=== PATIENT | female | born 1935 | race Caucasian/White ===

== ENCOUNTER 2017-10-18 06:56 | Inpatient (IN) | payer OTHER ==
[2017-10-04 12:24] VITALS: BMI 22.0
--- NOTE | 2017-10-04 13:07 | PAT Medication Instructions ---
Service Date Oct 04, 2017. Current Home Medication List Acetaminophen Tab (Tylenol), 650 MG PO Q6 PRN for Pain or Fever Aspirin (Aspir-81), 81 MG PO QAM Atorvastatin (Lipitor), 40 MG PO HS Cholecalciferol (Vitamin D3), 1 TAB PO QAM Diclofenac Sodium (Topical) (Diclofenac Sodium), 1 APPLN EX QID Felodipine (Felodipine ER), 10 MG PO QAM Fish Oil ([place]-3), 1 CAP PO QAM Folic Acid (Folic Acid), 1 MG PO QAM Hydroxychloroquine Sulfate (Plaquenil), 200 MG PO QAM Metoprolol Tartrate (Lopressor) (Lopressor), 12.5 MG PO BID Nitroglycerin (Nitrostat), 0.4 MG UT PRN Oxycodone HCl (Oxycodone HCl), 1 TAB PO TID Oxycodone/Acetaminophen 5MG/325MG (Percocet 5MG/325MG), 1 TABLET PO Q4H PRN for Pain Pantoprazole (Protonix), 40 MG PO QAM Prednisone Tab (Prednisone), 10-30 MG PO QAM Promethazine HCl (Phenadoz), 1 SUPP RE DAILY PRN for Nausea or Vomiting Trazodone Hcl (Trazodone), 50 MG PO HS Triamcinolone Acet (Triamcinolone Acetonide), 1 APPLN TOP BID Medication Instructions For Your Scheduled Surgery - Continue as directed: Nitroglycerin (Nitrostat), 0.4 MG UT PRN - Hold the following medications 2 weeks prior to surgery: Fish Oil ([place]-3), 1 CAP PO QAM - Hold the following medications 24 hours prior to surgery: Triamcinolone Acet (Triamcinolone Acetonide), 1 APPLN TOP BID Diclofenac Sodium (Topical) (Diclofenac Sodium), 1 APPLN EX QID - Hold the following medications the morning of surgery: Folic Acid (Folic Acid), 1 MG PO QAM Cholecalciferol (Vitamin D3), 1 TAB PO QAM - Take the following medications the morning of surgery with a sip of water OTHERWISE NOTHING TO EAT OR DRINK AFTER MIDNIGHT: Pantoprazole (Protonix), 40 MG PO QAM Prednisone Tab (Prednisone), 10-30 MG PO QAM Acetaminophen Tab (Tylenol), 650 MG PO Q6 PRN for Pain or Fever (may take if needed up to 4 hours prior to surgery) Aspirin (Aspir-81), 81 MG PO QAM Promethazine HCl (Phenadoz), 1 SUPP RE DAILY PRN for Nausea or Vomiting Metoprolol Tartrate (Lopressor) (Lopressor), 12.5 MG PO BID Felodipine (Felodipine ER), 10 MG PO QAM Hydroxychloroquine Sulfate (Plaquenil), 200 MG PO QAM - Take the following medications as scheduled the night before surgery: Trazodone Hcl (Trazodone), 50 MG PO HS Acetaminophen Tab (Tylenol), 650 MG PO Q6 PRN for Pain or Fever Promethazine HCl (Phenadoz), 1 SUPP RE DAILY PRN for Nausea or Vomiting Metoprolol Tartrate (Lopressor) (Lopressor), 12.5 MG PO BID Atorvastatin (Lipitor), 40 MG PO HS If you have any questions please call us at [phone] or [phone] or [phone]
[2017-10-04 13:39] LABS: BASO % 0.4 %; BASO ABS # 0.03 K/uL (0-0.2); COMPLETE YES; EOS % 2.1 %; HEMATOCRIT 33.1 % (37-47); IG% 0.3 %; LYMPH % 19.9 %; LYMPH ABS # 1.35 K/uL (1.2-3.4); MEAN CELL VOLUME 90.4 fL (80-100); MEAN CORPUSCULAR HEMOGLOBIN 28.1 pg (25-34); MEAN CORPUSCULAR HGB CONC 31.1 g/dl (32-36); MEAN PLATELET VOLUME 10.4 fL (7.4-10.4); MONO % 6.2 %; NEUT % 71.1 %; PLATELET COUNT 238 K/uL (130-400); RED BLOOD COUNT 3.66 M/uL (4.2-5.4)
[2017-10-04 13:46] LABS: ESTIMATED AVERAGE GLUCOSE 123 mg/dl; HA1C FLAG Normal (Normal)
[2017-10-04 13:53] LABS: BUN/CREATININE RATIO 12.6 (10-20); CALCIUM 8.4 mg/dl (8.5-10.1); CREATININE 1.55 mg/dl (0.60-1.20); POTASSIUM 3.9 mmol/L (3.5-5.1)
[2017-10-04 13:59] LABS: INR 1.1 (0.9-1.1); PARTIAL THROMBOPLASTIN RATIO 1.2
[2017-10-04 14:08] LABS: URINE APPEARANCE CLEAR (CLEAR); URINE BILIRUBIN NEG (NEG); URINE COLOR YELLOW; URINE NITRITE NEG (NEG); URINE PH 8.5 (4.5-7.5); URINE SPECIFIC GRAVITY 1.009 (1.000-1.030); UROBILINOGEN NEG (NEG)
[2017-10-04 14:22] LABS: MANUAL MICROSCOPIC REQUIRED? NO; REVIEW REQ? NO
--- NOTE | 2017-10-15 17:03 | History and Physical ---
History & Physical Date Oct 15, 2017. Chief Complaint Right shoulder pain History of Present Illness The patient is a 82 year old female with complaints of right shoulder pain for several years. She has tried conservative therapies with no relief. She would like to proceed with Right reverse TSA. Past Medical/Surgical History Medical Problems: (1) Benign hypertension (2) Lupus vulgaris (3) Thyroidectomy Additional History Hepatic Disease: No Endocrine Disorder: No Kidney Disease: No Hypertension: Yes Heart Disease: Yes Bleeding Tendencies: No Infectious Diseases: No Allergies Coded Allergies: Prochlorperazine (Verified Allergy, Mild, flushed, 10/04/17) VIDA Inhibitors (Verified Adverse Reaction, Unknown, RAPID PULSE, BULGING EYES, 10/04/17) Home Medications Scheduled Aspirin (Aspir-81), 81 MG PO QAM Atorvastatin (Lipitor), 40 MG PO HS Cholecalciferol (Vitamin D3), 1 TAB PO QAM Diclofenac Sodium (Topical) (Diclofenac Sodium), 1 APPLN EX QID Felodipine (Felodipine ER), 10 MG PO QAM Fish Oil ([place]-3), 1 CAP PO QAM Folic Acid (Folic Acid), 1 MG PO QAM Hydroxychloroquine Sulfate (Plaquenil), 200 MG PO QAM Metoprolol Tartrate (Lopressor) (Lopressor), 12.5 MG PO BID Nitroglycerin (Nitrostat), 0.4 MG UT PRN Oxycodone HCl (Oxycodone HCl), 1 TAB PO TID Pantoprazole (Protonix), 40 MG PO QAM Prednisone Tab (Prednisone), 10-30 MG PO QAM Trazodone Hcl (Trazodone), 50 MG PO HS Triamcinolone Acet (Triamcinolone Acetonide), 1 APPLN TOP BID Scheduled PRN Acetaminophen Tab (Tylenol), 650 MG PO Q6 PRN for Pain or Fever Oxycodone/Acetaminophen 5MG/325MG (Percocet 5MG/325MG), 1 TABLET PO Q4H PRN for Pain Promethazine HCl (Phenadoz), 1 SUPP RE DAILY PRN for Nausea or Vomiting Physical Examination Skin: warm/dry, no rash Eyes: normal inspection, EOMI ENT: normal ENT inspection Head: normocephalic, atraumatic Neck: supple, no adenopathy Respiratory/Chest: lungs clear, normal breath sounds Cardiovascular: regular rate, rhythm, + systolic murmur Abdomen / GI: normal bowel sounds, non tender Extremities: normal inspection, + pertinent finding (Decrease stregnth and decreased ROM of right upper extremity. ) Neurologic/Psych: no motor/sensory deficits, alert, oriented x 3 Diagnosis Primary osteoarthritis of right shoulder Plan of Treatment Patient is scheduled for a right reverse TSA. She has failed conservative therapy and would like to proceed with scheduled surgery. Risks and benefits to surgery were discussed with the patient and the patient understands these risks. All questions were answered. They will go home with Home health.
[~2017-10-18] VITALS: Ht 154.9 cm; Wt 54.4 kg
[2017-10-18] VITALS (10 sets, daily range): BP systolic 152–203; BP diastolic 62–81; PULSE 55–63; TEMP 36.4–36.9; O2SAT 96–99; Ht 154.9 cm; Wt 54.4 kg
[~2017-10-18 06:56] MED LIST: ACET325T96 PO; ACETAMINOPHEN 500 MG TAB PO SCH; ASPI-232 PO; CEFAZOLIN 2000MG IV PUSH 10 ML IV SCH; CHOL500021 PO; CeleBREX 200 MG CAP PO SCH; DEXAMETHASONE 4 MG TAB PO SCH; DICL1GEL34 EX; FAMOTIDINE 20 MG TAB PO SCH; FLV1 PO; GABAPENTIN 300 MG CAP PO SCH; HYDR200T5 PO; LACTATED RINGER'S 1000ML IV SCH; LPT/40 PO; METO25TA56 PO; METOCLOPRAMIDE HCL 10 MG TAB PO SCH; NITR0.4S UT; OMEG10007 PO; OXYC-57 PO; PANT40TA PO; PHNS125 RE; PLN5 PO; PRED10TA PO; ROPIVACAINE 0.5% 5 MG/ML 30 ML VIAL ONE; ROPIVACAINE 5MG/ML 30 ML 150 MG, BUPIVACAINE 0.5% MPF INJ 30 ML, EpINEphrine HCL INJ 0.... INFIL SCH; RXC30 PO; SODIUM CHLORIDE 0.9% 1000ML 1,000 ML IV SCH; TRAZ50TA35 PO; TRMCR515 TOP
--- NOTE | 2017-10-18 07:47 | History & Physical Bridge Note ---
H&P Re-Evaluation Bridge Note: I have examined the patient, reviewed the History & Physical and in the interval since the performance of the History & Physical I have noted the following changes of clinical significance: No changes noted
[2017-10-18] MEDS ORDERED: CeleBREX 200 MG CAP ONE (07:56)
[2017-10-18] MEDS ORDERED: ACETAMINOPHEN 500 MG TAB PO ONE (07:56)
[2017-10-18] MEDS ORDERED: DEXAMETHASONE 4 MG TAB ONE (07:56)
[2017-10-18] MEDS ORDERED: FAMOTIDINE 20 MG TAB ONE (07:56)
[2017-10-18] MEDS ORDERED: CEFAZOLIN SOD 2000MG/10 ML IV PUSH IV ONE (07:57)
[2017-10-18] MEDS ORDERED: GABAPENTIN 300 MG CAP PO ONE (07:57)
[2017-10-18] MEDS ORDERED: METOCLOPRAMIDE HCL 10 MG TAB PO ONE (07:58)
[2017-10-18] MEDS ORDERED: BACITRACIN 50000 UNIT VIAL ONE (08:06)
[2017-10-18] MEDS ORDERED: THROMBIN FOR SOLN 20000 UNIT KIT ONE (08:06)
[2017-10-18] MEDS ORDERED: VANCOMYCIN HCL 1000MG/20ML VIAL ONE (08:06)
[2017-10-18] MEDS ORDERED: POVIDONE-IODINE OP SOLN 30 ML BTL ONE (08:06)
[2017-10-18] MEDS ORDERED: ONDANSETRON INJ 2 MG/ML 2 ML VIAL IV PRN ×2 (08:15→11:30)
[2017-10-18] MEDS ORDERED: ATROPINE SULFATE 0.1 MG/ML 5ML SYR IV PRN (08:15)
[2017-10-18] MEDS ORDERED: EpHEDrine SULFATE INJ 50 MG/ML AMP IV PRN (08:15)
[2017-10-18] MEDS ORDERED: FENTANYL CITRATE INJ 50 MCG/1 ML 2 ML VIAL IV PRN (08:15)
[2017-10-18] MEDS ORDERED: FENTANYL CITRATE INJ 50 MCG/1 ML 2 ML VIAL ONE ×2 (08:41→10:17)
[2017-10-18] MEDS ORDERED: HYDROmorphone INJ 2 MG/ML SYR/VIAL ONE (10:17)
[2017-10-18] MEDS ORDERED: ROCURONIUM BROMIDE 10 MG/ML 5 ML VIAL IV ONE (10:33)
[2017-10-18] MEDS ORDERED: ONDANSETRON INJ 2 MG/ML 2 ML VIAL ONE (10:33)
[2017-10-18] MEDS ORDERED: EpHEDrine SULFATE 50MG/5ML SYR ONE (10:33)
[2017-10-18] MEDS ORDERED: PROPOFOL IV EMULSION 10 MG/ML 20 ML VIAL IV ONE (10:33)
[2017-10-18] MEDS ORDERED: HYDROCORTISONE SOD SUCCINATE 100 MG/2 ML VIAL ONE (10:33)
[2017-10-18] MEDS ORDERED: NEOSTIGMINE METHYLSULFATE 5 MG/5 ML SYR ONE (10:33)
[2017-10-18] MEDS ORDERED: PHENYLEPHRINE HCL INJ 10 MG/ML VIAL ONE (10:33)
[2017-10-18] MEDS ORDERED: LIDOCAINE HCL 2% 2 ML VIAL (20MG/ML) ONE (10:33)
[2017-10-18] MEDS ORDERED: GLYCOPYRROLATE INJ 0.2 MG/ML VIAL ONE (10:33)
[2017-10-18] MEDS ORDERED: LARYING-O-JET KIT (LTA) ONE ×2 (10:58)
[2017-10-18] MEDS ORDERED: BISACODYL 10 MG SUPP PR PRN (11:30)
[2017-10-18] MEDS ORDERED: MAGNESIUM HYDROXIDE SUSP 30 ML UDC PO PRN (11:30)
[2017-10-18] MEDS ORDERED: NITROGLYCERIN 0.4 MG SL PER TAB CHARGE UT PRN (11:30)
[2017-10-18] MEDS ORDERED: ALUMINUM/MAGNESIUM SUSP 30 ML UDC PO PRN (11:30)
--- NOTE | 2017-10-18 11:50 | Anesthesiology Progress Note ---
Anesthesia Post Op Note Date & Time Oct 18, 2017 at 11:49 Vital Signs Pain Intensity: 0 Vital Signs Past 12 Hours Date Time Temp Pulse Resp B/P (MAP) Pulse Ox O2 Delivery O2 Flow Rate FiO2 10/18/17 11:35 64 15 165/74 100 Oxymask 10 10/18/17 11:25 36.0 70 16 150/109 96 Oxymask 10 10/18/17 07:37 36.9 55 16 154/62 98 Room Air Notes Mental Status: alert / awake / arousable, participated in evaluation Pt Amnestic to Procedure: Yes Nausea / Vomiting: adequately controlled Pain: adequately controlled Airway Patency, RR, SpO2: stable & adequate BP & HR: stable & adequate Hydration State: stable & adequate Anesthetic Complications: no major complications apparent
--- NOTE | 2017-10-18 12:20 | DIAGNOSTIC IMAGING REPORT ---
R SHOULDER MIN 2 VIEWS ROUTINE HISTORY: 82 years-old Female Post shoulder surgery right shoulder osteoarthritis COMPARISON: None available TECHNIQUE: 2 views of the right shoulder FINDINGS: Postoperative changes compatible with recent reverse right shoulder total joint arthroplasty. Skin joann are seen overlying the surgical site. The bones appear mildly demineralized. Alignment is satisfactory without periprosthetic fracture or retained foreign body. Expected deep tissue swelling and air noted about the right shoulder with surgical drain in place. IMPRESSION: Status post reverse right shoulder total joint arthroplasty without complication identified. The above report was generated using voice recognition software. It may contain grammatical, syntax or spelling errors. Electronically signed by: Иван Wagoner M.D. 10/18/2017 12:18 PM Dictated Date/Time: 10/18/2017 12:17 PM
[2017-10-18] MEDS: TRANEXAMIC ACID INJ 1,000 MG in SYRINGE 0 ML IV SCH ×2 (13:41→13:43)
[2017-10-18] MEDS: D5W AND 1/2NSS + 20MEQ KCL 1,000 ML IV SCH (14:35)
[2017-10-18] MEDS: ACETAMINOPHEN 500 MG TAB PO SCH ×2 (14:37→21:32)
--- NOTE | 2017-10-18 17:50 | Medical Consult ---
Consultation Date of Consultation: Oct 18, 2017. Attending Physician: Kamaljit Collier M.D. Reason for Consultation: Post Op Medical Management History of Present Illness 82 year old female who is s/p right TSA today by Dr. Collier. Patient has been having increasing shoulder pain for the past several years. She failed outpatient conservative measures and therefore presented for the planned procedure today. Post operatively the patient is doing well. She reports her pain is well controlled. She has mild residual numbness to the RUE. She denies chest pain and shortness of breath. No abdominal pain or nausea. She has some mild lightheadedness and dizziness. No syncopal event. She has not voided since surgery. Past Medical/Surgical History Medical Problems: (1) Aortic stenosis, mild Status: Chronic (2) Breast cancer Permanent Comment: Palpable left breast mass Status post biopsy 12/30/2014 revealing invasive carcinoma ER weakly positive CA negative HER-2/bridgette positive Status post lumpectomy and sentinel lymph node biopsy 01/12/2015 2 separate primary tumors Both lesions are [id number] estrogen receptor negative, progesterone receptor negative, HER-2/bridgette positive Patient declined radiation and chemotherapy Self detected recurrent left breast mass Status post excisional biopsy 10/20/2015 revealing invasive carcinoma estrogen receptor negative, progesterone receptor negative, HER-2/bridgette positive Status post completion of radiation therapy 02/01/2016 received 6240 cGy Status: Chronic (3) CAD (coronary artery disease) Permanent Comment: 10/2013 - NSTEMI, s/p ADRIENNE to LAD Status: Chronic (4) CKD (chronic kidney disease), stage III Status: Chronic (5) Depression Status: Chronic (6) HTN (hypertension) Status: Chronic (7) LBBB (left bundle branch block) Status: Chronic (8) Lupus (systemic lupus erythematosus) Status: Chronic Surgical Problems: (1) History of appendectomy Status: Chronic (2) History of cholecystectomy Status: Chronic (3) History of hysterectomy Status: Chronic (4) History of partial thyroidectomy Status: Chronic (5) S/P tonsillectomy and adenoidectomy Status: Chronic (6) Status post partial mastectomy of left breast Status: Chronic Family History non contributory due to patient's advanced age Social History Smoking Status: Former Smoker Alcohol Use: none Allergies Coded Allergies: Prochlorperazine (Verified Allergy, Mild, flushed, 10/18/17) VIDA Inhibitors (Verified Adverse Reaction, Unknown, RAPID PULSE, BULGING EYES, 10/18/17) Home Medications Protonix (Pantoprazole Sodium) 40 Mg Tab 40 Mg PO QAM Percocet 5MG/325MG (Oxycodone/Acetaminophen) Tab 1 Tablet PO Q4H PRN PAIN Trazodone (Trazodone HCl) 50 Mg Tab 50 Mg PO HS Triamcinolone Acetonide (Triamcinolone Acet) 45 Appln/15 Gm Cr 1 Appln TOP BID 30 Days Diclofenac Sodium (Diclofenac Sodium (Topical)) 1 % Gel 1 Appln EX QID Oxycodone HCl 30 Mg Tab 1 Tab PO TID Vitamin D3 (Cholecalciferol) 5,000 Unit Chw 1 Tab PO QAM [place]-3 (Fish Oil) 1 Ea Cap 1 Cap PO QAM Tylenol (Acetaminophen) 325 Mg Tab 650 Mg PO Q6 PRN Folic Acid 1 Mg Tab 1 Mg PO QAM Aspir-81 (Aspirin) 81 Mg Tab 81 Mg PO QAM Lopressor (Metoprolol Tartrate) 25 Mg Tab 12.5 Mg PO BID Nitrostat (Nitroglycerin) 0.4 Mg Sub 0.4 Mg UT PRN Lipitor (Atorvastatin) 40 Mg Tab 40 Mg PO HS Plaquenil (Hydroxychloroquine Sulfate) 200 Mg Tab 200 Mg PO QAM Prednisone 10 Mg Tab 10-30 Mg PO QAM TAKES DIRECTED FOR lUPUS Felodipine ER (Felodipine) 5 Mg Tabcr 10 Mg PO QAM Current Inpatient Medications Current Inpatient Medications Medications (Trade) Dose Ordered Sig/[place] Route Start Time Stop Time Status Last Admin Dose Admin Lactated Ringer's 1,000 ml @ 60 mls/hr [id number] IV 10/18/17 06:00 10/18/17 22:39 10/18/17 08:01 60 MLS/HR Cefazolin Sodium 10 ml @ 2.5 mls/min PREOP IV 10/18/17 06:00 10/18/17 18:00 10/18/17 09:13 2.5 MLS/MIN Acetaminophen (Tylenol Tab) 1,000 mg PREOP PO 10/18/17 06:00 10/18/17 18:00 Celecoxib (CeleBREX CAP) 200 mg PREOP PO 10/18/17 06:00 10/18/17 18:00 Dexamethasone (Decadron Tab) 8 mg PREOP PO 10/18/17 06:00 10/18/17 18:00 Famotidine (Pepcid Tab) 20 mg PREOP PO 10/18/17 06:00 10/18/17 18:00 Gabapentin (Neurontin Cap) 300 mg PREOP PO 10/18/17 06:00 10/18/17 18:00 Metoclopramide HCl (Reglan Tab) 10 mg PREOP PO 10/18/17 06:00 10/18/17 18:00 Sodium Chloride 1,000 ml @ 15 mls/hr Q24H IV 10/18/17 06:00 10/19/17 05:59 Aspirin (Ecotrin Tab) 81 mg QAM PO 10/19/17 09:00 11/18/17 08:59 Atorvastatin Calcium (Lipitor Tab) 40 mg HS PO 10/18/17 21:00 11/17/17 20:59 Felodipine (Plendil Tabcr) 10 mg QAM PO 10/19/17 09:00 11/18/17 08:59 Metoprolol Tartrate (Lopressor Tab) 12.5 mg BID PO 10/18/17 21:00 11/17/17 20:59 Nitroglycerin (Nitrostat Tab) 0.4 mg UD PRN UT 10/18/17 11:30 11/17/17 11:29 Pantoprazole Sodium (Protonix Tab) 40 mg QAM PO 10/19/17 09:00 11/18/17 08:59 Prednisone (PredniSONE TAB) 10 mg QAM PO 10/19/17 09:00 11/18/17 08:59 Trazodone HCl (Desyrel Tab) 50 mg HS PO 10/18/17 21:00 11/17/17 20:59 Morphine Sulfate (MoRPHine SULFATE INJ) 2 mg Q4HWA PRN IV 10/18/17 11:30 11/01/17 11:29 Oxycodone HCl (Roxicodone Immediate Rel Tab) @ Q4HWA PRN PO 10/18/17 11:30 11/01/17 11:29 Ondansetron HCl (Zofran Inj) 4 mg Q6H PRN IV 10/18/17 11:30 11/17/17 11:29 10/18/17 14:39 4 MG Al Hydroxide/Mg Hydroxide (Maalox Susp) 30 ml Q4H PRN PO 10/18/17 11:30 11/17/17 11:29 Potassium Chloride/Dextrose/ Sod Cl 1,000 ml @ 75 mls/hr [id number] IV 10/18/17 14:00 11/17/17 13:59 10/18/17 14:35 75 MLS/HR Acetaminophen (Tylenol Tab) 1,000 mg Q8 PO 10/18/17 14:30 11/17/17 14:29 10/18/17 14:37 1,000 MG Magnesium Hydroxide (Milk Of Magnesia Susp) 30 ml Q6H PRN PO 10/18/17 11:30 11/17/17 11:29 Bisacodyl (Dulcolax Supp) 10 mg DAILY PRN CA 10/18/17 11:30 11/17/17 11:29 Senna (Senokot Tab) 17.2 mg HS PO 10/18/17 21:00 11/17/17 20:59 Docusate Sodium (coLACE CAP) 100 mg BID PO 10/18/17 21:00 11/17/17 20:59 Multivitamins (Multivitamin Tab) 1 tab DAILY PO 10/19/17 09:00 11/18/17 08:59 Cefazolin Sodium 1000 mg/Syringe 5 ml @ 2.5 mls/min Q8H IV 10/18/17 17:00 10/19/17 01:01 Review of Systems ROS per HPI, all other systems reviewed and negative Physical Exam Date Time Temp Pulse Resp B/P (MAP) Pulse Ox O2 Delivery O2 Flow Rate FiO2 10/18/17 16:00 Room Air 10/18/17 15:25 36.4 59 16 163/78 (106) 99 Nasal Cannula 2.0 10/18/17 14:25 36.4 60 18 170/79 (109) 98 Nasal Cannula 2.0 10/18/17 13:25 36.4 62 17 175/70 (105) 98 Nasal Cannula 2.0 10/18/17 12:55 36.4 62 16 163/73 (103) 96 Nasal Cannula 2.0 10/18/17 12:25 36.4 63 16 152/65 (94) 97 Nasal Cannula 2.0 10/18/17 12:25 Nasal Cannula 2.0 10/18/17 12:25 97 Nasal Cannula 2.0 10/18/17 12:05 36.7 64 18 154/69 96 Nasal Cannula 2 10/18/17 11:55 63 19 154/74 98 Nasal Cannula 2 10/18/17 11:45 62 15 166/70 100 Oxymask 10 10/18/17 11:35 64 15 165/74 100 Oxymask 10 10/18/17 11:25 36.0 70 16 150/109 96 Oxymask 10 10/18/17 07:37 36.9 55 16 154/62 98 Room Air General Appearance: WD/WN, no apparent distress Head: normocephalic, atraumatic Eyes: normal inspection, EOMI, sclerae normal ENT: hearing grossly normal, + pertinent finding (mucous membranes moist) Neck: supple, no JVD, trachea midline Respiratory/Chest: lungs clear, normal breath sounds, no respiratory distress Cardiovascular: regular rate, rhythm, no edema, normal peripheral pulses, + systolic murmur Abdomen/GI: normal bowel sounds, non tender, soft, no organomegaly Extremities/Musculoskelatal: no calf tenderness, normal capillary refill, + pertinent finding (s/p right shoulder surgery; surgical dressing intact; drain in place draining bloody drainage; CSM checks intact to RUE) Neurologic/Psych: no motor/sensory deficits, alert, normal mood/affect, oriented x 3 Skin: normal color, warm/dry Assessment & Plan S/P RIGHT TSA - POD#0 - activity and wound care orders as per ortho - pain control with bowel regimen - PT/OT - monitor H/H for acute blood loss anemia and transfuse blood products PRN CAD - stable, no reports of chest pain - continue ASA, beta neli, and statin HTN - BPs borderline elevated, possible due to pain / stress from surgery - continue metoprolol and felodipine for now, make adjustments as needed SLE - continue Prednisone 10mg daily - Plaquenil on hold due to recent surgery CKD STAGE III - baseline creat runs in the mid 1's - follow renal functions - continue to monitor, avoid nephrotoxic agents when able DVT PROPHYLAXIS - SCDs per ortho Attending Addendum: The patient was seen and examined S/P Right TSA this AM Complains to have some pain in right shoulder Denies any other symptoms O/E Hemodynamically stable Chest-clear to auscultate bilaterally Heart-regular./ [facility] Abdomen-benign,no masses,bowel sound present Extremities-negative Labs and Imaging studies were reviewed Agree with the Assessment and plan. Dr Shanta Hernandez Thank you for this consultation. We will follow the patient with you during their hospital stay. You can reach a member of the [facility] Hospitalist Team 21/05 via pager @ .
[2017-10-18] MEDS: CEFAZOLIN IV 1,000 MG in SYRINGE 0 ML IV SCH (17:52)
--- NOTE | 2017-10-18 18:22 | [facility] Operative Report ---
Operative Report Operative Date Oct 18, 2017. Pre-Operative Diagnosis Primary Osteoarthrits of the Right Shoulder Post-Operative Diagnosis same as preop Procedure(s) Performed Right Reverse Total Shoulder Arthroplasty Surgeon Dr. Kamaljit Collier Parts Back Counter Man Surgeon(s) Noel Rubio PA-C Estimated Blood Loss 50mL Findings As above Specimens A. Right Humeral Head Drains one Hemovac Anesthesia Gen. and interscalene block Complication(s) None Disposition Recovery Room / PACU Indications 82-year-old female long-standing osseous arthritis the right shoulder. She's fill conservative measures. She is [id number] glenohumeral joint with osteophyte formation off of the posterior glenoid. Given her age and tissue quality I recommended a reverse total shoulder arthroplasty to ensure no difficulties with her rotator cuff. She wishes to proceed to surgery. Description of Procedure Risks, benefits and alternatives to surgery including, but not limited to, infection DVT, pain, stiffness, need for revision surgery, failure to relieve all symptoms, damage to blood vessels, damage to nerves, risk of anesthesia were discussed with the patient and they wished to proceed. The patient was identified. Laterality was confirmed and marked. The patient received a preoperative antibiotic as well as an interscalene block. They were transferred to the operating room and placed in the supine position and induced into general endotracheal anesthesia per the anesthesia staff. The patient was then safely transferred to a slight beachchair position. The patient was secured in the [employer] positioner. All pressure points were well padded. The shoulder was prepped and draped in the usual sterile manner with ChloraPrep. The arm was secured in the Spider mayes. I made a longitudinal incision just lateral to the coracoid, sharply incising through the skin and utilizing Bovie electrocautery to achieve hemostasis. I identified the cephalic vein and mobilized it laterally with the deltoid. I mobilize the pectoralis and mobilize this medially releasing a small portion of the upper border of the pec tendon to improve visualization. I then identified and mobilized the conjoined tendon. I identified the long head of the biceps tendon. I then released the subscapularis. I pinned into place my humeral head version cutting guide and made my humeral head resection. I then sequentially reamed and sequentially broached up to a size 11. I then placed the trial humeral stem into the shoulder. I placed retractors around the glenoid and then excised the residual biceps tendon stump and glenoid labrum. I elevated the soft tissues and the inferior aspect of the glenoid to improve exposure and released tissues circumferentially. I then positioned and drilled for the central post for the glenoid plate. The glenoid plate was bone grafted with bone taken from the humeral head. I impacted the definitive glenoid plate into position and then placed a total of 4 compression screws that were then locked into position with locking caps. I then placed the size 38 glenosphere onto the plate and secured it with a locking screw. I then removed the trial humeral stem and placed the definitive humeral stem. I trialed off of the definitive stem. There was good fit with a plus [0) humeral tray and a plus 0 humeral liner. The definitive components used were [employer] Equinox: Humeral press-fit stem: 11 Standard glenoid plate Glenosphere: 38 Humeral tray:+ 0 Humeral polyethylene liner: + 0 I thoroughly irrigated the wound. Deep tissues were anesthetized with an orthomix solution. I then locked my definitive humeral tray into position with a torque limiting screw. I then impacted the definitive humeral polyethylene liner into position. I then reduced the shoulder. There was good range of motion and good stability after the reduction. The wound was again thoroughly irrigated and a Betadine soak was performed. A deep drain was placed. The deltopectoral interval was closed with interrupted #1 Ethibond suture. The subcutaneous tissue was closed with interrupted 2-0 Vicryl suture. The skin was closed with joann. A sterile dressing was applied. A sling was placed. All needle and sponge counts were correct at the end of the procedure. The patient was transferred to the PACU in stable condition without apparent complication. The PA-C was necessary for assistance with procedure for assistance in positioning, prepping, draping, retraction and closure. I attest to the content of the Intraoperative Record and any orders documented therein. Any exceptions are noted below.
[2017-10-18] MEDS: OXYCODONE HCL IR 5 MG TAB (IMMEDIATE RELEASE) PO PRN ×2 (20:16→23:00)
[2017-10-18] MEDS: TRAZODONE HCL 50 MG TAB PO SCH (20:17)
[2017-10-18] MEDS: METOPROLOL TARTRATE 25 MG TAB PO SCH (20:17)
[2017-10-18] MEDS: SENNA 8.6 MG TAB PO SCH (20:18)
[2017-10-18] MEDS: DOCUSATE SODIUM 100 MG CAP PO SCH (20:18)
[2017-10-18] MEDS: ATORVASTATIN 40 MG TAB PO SCH (20:18)
[2017-10-19] VITALS (9 sets, daily range): BP systolic 173–214; BP diastolic 68–98; PULSE 56–70; TEMP 36.5–36.8; O2SAT 95–97
[2017-10-19] MEDS: CEFAZOLIN IV 1,000 MG in SYRINGE 0 ML IV SCH (00:37)
[2017-10-19] MEDS: MoRPHine SULFATE 2 MG/ML CARP IV PRN ×4 (00:43→13:40)
[2017-10-19] MEDS: OXYCODONE HCL IR 5 MG TAB (IMMEDIATE RELEASE) PO PRN ×5 (02:06→23:22)
[2017-10-19] MEDS: D5W AND 1/2NSS + 20MEQ KCL 1,000 ML IV SCH (03:09)
[2017-10-19] MEDS: ACETAMINOPHEN 500 MG TAB PO SCH ×3 (05:25→21:07)
[2017-10-19 05:42] LABS: MEAN CELL VOLUME 88.8 fL (80-100); MEAN CORPUSCULAR HEMOGLOBIN 28.3 pg (25-34); MEAN CORPUSCULAR HGB CONC 31.9 g/dl (32-36); MEAN PLATELET VOLUME 10.7 fL (7.4-10.4); PLATELET COUNT 180 K/uL (130-400); RED BLOOD COUNT 3.04 M/uL (4.2-5.4); WHITE BLOOD COUNT 8.85 K/uL (4.8-10.8)
[2017-10-19 06:11] LABS: BUN/CREATININE RATIO 16.4 (10-20); CALCIUM 7.9 mg/dl (8.5-10.1); CREATININE 1.32 mg/dl (0.60-1.20); POTASSIUM 4.2 mmol/L (3.5-5.1)
--- NOTE | 2017-10-19 06:45 | Orthopedic Progress Note ---
Orthopedic Progress Note Date of Service Oct 19, 2017. Subjective Post OP Day: 1 Reports: complaints (there is alot of pain in her shoulder), Denies: chest pain , SOB, nausea / vomiting, light headedness, calf pain Additional Notes: Patient states that she has a lot of pain in her shoulder this morning and throughout the night. She has been getting morphine but that does not seem to take the edge off. Objective calves soft nontender, N/V intact, capillary refill less than 2 sec., dressing C /D/I, A&O x3, toes mobile, hemovac drainage (25cc) Date Time Temp Pulse Resp B/P (MAP) Pulse Ox O2 Delivery O2 Flow Rate FiO2 10/19/17 03:13 36.5 56 16 176/77 (110) 97 Room Air 10/18/17 23:04 36.4 62 16 193/73 (113) 96 Room Air 10/18/17 21:30 179/73 (108) 10/18/17 20:10 194/71 (112) 10/18/17 20:07 36.5 62 18 203/81 (121) 97 Room Air 10/18/17 19:50 Room Air 10/18/17 16:00 Room Air 10/18/17 15:25 36.4 59 16 163/78 (106) 99 Nasal Cannula 2.0 10/18/17 14:25 36.4 60 18 170/79 (109) 98 Nasal Cannula 2.0 10/18/17 13:25 36.4 62 17 175/70 (105) 98 Nasal Cannula 2.0 10/18/17 12:55 36.4 62 16 163/73 (103) 96 Nasal Cannula 2.0 10/18/17 12:25 36.4 63 16 152/65 (94) 97 Nasal Cannula 2.0 10/18/17 12:25 Nasal Cannula 2.0 10/18/17 12:25 97 Nasal Cannula 2.0 10/18/17 12:05 36.7 64 18 154/69 96 Nasal Cannula 2 10/18/17 11:55 63 19 154/74 98 Nasal Cannula 2 10/18/17 11:45 62 15 166/70 100 Oxymask 10 10/18/17 11:35 64 15 165/74 100 Oxymask 10 10/18/17 11:25 36.0 70 16 150/109 96 Oxymask 10 10/18/17 07:37 36.9 55 16 154/62 98 Room Air Laboratory Results 24 Hours: Test 10/19/17 05:13 Hematocrit 27.0 % Hemoglobin 8.6 g/dL Assessment & Plan Assessment: POD#1 Right reverse TSA Plan: Medical Management PT/OT Discharge - assisted living Inhouse Planning Pain Management: Morphine, Oxy IR DVT Prophylaxis: ASA Discharge Planning Pain Management: Oxy IR Therapy: Physical Therapy
--- NOTE | 2017-10-19 08:04 | Anesthesiology Progress Note ---
Anesthesia Post Op Note Date & Time Oct 19, 2017 at 08:03 Vital Signs Pain Intensity: 10.0 Vital Signs Past 12 Hours Date Time Temp Pulse Resp B/P (MAP) Pulse Ox O2 Delivery O2 Flow Rate FiO2 10/19/17 03:13 36.5 56 16 176/77 (110) 97 Room Air 10/18/17 23:04 36.4 62 16 193/73 (113) 96 Room Air 10/18/17 21:30 179/73 (108) 10/18/17 20:10 194/71 (112) 10/18/17 20:07 36.5 62 18 203/81 (121) 97 Room Air Notes Mental Status: alert / awake / arousable, participated in evaluation Pt Amnestic to Procedure: Yes Nausea / Vomiting: adequately controlled Pain: adequately controlled Airway Patency, RR, SpO2: stable & adequate BP & HR: stable & adequate Hydration State: stable & adequate Anesthetic Complications: no major complications apparent
[2017-10-19] MEDS: MULTIVITAMIN TAB PO SCH (08:50)
[2017-10-19] MEDS: DOCUSATE SODIUM 100 MG CAP PO SCH ×3 (08:51→21:05)
[2017-10-19] MEDS: ASPIRIN 81 MG ECTAB PO SCH (08:51)
[2017-10-19] MEDS: PANTOprazole SOD 40 MG TAB PO SCH (08:52)
[2017-10-19] MEDS: FELODIPINE 5 MG TABCR PO SCH (08:52)
[2017-10-19] MEDS: METOPROLOL TARTRATE 25 MG TAB PO SCH ×2 (08:54→21:04)
[2017-10-19] MEDS ORDERED: NURSING VERBAL MED ORDER ONE ×2 (09:30→15:30)
[2017-10-19] MEDS ORDERED: OXYCODONE HCL 10 MG TABCR (OXYCONTIN) PO SCH (09:30)
[2017-10-19] MEDS ORDERED: OXYC-292 PO (13:12)
[2017-10-19] MEDS: OXYCODONE HCL 10 MG TABCR (OXYCONTIN) PO SCH ×2 (13:40→21:05)
--- NOTE | 2017-10-19 13:57 | Hospitalist Progress Note ---
Hospitalist Progress Note Date of Service Oct 19, 2017. (Mable Morales CRNP) Subjective Patient seen and examined. Reports uncontrolled right shoulder pain. Denies chest pain and shortness of breath. No headache or blurred vision. Had mild nausea but denies vomiting and abdominal pain. (Mable Morales CRNP) Objective Vital Signs Date Time Temp Pulse Resp B/P (MAP) Pulse Ox O2 Delivery O2 Flow Rate FiO2 10/19/17 12:10 36.8 70 16 198/68 (111) 97 Room Air 10/19/17 08:57 56 175/77 (109) 10/19/17 07:50 36.7 57 16 190/75 (113) 97 Room Air 10/19/17 07:15 Room Air 10/19/17 03:13 36.5 56 16 176/77 (110) 97 Room Air 10/18/17 23:04 36.4 62 16 193/73 (113) 96 Room Air 10/18/17 21:30 179/73 (108) 10/18/17 20:10 194/71 (112) 10/18/17 20:07 36.5 62 18 203/81 (121) 97 Room Air 10/18/17 19:50 Room Air 10/18/17 16:00 Room Air 10/18/17 15:25 36.4 59 16 163/78 (106) 99 Nasal Cannula 2.0 10/18/17 14:25 36.4 60 18 170/79 (109) 98 Nasal Cannula 2.0 10/18/17 13:25 36.4 62 17 175/70 (105) 98 Nasal Cannula 2.0 (Mable Morales CRNP) Physical Exam General Appearance: WD/WN, no apparent distress Respiratory/Chest: lungs clear, normal breath sounds, no respiratory distress Cardiovascular: regular rate, rhythm, no edema Abdomen: normal bowel sounds, non tender, soft Extremities: + pertinent finding (right shoulder dressing intact, drain in place draining bloody drainage, CSM checks intac to RUE) Neurologic/Psychiatric: no motor/sensory deficits, alert, normal mood/affect, oriented x 3 (Mable Morales CRNP) Laboratory Results Item Value Date Time White Blood Count 8.85 K/uL 10/19/17 0513 Hemoglobin 8.6 g/dL L 10/19/17 0513 Hematocrit 27.0 % L 10/19/17 05 Platelet Count 180 K/uL 10/19/17 05 Sodium Level 137 mmol/L 10/19/17 05 Potassium Level 4.2 mmol/L 10/19/17 0513 Blood Urea Nitrogen 22 mg/dl H 10/19/17 0513 Creatinine 1.32 mg/dl H 10/19/17 05 (Mable Morales CRNP) Assessment and Plan S/P RIGHT TSA - POD#1 - activity and wound care orders as per ortho - patient reporting increased pain today; typically takes oxy ER 30mg TID at home - will resume and d/c current pain meds ordered by ortho; keep IV morphine for breakthrough pain, discussed with Sander Segal PA-C - PT/OT ACUTE BLOOD LOSS ANEMIA - hgb 8.6 - no role for transfusion at this time - continue to monitor H/H CAD - stable, no reports of chest pain - continue ASA, beta neli, and statin HTN - BPs elevated - likely due to pain; also likely unable to obtain accurate BP readings (unable to use LUE due to hx mastectomy, RUE with recent surgery) - continue metoprolol and felodipine - re-evaluate once pain is controlled SLE - continue Prednisone 10mg daily - Plaquenil on hold due to recent surgery CKD STAGE III - baseline creat runs in the mid 1's - creat 1.3 today - continue to monitor, avoid nephrotoxic agents when able DVT PROPHYLAXIS - SCDs per ortho (Mable Morales CRNP) Attending Addendum Pt was seen and examined. Agreed with Mable CRUZ's assessment and plan. MD Candy (Lars Gupta M.D.)
[2017-10-19] MEDS ORDERED: OXYCODONE HCL IR 30 MG TAB (IMMEDIATE RELEASE) PO SCH (14:00)
[2017-10-19] MEDS ORDERED: MoRPHine SULFATE 2 MG/ML CARP IV PRN (14:30)
[2017-10-19] MEDS: SENNA 8.6 MG TAB PO SCH (21:00)
[2017-10-19] MEDS: ATORVASTATIN 40 MG TAB PO SCH (21:05)
[2017-10-19] MEDS: TRAZODONE HCL 50 MG TAB PO SCH (21:05)
[2017-10-20] VITALS (8 sets, daily range): BP systolic 137–214; BP diastolic 71–127; PULSE 56–60; TEMP 36.4; O2SAT 99
[2017-10-20] MEDS: MoRPHine SULFATE 2 MG/ML CARP IV PRN ×2 (00:47→03:46)
[2017-10-20] MEDS: CLONIDINE HCL 0.1 MG TAB PO PRN ×2 (01:26→08:12)
[2017-10-20] MEDS: ACETAMINOPHEN 500 MG TAB PO SCH (05:59)
[2017-10-20 06:04] LABS: HEMATOCRIT 29.8 % (37-47); MEAN CORPUSCULAR HEMOGLOBIN 28.7 pg (25-34); MEAN CORPUSCULAR HGB CONC 31.9 g/dl (32-36); MEAN PLATELET VOLUME 10.5 fL (7.4-10.4); PLATELET COUNT 189 K/uL (130-400); RED BLOOD COUNT 3.31 M/uL (4.2-5.4); WHITE BLOOD COUNT 6.54 K/uL (4.8-10.8)
[2017-10-20 06:24] LABS: CALCIUM 8.3 mg/dl (8.5-10.1); CREATININE 1.27 mg/dl (0.60-1.20); POTASSIUM 4.2 mmol/L (3.5-5.1)
[2017-10-20] MEDS: METOPROLOL TARTRATE 25 MG TAB PO SCH (08:13)
--- NOTE | 2017-10-20 08:16 | Orthopedic Progress Note ---
Orthopedic Progress Note Date of Service Oct 20, 2017. Subjective Post OP Day: 2 Reports: feeling well, Denies: complaints Objective calves soft nontender, dressing C/D/I, A&O x3, CMS intact Date Time Temp Pulse Resp B/P (MAP) Pulse Ox O2 Delivery O2 Flow Rate FiO2 10/20/17 08:11 60 10/20/17 08:09 36.4 56 16 211/115 (147) 99 Room Air 177/127 (144) 10/20/17 04:55 165/71 (102) 10/20/17 02:29 193/80 (117) 10/20/17 01:25 214/89 (130) 10/20/17 00:15 190/77 (114) 10/19/17 23:37 36.6 59 14 214/90 (131) 95 Room Air 10/19/17 23:26 Room Air 10/19/17 18:59 65 173/83 (113) 10/19/17 17:00 96 Room Air 10/19/17 15:08 36.5 62 18 183/98 (126) 96 Room Air 10/19/17 13:19 180/79 (112) 10/19/17 12:10 36.8 70 16 198/68 (111) 97 Room Air 10/19/17 08:57 56 175/77 (109) Laboratory Results 24 Hours: Test 10/20/17 05:19 Hematocrit 29.8 % Hemoglobin 9.5 g/dL Assessment & Plan Assessment: POD#2 Right reverse TSA Plan: Medical Management PT/OT Discharge - plan for dc today Inhouse Planning Pain Management: Oxycontin, Morphine, Oxy IR DVT Prophylaxis: TEDs, SCDs, ASA Discharge Planning Discharge Planning: home with oppt Pain Management: Oxy IR Therapy: Physical Therapy
[2017-10-20] MEDS ORDERED: RXC5 PO (08:19)
[2017-10-20] MEDS ORDERED: ACET-24 PO (08:19)
--- NOTE | 2017-10-20 08:25 | Discharge Instructions ---
Discharge Instructions Date of Service Oct 20, 2017. Admission Reason for Admission: Right Shoulder Osteoarthritis Discharge Discharge Diagnosis / Problem: Right Shoulder Djd Discharge Goals Goal(s): Decrease discomfort, Improve function, Increase independence Activity Recommendations Activity Limitations: per Instructions/Follow-up section . Instructions / Follow-Up Instructions / Follow-Up ACTIVITY RECOMMENDATIONS: SELF CARE INSTRUCTIONS AFTER TOTAL SHOULDER ARTHROPLASTY REVERSE A. You may do daily exercises as taught in physical therapy while in hospital. No lifting with the operative arm. B. You are to wear your sling/immobilizer at all times EXCEPT when performing your daily exercises and for hygiene purposes. C. You may perform dry, daily dressing changes. Please keep your incision covered. You may shower 48 hours after surgery. Do not apply soap or any ointment/ lotions directly over incision. Do not soak incision in bath tub/swimming pool. D. You may use ice as needed to operative shoulder. SPECIAL CARE INSTRUCTIONS: VERY IMPORTANT TO READ AND REVIEW A. There are a few signs you need to watch for after you are home. Call [facility] at [phone] if you experience any of the followin. Increased severe shoulder pain. Some pain is expected especially when you exercise. 2. Increased swelling in you shoulder or arm; pain or swelling in either upper extremity. 3. Any fluid drainage from the incision. 4. Shortness of breath or chest pain. B. Please call [facility] at [phone] if you have any questions or concerns about your operation or recovery. C. Call your physician if: 1. Temperature is greater than 101 degrees (F). 2. Pain is not relieved by prescribed pain medications. 3. Increase drainage or redness from incision. 4. Unanswered questions or concerns. FOLLOW UP VISIT: Please call [facility] at [phone] to schedule a follow up appointment with Dr. Collier or his PA in 12-14 days from your surgery date. Current Hospital Diet Patient's current hospital diet: Regular Diet Discharge Diet Recommended Diet: Regular Diet Procedures Procedures Performed: Right Reverse Total Shoulder Arthroplasty Pending Studies Studies pending at discharge: no Laboratory Results Hemoglobin A1c Test 10/04/17 13:09 Range/Units Estimated Average Glucose 123 mg/dl Hemoglobin A1c 5.9 H 4.5-5.6 % Medical Emergencies . Who to Call and When: Medical Emergencies: If at any time you feel your situation is an emergency, please call 911 immediately. . Non-Emergent Contact Non-Emergency issues call your: Surgeon Call Non-Emergent contact if: temperature is above 101.5, your pain is not controlled, your pain is worsening, wound has increased drainage . "Provider Documentation" section prepared by Noel Rubio. . VTE Core Measure Inpt VTE Proph given/why not?: Other Anticoagulation PA Drug Monitoring Program Search Results: patient reviewed within database, see additional documentation Drug Monitoring Findings: Pt receiving Oxycontin and Percocet regularly through Dr Stout/Jorge's office. Will need to return to them for her Oxycontin.
[2017-10-20] MEDS ORDERED: HydrALAZINE HCL 20 MG/ML VIAL IV. PRN (08:30)
[2017-10-20] MEDS: DOCUSATE SODIUM 100 MG CAP PO SCH (09:00)
[2017-10-20] MEDS: PANTOprazole SOD 40 MG TAB PO SCH (09:13)
[2017-10-20] MEDS: FELODIPINE 5 MG TABCR PO SCH (09:13)
[2017-10-20] MEDS: MULTIVITAMIN TAB PO SCH (09:13)
[2017-10-20] MEDS: ASPIRIN 81 MG ECTAB PO SCH (09:13)
[2017-10-20] MEDS: OXYCODONE HCL 10 MG TABCR (OXYCONTIN) PO SCH (09:27)
[2017-10-20] MEDS: OXYCODONE HCL IR 5 MG TAB (IMMEDIATE RELEASE) PO PRN ×2 (09:28→13:50)
--- NOTE | 2017-10-21 10:51 | DISCHARGE SUMMARY ---
DISCHARGE DIAGNOSIS: Degenerative joint disease, right shoulder. SECONDARY DIAGNOSES: Hypertension, lupus vulgaris, thyroidectomy, history of heart disease, GERD, hypercholesterolemia. CONSULTS: NANCY Burdick/Gauri Hernandez MD COMPLICATIONS: None. PROCEDURES: Right reverse total shoulder arthroplasty by Dr. Collier on 10/18/2017. BRIEF HISTORY: As dictated in the history and physical. HOSPITAL SUMMARY: The patient was admitted on the above-noted date and had the above-noted surgery performed, which she tolerated well. On the first postoperative day, the patient was having a lot of pain in the shoulder. She had no other complaints. She had been getting morphine, but did not seem to take the edge off. Calves were soft and nontender. Neurovascularly was intact. Cap refill is less than 2 seconds. Dressings clean, dry and intact and vital signs were stable and she was afebrile. Hemoglobin was 8.6. She was continued on her protocol and pain medications were adjusted and by her second postoperative day, she was feeling well and had no complaints. Calves were soft and nontender, neurovascularly intact. Dressings clean, dry and intact and CMS was intact. She was alert and oriented x3. Vital signs were stable. Her blood pressure was fluctuating, which was being managed by medicine service. By that morning, BP was 137/72, pulse 59, respirations 16, pulse ox was 99 on room air. She was otherwise remaining stable and it was felt that she could be discharged to home. For further review, please see chart. LABORATORY AND X-RAY DATA: As per chart. DISCHARGE INSTRUCTIONS: The patient was discharged to home in satisfactory condition on 10/20/2017. DIET: Regular. ACTIVITY: Follow reverse total shoulder arthroplasty instructions and special care instructions as noted and follow up with Dr. Collier in 2 weeks. The patient to call for appointment if one has not been made for you. DISCHARGE MEDICATIONS: Acetaminophen 1000 mg p.o. q. 8 hours for 21 days, oxycodone 5-10 mg p.o. q. 4 hours p.r.n. pain. Resume home meds as listed in the discharge instructions section. Stop taking original home doses of Tylenol and stop taking Percocet.
== END 2017-10-20 13:48 | disposition home or self-care (01) | DRG 483 ==
LOC: C.ACU 06:56 → C.3E 07:50 → ENRESERV 11:56
PROVIDERS: ADMIT Orthopaedic Surgery; ATTEND Orthopaedic Surgery
PROC: 0RRJ00Z Replacement of Right Shoulder Joint with Reverse Ball and Socket Synthetic Substitute, Open Approach (ICD-10-PCS; principal; 2017-10-18 08:30)
DX: M19.011 Primary osteoarthritis, right shoulder (principal); D62 Acute posthemorrhagic anemia; A18.4 Tuberculosis of skin and subcutaneous tissue; G89.18 Other acute postprocedural pain; R11.0 Nausea; I25.10 Atherosclerotic heart disease of native coronary artery without angina pectoris; I12.9 Hypertensive chronic kidney disease with stage 1 through stage 4 chronic kidney disease, or unspecified chronic kidney disease; Z79.899 Other long term (current) drug therapy; N18.3 Chronic kidney disease, stage 3 (moderate); M32.9 Systemic lupus erythematosus, unspecified; K21.9 Gastro-esophageal reflux disease without esophagitis; E78.00 Pure hypercholesterolemia, unspecified; E78.5 Hyperlipidemia, unspecified; I73.00 Raynaud's syndrome without gangrene; F40.240 Claustrophobia; I25.2 Old myocardial infarction; Z90.12 Acquired absence of left breast and nipple; Z95.5 Presence of coronary angioplasty implant and graft; Z87.891 Personal history of nicotine dependence; Z79.891 Long term (current) use of opiate analgesic; Z79.82 Long term (current) use of aspirin; Z79.52 Long term (current) use of systemic steroids

== ENCOUNTER 2017-12-27 20:30 | Observation (INO) | payer OTHER ==
[~2017-12-27] VITALS: Ht 154.9 cm; Wt 49.9 kg
[~2017-12-27 20:30] MED LIST changes: +ACET-24 PO; -ACET325T96 PO; -ACETAMINOPHEN 500 MG TAB PO SCH; -CEFAZOLIN 2000MG IV PUSH 10 ML IV SCH; -CeleBREX 200 MG CAP PO SCH; -DEXAMETHASONE 4 MG TAB PO SCH; -FAMOTIDINE 20 MG TAB PO SCH; -GABAPENTIN 300 MG CAP PO SCH; -LACTATED RINGER'S 1000ML IV SCH; -METOCLOPRAMIDE HCL 10 MG TAB PO SCH; +OXYC-292 PO; -OXYC-57 PO; -ROPIVACAINE 0.5% 5 MG/ML 30 ML VIAL ONE; -ROPIVACAINE 5MG/ML 30 ML 150 MG, BUPIVACAINE 0.5% MPF INJ 30 ML, EpINEphrine HCL INJ 0.... INFIL SCH; -RXC30 PO; +RXC5 PO; -SODIUM CHLORIDE 0.9% 1000ML 1,000 ML IV SCH
[2017-12-27] MEDS ORDERED: FENTANYL CITRATE INJ 50 MCG/1 ML 2 ML VIAL IV STA (20:53)
[2017-12-27 21:34] LABS: BASO % 0.2 %; BASO ABS # 0.01 K/uL (0-0.2); EOS % 0.2 %; EOS ABS # 0.01 K/uL (0-0.5); HEMATOCRIT 31.1 % (37-47); IG# 0.01 K/uL (0.00-0.02); LYMPH % 8.4 %; LYMPH ABS # 0.45 K/uL (1.2-3.4); MEAN CELL VOLUME 87.6 fL (80-100); MEAN CORPUSCULAR HEMOGLOBIN 28.2 pg (25-34); MEAN CORPUSCULAR HGB CONC 32.2 g/dl (32-36); MEAN PLATELET VOLUME 9.9 fL (7.4-10.4); MONO % 0.6 %; MONO ABS # 0.03 K/uL (0.11-0.59); NEUT % 90.4 %; NEUT ABS # 4.86 K/uL (1.4-6.5); PLATELET COUNT 255 K/uL (130-400); RED CELL DISTRIBUTION WIDTH CV 15.1 % (11.5-14.5); RED CELL DISTRIBUTION WIDTH SD 48.9 fL (36.4-46.3); WHITE BLOOD COUNT 5.37 K/uL (4.8-10.8)
[2017-12-27] MEDS ORDERED: OXYC-57 PO (21:54)
[2017-12-27] MEDS ORDERED: ACET-1311 PO (21:54)
[2017-12-27] MEDS ORDERED: PLN/10 PO (21:54)
[2017-12-27] MEDS ORDERED: OXYC-787 PO (21:54)
[2017-12-27] MEDS ORDERED: ASPI81TA28 PO (21:54)
[2017-12-27] MEDS ORDERED: PHNS25 PR (21:54)
[2017-12-27 21:59] LABS: PTT PATIENT 29.5 SECONDS (21.0-31.0)
[2017-12-27] MEDS ORDERED: LORAZEPAM 2 MG/ML 1 ML VIAL IV STA (22:02)
[2017-12-27 22:03] LABS: CALCIUM 8.6 mg/dl (8.5-10.1); CREATININE 1.76 mg/dl (0.60-1.20)
--- NOTE | 2017-12-27 22:04 | DIAGNOSTIC IMAGING REPORT ---
CHEST ONE VIEW PORTABLE CLINICAL HISTORY: 82 years-old Female presenting with cp eval for ptx. TECHNIQUE: Portable upright AP view of the chest was obtained. COMPARISON: 11/17/2013. FINDINGS: Atherosclerosis of aortic arch. Cardiac silhouette enlarged. Lungs are hyperinflated. Heterogeneity of lung parenchyma with relative radiolucency of the upper lobes. No large pleural effusion or pneumothorax. Surgical clips noted adjacent to the left lateral aspect of the trachea. Right reverse shoulder arthroplasty. Degenerative changes of the spine. Osteopenia suspected. Cholecystectomy clips noted. IMPRESSION: 1. Emphysema. No superimposed infiltrate to suggest pneumonia. 2. No pneumothorax. 3. Cardiomegaly. Electronically signed by: Kamaljit Welch M.D. 12/27/2017 10:02 PM Dictated Date/Time: 12/27/2017 10:01 PM
[2017-12-27] MEDS ORDERED: SODIUM CHLORIDE 0.9% 250ML 250 ML IV STA (22:05)
[2017-12-27] MEDS ORDERED: OPTIRAY 320 IV PRN (22:15)
[2017-12-27 22:38] LABS: POTASSIUM 4.1 mmol/L (3.5-5.1)
--- NOTE | 2017-12-27 22:46 | DIAGNOSTIC IMAGING REPORT ---
(CHEST FOR PE) ANGIO WITH CLINICAL HISTORY: 82 years-old Female presenting with ^eval for PE/breast mass ^left sided CP. TECHNIQUE: Multidetector CT angiography of the chest was performed after administration of intravenous contrast. 3-D volumetric and/or maximum intensity projection (MIP) images were subsequently reconstructed for review. IV contrast: 91 mL of Optiray 320. A dose lowering technique was used consistent with the principles of ALARA (as low as reasonably achievable). COMPARISON: 01/15/2008. CT DOSE (mGy.cm): The estimated cumulative dose is 239.66 mGy.cm. FINDINGS: Ad Clerk topogram: Reversal right shoulder arthroplasty. Cholecystectomy clips. Pulmonary vasculature: The study is suboptimal for the assessment of the pulmonary vascular tree secondary to respiratory motion artifact. Allowing for limited image quality, no central filling defect to suggest pulmonary embolus. Main pulmonary artery enlarged measuring 3.3 cm in transverse dimension. No flattening of the interventricular septum. No intracardiac filling defect. No reflux of contrast into the hepatic veins. Remaining chest: On soft tissue windows, enlarged right lobe of the thyroid, which is multinodular. Skin thickening in the left breast could suggest prior radiation. No axillary, supraclavicular, or internal mammary lymphadenopathy. Mildly prominent prevascular lymph nodes in the mediastinum measure up to 8 mm in the short axis. View small hilar lymph nodes also evident. Atherosclerosis of the aorta. Tortuosity of the cervical vessels could suggest chronic hypertension. Normal heart size. Coronary artery calcification. No pericardial or pleural effusion. Significant biliary ductal dilatation, increased from prior exam. On lung windows, minimal dependent changes likely atelectasis. No other focal nodule or infiltrate. Airways patent. On bone windows, exaggerated thoracic kyphosis and degenerative change of the spine. Osteopenia. Reverse right total shoulder arthroplasty. IMPRESSION: 1. Allowing for suboptimal image quality, no evidence of pulmonary embolus. No acute intrathoracic pathology. 2. Possibly reactive subcentimeter mediastinal and hilar lymph nodes. 3. Significant biliary ductal dilatation, increased from prior exam in 2007. This may be due to an exuberant reservoir effect in the post cholecystectomy state. 4. Osteopenia. Electronically signed by: Kamaljit Welch M.D. 12/27/2017 10:45 PM Dictated Date/Time: 12/27/2017 10:38 PM
[2017-12-27] MEDS ORDERED: METOPROLOL TARTRATE 50 MG TAB PO ONE (23:17)
[2017-12-27 23:58] LABS: ALBUMIN 3.4 gm/dl (3.4-5.0); ALKALINE PHOSPHATASE 259 U/L (45-117); AST/SGOT 92 U/L (15-37); LIPASE 43 U/L (73-393); TOTAL PROTEIN 7.5 gm/dl (6.4-8.2)
[2017-12-28] VITALS (10 sets, daily range): BP systolic 159–176; BP diastolic 64–77; PULSE 51–68; TEMP 36.4–37.1; O2SAT 95–97; Ht 154.9 cm; Wt 49.9 kg
[2017-12-28 00:08] LABS: ALT/SGPT 108 U/L (12-78)
--- NOTE | 2017-12-28 00:36 | EMERGENCY ROOM VISIT NOTE ---
History Report prepared by Anthony: Yusuf Beatty Under the Supervision of: Dr. Kahlil Toribio M.D. First contact with patient: 20:45 Chief Complaint: CHEST PAIN Stated Complaint: CHEST PAIN Nursing Triage Summary: couple days ago she woke and took a deep breath and it hurt and pain has been irritating History of Present Illness The patient is an 82 year old female who presents to the Emergency Room with complaints of worsening left sided chest pain for the past 3 days. She states that the pain started as a dull ache and has gotten worse. The patient notes that the pain is worse with deep inspiration and sitting up. Leaning forward helps with the pain. She additionally notes that she is short of breath which is also worsened with sitting up and relieved with leaning forwards. She denies any fever, cough, abdominal pain, fever, leg swelling, and history of blood clots. The patient states that she has a history of a stent placed 3 years ago, and she states that the pain is different than it was that time. She additionally notes that she has a history of breast cancer, and she had a lumpectomy 2-3 years ago, and then a double lumpectomy 2 years ago, and radiation in 2016. She denies any redness of the breast or any nipple discharge. She also notes that she had a recent shoulder replacement. Source of History: patient Onset: 3 days ago Position: chest (left) Quality: ache, dull Timing: worsening Modifying Factors (Worsening): other (deep inspiration and sitting up) Modifying Factors (Relieving): other (leaning forward) Associated Symptoms: + SOB, No fevers, No cough, No abdominal pain Review of Systems See HPI for pertinent positives & negatives. A total of 10 systems reviewed and were otherwise negative. Past Medical & Surgical Medical Problems: (1) Aortic stenosis, mild (2) Breast cancer (3) CAD (coronary artery disease) (4) CKD (chronic kidney disease), stage III (5) Depression (6) HTN (hypertension) (7) LBBB (left bundle branch block) (8) Lupus (systemic lupus erythematosus) Surgical Problems: (1) History of appendectomy (2) History of cholecystectomy (3) History of hysterectomy (4) History of partial thyroidectomy (5) S/P tonsillectomy and adenoidectomy (6) Status post partial mastectomy of left breast Family History Cancer Social History Smoking Status: Never Smoker Marital Status: Occupation Status: retired Current/Historical Medications Scheduled Aspirin (Aspirin Ec), 81 MG PO QAM Atorvastatin (Lipitor), 40 MG PO HS Cholecalciferol (Vitamin D3), 5,000 INTER.UNIT PO QAM Felodipine (Felodipine ER), 10 MG PO QAM Folic Acid (Folic Acid), 1 MG PO QAM Hydroxychloroquine Sulfate (Plaquenil), 200 MG PO QAM Metoprolol Tartrate (Lopressor) (Lopressor), 12.5 MG PO BID Oxycodone HCl (Oxycodone HCl ER), 30 MG PO TID Pantoprazole (Protonix), 40 MG PO QAM Prednisone Tab (Prednisone), 10 MG PO QAM Trazodone Hcl (Trazodone), 50 MG PO HS Scheduled PRN Acetaminophen (Tylenol), 650 MG PO Q4H PRN for Pain Nitroglycerin (Nitrostat), 0.4 MG UT UD PRN for Chest Pain Oxycodone/Acetaminophen 5MG/325MG (Percocet 5MG/325MG), 1 TABLET PO Q4-6HRS PRN for Pain Promethazine HCl (Promethazine HCl), 1 SUPP WV Q6H PRN for Nausea Allergies Coded Allergies: Prochlorperazine (Verified Allergy, Mild, flushed, 10/18/17) VIDA Inhibitors (Verified Adverse Reaction, Unknown, RAPID PULSE, BULGING EYES, 10/18/17) Physical Exam Vital Signs Date Time Temp Pulse Resp B/P (MAP) Pulse Ox O2 Delivery O2 Flow Rate FiO2 12/28/17 00:19 64 20 167/69 94 Room Air 12/27/17 22:59 77 20 171/77 93 Room Air 12/27/17 21:36 73 20 196/98 12/27/17 21:04 74 12/27/17 20:33 36.8 93 20 199/89 98 Room Air Physical Exam Constitutional: Vital signs reviewed. Eyes: Pupils are equal round reactive to light. Conjunctiva are noninjected. ENT: Pharynx is clear without erythema or exudate. Mucous membranes are moist. Neck supple without meningeal signs. Respiratory: Clear to auscultation bilaterally. Breath sounds are equal bilaterally. Cardiovascular: Regular rate and rhythm. No rubs or gallops. GI: Soft, nondistended and nontender. Bowel sounds are present. Musculoskeletal: Tenderness along the left chest wall with some firmness to the left breast laterally without palpable masses. There is telangiectasia along the lateral aspect of the breast as well. No peripheral edema. No lower extremity tenderness. Integumentary: No cyanosis. Neurological: The patient is awake and alert. No focal deficits. Psychiatric: Normal affect. Medical Decision & Procedures ER Provider Diagnostic Interpretation: Radiology results as stated below per my review and the radiologist's interpretation: CHEST ONE VIEW PORTABLE CLINICAL HISTORY: 82 years-old Female presenting with cp eval for ptx. TECHNIQUE: Portable upright AP view of the chest was obtained. COMPARISON: 11/17/2013. FINDINGS: Atherosclerosis of aortic arch. Cardiac silhouette enlarged. Lungs are hyperinflated. Heterogeneity of lung parenchyma with relative radiolucency of the upper lobes. No large pleural effusion or pneumothorax. Surgical clips noted adjacent to the left lateral aspect of the trachea. Right reverse shoulder arthroplasty. Degenerative changes of the spine. Osteopenia suspected. Cholecystectomy clips noted. IMPRESSION: 1. Emphysema. No superimposed infiltrate to suggest pneumonia. 2. No pneumothorax. 3. Cardiomegaly. Electronically signed by: Kamaljit Welch M.D. 12/27/2017 10:02 PM Dictated Date/Time: 12/27/2017 10:01 PM (CHEST FOR PE) ANGIO WITH CLINICAL HISTORY: 82 years-old Female presenting with ^eval for PE/breast mass ^left sided CP. TECHNIQUE: Multidetector CT angiography of the chest was performed after administration of intravenous contrast. 3-D volumetric and/or maximum intensity projection (MIP) images were subsequently reconstructed for review. IV contrast: 91 mL of Optiray 320. A dose lowering technique was used consistent with the principles of ALARA (as low as reasonably achievable). COMPARISON: 01/15/2008. CT DOSE (mGy.cm): The estimated cumulative dose is 239.66 mGy.cm. FINDINGS: Title Manager topogram: Reversal right shoulder arthroplasty. Cholecystectomy clips. Pulmonary vasculature: The study is suboptimal for the assessment of the pulmonary vascular tree secondary to respiratory motion artifact. Allowing for limited image quality, no central filling defect to suggest pulmonary embolus. Main pulmonary artery enlarged measuring 3.3 cm in transverse dimension. No flattening of the interventricular septum. No intracardiac filling defect. No reflux of contrast into the hepatic veins. Remaining chest: On soft tissue windows, enlarged right lobe of the thyroid, which is multinodular. Skin thickening in the left breast could suggest prior radiation. No axillary, supraclavicular, or internal mammary lymphadenopathy. Mildly prominent prevascular lymph nodes in the mediastinum measure up to 8 mm in the short axis. View small hilar lymph nodes also evident. Atherosclerosis of the aorta. Tortuosity of the cervical vessels could suggest chronic hypertension. Normal heart size. Coronary artery calcification. No pericardial or pleural effusion. Significant biliary ductal dilatation, increased from prior exam. On lung windows, minimal dependent changes likely atelectasis. No other focal nodule or infiltrate. Airways patent. On bone windows, exaggerated thoracic kyphosis and degenerative change of the spine. Osteopenia. Reverse right total shoulder arthroplasty. IMPRESSION: 1. Allowing for suboptimal image quality, no evidence of pulmonary embolus. No acute intrathoracic pathology. 2. Possibly reactive subcentimeter mediastinal and hilar lymph nodes. 3. Significant biliary ductal dilatation, increased from prior exam in 2007. This may be due to an exuberant reservoir effect in the post cholecystectomy state. 4. Osteopenia. Electronically signed by: Kamaljit Welch M.D. 12/27/2017 10:45 PM Dictated Date/Time: 12/27/2017 10:38 PM Laboratory Results 12/27/17 21:20 Red Blood Count 3.55, Mean Corpuscular Volume 87.6, Mean Corpuscular Hemoglobin 28.2, Mean Corpuscular Hemoglobin Concent 32.2, Mean Platelet Volume 9.9, Neutrophils (%) (Auto) 90.4, Lymphocytes (%) (Auto) 8.4, Monocytes (%) (Auto) 0.6, Eosinophils (%) (Auto) 0.2, Basophils (%) (Auto) 0.2, Neutrophils # (Auto) 4.86, Lymphocytes # (Auto) 0.45, Monocytes # (Auto) 0.03, Eosinophils # (Auto) 0.01, Basophils # (Auto) 0.01 12/27/17 21:20 12/27/17 22:16 Test 12/27/17 21:20 12/27/17 21:25 12/27/17 22:16 White Blood Count 5.37 K/uL (4.8-10.8) Red Blood Count 3.55 M/uL (4.2-5.4) Hemoglobin 10.0 g/dL (12.0-16.0) Hematocrit 31.1 % (37-47) Mean Corpuscular Volume 87.6 fL (80-100) Mean Corpuscular Hemoglobin 28.2 pg (25-34) Mean Corpuscular Hemoglobin Concent 32.2 g/dl (32-36) Platelet Count 255 K/uL (130-400) Mean Platelet Volume 9.9 fL (7.4-10.4) Neutrophils (%) (Auto) 90.4 % Lymphocytes (%) (Auto) 8.4 % Monocytes (%) (Auto) 0.6 % Eosinophils (%) (Auto) 0.2 % Basophils (%) (Auto) 0.2 % Neutrophils # (Auto) 4.86 K/uL (1.4-6.5) Lymphocytes # (Auto) 0.45 K/uL (1.2-3.4) Monocytes # (Auto) 0.03 K/uL (0.11-0.59) Eosinophils # (Auto) 0.01 K/uL (0-0.5) Basophils # (Auto) 0.01 K/uL (0-0.2) RDW Standard Deviation 48.9 fL (36.4-46.3) RDW Coefficient of Variation 15.1 % (11.5-14.5) Immature Granulocyte % (Auto) 0.2 % Immature Granulocyte # (Auto) 0.01 K/uL (0.00-0.02) Prothrombin Time 10.8 SECONDS (9.0-12.0) Prothromb Time International Ratio 1.0 (0.9-1.1) Activated Partial Thromboplast Time 29.5 SECONDS (21.0-31.0) Partial Thromboplastin Ratio 1.1 Anion Gap 7.0 mmol/L (3-11) Est Creatinine Clear Calc Drug Dose 17.9 ml/min Estimated GFR () 30.2 Estimated GFR (Non- 26.1 BUN/Creatinine Ratio 17.1 (10-20) Calcium Level 8.6 mg/dl (8.5-10.1) Bedside D-Dimer > 450 ng/mlFEU (0-450) Bedside Troponin I < 0.030 ng/ml (0-0.045) Magnesium Level 2.4 mg/dl (1.8-2.4) Total Bilirubin 0.2 mg/dl (0.2-1) Direct Bilirubin < 0.1 mg/dl (0-0.2) Aspartate Amino Transf (AST/SGOT) 92 U/L (15-37) Alanine Aminotransferase (ALT/SGPT) 108 U/L (12-78) Alkaline Phosphatase 259 U/L (45-117) Total Protein 7.5 gm/dl (6.4-8.2) Albumin 3.4 gm/dl (3.4-5.0) Lipase 43 U/L (73-393) Thyroid Stimulating Hormone (TSH) 0.906 uIu/ml (0.300-4.500) Laboratory results as reviewed by me. Medications Administered Medications (Trade) Dose Ordered Sig/[place]hel Route Start Time Stop Time Status Last Admin Dose Admin Fentanyl Citrate (Fentanyl Inj) 25 mcg NOW STAT IV 12/27/17 20:53 12/27/17 20:55 DC 12/27/17 21:34 25 MCG Lorazepam (Ativan Inj) 0.5 mg NOW STAT IV 12/27/17 22:02 12/27/17 22:03 DC 12/27/17 22:02 0.5 MG Sodium Chloride 250 ml @ 999 mls/hr Q16M STAT IV 12/27/17 22:05 12/27/17 22:20 DC 12/27/17 22:05 999 MLS/HR Metoprolol Tartrate (Lopressor Tab) 12.5 mg 2317 ONCE PO 12/27/17 23:17 12/27/17 23:45 DC 12/27/17 23:17 12.5 MG ECG Per My Interpretation Indication: chest pain Rate (beats per minute): 96 Rhythm: normal sinus Findings: LBBB, no ectopy, other (No concordant ST elevation. ) Comparison ECG Date: 01/10/2015 Change: no significant change ED Course 2044: The patient was evaluated in room B3. A complete history and physical exam was performed. 2052: Fentanyl 25mcg IV 2120: I reevaluated the patient, and I talked about her test results. I recommended getting a CT for a PE given her history of cancer. She notes that she is severely claustrophobic. 2200: I reevaluated the patient, and she understands that her creatinine is elevated, and she knows the risks of IV dye with her kidneys. She will continue to get a CT scan to rule out PE. 2201: Ativan 0.5mg IV 2204: Sodium Chloride 250 ml @ 999 mls/hr IV 2302: I discussed the patient's case with Dr. Belgica Mix. He is going to evaluate the patient for further treatment Medical Decision This is an 82-year-old female presents with chest pain. Differential diagnosis includes muscular skeletal pain, pleurisy, breast mass, pulmonary embolism, unstable angina, LA. I did perform a limited focused review of portions of the patient's old chart on the electronic medical record. The patient has had no recent pertinent visits to this hospital. I did evaluate the patient as noted above. IV access was established. The patient was placed on a continuous business services specialist sales. I did order and personally review the patient's 12-lead EKG and chest x-ray as described above. I did order and review the patient's blood work as noted in the electronic medical record. D-dimer is elevated. Troponin is negative. Creatinine is elevated 1.7. I did discuss the test results with the patient. I did discuss risks and benefits of CT scanning with IV dye. She did agree to the CAT scan. She was given normal saline IV. She was also given fentanyl IV for her pain. She is also very claustrophobic and was given Ativan 0.5 mg IV prior to the CT scan. I did order a CT of the chest. I did review the images myself as well as the radiology report as described above. No PE was noted. She did have some lymphadenopathy. I did discuss the test results with the patient and her daughter. I did recommend hospitalization for further evaluation of her symptoms. She is currently feeling better and has no chest pain. Medication Reconcilliation Current Medication List: was personally reviewed by me Blood Pressure Screening Patient's blood pressure: Elevated blood pressure Monitored by the hospitalist Consults Time Called: [phone] Consulting Physician: Dr. Belgica Mix Returned Call: [phone] I discussed the patient's case with Dr. Belgica Mix. He is going to evaluate the patient for further treatment Impression Primary Impression: Left sided chest pain Additional Impression: Elevated serum creatinine Scribe Attestation The scribe's documentation has been prepared under my direct and personally reviewed by me in its entirety. I confirm that the note above accurately reflects all work, treatment, procedures, and medical decision making performed by me. Departure Information Dispostion Being Evaluated By Hospitalist Referrals Susanne Patel M.D. (MEDICAL) (PCP) Patient Instructions My [facility] Problem Qualifiers
[2017-12-28] MEDS ORDERED: SODIUM CHLORIDE 0.9% 1000ML 1,000 ML IV SCH (01:03)
[2017-12-28] MEDS ORDERED: ONDANSETRON INJ 2 MG/ML 2 ML VIAL IV PRN (01:15)
[2017-12-28] MEDS ORDERED: LORAZEPAM 2 MG/ML 1 ML VIAL IV ONE (01:15)
[2017-12-28] MEDS ORDERED: ACETAMINOPHEN 325 MG TAB PO PRN (01:15)
[2017-12-28] MEDS ORDERED: LORAZEPAM 2 MG/ML 1 ML VIAL ONE (01:18)
[2017-12-28] MEDS ORDERED: IV FLUIDS COMPLETED PRN (01:45)
[2017-12-28] MEDS ORDERED: DOCUSATE SODIUM/SENNA 50/8.6MG TAB PO ONE (02:36)
[2017-12-28] MEDS ORDERED: POLYETHYLENE (MIRALAX) 17 GM PACK PO PRN (02:45)
[2017-12-28] MEDS ORDERED: HYDROmorphone INJ 0.5 MG/0.5 ML SYR IV PRN (05:00)
[2017-12-28] MEDS ORDERED: FELODIPINE 5 MG TABCR PO ONE (05:37)
--- NOTE | 2017-12-28 05:59 | HISTORY & PHYSICAL EXAMINATION ---
DATE OF ADMISSION: 12/28/2017 PRIMARY CARE DOCTOR: Dr. Patel. CHIEF COMPLAINT: Chest pain. HISTORY OF PRESENT ILLNESS: History obtained from patient and records. Medical history significant for SLE on steroid therapy, hypertension, CAD status post stent placement, aortic valve stenosis as per records, chronic left bundle branch block, chronic pain on narcotics, mood disorder, past tobacco abuse, recurrent breast cancer, left status post surgery and radiation, chronic anemia (baseline hemoglobin 10). chronic renal insufficiency (baseline creatinine of 1.4-1.9) Recent confinement September 2017 under Orthopedic service for right shoulder surgery. Three days history of left-sided chest pain, achy, worse on deep inspiration and sitting up, some shortness of breath, no unusual cough symptoms. No relief with nitroglycerin. Denies unusual exertion. Some some relief on bending over. MEDICAL HISTORY: As above. Normal dobutamine stress, echo EF of 55-59% last August 2017. Patient underwent breast cancer surgery on the left in December 2014, refused radiation. Subsequent recurrence noted last September 2015. Subsequent surgery and radiation for recurrence. Patient complaining of soreness on the left chest on last follow up with [facility] [place] last February 2017. Soreness attributed to possible radiation as per notes. Patient is scheduled for an office followup after a bilateral mammogram in February 2018. SURGERIES: She has had a thyroidectomy, tonsillectomy, cholecystectomy, appendectomy, mastectomy HOME MEDICATIONS: Include Tylenol, aspirin, atorvastatin, folic acid, metoprolol, Nitrostat, Protonix, felodipine, oxycodone, OxyContin, Percocet, prednisone, trazodone, and triamcinolone. ALLERGIES: VIDA INHIBITORS, AMLODIPINE, BENAZEPRIL, CALCIUM CHANNEL BELA, COMPAZINE, BENZO ALCOHOL. FAMILY HISTORY: Diabetes, stroke, heart disease, lung cancer. PERSONAL AND SOCIAL HISTORY: Past tobacco abuse. No chronic intake of alcoholic beverages. 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 REVIEW OF SYSTEMS: As per HPI. All 10 systems reviewed, all other ROS negative. PHYSICAL EXAMINATION: VITAL SIGNS: Blood pressure noted to be 199/89 later 160/80 pulse 64, RR 20 T 37 sats 97% on room air. GENERAL: Noted to be slightly uncomfortable, in respiratory distress. SKIN: Pallor, warm. HEENT: Pale palpebral conjunctivae. No ptosis. Dry mucosa. NECK: Supple, nontender. CHEST: Decreased breath sounds. No tenderness. HEART: RRR. Systolic murmur. ABDOMEN: Some distention. Some fullness. EXTREMITIES: No edema. No gross deformity except for some limitation of right shoulder motion. NEUROLOGIC: Coherent, no gross focality. LABS: Hemoglobin was noted to be 10, WBC 7 platelets 255. Sodium 136, white cell 4.5, chloride 104, CO2 23, BUN 30, creatinine 1.76. AST 92, ALT 108, alkaline phosphatase 259. Trop 0 IMAGING DATA: CTA showed no PE, significant biliary ductal dilatation, reactive subcentimeter mediastinal hilar nodes, post-cholecystectomy. CT abdomen and pelvis showed moderate intrahepatic and extrahepatic dilatation of unknown etiology. Consider MRCP. No bowel wall thickening, bowel obstruction. EKG as per my interpretation, normal sinus rhythm, chronic left bundle branch block. ASSESSMENT AND PLAN: 1. Atypical chest pain ? pericarditis ? biliary pathology (abnormal LFTs, abnormal CT abdomen and pelvis) 2. Hypertension, slightly elevated. 3. Systemic lupus erythematosus. Stable on steroid regimen. 4. Chronic anemia, hemoglobin baseline. 5. Coronary artery disease status post post-stenting. 6. Chronic left bundle branch block 7. History of aortic stenosis. 8. Prediabetes per records. 9. Chronic renal insufficiency, creatinine at baseline. 10. Past tobacco abuse. 11. Recurrent breast cancer, left, status post surgery and radiation. Famil concerned about chronic postop L chest soreness 12. Chronic pain, on narcotics. Observation PCU 2D echo. MRCP. Further management/subspecialty consultation pending above workup results. Outpatient followup with the patient's breast surgeon to address chronic postop soreness concerns. DVT prophylaxis, Heparin subQ. Full code. MTDD
[2017-12-28] MEDS ORDERED: ENOXAPARIN 30 MG/0.3 ML SYR SC SCH (06:00)
[2017-12-28] MEDS: METOPROLOL TARTRATE 25 MG TAB PO SCH ×2 (06:08→20:41)
[2017-12-28] MEDS: HEPARIN SOD 5000 UNIT/0.5 ML CARP SQ SCH ×3 (06:11→21:30)
--- NOTE | 2017-12-28 07:05 | DIAGNOSTIC IMAGING REPORT ---
ABD/PELVIS NO IV OR ORAL CONT CT DOSE: 386.38 mGy.cm HISTORY: Pain abd pain TECHNIQUE: Multiaxial CT images of the abdomen and pelvis were performed without contrast. A dose lowering technique was utilized adhering to the principles of ALARA. COMPARISON STUDY: 02/06/2013 FINDINGS: Lung bases are clear. Moderate prominence of the biliary ductal system potentially on a postcholecystectomy basis. Multiple right renal cyst. The kidneys moderately atrophic. No evidence renal hydronephrosis. Pancreatic atrophy. Nonobstructive bowel pattern. Bladder is midline. No free fluid within the pelvic cul-de-sac. Degenerative change of the osseous structures throughout. Post radiation changes to the left breast. IMPRESSION: 1. Biliary ductal prominence possibly post cholecystectomy in origin. 2. Multiple renal cysts with moderate atrophy left kidney. 3. Nonobstructive bowel pattern. 4. Pancreatic atrophy. 5. Post therapy/radiation treatments findings of the left breast. The above report was generated using voice recognition software. It may contain grammatical, syntax or spelling errors. Electronically signed by: Sae Morales M.D. 12/28/2017 7:03 AM Dictated Date/Time: 12/28/2017 6:59 AM
[2017-12-28 07:07] LABS: HEMOGLOBIN A1C 5.7 % (4.5-5.6)
[2017-12-28 08:00] LABS: EOS % 0.4 %; EOS ABS # 0.03 K/uL (0-0.5); HEMATOCRIT 32.3 % (37-47); HEMOGLOBIN 10.2 g/dL (12.0-16.0); IG# 0.01 K/uL (0.00-0.02); LYMPH % 15.1 %; LYMPH ABS # 1.03 K/uL (1.2-3.4); MEAN CELL VOLUME 88.3 fL (80-100); MEAN CORPUSCULAR HEMOGLOBIN 27.9 pg (25-34); MEAN CORPUSCULAR HGB CONC 31.6 g/dl (32-36); MEAN PLATELET VOLUME 10.3 fL (7.4-10.4); MONO % 8.2 %; MONO ABS # 0.56 K/uL (0.11-0.59); NEUT % 76.2 %; NEUT ABS # 5.17 K/uL (1.4-6.5); PLATELET COUNT 247 K/uL (130-400); RED CELL DISTRIBUTION WIDTH CV 15.2 % (11.5-14.5); RED CELL DISTRIBUTION WIDTH SD 49.2 fL (36.4-46.3)
[2017-12-28] MEDS: OXYCODONE HCL 10 MG TABCR (OXYCONTIN) PO SCH ×3 (08:22→20:34)
[2017-12-28] MEDS: HYDROXYCHLOROQUINE SULFATE 200 MG TAB PO SCH (08:23)
[2017-12-28] MEDS: PANTOprazole SOD 40 MG TAB PO SCH (08:23)
[2017-12-28] MEDS: ASPIRIN 81 MG ECTAB PO SCH (08:23)
[2017-12-28 08:28] LABS: ALBUMIN 3.3 gm/dl (3.4-5.0); ALT/SGPT 88 U/L (12-78); BLOOD UREA NITROGEN 23 mg/dl (7-18); CALCIUM 9.1 mg/dl (8.5-10.1); CARBON DIOXIDE 25 mmol/L (21-32); CREATININE 1.34 mg/dl (0.60-1.20); GLUCOSE 87 mg/dl (70-99); SODIUM 138 mmol/L (136-145)
[2017-12-28 08:33] LABS: ALKALINE PHOSPHATASE 244 U/L (45-117); AST/SGOT 73 U/L (15-37); TOTAL PROTEIN 7.1 gm/dl (6.4-8.2)
[2017-12-28] MEDS ORDERED: FELODIPINE 5 MG TABCR PO SCH (09:00)
[2017-12-28] MEDS ORDERED: PERFLUTREN LIPID MICROSPHERE (DEFINITY) IV ONE (12:51)
[2017-12-28] MEDS ORDERED: HydrALAZINE HCL 20 MG/ML VIAL IV. PRN (13:45)
[2017-12-28] MEDS ORDERED: CEPHALEXIN MONOHYDRATE 250 MG CAP PO ONE (14:00)
[2017-12-28] MEDS ORDERED: SODIUM CHLORIDE 0.9% 1000ML 250 ML IV ONE (14:00)
--- NOTE | 2017-12-28 14:15 | Progress Note ---
Internal Med Progress Note Date of Service: Dec 28, 2017. Provider Documentation: SUBJECTIVE: Seen and examined at bedside States having left sided pleuritic chest pain which increases with deep breathing Denies SOB, dizziness, nausea, abd pain Prefers not to get MRCP and states having chronic elevation of LFTs No other complaints Family at bedside OBJECTIVE: Vital Signs-as noted below Physical Exam: General Appearance:Thin, no apparent distress Head: normocephalic, Atraumatic Eyes: normal inspection, EOMI, PERRL Neck: supple, Trachea midline Respiratory/Chest: Normal breath sounds, CTA Chest: Left sided tenderness to palpate Cardiovascular: S1, S2, + murmur Abdomen/GI:Soft, Non tender, Bowel sounds present Extremities/Musculoskelatal:normal inspection, no edema, Left shoulder post surgical scar noted Neurologic/Psych:AAOX3, grossly no focal neurological deficits Skin: normal color, warm Lab data as noted below. ASSESSMENT & PLAN: Atypical chest pain Likely pleuritic in origin DD:costochondritis,Pericarditis CTA: No PE, No acute intrathoracic pathology Already on chronic prednisone chronically for SLE Troponin X 2: negative EKG: NSR, LBBB (chronic) ECHO pending Will give an extra dose of prednisone and start on Keflex empirically ECHO:pending will get Left breast USD to r/o infection H/O breast Cancer S/P surgery and radiation Chronic Transaminases CT abd: Biliary ductal prominence possibly post cholecystectomy in origin Patient denies chest pain and is aware of chronic LFTs elevation Refuses MRCP as claustrophobic Monitor LFTs Hypertension: Elevated likely secondary to pain continue Metoprolol Monitor Hydralazine PRN Systemic lupus erythematosus: on steroid regimen Follows with as outpatient Chronic anemia: No bleeding issues monitor Hb CAD S/P stent Chronic LBBB H/O continue , statin, BB Chronic Pain: On chronic narcotics Prediabetes: A1C:5.7 Chronic renal Insufficiency: cr at baseline. Monitor renal function DVT px: Heparin subQ. Code Status: Full code PROCEDURES: CTA: 1. Allowing for suboptimal image quality, no evidence of pulmonary embolus. No acute intrathoracic pathology. 2. Possibly reactive subcentimeter mediastinal and hilar lymph nodes. 3. Significant biliary ductal dilatation, increased from prior exam in 2007. This may be due to an exuberant reservoir effect in the post cholecystectomy state. 4. Osteopenia. Vital Signs: Date Time Temp Pulse Resp B/P (MAP) Pulse Ox O2 Delivery O2 Flow Rate FiO2 12/28/17 11:41 37.1 65 18 173/71 (105) 95 12/28/17 09:31 60 159/76 (103) 12/28/17 08:00 Room Air 12/28/17 07:23 36.7 58 16 176/70 (105) 96 Room Air 12/28/17 04:51 36.4 57 16 171/72 (105) 95 Room Air 12/28/17 03:19 36.6 61 18 160/77 97 Room Air 12/28/17 03:19 Room Air 12/28/17 01:00 61 20 167/69 98 Room Air 12/28/17 00:19 64 20 167/69 94 Room Air 12/27/17 22:59 77 20 171/77 93 Room Air 12/27/17 21:36 73 20 196/98 12/27/17 21:04 74 12/27/17 20:33 36.8 93 20 199/89 98 Room Air Lab Results: Results Past 24 Hours Test 12/27/17 21:20 12/27/17 21:25 12/27/17 22:16 12/28/17 00:00 Range/Units White Blood Count 5.37 4.8-10.8 K/uL Red Blood Count 3.55 4.2-5.4 M/uL Hemoglobin 10.0 12.0-16.0 g/dL Hematocrit 31.1 37-47 % Mean Corpuscular Volume 87.6 80-100 fL Mean Corpuscular Hemoglobin 28.2 25-34 pg Mean Corpuscular Hemoglobin Concent 32.2 32-36 g/dl Platelet Count 255 130-400 K/uL Mean Platelet Volume 9.9 7.4-10.4 fL Neutrophils (%) (Auto) 90.4 % Lymphocytes (%) (Auto) 8.4 % Monocytes (%) (Auto) 0.6 % Eosinophils (%) (Auto) 0.2 % Basophils (%) (Auto) 0.2 % Neutrophils # (Auto) 4.86 1.4-6.5 K/uL Lymphocytes # (Auto) 0.45 1.2-3.4 K/uL Monocytes # (Auto) 0.03 0.11-0.59 K/uL Eosinophils # (Auto) 0.01 0-0.5 K/uL Basophils # (Auto) 0.01 0-0.2 K/uL RDW Standard Deviation 48.9 36.4-46.3 fL RDW Coefficient of Variation 15.1 11.5-14.5 % Immature Granulocyte % (Auto) 0.2 % Immature Granulocyte # (Auto) 0.01 0.00-0.02 K/uL Prothrombin Time 10.8 9.0-12.0 SECONDS Prothromb Time International Ratio 1.0 0.9-1.1 Activated Partial Thromboplast Time 29.5 21.0-31.0 SECONDS Partial Thromboplastin Ratio 1.1 Sodium Level 134 136-145 mmol/L Potassium Level 4.1 3.5-5.1 mmol/L Chloride Level 104 98-107 mmol/L Carbon Dioxide Level 23 21-32 mmol/L Anion Gap 7.0 3-11 mmol/L Blood Urea Nitrogen 30 7-18 mg/dl Creatinine 1.76 0.60-1.20 mg/dl Est Creatinine Clear Calc Drug Dose 17.9 ml/min Estimated GFR () 30.2 Estimated GFR (Non- 26.1 BUN/Creatinine Ratio 17.1 10-20 Random Glucose 206 70-99 mg/dl Estimated Average Glucose 117 mg/dl Hemoglobin A1c 5.7 4.5-5.6 % Calcium Level 8.6 8.5-10.1 mg/dl Bedside D-Dimer > 450 0-450 ng/mlFEU Bedside Troponin I < 0.030 0-0.045 ng/ml Magnesium Level 2.4 1.8-2.4 mg/dl Total Bilirubin 0.2 0.2-1 mg/dl Direct Bilirubin < 0.1 0-0.2 mg/dl Aspartate Amino Transf (AST/SGOT) 92 15-37 U/L Alanine Aminotransferase (ALT/SGPT) 108 12-78 U/L Alkaline Phosphatase 259 45-117 U/L Total Protein 7.5 6.4-8.2 gm/dl Albumin 3.4 3.4-5.0 gm/dl Lipase 43 73-393 U/L Thyroid Stimulating Hormone (TSH) 0.906 0.300-4.500 uIu/ml Urine Color YELLOW Urine Appearance CLEAR CLEAR Urine pH 7.5 4.5-7.5 Urine Specific [place] 1.013 1.000-1.030 Urine Protein NEG NEG Urine Glucose (UA) NEG NEG Urine Ketones NEG NEG Urine Occult Blood NEG NEG Urine Nitrite NEG NEG Urine Bilirubin NEG NEG Urine Urobilinogen NEG NEG Urine Leukocyte Esterase NEG NEG Test 12/28/17 07:33 Range/Units White Blood Count 6.80 4.8-10.8 K/uL Red Blood Count 3.66 4.2-5.4 M/uL Hemoglobin 10.2 12.0-16.0 g/dL Hematocrit 32.3 37-47 % Mean Corpuscular Volume 88.3 80-100 fL Mean Corpuscular Hemoglobin 27.9 25-34 pg Mean Corpuscular Hemoglobin Concent 31.6 32-36 g/dl Platelet Count 247 130-400 K/uL Mean Platelet Volume 10.3 7.4-10.4 fL Neutrophils (%) (Auto) 76.2 % Lymphocytes (%) (Auto) 15.1 % Monocytes (%) (Auto) 8.2 % Eosinophils (%) (Auto) 0.4 % Basophils (%) (Auto) 0.0 % Neutrophils # (Auto) 5.17 1.4-6.5 K/uL Lymphocytes # (Auto) 1.03 1.2-3.4 K/uL Monocytes # (Auto) 0.56 0.11-0.59 K/uL Eosinophils # (Auto) 0.03 0-0.5 K/uL Basophils # (Auto) 0.00 0-0.2 K/uL RDW Standard Deviation 49.2 36.4-46.3 fL RDW Coefficient of Variation 15.2 11.5-14.5 % Immature Granulocyte % (Auto) 0.1 % Immature Granulocyte # (Auto) 0.01 0.00-0.02 K/uL Erythrocyte Sedimentation Rate 55 0-21 mm/hr Sodium Level 138 136-145 mmol/L Potassium Level 4.0 3.5-5.1 mmol/L Chloride Level 106 98-107 mmol/L Carbon Dioxide Level 25 21-32 mmol/L Anion Gap 7.0 3-11 mmol/L Blood Urea Nitrogen 23 7-18 mg/dl Creatinine 1.34 0.60-1.20 mg/dl Est Creatinine Clear Calc Drug Dose 23.6 ml/min Estimated GFR () 42.1 Estimated GFR (Non- 36.3 BUN/Creatinine Ratio 17.4 10-20 Random Glucose 87 70-99 mg/dl Calcium Level 9.1 8.5-10.1 mg/dl Total Bilirubin 0.3 0.2-1 mg/dl Aspartate Amino Transf (AST/SGOT) 73 15-37 U/L Alanine Aminotransferase (ALT/SGPT) 88 12-78 U/L Alkaline Phosphatase 244 45-117 U/L Troponin I < 0.015 0-0.045 ng/ml Total Protein 7.1 6.4-8.2 gm/dl Albumin 3.3 3.4-5.0 gm/dl Globulin 3.8 2.5-4.0 gm/dl Albumin/Globulin Ratio 0.9 0.9-2
--- NOTE | 2017-12-28 15:38 | DIAGNOSTIC IMAGING REPORT ---
Study: Breast ultrasound HISTORY: Breast pain. Findings: Normal survey ultrasound of the left breast. Specific attention is paid to the area of greatest discomfort which appears unremarkable. No evidence for abscess or collection. IMPRESSION: Normal survey ultrasound left breast. No evidence for abscess or collection. If symptomatology persists, diagnostic mammography is indicated. Electronically signed by: Sae Morales M.D. 12/28/2017 3:37 PM Dictated Date/Time: 12/28/2017 3:35 PM
--- NOTE | 2017-12-28 16:01 | ECHOCARDIOGRAM REPORT ---
*NOTICE TO RECEIVING [employer]Y This information is strictly Confidential and protected under [place] law. [place] law prohibits you from making any further disclosure of this information unless further disclosure is expressly permitted by the written consent of the person to whom it pertains or is authorized by law. A general authorization for the release of medical or other information is not sufficient for this purpose. Hospital accepts no responsibility if the information is made available to any other person, INCLUDING THE PATIENT. Interpretation Summary * Name: IVETTE FERNANDO Study Date: 12/28/2017 12:22 PM BP: 173/71 mmHg * Patient Location: [facility]\S\N285\S\1 HR: 65 * : 1935 (M/d/yyy) Gender: Female Height: 60 in * Age: 82 yrs Ethnicity: [place] Weight: 112 lb * Ordering Physician: Adama Lindo * Referring Physician: Self, Referred * Performed By: Adama Clark RDCS * * Reason For Study: Chest Pain * BSA: 1.5 m2 * -- Conclusions -- * Normal LV chamber size with mild concentric LVH. * Normal LV systolic function, EF 55-60%. * No segmental left ventricular wall motion abnormalities are noted. * Grade I diastolic dysfunction. * Aortic valve sclerosis mild, without significant aortic valvular stenosis. Procedure Details * A complete two-dimensional transthoracic echocardiogram was performed (2D, M-mode, Doppler and color flow Doppler). * A contrast injection of Definity was performed to improve assessment of LV function. * Contrast was injected into an intravenous site in the right arm. * One vial of Definity ultrasound contrast was diluted in normal saline to a total volume of 10 ml. A total of '1' ml of solution was administered during imaging. * Lot # [id number] of Definity utilized for procedure. * Expiration date . * The attending nurse who injected the contrast agent was Chantel Dewey RN. Left Ventricle * The left ventricle is normal in size. * There is mild concentric left ventricular hypertrophy. * Ejection Fraction = 55-60%. * Left ventricular systolic function is normal. * No segmental left ventricular wall motion abnormalities are noted. * The left ventricular wall motion is normal. Right Ventricle * The right ventricular cavity size is normal (basal dimension <4.2 cm in right ventricular apical 4-chamber view). * The right ventricular systolic function is normal as assessed by tricuspid annular plane systolic excursion (TAPSE) (normal >1.5 cm). Atria * The left atrial size is normal. * Right atrial size is normal. * No ASD detected; PFO is not assessed. Mitral Valve * There is mild mitral annular calcification. * The mitral valve leaflets appear thickened, but open well. * There is no mitral regurgitation noted. Tricuspid Valve * The tricuspid valve is normal in structure and function. Aortic Valve * The aortic valve is trileaflet. * Aortic valve sclerosis mild, without significant aortic valvular stenosis. * There is no significant aortic regurgitation. Pulmonic Valve * The pulmonary valve is not well seen, but the Doppler examination is normal without significant regurgitation or stenosis. Great Vessels * The aortic root is normal size. Pericardium/Pleural * There is no pericardial effusion. Left Ventricular Diastolic Function * Grade I diastolic dysfunction, (abnormal relaxation pattern). MMode 2D Measurements and Calculations IVSd 1.2 cm IVSs 1.2 cm LVIDd 3.1 cm LVIDs 1.9 cm LVPWd 1.0 cm LVPWs 1.7 cm IVS/LVPW 1.2 FS 38.5 % EDV(Teich) 37.9 ml ESV(Teich) 11.2 ml EF(Teich) 70.3 % EDV(cubed) 29.8 ml ESV(cubed) 6.9 ml EF(cubed) 76.8 % % IVS thick 2.4 % % LVPW thick 69.2 % LV mass(C)d 101.0 grams LV mass(C)dI 69.2 grams/m\S\2 LV mass(C)s 90.5 grams LV mass(C)sI 62.0 grams/m\S\2 SV(Teich) 26.6 ml SI(Teich) 18.3 ml/m\S\2 SV(cubed) 22.8 ml SI(cubed) 15.7 ml/m\S\2 Ao root diam 2.5 cm Ao root area 4.9 cm\S\2 ACS 1.6 cm LA dimension 3.3 cm LA/Ao 1.3 LVAd ap4 24.9 cm\S\2 LVLd ap4 8.3 cm EDV(MOD-sp4) 65.5 ml EDV(sp4-el) 63.8 ml LVAs ap4 12.4 cm\S\2 LVLs ap4 5.9 cm ESV(MOD-sp4) 26.4 ml ESV(sp4-el) 22.1 ml EF(MOD-sp4) 59.6 % EF(sp4-el) 65.4 % LVAd ap2 24.3 cm\S\2 LVLd ap2 7.4 cm EDV(MOD-sp2) 65.4 ml EDV(sp2-el) 68.0 ml LVAs ap2 11.9 cm\S\2 LVLs ap2 6.0 cm ESV(MOD-sp2) 20.1 ml ESV(sp2-el) 20.2 ml EF(MOD-sp2) 69.2 % EF(sp2-el) 70.3 % LVLd %diff -12.13 % EDV(MOD-bp) 68.6 ml LVLs %diff 0.32 % ESV(MOD-bp) 21.6 ml EF(MOD-bp) 68.5 % SV(MOD-sp4) 39.0 ml SI(MOD-sp4) 26.8 ml/m\S\2 SV(MOD-sp2) 45.3 ml SI(MOD-sp2) 31.0 ml/m\S\2 SV(MOD-bp) 47.0 ml SI(MOD-bp) 32.2 ml/m\S\2 SV(sp4-el) 41.7 ml SI(sp4-el) 28.6 ml/m\S\2 SV(sp2-el) 47.8 ml SI(sp2-el) 32.8 ml/m\S\2 Doppler Measurements and Calculations MV E max che 62.2 cm/sec MV A max che 112.1 cm/sec MV E/A 0.56 MV dec time 0.24 sec Ao V2 max 199.3 cm/sec Ao max PG 15.9 mmHg Ao max PG (full) 7.4 mmHg LV V1 max PG 8.5 mmHg LV V1 max 145.8 cm/sec PA V2 max 102.7 cm/sec PA max PG 4.2 mmHg TR max che 266.3 cm/sec
[2017-12-28] MEDS: OXYCODONE/ACETAMINOPHEN 5-325 TAB PO PRN (17:57)
[2017-12-28] MEDS: TRAZODONE HCL 50 MG TAB PO SCH (20:34)
[2017-12-28] MEDS: ATORVASTATIN 40 MG TAB PO SCH (20:34)
[2017-12-28] MEDS: CEPHALEXIN MONOHYDRATE 250 MG CAP PO SCH (20:35)
[2017-12-29] VITALS (13 sets, daily range): BP systolic 143–194; BP diastolic 60–88; PULSE 49–75; TEMP 36.3–37; O2SAT 92–99
[2017-12-29] MEDS: HEPARIN SOD 5000 UNIT/0.5 ML CARP SQ SCH ×3 (05:45→21:49)
[2017-12-29] MEDS: OXYCODONE/ACETAMINOPHEN 5-325 TAB PO PRN ×3 (05:49→20:24)
[2017-12-29 06:14] LABS: HEMATOCRIT 32.8 % (37-47); HEMOGLOBIN 10.2 g/dL (12.0-16.0)
[2017-12-29 06:31] LABS: ALBUMIN 3.3 gm/dl (3.4-5.0); CALCIUM 8.7 mg/dl (8.5-10.1); CREATININE 1.47 mg/dl (0.60-1.20); POTASSIUM 4.5 mmol/L (3.5-5.1)
[2017-12-29 06:34] LABS: TOTAL PROTEIN 7.2 gm/dl (6.4-8.2)
[2017-12-29] MEDS: HYDROXYCHLOROQUINE SULFATE 200 MG TAB PO SCH (07:38)
[2017-12-29] MEDS: OXYCODONE HCL 10 MG TABCR (OXYCONTIN) PO SCH ×2 (07:38→13:55)
[2017-12-29] MEDS: ASPIRIN 81 MG ECTAB PO SCH (07:39)
[2017-12-29] MEDS: CEPHALEXIN MONOHYDRATE 250 MG CAP PO SCH ×2 (07:39→20:24)
[2017-12-29] MEDS: FELODIPINE 5 MG TABCR PO SCH (07:39)
[2017-12-29] MEDS: METOPROLOL TARTRATE 25 MG TAB PO SCH ×2 (07:40→20:50)
[2017-12-29] MEDS: PANTOprazole SOD 40 MG TAB PO SCH (07:40)
[2017-12-29] MEDS: DOCUSATE SODIUM/SENNA 50/8.6MG TAB PO SCH (07:40)
--- NOTE | 2017-12-29 09:05 | Medical Consult ---
Consultation Date of Consultation: Dec 29, 2017. Attending Physician: Willie Cardona MD Reason for Consultation: Left breast pain, s/p left breast lumpectomy, radiation 2+ years ago. History of Present Illness Very pleasant 82-year-old female with 4 day history of chest pain/left breast pain. General Surgery consulted for left breast pain. She is 2+years s/p Left breast lumpectomy with Dr. García, s/p left breast radiation. She states that 4 days ago she developed pain in her chest on the left side. She states that it will hurt with inspiration. States that she took nitroglycerin,but did not help with the pain. Left breast ultrasound was completed- no evidence of abscess or collection. WBC within normal limits. Patient denies chills or fevers. Past Medical/Surgical History Medical Problems: (1) Elevated serum creatinine Status: Acute (2) Left sided chest pain Status: Acute Family History Cancer Social History Smoking Status: Unknown if Ever Smoked Marital Status: Occupation Status: retired Allergies Coded Allergies: Prochlorperazine (Verified Allergy, Mild, flushed, 10/18/17) VIDA Inhibitors (Verified Adverse Reaction, Unknown, RAPID PULSE, BULGING EYES, 10/18/17) Current Inpatient Medications Current Inpatient Medications Medications (Trade) Dose Ordered Sig/[place] Route Start Time Stop Time Status Last Admin Dose Admin Ioversol (Optiray 320) 111 ml UD PRN IV 12/27/17 22:15 12/31/17 22:14 Metoprolol Tartrate (Lopressor Tab) 12.5 mg BID PO 12/28/17 09:00 01/27/18 08:59 12/29/17 07:40 12.5 MG Acetaminophen (Tylenol Tab) 325 mg Q6H PRN PO 12/28/17 01:15 01/27/18 01:14 12/28/17 16:49 325 MG Aspirin (Ecotrin Tab) 81 mg QAM PO 12/28/17 09:00 01/27/18 08:59 12/29/17 07:39 81 MG Atorvastatin Calcium (Lipitor Tab) 40 mg HS PO 12/28/17 21:00 01/27/18 20:59 12/28/17 20:34 40 MG Folic Acid (Folvite Tab) 1 mg QAM PO 12/28/17 09:00 4/1/18 08:59 12/29/17 07:38 1 MG Hydroxychloroquine Sulfate (Plaquenil Tab) 200 mg QAM PO 12/28/17 09:00 01/27/18 08:59 12/29/17 07:38 200 MG Oxycodone/ Acetaminophen (Percocet 5-325mg Tab) 1 tab Q4H PRN PO 12/28/17 01:15 01/11/18 01:14 12/29/17 05:49 1 TAB Pantoprazole Sodium (Protonix Tab) 40 mg QAM PO 12/28/17 09:00 01/27/18 08:59 12/29/17 07:40 40 MG Trazodone HCl (Desyrel Tab) 50 mg HS PO 12/28/17 21:00 01/27/18 20:59 12/28/17 20:34 50 MG Oxycodone HCl (Oxycontin Tab) 30 mg TID PO 12/28/17 09:00 01/11/18 08:59 12/29/17 07:38 30 MG Ondansetron HCl (Zofran Inj) 4 mg Q6H PRN IV 12/28/17 01:15 01/27/18 01:14 Miscellaneous (Iv Fluids Completed) 1 ea PRN PRN N/A 12/28/17 01:45 12/28/18 01:44 Senna/Docusate Sodium (Senokot S Tab) 1 tab DAILY PO 12/29/17 09:00 01/28/18 08:59 12/29/17 07:40 1 TAB Polyethylene (Miralax Powder Packet) 17 gm DAILY PRN PO 12/28/17 02:45 01/27/18 02:44 Hydromorphone HCl (Dilaudid Inj) 0.5 mg Q3H PRN IV 12/28/17 05:00 01/11/18 04:59 Heparin Sodium (Porcine) (Heparin Sq 5000 Unit/0.5ml) 5,000 unit Q8H SQ 12/28/17 06:00 01/27/18 05:59 12/29/17 05:45 5,000 UNIT Felodipine (Plendil Tabcr) 10 mg QAM PO 12/29/17 09:00 01/27/18 08:59 12/29/17 07:39 10 MG Cephalexin Monohydrate (Keflex Cap) 250 mg BID PO 12/28/17 21:00 01/07/18 20:59 12/29/17 07:39 250 MG Hydralazine HCl (HydrALAZINE INJ) 10 mg Q6H PRN IV. 12/28/17 13:45 01/27/18 13:44 Prednisone (PredniSONE TAB) 40 mg QAM PO 12/29/17 09:00 01/27/18 08:59 12/29/17 07:40 40 MG Review of Systems Constitutional: No fever, No chills, No fatigue Cardiovascular: + chest pain (left axillary area. ) Physical Exam Date Time Temp Pulse Resp B/P (MAP) Pulse Ox O2 Delivery O2 Flow Rate FiO2 12/29/17 07:41 62 12/29/17 07:35 36.5 52 16 190/71 (110) 99 Room Air 12/29/17 04:00 Room Air 12/29/17 03:15 36.3 51 20 168/67 (100) 97 Room Air 12/29/17 00:00 Room Air 12/28/17 23:58 36.4 51 20 159/70 (99) 97 Room Air 12/28/17 20:41 68 12/28/17 20:00 Room Air 12/28/17 19:50 36.9 55 17 170/64 (99) 96 Room Air 12/28/17 16:00 96 Room Air 12/28/17 15:23 36.8 59 16 165/76 (105) 96 Room Air 12/28/17 12:00 Room Air 12/28/17 11:41 37.1 65 18 173/71 (105) 95 12/28/17 09:31 60 159/76 (103) General Appearance: WD/WN, no apparent distress Respiratory/Chest: no respiratory distress, no accessory muscle use, + pertinent finding (normal breast examination- no evidence of infection. ) Skin: normal color, warm/dry, no rash Laboratory Results Last 24 Hours Test 12/29/17 05:35 Hemoglobin 10.2 g/dL Hematocrit 32.8 % Sodium Level 137 mmol/L Potassium Level 4.5 mmol/L Chloride Level 107 mmol/L Carbon Dioxide Level 22 mmol/L Anion Gap 8.0 mmol/L Blood Urea Nitrogen 24 mg/dl Creatinine 1.47 mg/dl Est Creatinine Clear Calc Drug Dose 21.5 ml/min Estimated GFR () 37.6 Estimated GFR (Non- 32.4 BUN/Creatinine Ratio 16.1 Random Glucose 125 mg/dl Calcium Level 8.7 mg/dl Total Bilirubin 0.4 mg/dl Aspartate Amino Transf (AST/SGOT) 65 U/L Alanine Aminotransferase (ALT/SGPT) 87 U/L Alkaline Phosphatase 305 U/L Total Protein 7.2 gm/dl Albumin 3.3 gm/dl Globulin 3.9 gm/dl Albumin/Globulin Ratio 0.8 Study: Breast ultrasound HISTORY: Breast pain. Findings: Normal survey ultrasound of the left breast. Specific attention is paid to the area of greatest discomfort which appears unremarkable. No evidence for abscess or collection. IMPRESSION: Normal survey ultrasound left breast. No evidence for abscess or collection. If symptomatology persists, diagnostic mammography is indicated. Electronically signed by: Sae Morales M.D. 12/28/2017 3:37 PM Assessment & Plan 82-year-old female with left-sided chest pain. 2+ years s/p left breast lumpectomy with Dr. García, s/p radiation. Recent imaging and labwork reviewed. Patient is resting comfortably in bed. I am able to reproduce the pain in her left chest on physical examination, most likely costochondritis, pericarditis Left breast examination normal - no signs of infection. No indication for surgical intervention. Recommend outpatient follow-up with Dr. García to address post-op breast pain. General Surgery will sign off at this time.
--- NOTE | 2017-12-29 15:17 | Progress Note ---
Internal Med Progress Note Date of Service: Dec 29, 2017. Provider Documentation: SUBJECTIVE: Seen and examined at bedside Still has pleuritic pain especially with movement and deep breathing BP elevated today, denies headache, vision change No other complaints OBJECTIVE: Vital Signs-as noted below Physical Exam: General Appearance:Thin, no apparent distress Head: normocephalic, Atraumatic Eyes: normal inspection, EOMI, PERRL Neck: supple, Trachea midline Respiratory/Chest: Normal breath sounds, CTA Chest: Left sided tenderness to palpate Cardiovascular: S1, S2, + murmur Abdomen/GI:Soft, Non tender, Bowel sounds present Extremities/Musculoskelatal:normal inspection, no edema, Left shoulder post surgical scar noted Neurologic/Psych:AAOX3, grossly no focal neurological deficits Skin: normal color, warm Lab data as noted below. ASSESSMENT & PLAN: Atypical chest pain Likely pleuritic in origin DD:costochondritis,Pericarditis Unrelieved with NTG CTA: No PE, No acute intrathoracic pathology Already on chronic prednisone chronically for SLE Troponin X 2: negative EKG: NSR, LBBB (chronic) ECHO:No segmental left ventricular wall motion abnormalities are noted Continue increased dose of prednisone 40mg daily Continue Keflex empirically Left breast USD:No evidence for abscess or collection May need Mammogram done as outpatient Appreciate Surgery Input, Need follow up with surgery as outpatient H/O breast Cancer S/P surgery and radiation Chronic Transaminases CT abd: Biliary ductal prominence possibly post cholecystectomy in origin Patient denies abdominal pain and is aware of chronic LFTs elevation Refuses MRCP as claustrophobic Monitor LFTs Hypertension: Elevated likely secondary to pain continue Metoprolol, Felodipine Will and Hydralazine 10mg TID Monitor Systemic lupus erythematosus: on steroid regimen Follows with as outpatient Chronic anemia: No bleeding issues monitor Hb CAD S/P stent Chronic LBBB H/O continue , statin, BB Chronic Pain: On chronic narcotics Prediabetes: A1C:5.7 Chronic renal Insufficiency: cr at baseline. Monitor renal function DVT px: Heparin subQ. Code Status: Full code PROCEDURES: CTA: 1. Allowing for suboptimal image quality, no evidence of pulmonary embolus. No acute intrathoracic pathology. 2. Possibly reactive subcentimeter mediastinal and hilar lymph nodes. 3. Significant biliary ductal dilatation, increased from prior exam in 2007. This may be due to an exuberant reservoir effect in the post cholecystectomy state. 4. Osteopenia. Vital Signs: Date Time Temp Pulse Resp B/P (MAP) Pulse Ox O2 Delivery O2 Flow Rate FiO2 12/29/17 16:29 65 158/76 (103) 12/29/17 16:13 75 16 194/73 (113) 92 Room Air 12/29/17 16:00 97 Room Air 12/29/17 15:40 55 192/88 (122) 12/29/17 15:17 36.9 58 18 171/68 (102) 97 Room Air 12/29/17 12:00 Room Air 12/29/17 11:34 37.0 58 16 143/81 (101) 99 Room Air 12/29/17 08:00 Room Air 12/29/17 07:41 62 12/29/17 07:35 36.5 52 16 190/71 (110) 99 Room Air 12/29/17 04:00 Room Air 12/29/17 03:15 36.3 51 20 168/67 (100) 97 Room Air 12/29/17 00:00 Room Air 12/28/17 23:58 36.4 51 20 159/70 (99) 97 Room Air 12/28/17 20:41 68 12/28/17 20:00 Room Air 12/28/17 19:50 36.9 55 17 170/64 (99) 96 Room Air Lab Results: Results Past 24 Hours Test 12/29/17 05:35 Range/Units Hemoglobin 10.2 12.0-16.0 g/dL Hematocrit 32.8 37-47 % Sodium Level 137 136-145 mmol/L Potassium Level 4.5 3.5-5.1 mmol/L Chloride Level 107 98-107 mmol/L Carbon Dioxide Level 22 21-32 mmol/L Anion Gap 8.0 3-11 mmol/L Blood Urea Nitrogen 24 7-18 mg/dl Creatinine 1.47 0.60-1.20 mg/dl Est Creatinine Clear Calc Drug Dose 21.5 ml/min Estimated GFR () 37.6 Estimated GFR (Non- 32.4 BUN/Creatinine Ratio 16.1 10-20 Random Glucose 125 70-99 mg/dl Calcium Level 8.7 8.5-10.1 mg/dl Total Bilirubin 0.4 0.2-1 mg/dl Aspartate Amino Transf (AST/SGOT) 65 15-37 U/L Alanine Aminotransferase (ALT/SGPT) 87 12-78 U/L Alkaline Phosphatase 305 45-117 U/L Total Protein 7.2 6.4-8.2 gm/dl Albumin 3.3 3.4-5.0 gm/dl Globulin 3.9 2.5-4.0 gm/dl Albumin/Globulin Ratio 0.8 0.9-2
[2017-12-29] MEDS ORDERED: AMLODIPINE BESYLATE 5 MG TAB PO ONE (16:30)
[2017-12-29] MEDS ORDERED: LORAZEPAM 0.5 MG TAB PO ONE (16:30)
[2017-12-29] MEDS ORDERED: NURSING VERBAL MED ORDER ONE (19:15)
[2017-12-29] MEDS ORDERED: MAGNESIUM SULFATE 1GM / D5W 1 GM in PREMIXED IN D5W 100 ML IV ONE (20:00)
[2017-12-29] MEDS: TRAZODONE HCL 50 MG TAB PO SCH (20:24)
[2017-12-29] MEDS: ATORVASTATIN 40 MG TAB PO SCH (20:25)
[2017-12-29 20:29] LABS: CALCIUM 8.9 mg/dl (8.5-10.1); CREATININE 1.66 mg/dl (0.60-1.20)
[2017-12-29] MEDS ORDERED: OXYCODONE HCL 20 MG TABCR (OXYCONTIN) PO SCH (21:00)
[2017-12-29] MEDS ORDERED: HydrALAZINE 10 MG TAB PO SCH (21:00)
[2017-12-29] MEDS ORDERED: OXYCODONE HCL 10 MG TABCR (OXYCONTIN) PO SCH (21:00)
[2017-12-30 03:01] VITALS: BP 158/66; PULSE 51; TEMP 36.4; O2SAT 97
[2017-12-30] MEDS: OXYCODONE/ACETAMINOPHEN 5-325 TAB PO PRN (05:19)
[2017-12-30] MEDS: HEPARIN SOD 5000 UNIT/0.5 ML CARP SQ SCH (05:22)
[2017-12-30] MEDS: OXYCODONE HCL 10 MG TABCR (OXYCONTIN) PO SCH (07:18)
[2017-12-30] MEDS: FELODIPINE 5 MG TABCR PO SCH (07:19)
[2017-12-30] MEDS: METOPROLOL TARTRATE 25 MG TAB PO SCH (07:19)
[2017-12-30] MEDS: DOCUSATE SODIUM/SENNA 50/8.6MG TAB PO SCH (07:19)
[2017-12-30] MEDS: PANTOprazole SOD 40 MG TAB PO SCH (07:19)
[2017-12-30] MEDS: HYDROXYCHLOROQUINE SULFATE 200 MG TAB PO SCH (07:20)
[2017-12-30] MEDS: CEPHALEXIN MONOHYDRATE 250 MG CAP PO SCH (07:20)
[2017-12-30] MEDS: ASPIRIN 81 MG ECTAB PO SCH (07:20)
[2017-12-30 07:25] VITALS: PULSE 60
[2017-12-30 07:54] LABS: HEMATOCRIT 31.5 % (37-47); HEMOGLOBIN 10.1 g/dL (12.0-16.0); MEAN CELL VOLUME 87.5 fL (80-100); MEAN CORPUSCULAR HEMOGLOBIN 28.1 pg (25-34); MEAN CORPUSCULAR HGB CONC 32.1 g/dl (32-36); PLATELET COUNT 223 K/uL (130-400); WHITE BLOOD COUNT 6.59 K/uL (4.8-10.8)
[2017-12-30 08:12] LABS: ALBUMIN 3.1 gm/dl (3.4-5.0); CALCIUM 8.6 mg/dl (8.5-10.1); CREATININE 1.58 mg/dl (0.60-1.20); POTASSIUM 3.8 mmol/L (3.5-5.1)
[2017-12-30 08:14] LABS: TOTAL PROTEIN 6.8 gm/dl (6.4-8.2)
[2017-12-30] MEDS ORDERED: AMLODIPINE BESYLATE 5 MG TAB PO SCH (09:00)
[2017-12-30 11:30] VITALS: BP 134/73; PULSE 56; TEMP 36.8; O2SAT 98
--- NOTE | 2017-12-30 12:48 | Progress Note ---
Internal Med Progress Note Date of Service: Dec 30, 2017. Provider Documentation: SUBJECTIVE: Seen and examined at bedside States pleuritic pain is improving BP is better today Eager to get discharged No other complaints OBJECTIVE: Vital Signs-as noted below Physical Exam: General Appearance:Thin, no apparent distress Head: normocephalic, Atraumatic Eyes: normal inspection, EOMI, PERRL Neck: supple, Trachea midline Respiratory/Chest: Normal breath sounds, CTA Chest: Left sided tenderness to palpate Cardiovascular: S1, S2, + murmur Abdomen/GI:Soft, Non tender, Bowel sounds present Extremities/Musculoskelatal:normal inspection, no edema, Left shoulder post surgical scar noted Neurologic/Psych:AAOX3, grossly no focal neurological deficits Skin: normal color, warm Lab data as noted below. ASSESSMENT & PLAN: Atypical chest pain Likely pleuritic in origin DD:costochondritis Unrelieved with NTG CTA: No PE, No acute intrathoracic pathology Already on chronic prednisone chronically for SLE Troponin X 2: negative EKG: NSR, LBBB (chronic) ECHO:No segmental left ventricular wall motion abnormalities are noted Continue increased dose of prednisone 40mg daily Continue Keflex empirically Left breast USD:No evidence for abscess or collection May need Mammogram done as outpatient Appreciate Surgery Input, Need follow up with surgery as outpatient H/O breast Cancer S/P surgery and radiation Chronic Transaminases CT abd: Biliary ductal prominence possibly post cholecystectomy in origin Patient denies abdominal pain and is aware of chronic LFTs elevation Refuses MRCP as claustrophobic Monitor LFTs Hypertension: Elevated likely secondary to pain continue Metoprolol, Felodipine Did not tolerate Hydralazine Monitor Systemic lupus erythematosus: on steroid regimen Follows with as outpatient Chronic anemia: No bleeding issues monitor Hb CAD S/P stent Chronic LBBB H/O continue , statin, BB Chronic Pain: On chronic narcotics Prediabetes: A1C:5.7 Chronic renal Insufficiency: cr at baseline. Monitor renal function DVT px: Heparin subQ. Code Status: Full code Disposition: Plan to discharge home today. Denies any needs Follow up with your PCP on 01/02/18 at 1:45pm Follow up with your surgeon in 2 weeks as advised Take Prednisone tapering course 40mg daily for 5 days then 30mg 5 days, then 20mg for 5 days, then continue your regular prednisone dose Complete the antibiotic course as prescribed. Seek immediate medical attention if your symptoms reoccur or worsen PROCEDURES: CTA: 1. Allowing for suboptimal image quality, no evidence of pulmonary embolus. No acute intrathoracic pathology. 2. Possibly reactive subcentimeter mediastinal and hilar lymph nodes. 3. Significant biliary ductal dilatation, increased from prior exam in 2007. This may be due to an exuberant reservoir effect in the post cholecystectomy state. 4. Osteopenia. Vital Signs: Date Time Temp Pulse Resp B/P (MAP) Pulse Ox O2 Delivery O2 Flow Rate FiO2 12/30/17 11:30 36.8 56 16 134/73 (93) 98 Room Air 12/30/17 08:00 Room Air 12/30/17 07:25 60 12/30/17 04:00 Room Air 12/30/17 03:01 36.4 51 18 158/66 (96) 97 12/30/17 00:00 Room Air 12/29/17 23:23 36.6 49 20 144/68 (93) 97 Room Air 12/29/17 20:49 62 12/29/17 20:42 162/60 (94) 12/29/17 20:00 Room Air 12/29/17 19:17 36.7 62 18 173/72 (105) 97 Room Air 12/29/17 16:29 65 158/76 (103) 12/29/17 16:13 75 16 194/73 (113) 92 Room Air 12/29/17 16:00 97 Room Air 12/29/17 15:40 55 192/88 (122) 12/29/17 15:17 36.9 58 18 171/68 (102) 97 Room Air Lab Results: Results Past 24 Hours Test 12/29/17 19:35 12/29/17 20:56 12/30/17 06:57 Range/Units Sodium Level 136 139 136-145 mmol/L Potassium Level 4.0 3.8 3.5-5.1 mmol/L Chloride Level 103 107 98-107 mmol/L Carbon Dioxide Level 25 24 21-32 mmol/L Anion Gap 8.0 8.0 3-11 mmol/L Blood Urea Nitrogen 26 28 7-18 mg/dl Creatinine 1.66 1.58 0.60-1.20 mg/dl Est Creatinine Clear Calc Drug Dose 19.0 20.0 ml/min Estimated GFR () 32.5 34.5 Estimated GFR (Non- 28.0 29.7 BUN/Creatinine Ratio 15.5 18.0 10-20 Random Glucose 109 84 70-99 mg/dl Calcium Level 8.9 8.6 8.5-10.1 mg/dl Magnesium Level 2.3 1.8-2.4 mg/dl White Blood Count 6.59 4.8-10.8 K/uL Red Blood Count 3.60 4.2-5.4 M/uL Hemoglobin 10.1 12.0-16.0 g/dL Hematocrit 31.5 37-47 % Mean Corpuscular Volume 87.5 80-100 fL Mean Corpuscular Hemoglobin 28.1 25-34 pg Mean Corpuscular Hemoglobin Concent 32.1 32-36 g/dl Platelet Count 223 130-400 K/uL Total Bilirubin 0.3 0.2-1 mg/dl Aspartate Amino Transf (AST/SGOT) 31 15-37 U/L Alanine Aminotransferase (ALT/SGPT) 60 12-78 U/L Alkaline Phosphatase 250 45-117 U/L Total Protein 6.8 6.4-8.2 gm/dl Albumin 3.1 3.4-5.0 gm/dl Globulin 3.7 2.5-4.0 gm/dl Albumin/Globulin Ratio 0.8 0.9-2
[2017-12-30] MEDS ORDERED: OXYC-57 PO (12:53)
[2017-12-30] MEDS ORDERED: MRLP17X PO (12:53)
[2017-12-30] MEDS ORDERED: SENN8.6T7 PO (12:53)
[2017-12-30] MEDS ORDERED: KFL250 PO (12:53)
--- NOTE | 2017-12-30 12:57 | Discharge Summary ---
Discharge Summary Date of Service Dec 30, 2017. Discharge Summary Admission Date: Dec 28, 2017 at 00:39 Discharge Date: Dec 30, 2017 Discharge Disposition: Home Principal Diagnosis: Costochondritis Procedures: CTA: 1. Allowing for suboptimal image quality, no evidence of pulmonary embolus. No acute intrathoracic pathology. 2. Possibly reactive subcentimeter mediastinal and hilar lymph nodes. 3. Significant biliary ductal dilatation, increased from prior exam in 2007. This may be due to an exuberant reservoir effect in the post cholecystectomy state. 4. Osteopenia. Breast USD: Normal survey ultrasound left breast. No evidence for abscess or collection. If symptomatology persists, diagnostic mammography is indicated. CT ABD: 1. Biliary ductal prominence possibly post cholecystectomy in origin. 2. Multiple renal cysts with moderate atrophy left kidney. 3. Nonobstructive bowel pattern. 4. Pancreatic atrophy. 5. Post therapy/radiation treatments findings of the left breast. ECHO: Normal LV chamber size with mild concentric LVH. * Normal LV systolic function, EF 55-60%. * No segmental left ventricular wall motion abnormalities are noted. * Grade I diastolic dysfunction. * Aortic valve sclerosis mild, without significant aortic valvular stenosis. Consultations: None Pending Studies/Follow-Up: Follow up with your PCP on 01/02/18 at 1:45pm Follow up with your surgeon in 2 weeks as advised Get Mammogram as scheduled Discuss with your PCP regarding blood pressure if it continues to be elevated Take Prednisone tapering course 40mg daily for 5 days then 30mg 5 days, then 20mg for 5 days, then continue your regular prednisone dose as per your Platen Builder Up Complete the antibiotic course as prescribed. Seek immediate medical attention if your symptoms reoccur or worsen Medication Reconciliation New Medications: Cephalexin Monohydrate (Cephalexin) 250 Mg Cap 250 MG PO BID for 4 Days, #8 CAP Polyethylene (Miralax) 17 Gm Pow 17 GM PO DAILY PRN for Constipation for 7 Days, #7 EA Sennosides-Docusate Sodium (Senokot S) 1 Tab Tab 1 TAB PO DAILY for 7 Days, #7 TAB Changed Medications: Oxycodone/Acetaminophen 5MG/325MG (Percocet 5MG/325MG) Tab 1 TABLET PO Q8H PRN for Pain for 3 Days, #9 TAB (Changed from: Q4-6HRS) Continued Medications: Acetaminophen (Tylenol) 325 Mg Tab 650 MG PO Q4H PRN for Pain, TAB Aspirin (Aspirin Ec) 81 Mg Tab 81 MG PO QAM Atorvastatin (Lipitor) 40 Mg Tab 40 MG PO HS, TAB Cholecalciferol (Vitamin D3) 5,000 Unit Chw 5000 INTER.UNIT PO QAM Felodipine (Felodipine ER) 10 Mg Tabcr 10 MG PO QAM Folic Acid (Folic Acid) 1 Mg Tab 1 MG PO QAM Hydroxychloroquine Sulfate (Plaquenil) 200 Mg Tab 200 MG PO QAM, TAB Metoprolol Tartrate (Lopressor) (Lopressor) 25 Mg Tab 12.5 MG PO BID, TAB Nitroglycerin (Nitrostat) 0.4 Mg Sub 0.4 MG UT UD PRN for Chest Pain, BTL PLACE ONE TABLET UNDER THE TONGUE EVERY 5 MINUTES FOR UP TO 3 DOSES IF NEEDED FOR CHEST PAIN Oxycodone HCl (Oxycodone HCl ER) 30 Mg Tab 30 MG PO TID Pantoprazole (Protonix) 40 Mg Tab 40 MG PO QAM, TAB Prednisone Tab (Prednisone) 10 Mg Tab 10 MG PO QAM, TAB Promethazine HCl (Promethazine HCl) 25 Mg Supp 1 SUPP MN Q6H PRN for Nausea Trazodone Hcl (Trazodone) 50 Mg Tab 50 MG PO HS, TAB TAKE THIS MEDICATION 1 TO 3 HOURS BEFORE BEDTIME Admission Information HPI (per Admitting provider): CHIEF COMPLAINT: Chest pain. HISTORY OF PRESENT ILLNESS: History obtained from patient and records. Medical history significant for SLE on steroid therapy, hypertension, CAD status post stent placement, aortic valve stenosis as per records, chronic left bundle branch block, chronic pain on narcotics, mood disorder, past tobacco abuse, recurrent breast cancer, left status post surgery and radiation, chronic anemia (baseline hemoglobin 10). chronic renal insufficiency (baseline creatinine of 1.4-1.9) Recent confinement September 2017 under Orthopedic service for right shoulder surgery. Three days history of left-sided chest pain, achy, worse on deep inspiration and sitting up, some shortness of breath, no unusual cough symptoms. No relief with nitroglycerin. Denies unusual exertion. Some some relief on bending over. MEDICAL HISTORY: As above. Normal dobutamine stress, echo EF of 55-59% last August 2017. Patient underwent breast cancer surgery on the left in December 2014, refused radiation. Subsequent recurrence noted last September 2015. Subsequent surgery and radiation for recurrence. Patient complaining of soreness on the left chest on last follow up with [facility] breast surgeon last February 2017. Soreness attributed to possible radiation as per notes. Patient is scheduled for an office followup after a bilateral mammogram in February 2018. Physical Exam (per Admitting): PHYSICAL EXAMINATION: VITAL SIGNS: Blood pressure noted to be 199/89 later 160/80 pulse 64, RR 20 T 37 sats 97% on room air. GENERAL: Noted to be slightly uncomfortable, in respiratory distress. SKIN: Pallor, warm. HEENT: Pale palpebral conjunctivae. No ptosis. Dry mucosa. NECK: Supple, nontender. CHEST: Decreased breath sounds. No tenderness. HEART: RRR. Systolic murmur. ABDOMEN: Some distention. Some fullness. EXTREMITIES: No edema. No gross deformity except for some limitation of right shoulder motion. NEUROLOGIC: Coherent, no gross focality. Hospital Course Atypical chest pain Likely pleuritic in origin DD:costochondritis Unrelieved with NTG CTA: No PE, No acute intrathoracic pathology Already on chronic prednisone chronically for SLE Troponin X 2: negative EKG: NSR, LBBB (chronic) ECHO:No segmental left ventricular wall motion abnormalities are noted Continue increased dose of prednisone 40mg daily Continue Keflex empirically Left breast USD:No evidence for abscess or collection May need Mammogram done as outpatient Appreciate Surgery Input, Need follow up with surgery as outpatient H/O breast Cancer S/P surgery and radiation Chronic Transaminases CT abd: Biliary ductal prominence possibly post cholecystectomy in origin Patient denies abdominal pain and is aware of chronic LFTs elevation Refuses MRCP as claustrophobic Monitor LFTs Hypertension: Elevated likely secondary to pain continue Metoprolol, Felodipine Did not tolerate Hydralazine Monitor Systemic lupus erythematosus: on steroid regimen Follows with as outpatient Chronic anemia: No bleeding issues monitor Hb CAD S/P stent Chronic LBBB H/O continue , statin, BB Chronic Pain: On chronic narcotics Prediabetes: A1C:5.7 Chronic renal Insufficiency: cr at baseline. Monitor renal function DVT px: Heparin subQ. Code Status: Full code Disposition: Plan to discharge home today. Denies any needs Follow up with your PCP on 01/02/18 at 1:45pm Follow up with your surgeon in 2 weeks as advised Take Prednisone tapering course 40mg daily for 5 days then 30mg 5 days, then 20mg for 5 days, then continue your regular prednisone dose Complete the antibiotic course as prescribed. Seek immediate medical attention if your symptoms reoccur or worsen PROCEDURES: CTA: 1. Allowing for suboptimal image quality, no evidence of pulmonary embolus. No acute intrathoracic pathology. 2. Possibly reactive subcentimeter mediastinal and hilar lymph nodes. 3. Significant biliary ductal dilatation, increased from prior exam in 2007. This may be due to an exuberant reservoir effect in the post cholecystectomy state. 4. Osteopenia. Total time spent on discharge = This includes examination of the patient, discharge planning, medication reconciliation, and communication with other providers. Discharge Instructions Discharge Instructions Date of Service Dec 30, 2017. Admission Reason for Admission: Chest Pain Discharge Discharge Diagnosis / Problem: Costochondritis Discharge Goals Goal(s): Decrease discomfort, Improve function Activity Recommendations Activity Limitations: resume your previous activity Exercise/Sports Limitations: as tolerated . Instructions / Follow-Up Instructions / Follow-Up Follow up with your PCP on 01/02/18 at 1:45pm Follow up with your surgeon in 2 weeks as advised Get Mammogram as scheduled Discuss with your PCP regarding blood pressure if it continues to be elevated Take Prednisone tapering course 40mg daily for 5 days then 30mg 5 days, then 20mg for 5 days, then continue your regular prednisone dose as per your Platen Builder Up Complete the antibiotic course as prescribed. Seek immediate medical attention if your symptoms reoccur or worsen Current Hospital Diet Patient's current hospital diet: AHA Diet (Heart Healthy) Discharge Diet Recommended Diet: AHA Diet (Heart Healthy) Pending Studies Studies pending at discharge: no Laboratory Results Hemoglobin A1c Test 12/27/17 21:20 Range/Units Estimated Average Glucose 117 mg/dl Hemoglobin A1c 5.7 H 4.5-5.6 % Medical Emergencies . Who to Call and When: Medical Emergencies: If at any time you feel your situation is an emergency, please call 911 immediately. . Non-Emergent Contact Non-Emergency issues call your: Primary Care Provider, Surgeon Call Non-Emergent contact if: you have a fever, your pain is not controlled, your pain is worsening, your pain is unusual for you, your pain is concerning you, you have any medication questions Seek immediate medical attention if your symptoms reoccur or worsen . . "Provider Documentation" section prepared by Willie Cardona. . <Electronically signed by Willie Cardona MD> Signed: 12/30/17 1257 Signed: The status of this report is Signed * If report status is Draft, the document has not been finalized by the responsible provider.
[2017-12-30 13:08] VITALS: BP 134/73; PULSE 56; TEMP 36.8; O2SAT 98
== END 2017-12-30 13:48 | disposition home or self-care (01) ==
LOC: C.EDB 20:32 → C.MED 12-28 00:39 → ENRESERV 12-28 00:53
PROVIDERS: ADMIT Internal Medicine; ATTEND Internal Medicine
DX: M94.0 Chondrocostal junction syndrome [Tietze] (principal); I10 Essential (primary) hypertension; D64.9 Anemia, unspecified; I25.10 Atherosclerotic heart disease of native coronary artery without angina pectoris; I35.0 Nonrheumatic aortic (valve) stenosis; G89.29 Other chronic pain; R73.03 Prediabetes; I44.7 Left bundle-branch block, unspecified; M32.9 Systemic lupus erythematosus, unspecified; N18.3 Chronic kidney disease, stage 3 (moderate); Z90.12 Acquired absence of left breast and nipple; Z88.5 Allergy status to narcotic agent; Z79.52 Long term (current) use of systemic steroids; Z79.82 Long term (current) use of aspirin; Z85.3 Personal history of malignant neoplasm of breast; Z90.49 Acquired absence of other specified parts of digestive tract; Z83.3 Family history of diabetes mellitus; Z82.49 Family history of ischemic heart disease and other diseases of the circulatory system; Z80.2 Family history of malignant neoplasm of other respiratory and intrathoracic organs; Z82.3 Family history of stroke

== ENCOUNTER 2019-02-06 16:05 | Inpatient (IN) ==
[2019-02-06 18:08] LABS: Basophils # (auto) 0.01 K/uL (0-0.2); Basophils % (auto) 0.2 %; Eosinophils # (auto) 0.26 K/uL (0-0.5); Eosinophils % (auto) 4.4 %; Hematocrit (blood only) 28.1 % (37-47); Hemoglobin 8.7 g/dL (12.0-16.0); Immature Granulocytes # (auto) 0.01 K/uL (0.00-0.02); Immature Granulocytes % (auto) 0.2 %; Lymphocytes # (auto) 0.99 K/uL (1.2-3.4); Lymphocytes % (auto) 16.7 %; Mean Corpuscular Volume 85.2 fL (80-100); Mean Platelet Volume 9.4 fL (7.4-10.4); Monocytes # (auto) 0.83 K/uL (0.11-0.59); Neutrophils # (auto) 3.84 K/uL (1.4-6.5); Neutrophils % (auto) 64.5 %; Platelet Count 326 K/uL (130-400); RDW Coefficient of Variation 15.6 % (11.5-14.5); RDW Standard Deviation 48.6 fL (36.4-46.3); White Blood Count 5.94 K/uL (4.8-10.8)
--- NOTE | 2019-02-06 18:15 | History & Physical Report ---
Date of Service February 06, 2019 Assessment & Plan (1) Pleural effusion: Large Left Pleural Effusion: Likely malignant; DD: Parapneumonic, Lymphatic/Rheumatological origin CT chest reviewed H/O Breast Cancer, SLE H/O recent Pneumonia diagnosed 2 weeks ago Failed outpatient Abx therapy Obtain blood cultures Empirically start on Zosyn CT surgery consulted for Thorocentesis Hold Aspirin for now Start on lasix 40mg BID Duonebs, Oxygen support PRN CAD s/p stent H/O LBBB H/O EKG: showed NSR, ST-T wave changes Trend Troponin Check ECHO H/O SLE Continue Prednisone, Plaquenil Moderate aortic stenosis Grade I diastolic heart failure Update ECHO Billiary ductual dilatation Incidental finding on CT Check Gall bladder USD, LFTs Chronic pain syndrome Continue home pain meds CKD IV Baseline Cr: 1.5 Monitor renal function while on diuretics Anxiety, Depression Continue home meds H/O Breast Cancer s/p lumpectomy and radiation Chronic anemia Baseline Hb around 9.0 Monitor CBC Hypothyroidism H/O left thyroidectomy Enlarged right thyroid gland on CT Check TSH, Free T4 Currently not on meds Dyslipidemia Continue statin Former Smoker As per records DVT Px: SCDs for now Code Status Full, No mechanical ventilation as per patient Disposition: Admit in Tele History of Present Illness Chief Complaint: Shortness of breath Primary Care Provider: Jayden Solis MD Patient is an 83 yr female with PMH of CAD s/p stent x1, LBBB, SLE on chronic prednisone and immunosuppression, Moderate aortic stenosis, chronic pain syndrome, CKD IV, Anxiety, Depression, Breast Cancer s/p lumpectomy and radiation, chronic anemia, Hypertensive Kidney disease, Sclerodactyly, Vitamin D deficiency, Hypothyroidism, Dyslipidemia, Lymphedema, Former Smoker and other problems presents with history of pleuritic chest pain and worsening shortness of breath. Patient states that she was diagnosed with pneumonia 2 weeks ago and was placed on 2 different antibiotics (Augmentin and other antibiotic which she is unaware of ) for which she completed the course without resolution of symptoms. Patient states having fever, left-sided chest pain which increases with breathing which is sharp, 5/10, intermittently radiates to back. Shortness of breath has been progressively worsening since last 2 weeks. She reports being very tired, and has night sweats. She has been using her albuterol inhaler since 1week and has also used a prednisone taper course with resolution of symptoms. Outpatient CT chest showed large left pleural effusion, compressive atelectasis of the left lower lobe and mild left upper lobe atelectasis. Denies any history of chest pain at rest, dizziness, pedal edema, cough, headache, change in vision, nausea, vomiting, abdominal pain, diarrhea, dysuria, recent change in medications. Allergies Allergy/AdvReac Type Severity Reaction Status Date / Time prochlorperazine Allergy Mild flushed Verified 02/06/19 17:15 VIDA Inhibitors AdvReac Intermediate RAPID Verified 02/06/19 17:15 PULSE, BULGING EYES Home Medications Home Medications Medication Instructions Recorded Confirmed Type albuterol sulfate [Ventolin HFA] 2 puff INHALATION Q6H PRN 02/06/19 02/06/19 History aspirin 81 mg PO DAILY 02/06/19 02/06/19 History atorvastatin 40 mg PO DAILY 02/06/19 02/06/19 History cholecalciferol (vitamin D3) 5,000 unit PO DAILY 02/06/19 02/06/19 History [Vitamin D3] felodipine 10 mg PO HS 02/06/19 02/06/19 History folic acid 1 mg PO DAILY 02/06/19 02/06/19 History hydroxychloroquine 200 mg PO DAILY 02/06/19 02/06/19 History losartan 50 mg PO DAILY 02/06/19 02/06/19 History metoprolol succinate 12.5 mg PO BID 02/06/19 02/06/19 History mirtazapine 7.5 mg PO HS 02/06/19 02/06/19 History nitroglycerin 0.4 mg SUBLINGUAL USEASDIRECTD PRN 02/06/19 02/06/19 History oxycodone [OxyContin] 30 mg PO TID 02/06/19 02/06/19 History oxycodone-acetaminophen 1 tab PO Q4H PRN 02/06/19 02/06/19 History pantoprazole [Protonix] 40 mg PO DAILY 02/06/19 02/06/19 History prednisone 10 mg PO DAILY 02/06/19 02/06/19 History Past Med/Surg History Medical History Breast cancer CAD (coronary artery disease) CKD (chronic kidney disease) Surgical History H/O lumpectomy H/O shoulder surgery Family History Unknown Cancer Social History Preferred Language: Korean Communication Ability: Effective Braille Proofreader Required: No Beliefs That Will Affect Care: Islam Other Information That Helps Us Care for You: No Feels Safe at Home: Yes Safety Concerns: Feels Safe At This Time Smoking Status: Former smoker Hx Alcohol Use: No Hx Substance Use: No Review of Systems All systems reviewed & are unremarkable except as noted in HPI & below Physical Exam Vital Signs (Past 24 Hours): Last Vital Signs Temp 37.3 C 02/06/19 16:32 Pulse 71 02/06/19 17:33 Resp 23 02/06/19 17:33 BP 165/93 H 02/06/19 17:33 Pulse Ox 95 02/06/19 17:35 Physical Exam: Physical Exam: Vitals signs as noted above General Appearance:Thin, Frail, no apparent distress Head: normocephalic, Atraumatic Eyes: normal inspection, EOMI Neck: supple, Trachea midline Respiratory/Chest: Decreased breath sounds, CTA Cardiovascular: S1, S2, + murmur Abdomen/GI:Soft, Non tender, Bowel sounds present Extremities/Musculoskelatal:normal inspection, no edema Neurologic/Psych:AAOX3, grossly no focal neurological deficits Skin: normal color, warm Results & Data Laboratory Results Outpatient labs on 02/06/19 : WBC 6.46, hemoglobin 8.8, MCV 85.5, RDW 15.4, platelets 420, BUN 16, creatinine 1.5, sodium 138, potassium 4.5, chloride 102, CO2 24, anion gap 12, glucose 105, calcium 8.[address] Chest: Large left pleural effusion, increased since chest x-ray 01/20/2019. Compressive atelectasis of the left lower lobe. Mild left upper lobe atelectasis. Posttreatment changes involving the left breast and subjacent anterior lateral left lung. Indeterminate age intrahepatic and extrahepatic biliary ductal dilatation, partly visualized. Cholecystectomy. As clinically warranted this could be assessed further with ultrasound initially unless this is an known chronic finding based on outside imaging. Left thyroidectomy. Enlarged right thyroid gland containing coarse calcifications with chronic leftward deviation of the trachea, most likely goiter.
[2019-02-06] MEDS ORDERED: ALBUT/IPRATROP 3MG/0.5MG NEB 3 ML VIAL NEB PRN (20:15)
[2019-02-06] MEDS ORDERED: NITROGLYCERIN SL 0.4 MG/TAB TAB SL PRN (20:15)
[2019-02-06] MEDS ORDERED: ONDANSETRON INJ 2 MG/ML 2 ML VIAL IV PRN (20:15)
[2019-02-06] MEDS ORDERED: ACETAMINOPHEN 325 MG TAB PO PRN (20:15)
[2019-02-06] MEDS ORDERED: PIPERACILL/TAZOBAC CONSULT ACTIVE PRN (20:26)
[2019-02-06] MEDS ORDERED: PIPERACILLIN/TAZOBACTAM 3.375 GM in DEXTROSE 5% 100 ML IV ONE (21:00)
[2019-02-06] MEDS: FUROSEMIDE 40 MG in SYRINGE 0 ML IV SCH (21:16)
[2019-02-06] MEDS: MIRTAZAPINE TAB 15 MG TAB PO SCH (21:16)
[2019-02-06] MEDS: METOPROLOL SUCC 25MG EXT REL TAB PO SCH (21:16)
[2019-02-06] MEDS: FELODIPINE 5 MG TABCR PO SCH (21:17)
[2019-02-06] MEDS: OXYCODONE HCL 15 MG TABCR (OXYCONTIN) PO SCH (21:20)
[2019-02-06] MEDS: OXYCODONE/ACETAMINOPHEN 5mg/325mg TAB PO PRN (21:20)
[2019-02-07 04:21] LABS: Basophils # (auto) 0.02 K/uL (0-0.2); Basophils % (auto) 0.3 %; Eosinophils # (auto) 0.31 K/uL (0-0.5); Eosinophils % (auto) 5.1 %; Hematocrit (blood only) 29.8 % (37-47); Hemoglobin 9.3 g/dL (12.0-16.0); Immature Granulocytes # (auto) 0.03 K/uL (0.00-0.02); Immature Granulocytes % (auto) 0.5 %; Lymphocytes # (auto) 0.93 K/uL (1.2-3.4); Lymphocytes % (auto) 15.3 %; Mean Corpuscular Hgb Conc 31.2 g/dL (32-36); Mean Corpuscular Volume 85.1 fL (80-100); Mean Platelet Volume 9.3 fL (7.4-10.4); Monocytes # (auto) 0.98 K/uL (0.11-0.59); Monocytes % (auto) 16.2 %; Neutrophils # (auto) 3.79 K/uL (1.4-6.5); Neutrophils % (auto) 62.6 %; Platelet Count 345 K/uL (130-400); RDW Coefficient of Variation 15.8 % (11.5-14.5); RDW Standard Deviation 48.9 fL (36.4-46.3); White Blood Count 6.06 K/uL (4.8-10.8)
[2019-02-07 04:39] LABS: Alanine Aminotransferase 17 U/L (12-78); Albumin Level 2.4 gm/dl (3.4-5.0); Aspartate Aminotransferase 30 U/L (15-37); BUN Creatinine Ratio 10.4 (10-20); Blood Urea Nitrogen 15 mg/dl (7-18); Calcium 8.3 mg/dl (8.5-10.1); Carbon Dioxide 27 mmol/L (21-32); Chloride 108 mmol/L (98-107); Creatinine Clr Calc Pharmacy 22.1 ml/min; Est GFR (African American) 37.3; Est GFR (Non-African American) 32.2; Glucose 99 mg/dl (70-99); Magnesium 2.3 mg/dl (1.8-2.4); Potassium 3.9 mmol/L (3.5-5.1); Sodium 138 mmol/L (136-145)
[2019-02-07 04:50] LABS: Albumin Globulin Ratio 0.6 (0.9-2); Alkaline Phosphatase 227 U/L (45-117); Bilirubin,Total 0.4 mg/dl (0.2-1); Globulin 4.3 gm/dl (2.5-4.0); T4 Free Thyroxine 1.13 ng/dl (0.8-1.6); Total Protein 6.7 gm/dl (6.4-8.2); Troponin I < 0.015 ng/ml (0-0.045)
[2019-02-07] MEDS: PIPERACILLIN/TAZOBACTAM 3.375 GM in DEXTROSE 5% 100 ML IV SCH ×3 (05:02→21:02)
--- NOTE | 2019-02-07 06:54 | Ultrasound Report ---
US gallbladder CLINICAL HISTORY: billary ductal dilatation COMPARISON STUDY: November 18, 2013, CT scan performed December 2017 FINDINGS: The pancreas was nonvisualized due to overlying bowel gas shadowing. The gallbladder is hever gically absent. There is intra and extrahepatic biliary ductal dilatation. The common hepatic duct me asures 14 mm. The mid and distal common bile duct more difficult to visualize. There is no right-side d hydronephrosis. Multiple right renal cysts are visualized. IMPRESSION: 1. Intra and extrahepatic biliary ductal dilatation. This is slightly progressive when compared the p rior October 2013 study 2. Surgically absent gallbladder 3. Nondiagnostic evaluation of the pancreas Electronically signed by: Justino Helms M.D. 02/07/2019 6:53 AM
--- NOTE | 2019-02-07 06:55 | XRay Report ---
XR chest 1V portable CLINICAL HISTORY: pleural effusion COMPARISON STUDY: 04/06/2018 FINDINGS: The heart is enlarged. There is been interval development of a small left pleural effusion with associated left lower lobe atelectasis/consolidation. The right lung appears clear. There is no overt failure. The patient appears hyperinflated. There are postsurgical changes of a right shoulder arthroplasty. IMPRESSION: Interval development of a left pleural effusion with associated left lower lobe atelectas is/consolidation. Electronically signed by: Justino Helms M.D. 02/07/2019 6:54 AM
[2019-02-07] MEDS: METOPROLOL SUCC 25MG EXT REL TAB PO SCH ×2 (08:18→21:04)
[2019-02-07] MEDS: HYDROXYCHLOROQUINE SULFATE 200 MG TAB PO SCH (08:18)
[2019-02-07] MEDS: LOSARTAN POTASSIUM 50 MG TAB PO SCH (08:19)
[2019-02-07] MEDS: FUROSEMIDE 40 MG in SYRINGE 0 ML IV SCH ×2 (08:19→16:32)
[2019-02-07] MEDS: ATORVASTATIN 40 MG TAB PO SCH (08:19)
[2019-02-07] MEDS: PANTOprazole 40 MG TAB PO SCH (08:19)
[2019-02-07] MEDS: FOLIC ACID 1 MG TAB PO SCH (08:19)
[2019-02-07] MEDS: predniSONE 10 MG TABLET PO SCH (08:19)
[2019-02-07] MEDS: OXYCODONE HCL 15 MG TABCR (OXYCONTIN) PO SCH ×3 (08:21→21:02)
--- NOTE | 2019-02-07 11:52 | Emergency Department Note ---
Entered by Vineet Wood acting as a scribe for Kahlil Toribio MD History of Present Illness General Chief complaint: Shortness of Breath/Dyspnea Stated complaint: FLUID IN CHEST, HX PNEUMPONIA- REFERRED Source: patient Mode of arrival: ambulatory History of Present Illness Provider complaint: SOB Onset (ago): week(s) 2 Location: chest Pain Consistency: + constant Maximum Pain Intensity: 5 Current Pain Intensity: 5 Associated symptoms: no cough Patient is an 83 year old female who presents to the emergency department with shortness of breath beginning two weeks ago. Patient has been referred to the ER due to left pleural effusion shown in a CT scan done earlier today. She has taken levaquin and augmentin for left sided pneumonia recently but her shortness of breath has not improved. Patient also reports having fever and that she is anemic. She does not know the origin of her anemia but states that she has had transfusion in the past. she rates her symptoms as a 5 out of 10 in severity. Patient denies cough, black stool and rectal bleeding. Home Medications Home Medications Medication Instructions Recorded Confirmed Type albuterol sulfate [Ventolin HFA] 2 puff INHALATION Q6H PRN 02/06/19 02/06/19 History aspirin 81 mg PO DAILY 02/06/19 02/06/19 History atorvastatin 40 mg PO DAILY 02/06/19 02/06/19 History cholecalciferol (vitamin D3) 5,000 unit PO DAILY 02/06/19 02/06/19 History [Vitamin D3] felodipine 10 mg PO HS 02/06/19 02/06/19 History folic acid 1 mg PO DAILY 02/06/19 02/06/19 History hydroxychloroquine 200 mg PO DAILY 02/06/19 02/06/19 History losartan 50 mg PO DAILY 02/06/19 02/06/19 History metoprolol succinate 12.5 mg PO BID 02/06/19 02/06/19 History mirtazapine 7.5 mg PO HS 02/06/19 02/06/19 History nitroglycerin 0.4 mg SUBLINGUAL USEASDIRECTD PRN 02/06/19 02/06/19 History oxycodone [OxyContin] 30 mg PO TID 02/06/19 02/06/19 History oxycodone-acetaminophen 1 tab PO Q4H PRN 02/06/19 02/06/19 History pantoprazole [Protonix] 40 mg PO DAILY 02/06/19 02/06/19 History prednisone 10 mg PO DAILY 02/06/19 02/06/19 History Allergies Allergy/AdvReac Type Severity Reaction Status Date / Time prochlorperazine Allergy Mild flushed Verified 02/06/19 17:15 VIDA Inhibitors AdvReac Intermediate RAPID Verified 02/06/19 17:15 PULSE, BULGING EYES Past Med/Surg History Medical History Breast cancer CAD (coronary artery disease) CKD (chronic kidney disease) Surgical History H/O lumpectomy H/O shoulder surgery Family History Unknown Cancer Social History Preferred Language: [place] Communication Ability: Effective Gal[place] Hand Required: No Beliefs That Will Affect Care: Anabaptism Other Information That Helps Us Care for You: No Feels Safe at Home: Yes Safety Concerns: Feels Safe At This Time Smoking Status: Former smoker Hx Alcohol Use: No Hx Substance Use: No Review of Systems See HPI for pertinent positives & negatives. and A total of 10 systems reviewed and were otherwise negative Physical Exam Vital Signs Vital Signs - 24 hr 02/06/19 16:32 02/06/19 17:33 02/06/19 17:35 Temperature 37.3 C Temperature Source Oral Sepsis Recent Fever Within 48 Hours No Sepsis New/Unexplained Change in Mental Status No Sepsis Action Taken by Nursing No Action Required Pulse Rate 70 Pulse Rate [Apical] 71 Pulse Rate from SpO2 Sensor Respiratory Rate 20 23 Respiratory Effort / Characteristics Respiratory Depth Respiratory Pattern Blood Pressure 148/78 H Blood Pressure [Right Arm] 165/93 H Blood Pressure Mean 101 Blood Pressure Mean [Right Arm] 117 Blood Pressure Position [Right Arm] Pulse Oximetry 98 95 95 Oxygen Delivery Method Room Air Room Air Room Air 02/06/19 18:09 02/06/19 19:16 02/06/19 19:49 Temperature Temperature Source Sepsis Recent Fever Within 48 Hours Sepsis New/Unexplained Change in Mental Status Sepsis Action Taken by Nursing Pulse Rate 75 Pulse Rate [Apical] 71 Pulse Rate from SpO2 Sensor 76 Respiratory Rate 24 18 Respiratory Effort / Characteristics Non-Labored Spontaneous Respiratory Depth Normal Respiratory Pattern Regular Blood Pressure 163/75 H Blood Pressure [Right Arm] 157/70 H Blood Pressure Mean 104 Blood Pressure Mean [Right Arm] 99 Blood Pressure Position [Right Arm] Pulse Oximetry 98 95 Oxygen Delivery Method Room Air Room Air Room Air 02/06/19 20:04 02/06/19 20:19 02/06/19 20:25 Temperature 37.1 C Temperature Source Oral Sepsis Recent Fever Within 48 Hours Sepsis New/Unexplained Change in Mental Status Sepsis Action Taken by Nursing Pulse Rate 68 79 Pulse Rate [Apical] 75 Pulse Rate from SpO2 Sensor Respiratory Rate 18 22 Respiratory Effort / Characteristics Spontaneous Labored SOB on Exertion Respiratory Depth Respiratory Pattern Blood Pressure 158/71 H Blood Pressure [Right Arm] 162/69 H Blood Pressure Mean Blood Pressure Mean [Right Arm] 100 Blood Pressure Position [Right Arm] Lying Pulse Oximetry 94 95 Oxygen Delivery Method Room Air Room Air 02/06/19 20:45 02/06/19 23:36 02/07/19 00:00 Temperature 36.5 C Temperature Source Oral Sepsis Recent Fever Within 48 Hours Sepsis New/Unexplained Change in Mental Status Sepsis Action Taken by Nursing Pulse Rate 60 Pulse Rate [Apical] 54 L Pulse Rate from SpO2 Sensor Respiratory Rate 19 Respiratory Effort / Characteristics Spontaneous Labored SOB on Exertion Respiratory Depth Normal Normal Respiratory Pattern Tachypnea Blood Pressure Blood Pressure [Right Arm] 117/58 L Blood Pressure Mean Blood Pressure Mean [Right Arm] 77 Blood Pressure Position [Right Arm] Lying Pulse Oximetry 94 Oxygen Delivery Method Room Air Room Air 02/07/19 03:18 02/07/19 07:48 02/07/19 08:00 Temperature 36.5 C 37 C Temperature Source Oral Oral Sepsis Recent Fever Within 48 Hours Sepsis New/Unexplained Change in Mental Status Sepsis Action Taken by Nursing Pulse Rate 66 Pulse Rate [Apical] 63 73 Pulse Rate from SpO2 Sensor Respiratory Rate 20 20 Respiratory Effort / Characteristics Short of Breath Respiratory Depth Normal Normal Respiratory Pattern Regular Blood Pressure Blood Pressure [Right Arm] 108/65 136/63 Blood Pressure Mean Blood Pressure Mean [Right Arm] 79 87 Blood Pressure Position [Right Arm] Lying Lying Pulse Oximetry 95 98 Oxygen Delivery Method Room Air Room Air Room Air 02/07/19 11:18 Temperature 37.1 C Temperature Source Oral Sepsis Recent Fever Within 48 Hours Sepsis New/Unexplained Change in Mental Status Sepsis Action Taken by Nursing Pulse Rate Pulse Rate [Apical] 70 Pulse Rate from SpO2 Sensor Respiratory Rate 20 Respiratory Effort / Characteristics Respiratory Depth Respiratory Pattern Blood Pressure Blood Pressure [Right Arm] 121/65 Blood Pressure Mean Blood Pressure Mean [Right Arm] 83 Blood Pressure Position [Right Arm] Sitting Pulse Oximetry 98 Oxygen Delivery Method Room Air Constitutional: Vital signs reviewed. Eyes: Pupils are equal round reactive to light. Conjunctiva are noninjected. ENT: Pharynx is clear without erythema or exudate. Mucous membranes are moist. Neck supple without meningeal signs. Respiratory: Breath sounds diminished left base up to mid lung field. Breath sounds are otherwise clear. Cardiovascular: Regular rate and rhythm. No rubs or gallops. GI: Soft, nondistended and nontender. Bowel sounds are present. Musculoskeletal: No peripheral edema. No lower extremity tenderness. Integumentary: No cyanosis. Neurological: The patient is awake and alert. No focal deficits. Psychiatric: Normal affect. Course 1734: Past medical records reviewed. The patient was evaluated in room A2, and a complete history and physical examination were performed. 1748: I spoke with , Cardiothoracic Surgery. He will evaluate the patient. 1757: I spoke with Magalis Watson PA-C for admission to Dr. Cristina. The patient has verbalized agreement to the treatment plan. Consultations Consultation #1: Magalis Watson PA-C Time: 17:57 Administered Medications Atorvastatin Calcium (Lipitor) 40 mg PO DAILY SHAHLA Stop: 03/09/19 08:59 Last Admin: 02/07/19 08:19 Dose: 40 mg Documented by: [id number] Felodipine (Plendil) 10 mg PO HS SHAHLA Stop: 03/08/19 20:59 Last Admin: 02/06/19 21:17 Dose: 10 mg Documented by: [id number] Folic Acid (Folvite) 1 mg PO DAILY SHAHLA Stop: 03/09/19 08:59 Last Admin: 02/07/19 08:19 Dose: 1 mg Documented by: [id number] Hydroxychloroquine Sulfate (Plaquenil) 200 mg PO DAILY SHAHLA Stop: 03/09/19 08:59 Last Admin: 02/07/19 08:18 Dose: 200 mg Documented by: [id number] Furosemide 40 mg/ Syringe 4 mls @ 4 mls/min IV [id number] SHAHLA Stop: 03/08/19 20:59 Last Admin: 02/07/19 08:19 Dose: 4 mls/min Documented by: [id number] Admin: 02/06/19 21:16 Dose: 4 mls/min Documented by: [id number] Piperacillin Sod/Tazobactam (Sod 3.375 gm/ Dextrose) 115 mls @ 28.75 mls/hr IV Q8H [facility]; Protocol Stop: 02/14/19 03:59 Last Admin: 02/07/19 11:38 Dose: 28.8 mls/hr Documented by: [id number] Infusion: 02/07/19 09:23 Dose: 0 mls/hr Documented by: [id number] Admin: 02/07/19 05:02 Dose: 28.8 mls/hr Documented by: [id number] Losartan Potassium (Cozaar) 50 mg PO DAILY [facility] Stop: 03/09/19 08:59 Last Admin: 02/07/19 08:19 Dose: 50 mg Documented by: [id number] Metoprolol Succinate (Toprol Xl) 12.5 mg PO BID [facility] Stop: 03/08/19 20:59 Last Admin: 02/07/19 08:18 Dose: 12.5 mg Documented by: [id number] Admin: 02/06/19 21:16 Dose: 12.5 mg Documented by: [id number] Mirtazapine (Remeron) 7.5 mg PO HS [facility] Stop: 03/08/19 20:59 Last Admin: 02/06/19 21:16 Dose: 7.5 mg Documented by: [id number] Oxycodone HCl (Oxycontin) 30 mg PO TID [facility] Stop: 02/20/19 20:59 Last Admin: 02/07/19 08:21 Dose: 30 mg Documented by: [id number] Admin: 02/06/19 21:20 Dose: 30 mg Documented by: [id number] Oxycodone/Acetaminophen (Percocet 5mg/325mg) 1 tab PO Q4H PRN PRN Reason: Pain Stop: 02/20/19 20:14 Last Admin: 02/06/19 21:20 Dose: 1 tab Documented by: [id number] Pantoprazole Sodium (Protonix) 40 mg PO DAILY [facility] Stop: 03/09/19 08:59 Last Admin: 02/07/19 08:19 Dose: 40 mg Documented by: [id number] Prednisone (Prednisone) 10 mg PO DAILY [facility] Stop: 03/09/19 08:59 Last Admin: 02/07/19 08:19 Dose: 10 mg Documented by: [id number] Discontinued Medications Piperacillin Sod/Tazobactam (Sod 3.375 gm/ Dextrose) 115 mls @ 230 mls/hr IV NOW ONE; Protocol Stop: 02/06/19 21:29 Last Infusion: 02/06/19 21:47 Dose: 0 mls/hr Documented by: [id number] Admin: 02/06/19 21:16 Dose: 230 mls/hr Documented by: [id number] Medical Decision Making Differential Diagnosis pleural effusion, transudate, exudate, empyema, pneumonia. Medical Records Attestation: I reviewed the patient's medical records. She had a CT scan of chest today. Large left pleural effusion shown. Blood work showed creatinine of 1.5 and hemoglobin 8.8 today. Prior hemoglobin was 10.3 in October. Home Medications Current Medication List: was personally reviewed by me Laboratory Data Attestation: I reviewed the patient's lab results. Result diagrams: 02/07/19 04:05 02/07/19 04:05 Lab Results 02/06/19 02/06/19 02/06/19 Range/Units 17:58 17:58 20:44 WBC 5.94 (4.8-10.8) K/uL RBC 3.30 L (4.2-5.4) M/uL Hgb 8.7 L (12.0-16.0) g/dL Hct 28.1 L (37-47) % MCV 85.2 (80-100) fL MCH 26.4 (25-34) pg MCHC 31.0 L (32-36) g/dL RDW Std Deviation 48.6 H (36.4-46.3) fL RDW Coeff of Sharona 15.6 H (11.5-14.5) % Plt Count 326 (130-400) K/uL MPV 9.4 (7.4-10.4) fL Immature Gran % (Auto) 0.2 % Neut % (Auto) 64.5 % Lymph % (Auto) 16.7 % [place] % (Auto) 14.0 % Eos % (Auto) 4.4 % Baso % (Auto) 0.2 % Immature Gran # (Auto) 0.01 (0.00-0.02) K/uL Neut # (Auto) 3.84 (1.4-6.5) K/uL Lymph # (Auto) 0.99 L (1.2-3.4) K/uL [place] # (Auto) 0.83 H (0.11-0.59) K/uL Eos # (Auto) 0.26 (0-0.5) K/uL Baso # (Auto) 0.01 (0-0.2) K/uL Sodium (136-145) mmol/L Potassium (3.5-5.1) mmol/L Chloride (98-107) mmol/L Carbon Dioxide (21-32) mmol/L Anion Gap (3-11) BUN (7-18) mg/dl Creatinine (0.6-1.2) mg/dl Est Cr Clr Drug Dosing ml/min Est GFR ( Amer) Est GFR (Non-Af Amer) BUN/Creatinine Ratio (10-20) Glucose (70-99) mg/dl Calcium (8.5-10.1) mg/dl Magnesium (1.8-2.4) mg/dl Total Bilirubin (0.2-1) mg/dl AST (15-37) U/L ALT (12-78) U/L Alkaline Phosphatase (45-117) U/L Troponin I < 0.015 (0-0.045) ng/ml Total Protein (6.4-8.2) gm/dl Albumin (3.4-5.0) gm/dl Globulin (2.5-4.0) gm/dl Albumin/Globulin Ratio (0.9-2) TSH (0.300-4.500) uIu/ml Free T4 (0.8-1.6) ng/dl Blood Type A Positive Antibody Screen NEGATIVE 02/07/19 02/07/19 Range/Units 04:05 04:05 WBC 6.06 (4.8-10.8) K/uL RBC 3.50 L (4.2-5.4) M/uL Hgb 9.3 L (12.0-16.0) g/dL Hct 29.8 L (37-47) % MCV 85.1 (80-100) fL MCH 26.6 (25-34) pg MCHC 31.2 L (32-36) g/dL RDW Std Deviation 48.9 H (36.4-46.3) fL RDW Coeff of Sharona 15.8 H (11.5-14.5) % Plt Count 345 (130-400) K/uL MPV 9.3 (7.4-10.4) fL Immature Gran % (Auto) 0.5 % Neut % (Auto) 62.6 % Lymph % (Auto) 15.3 % [place] % (Auto) 16.2 % Eos % (Auto) 5.1 % Baso % (Auto) 0.3 % Immature Gran # (Auto) 0.03 H (0.00-0.02) K/uL Neut # (Auto) 3.79 (1.4-6.5) K/uL Lymph # (Auto) 0.93 L (1.2-3.4) K/uL [place] # (Auto) 0.98 H (0.11-0.59) K/uL Eos # (Auto) 0.31 (0-0.5) K/uL Baso # (Auto) 0.02 (0-0.2) K/uL Sodium 138 (136-145) mmol/L Potassium 3.9 (3.5-5.1) mmol/L Chloride 108 H (98-107) mmol/L Carbon Dioxide 27 (21-32) mmol/L Anion Gap 3.0 (3-11) BUN 15 (7-18) mg/dl Creatinine 1.47 H (0.6-1.2) mg/dl Est Cr Clr Drug Dosing 22.1 ml/min Est GFR ( Amer) 37.3 Est GFR (Non-Af Amer) 32.2 BUN/Creatinine Ratio 10.4 (10-20) Glucose 99 (70-99) mg/dl Calcium 8.3 L (8.5-10.1) mg/dl Magnesium 2.3 (1.8-2.4) mg/dl Total Bilirubin 0.4 (0.2-1) mg/dl AST 30 (15-37) U/L ALT 17 (12-78) U/L Alkaline Phosphatase 227 H (45-117) U/L Troponin I < 0.015 (0-0.045) ng/ml Total Protein 6.7 (6.4-8.2) gm/dl Albumin 2.4 L (3.4-5.0) gm/dl Globulin 4.3 H (2.5-4.0) gm/dl Albumin/Globulin Ratio 0.6 L (0.9-2) TSH 0.458 (0.300-4.500) uIu/ml Free T4 1.13 (0.8-1.6) ng/dl Blood Type Antibody Screen Imaging Data Attestation: I personally reviewed and interpreted this imaging study as follows: ECG Data Attestation: I personally reviewed and interpreted this ECG as follows: Indication: SOB/dyspnea Rate (beats per minute): 70 Rhythm: normal sinus Findings: + LBBB; no other (No PVC) Comparison ECG Date: from (April 06, 2018) Change: no significant change Blood Pressure Blood Pressure Findings: Elevated blood pressure Blood Pressure Disposition: further management by hospitalist SERAFIN Narrative - I did evaluate the patient as noted above. IV access was established. The patient was placed on a continuous cardiac cath lab radiology technologist. I did order and personally review the patient's 12-lead EKG as described above. She has an old left bundle branch block without acute ischemia. I did order a type and screen for potential transfusion. I did order and review the patient's blood work as noted in the electronic medical record. She is anemic. I did discuss the case with Dr. Villa of cardiothoracic surgery. He will evaluate the patient. I did discuss the case with the hospitalist and case finisher. Impression & Plan Pleural effusion, left, Anemia, Dyspnea Discharge Plan Visit Data *Final* Discharge Date/Time: 02/06/19 20:04 Chief Complaint: Shortness of Breath/Dyspnea Stated Complaint: FLUID IN CHEST, HX PNEUMPONIA- REFERRED ED Provider: Kahlil Toribio Discharge Problem: Pleural effusion, left, Anemia, Dyspnea Patient Disposition: Admitted As Inpatient Discharge Instructions Interventions: ED Discharge Assessment Last Done: 02/06/19 20:04 The scribe's documentation has been prepared under my direction and personally reviewed by me in its entirety. I confirm that the note above accurately reflects all work, treatment, procedures, and medical decision making performed by me.
--- NOTE | 2019-02-07 12:20 | Consultation Report ---
DATE OF CONSULTATION: 02/07/2019 REASON FOR CONSULTATION: Left pleural effusion. HISTORY OF PRESENT ILLNESS: This is an 83-year-old female who says that she was diagnosed with pneumonia about 2 weeks ago. She says that she was treated by her outpatient physicians, but over the past several days, she reports worsening fatigue, some dyspnea on exertion along with night sweats. She denies any fevers or rigors. The patient did have an outpatient chest CT that reportedly showed a large left pleural effusion with compressive atelectasis. The patient was ultimately referred for admission by her outpatient physicians and we were asked to see due to her pleural effusion. I visited with the patient at the bedside. She was feeling somewhat fatigued, but overall okay. She denies any recent falls, head injuries, visual changes, tinnitus, sore throat, or neck pain. She does not report any substernal chest pain, but does note some tightness on the left side with breathing. She has dyspnea on exertion and fatigue. She has night sweats, but no fevers or rigors. She denies abdominal pain, nausea, vomiting or diarrhea. No dysuria is noted. She does not report any history of DVT or PE. She denies anxiety or depression. The patient says that she does have a history of breast cancer that was treated in the past with lumpectomy and radiation. She says to the best of her knowledge, she has never had a thoracentesis or any pleural drainage procedures. At the time of my exam, she was resting comfortably. PAST MEDICAL HISTORY: Includes the followin. Coronary artery disease. 2. Left bundle-branch block. 3. Lupus. 4. Moderate aortic stenosis. 5. Chronic pain syndrome. 6. Chronic kidney disease. 9. Anxiety. 10. Depression. 11. History of breast cancer. 12. Chronic anemia. 13. Hypertension. 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 15. Vitamin D deficiency. 16. Hypothyroidism. 17. Dyslipidemia. 18. Lymphedema. PAST SURGICAL HISTORY: Includes: 1. Shoulder surgery. 2. Left breast lumpectomy. FAMILY HISTORY: She did not report a family history of premature coronary artery disease. SOCIAL HISTORY: She is a former smoker. ALLERGIES: SHE HAS LISTED ALLERGIES TO: 1. PROCHLORPERAZINE. 2. VIDA INHIBITORS. OUTPATIENT MEDICATIONS: Include: 1. Albuterol inhaler. 2. Aspirin 81 mg daily. 3. Lipitor 40 mg daily. 4. Vitamin D3 5000 units daily. 5. Felodipine 10 mg at bedtime. 6. Folic acid 1 mg daily. 7. Hydroxychloroquine 200 mg daily. 8. Losartan 50 mg daily. 9. Metoprolol 12.5 mg twice daily. 10. Remeron 7.5 mg at bedtime. 11. Sublingual nitroglycerin as needed. 12. OxyContin 30 mg 3 times daily. 13. Percocet as needed for pain. 14. Protonix 40 mg daily. 15. Prednisone 10 mg daily. REVIEW OF SYSTEMS: As noted above. PHYSICAL EXAMINATION: VITAL SIGNS: Blood pressure is 136/63, pulse 66 and regular, respirations are 20 and unlabored, pulse ox 98% on room air. She is afebrile with temperature 37.0. GENERAL: She is alert. She is oriented x3. She is in no distress. HEENT: Head is atraumatic, normocephalic. Eyes: Pupils equal, round, react to light and accommodation. Extraocular motions are intact. Ears: Auditory acuity is grossly intact. Nose: Nasal patency was intact. Sinuses are nontender. Mouth is moist without exudates. NECK: Supple. There is no JVD or tracheal shift. CARDIOVASCULAR: Revealed regular rate and rhythm. LUNGS: Revealed breath sounds were markedly decreased at the left base. She was not using accessory muscles to aid in respiration. ABDOMEN: Soft, nontender. EXTREMITIES: Revealed no cyanosis, clubbing or edema. NEUROLOGIC: Revealed the patient was ambulatory, able to move all 4 extremities and follow simple commands without noted focal deficits. DIAGNOSTIC DATA: The patient had a chest x-ray today that did show a left pleural effusion. Labs were obtained today. A CBC revealed hemoglobin and hematocrit of 9.3 and 29.8. Her platelet count and white blood cell count were within normal range. She did not have any coagulation studies. Chemistry profile showed sodium, potassium and BUN were normal. Her creatinine is slightly elevated at 1.4. IMPRESSION: An 83-year-old female with left pleural effusion. PLAN: We will likely offer this patient a left thoracentesis. I discussed the risks of the procedure which include but are not limited to bleeding, infection and pneumothorax. I discussed the benefits which would enable us to send the fluid for analysis to provide a cause of the fluid as well as provide symptomatic relief. The risks of not performing the procedure include worsening respiratory status and she understands this and wishes to proceed. Later today, we will come back to her room and perform an ultrasound-guided thoracentesis and send fluid for appropriate analysis.
--- NOTE | 2019-02-07 14:08 | XRay Report ---
XR chest 1V portable CLINICAL HISTORY: effusion COMPARISON STUDY: February 07, 2019 FINDINGS: There is mild elevation of the left hemidiaphragm. There is marked interval decrease in the size of left pleural effusion. No pneumothorax is visualized. There is no acute parenchymal consolid ation. There are minor left basilar atelectatic changes.[ IMPRESSION: 1. Marked interval decrease in size left pleural effusion 2. Minor left basilar atelectatic changes 3. No pneumothorax identified Electronically signed by: Justino Helms M.D. 02/07/2019 2:07 PM
[2019-02-07 14:47] LABS: Appearance Pleural Fluid HAZY; Color Pleural Fluid STRAW; RBC Pleural Fluid (A) 5000 /uL; Source Pleural Fluid LEFT LUNG; WBC Pleural Fluid (A) 6771 /uL
[2019-02-07 15:15] LABS: Total Protein Pleural Fluid 4.5 g/dl
[2019-02-07 15:45] LABS: Mononuclear WBC Pleural 30.1 %; Polynuclear WBC Pleural 69.9 %
--- NOTE | 2019-02-07 15:53 | Operative Report ---
DATE OF OPERATION: 02/07/2019 PREOPERATIVE DIAGNOSIS: Subacute left pleural effusion. POSTOPERATIVE DIAGNOSIS: Subacute left pleural effusion. PROCEDURE PERFORMED: Ultrasound-guided thoracentesis at bedside. SURGEON: Adama Villa MD CO-SURGEON: SIVA Cabrera ANESTHESIA: Local. DESCRIPTION OF PROCEDURE: After a long discussion with the patient and after getting appropriate consent, a timeout was called. The patient's left chest was then prepped and draped after an ultrasound had been used to find a good window just lateral to the posterior clavicular line. A 25-gauge needle with 1% Xylocaine was used to raise a skin wheal. A large bore needle was used to anesthetize the deeper tissues and we got free flowing fluid. A guidewire was inserted through the needle and the needle removed. Introducer sheath slid over the guidewire and then the introducer sheath was removed and then a triple-lumen catheter was slid into 17 cm. 700 mL of a rust-colored fluid was drained. She had some reexpansion coughing. We then stopped and removed the catheter. A single suture was used to prevent bleeding from this puncture site. Antimicrobial dressing was placed. Chest x-ray is pending at this time. The pH was 7.40 of the fluid and it did not appear to be infected. I attest to the content of the Intraoperative Record and any orders documented therein. Any exception s are noted below.
--- NOTE | 2019-02-07 17:36 | Hospitalist Progress Note ---
Date of Service February 07, 2019 Assessment & Plan (1) Pleural effusion: Large Left Pleural Effusion: Likely malignant; DD: Parapneumonic, Lymphatic/Rheumatological origin Questionable Subacute Pneumonia CT chest done as outpatient reviewed H/O Breast Cancer, SLE H/O recent Pneumonia diagnosed 2 weeks ago Failed outpatient Abx therapy S/P LEFT Thoracentesis blood/Pleural cultures: Continue Continue Zosyn Day # [address] surgery help Continue lasix PO Duonebs, Oxygen support PRN CAD s/p stent H/O LBBB Troponin: Negative ECHO: EF: 60-65%, Septal motion consistent with conduction abnormality, Otherwise normal wall motion H/O SLE Continue Prednisone, Plaquenil Moderate aortic stenosis Grade I diastolic heart failure ECHO as above Biliary duct dilatation Incidental finding on CT Gall bladder USD: Intra and extrahepatic biliary ductal dilatation. This is slightly progressive when compared the prior October 2013 study. Surgically absent gallbladder. Nondiagnostic evaluation of the pancreas Denies abd pain Follow up as outpatient Chronic pain syndrome Continue home pain meds CKD IV Baseline Cr: 1.5 Monitor renal function while on diuretics Anxiety, Depression Continue home meds H/O Breast Cancer s/p lumpectomy and radiation Chronic anemia Baseline Hb around 9.0 Monitor CBC Hypothyroidism H/O left thyroidectomy Enlarged right thyroid gland on CT TSH, Free T4: Normal Currently not on meds Follow up as outpatient Dyslipidemia Continue statin Former Smoker As per records DVT Px: SCDs for now Code Status Full, No mechanical ventilation Disposition: Admit in Tele Subjective Patient is seen and examined [facility] States SOB, chest pain is better No new complaints Has left Thoracentesis today Denies cough Physical Exam Vital Signs (Past 24 Hours): Last Vital Signs Temp 37.0 C 02/07/19 15:25 Pulse 62 02/07/19 15:25 Resp 18 02/07/19 15:25 BP 133/60 02/07/19 15:25 Pulse Ox 97 02/07/19 15:25 Physical Exam: Physical Exam: Vitals signs as noted above General Appearance:Thin, Frail, no apparent distress Head: normocephalic, Atraumatic Eyes: normal inspection, EOMI Neck: supple, Trachea midline Respiratory/Chest: Decreased breath sounds on Left predominantly, CTA Cardiovascular: S1, S2, + murmur Abdomen/GI:Soft, Non tender, Bowel sounds present Extremities/Musculoskelatal:normal inspection, no edema Neurologic/Psych:AAOX3, grossly no focal neurological deficits Skin: normal color, warm Results & Data Laboratory Results Short CBC 02/06/19 02/07/19 Range/Units 17:58 04:05 WBC 5.94 6.06 (4.8-10.8) K/uL Hgb 8.7 L 9.3 L (12.0-16.0) g/dL Hct 28.1 L 29.8 L (37-47) % Plt Count 326 345 (130-400) K/uL BMP 02/07/19 04:05 Sodium 138 Potassium 3.9 Chloride 108 H Carbon Dioxide 27 BUN 15 Creatinine 1.47 H Glucose 99 Calcium 8.3 L Cardiac Enzymes 02/06/19 02/07/19 Range/Units 20:44 04:05 Troponin I < 0.015 < 0.015 (0-0.045) ng/ml Liver Function 02/07/19 Range/Units 04:05 Total Bilirubin 0.4 (0.2-1) mg/dl AST 30 (15-37) U/L ALT 17 (12-78) U/L Alkaline Phosphatase 227 H (45-117) U/L Albumin 2.4 L (3.4-5.0) gm/dl Diagnostic Findings CXR: 1. Marked interval decrease in size left pleural effusion 2. Minor left basilar atelectatic changes 3. No pneumothorax identified
--- NOTE | 2019-02-07 17:57 | Consultation Report ---
DATE OF CONSULTATION: 02/07/2019 REASON FOR CONSULTATION: Left pleural effusion. 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 She has had worsening fatigue and has had some night sweats and has shortness of breath at rest, actually. She also had marked dyspnea on exertion. I was asked to evaluate her with a chest x-ray and then a CT scan showed a new left pleural effusion that had not been present earlier. After evaluating her I feel she is a candidate for a bedside thoracentesis both for therapy and for diagnosis. We will offer that to her later this afternoon. For specifics of this consultation, please see Mr. Jerald Villalobos's full consultation note.
[2019-02-07] MEDS: OXYCODONE/ACETAMINOPHEN 5mg/325mg TAB PO PRN (21:02)
[2019-02-07] MEDS: FELODIPINE 5 MG TABCR PO SCH (21:04)
[2019-02-07] MEDS: MIRTAZAPINE TAB 15 MG TAB PO SCH (21:05)
[2019-02-08] MEDS: PIPERACILLIN/TAZOBACTAM 3.375 GM in DEXTROSE 5% 100 ML IV SCH ×2 (04:39→12:02)
[2019-02-08] MEDS: OXYCODONE/ACETAMINOPHEN 5mg/325mg TAB PO PRN (06:23)
[2019-02-08 07:36] LABS: Hematocrit (blood only) 29.1 % (37-47); Hemoglobin 9.1 g/dL (12.0-16.0); Mean Corpuscular Hgb Conc 31.3 g/dL (32-36); Mean Corpuscular Volume 84.8 fL (80-100); Mean Platelet Volume 9.7 fL (7.4-10.4); Platelet Count 389 K/uL (130-400); RDW Coefficient of Variation 15.6 % (11.5-14.5); RDW Standard Deviation 48.4 fL (36.4-46.3); Red Blood Count 3.43 M/uL (4.2-5.4); White Blood Count 7.26 K/uL (4.8-10.8)
[2019-02-08] MEDS: predniSONE 10 MG TABLET PO SCH (07:45)
[2019-02-08] MEDS: PANTOprazole 40 MG TAB PO SCH (07:45)
--- NOTE | 2019-02-08 07:45 | XRay Report ---
SINGLE VIEW CHEST CLINICAL HISTORY: Pleural effusion. FINDINGS: An AP, portable, upright chest radiograph is compared to study dated 02/07/2019 and correlat ed with chest CT dated 12/27/2017. The examination is degraded by portable technique and patient rotati on. The heart is top normal in size and there is atherosclerotic calcification of the thoracic aorta . The pulmonary vasculature is noncongested emphysema and chronic interstitial thickening are similar to previous. There is chronic elevation of left hemidiaphragm with left basilar opacities and a smal l left pleural effusion. No pneumothorax is seen. The skeletal structures are osteopenic. The bony th orax is grossly intact. A right shoulder arthroplasty is in place. IMPRESSION: 1. No significant change from yesterday. 2. There is chronic elevation of the left hemidiaphragm with left basilar opacities and small left pl eural effusion. 3. Emphysema. Electronically signed by: Cody Chavis M.D. 02/08/2019 7:44 AM
[2019-02-08] MEDS: HYDROXYCHLOROQUINE SULFATE 200 MG TAB PO SCH (07:46)
[2019-02-08] MEDS: LOSARTAN POTASSIUM 50 MG TAB PO SCH (07:46)
[2019-02-08] MEDS: ATORVASTATIN 40 MG TAB PO SCH (07:46)
[2019-02-08] MEDS: METOPROLOL SUCC 25MG EXT REL TAB PO SCH (07:46)
[2019-02-08] MEDS: FOLIC ACID 1 MG TAB PO SCH (07:46)
[2019-02-08] MEDS: OXYCODONE HCL 15 MG TABCR (OXYCONTIN) PO SCH (07:48)
[2019-02-08 07:52] LABS: BUN Creatinine Ratio 12.1 (10-20); Calcium 8.2 mg/dl (8.5-10.1); Creatinine Clr Calc Pharmacy 15.3 ml/min; Est GFR (African American) 23.8; Est GFR (Non-African American) 20.6; Potassium 3.5 mmol/L (3.5-5.1)
[2019-02-08] MEDS ORDERED: FUROSEMIDE 20 MG TAB PO SCH (09:00)
[2019-02-08] MEDS ORDERED: ASPIRIN 81 MG ECTAB PO SCH (09:00)
--- NOTE | 2019-02-08 10:55 | Surgery Progress Note ---
Date of Service February 08, 2019 Assessment & Plan (1) Pleural effusion, left: -let thoracentesis performed on 02/07/19 -cultures are (-) to date with no organisms noted on gram stain -cytology is pending -pt. ok for d/c from surgery standpoint -we will call her for a 1-2 week f/u appt. with repeat CXR following d/c Subjective Pt. denies fevers, shakes, chills. She notes a significant improvement in her breathing since thoracentesis yesterday Physical Exam Vital Signs (Past 24 Hours): Last Vital Signs Temp 36.7 C 02/08/19 07:06 Pulse 70 02/08/19 08:00 Resp 16 02/08/19 07:06 BP 104/62 02/08/19 07:45 Pulse Ox 98 02/08/19 07:06 Constitutional: well developed and well nourished; no acute distress Respiratory: BS with only slight decrease at left base; air movement is significatnly improved from yesterday's exam
--- NOTE | 2019-02-08 12:49 | Hospitalist Progress Note ---
Date of Service February 08, 2019 Assessment & Plan (1) Pleural effusion: Large Left Pleural Effusion: Likely malignant; DD: Parapneumonic, Lymphatic/Rheumatological origin Questionable Subacute Pneumonia CT chest done as outpatient reviewed H/O Breast Cancer, SLE H/O recent Pneumonia diagnosed 2 weeks ago Failed outpatient Abx therapy S/P LEFT Thoracentesis blood cultures:No growth to date Pleural fluid culture: No organisms or growth to date Pathology: pending Continue Zosyn Day # 3>>> Switch to PO meds Appreciate CT surgery help Discontinue lasix Duonebs, Oxygen support PRN CAD s/p stent H/O LBBB Troponin: Negative ECHO: EF: 60-65%, Septal motion consistent with conduction abnormality, Otherwise normal wall motion H/O SLE Continue Prednisone, Plaquenil Moderate aortic stenosis Grade I diastolic heart failure ECHO as above Biliary duct dilatation Incidental finding on CT Gall bladder USD: Intra and extrahepatic biliary ductal dilatation. This is slightly progressive when compared the prior October 2013 study. Surgically absent gallbladder. Nondiagnostic evaluation of the pancreas Denies abd pain Follow up as outpatient Chronic pain syndrome Continue home pain meds AMRIK on CKD IV Baseline Cr: 1.5 AMRIK due to diuretics Diuretics discontinued Monitor renal function Will repeat PRP upon discharge Anxiety, Depression Continue home meds H/O Breast Cancer s/p lumpectomy and radiation Chronic anemia Baseline Hb around 9.0 Monitor CBC Hypothyroidism H/O left thyroidectomy Enlarged right thyroid gland on CT TSH, Free T4: Normal Currently not on meds Follow up as outpatient Dyslipidemia Continue statin Former Smoker As per records DVT Px: SCDs for now Code Status Full, No mechanical ventilation Disposition: Discharge home today Subjective Patient is seen and examined at beside Doing well today Denies chest pain, SOB, dizziness Offers no complaints Requests to be discharged home Physical Exam Vital Signs (Past 24 Hours): Last Vital Signs Temp 36.8 C 02/08/19 11:44 Pulse 72 02/08/19 11:44 Resp 17 02/08/19 11:44 BP 99/67 L 02/08/19 11:44 Pulse Ox 99 02/08/19 11:44 Physical Exam: Physical Exam: Vitals signs as noted above General Appearance:Thin, Frail, no apparent distress Head: normocephalic, Atraumatic Eyes: normal inspection, EOMI Neck: supple, Trachea midline Respiratory/Chest: Normal breath sounds, CTA Cardiovascular: S1, S2, + murmur Abdomen/GI:Soft, Non tender, Bowel sounds present Extremities/Musculoskelatal:normal inspection, no edema Neurologic/Psych:AAOX3, grossly no focal neurological deficits Skin: normal color, warm Results & Data Laboratory Results Short CBC 02/08/19 Range/Units 07:16 WBC 7.26 (4.8-10.8) K/uL Hgb 9.1 L (12.0-16.0) g/dL Hct 29.1 L (37-47) % Plt Count 389 (130-400) K/uL BMP 02/08/19 07:16 Sodium 138 Potassium 3.5 Chloride 103 Carbon Dioxide 28 BUN 26 H D Creatinine 2.13 H D Glucose 103 H Calcium 8.2 L
--- NOTE | 2019-02-08 13:04 | Discharge Summary ---
Date of Service February 08, 2019 Admission HPI Per Admitting Provider Patient is an 83 yr female with PMH of CAD s/p stent x1, LBBB, SLE on chronic prednisone and immunosuppression, Moderate aortic stenosis, chronic pain syndrome, CKD IV, Anxiety, Depression, Breast Cancer s/p lumpectomy and radiation, chronic anemia, Hypertensive Kidney disease, Sclerodactyly, Vitamin D deficiency, Hypothyroidism, Dyslipidemia, Lymphedema, Former Smoker and other problems presents with history of pleuritic chest pain and worsening shortness of breath. Patient states that she was diagnosed with pneumonia 2 weeks ago and was placed on 2 different antibiotics (Augmentin and other antibiotic which she is unaware of ) for which she completed the course without resolution of symptoms. Patient states having fever, left-sided chest pain which increases with breathing which is sharp, 5/10, intermittently radiates to back. Shortness of breath has been progressively worsening since last 2 weeks. She reports being very tired, and has night sweats. She has been using her albuterol inhaler since 1week and has also used a prednisone taper course with resolution of symptoms. Outpatient CT chest showed large left pleural effusion, compressive atelectasis of the left lower lobe and mild left upper lobe atelectasis. Denies any history of chest pain at rest, dizziness, pedal edema, cough, headache, change in vision, nausea, vomiting, abdominal pain, diarrhea, dysuria, recent change in medications. Admission Exam Per Admitting Provider Physical Exam: Vitals signs as noted above General Appearance:Thin, Frail, no apparent distress Head: normocephalic, Atraumatic Eyes: normal inspection, EOMI Neck: supple, Trachea midline Respiratory/Chest: Decreased breath sounds, CTA Cardiovascular: S1, S2, + murmur Abdomen/GI:Soft, Non tender, Bowel sounds present Extremities/Musculoskelatal:normal inspection, no edema Neurologic/Psych:AAOX3, grossly no focal neurological deficits Skin: normal color, warm Principal Diagnosis Discharge Information Discharge Diagnosis Left Pleural Effusion Acute Kidney Injury Discharge Goals Decrease discomfort,Improve function,Increase independence Discharge Activity Limitations Resume your previous activity Discharge Data Allergies Allergy/AdvReac Type Severity Reaction Status Date / Time prochlorperazine Allergy Mild flushed Verified 02/06/19 17:15 VIDA Inhibitors AdvReac Intermediate RAPID Verified 02/06/19 17:15 PULSE, BULGING EYES Consultations 02/06/19 17:52 ED Decision to Admit Stat 02/06/19 20:15 Consult Case Management - Discharge Planning Routine 02/07/19 08:00 Consult Thoracic Surgery Routine Procedures Performed Gall Bladder USD: 1. Intra and extrahepatic biliary ductal dilatation. This is slightly progressive when compared the prior October 2013 study 2. Surgically absent gallbladder 3. Nondiagnostic evaluation of the pancreas CXR: 1. Marked interval decrease in size left pleural effusion 2. Minor left basilar atelectatic changes 3. No pneumothorax identified Ordered Studies 02/07/19 gallbladder Routine Hospital Course (1) Pleural effusion: Large Left Pleural Effusion: Likely malignant; DD: Parapneumonic, Lymphatic/Rheumatological origin Questionable Subacute Pneumonia CT chest done as outpatient reviewed H/O Breast Cancer, SLE H/O recent Pneumonia diagnosed 2 weeks ago Failed outpatient Abx therapy S/P LEFT Thoracentesis blood cultures:No growth to date Pleural fluid culture: No organisms or growth to date Pathology: pending Continue Zosyn Day # 3>>> Switch to PO meds Appreciate CT surgery help Discontinue lasix Duonebs, Oxygen support PRN CAD s/p stent H/O LBBB Troponin: Negative ECHO: EF: 60-65%, Septal motion consistent with conduction abnormality, Otherwise normal wall motion H/O SLE Continue Prednisone, Plaquenil Moderate aortic stenosis Grade I diastolic heart failure ECHO as above Biliary duct dilatation Incidental finding on CT Gall bladder USD: Intra and extrahepatic biliary ductal dilatation. This is slightly progressive when compared the prior October 2013 study. Surgically absent gallbladder. Nondiagnostic evaluation of the pancreas Denies abd pain Follow up as outpatient Chronic pain syndrome Continue home pain meds AMRIK on CKD IV Baseline Cr: 1.5 AMRIK due to diuretics Diuretics discontinued Monitor renal function Will repeat PRP upon discharge Anxiety, Depression Continue home meds H/O Breast Cancer s/p lumpectomy and radiation Chronic anemia Baseline Hb around 9.0 Monitor CBC Hypothyroidism H/O left thyroidectomy Enlarged right thyroid gland on CT TSH, Free T4: Normal Currently not on meds Follow up as outpatient Dyslipidemia Continue statin Former Smoker As per records DVT Px: SCDs for now Code Status Full, No mechanical ventilation Disposition: Discharge home today Total Time Total Time Spent Total Time Spent (In Minutes): 35 minutes Total Time Includes: Examination of the Patient, Discharge Planning, Medication Reconciliation, Communication With Other Providers and Other Discharge Plan Discharge Items Patient Disposition: Home - Self-Care Reason For Visit: LEFT PLEURAL EFFUSION Discharge Diagnosis: Left Pleural Effusion Acute Kidney Injury Discharge Goals: Decrease discomfort, Improve function and Increase independence Activity: Resume your previous activity Exercise/Sports: Gradually increase as tolerated Non-emergency contact: Primary Care Provider and Surgeon Call non-emergency contact if: you have any medication questions, your symptoms worsen, your pain is not controlled, your pain is worsening, your pain is unusual for you, your pain is concerning for you, you have a fever, your wound has increased redness, your wound has increased drainage and your wound pain has increased Follow-up/Referrals: Jayden Solis MD [Primary Care Provider] - Diet: Heart Healthy Other Ambulatory Orders: Basic Metabolic Panel (Routine) Timeframe: 1 Week Location: Determined by Patient Ordered By: Willie Cardona XR chest 2V (Routine) Timeframe: 1 Week Location: Determined by Patient Ordered By: Willie Cardona Addtl Provider Instructions: Follow up with your PCP on February 12, 2019 at 1:00pm Follow up with your CT Surgeon in 1 week Follow up with your Physician regarding final cultures which are currently pending Get Blood Test (Basic Metabolic Panel) and Chest X ray in 1 week and follow up with your Physician Seek immediate medical attention if your symptoms reoccur or worsen Do not take Losartan for 3 days and discuss with your physician before you resume the medication Prescriptions: Continued losartan 50 mg tablet 50 mg PO DAILY RF: 0 aspirin 81 mg Tablet,Delayed Release (Dr/Ec) 81 mg PO DAILY RF: 0 oxycodone-acetaminophen 5-325 mg tablet 1 tab PO Q4H PRN (Reason: Pain) RF: 0 felodipine 10 mg tablet extended release 24 hr 10 mg PO HS RF: 0 metoprolol succinate 25 mg tablet extended release 24 hr 12.5 mg PO BID RF: 0 hydroxychloroquine 200 mg tablet 200 mg PO DAILY RF: 0 mirtazapine 7.5 mg tablet 7.5 mg PO HS RF: 0 oxycodone [OxyContin] 30 mg tablet,oral only,ext.rel.12 hr 30 mg PO TID RF: 0 atorvastatin 40 mg Tablet 40 mg PO DAILY RF: 0 prednisone 10 mg Tablet 10 mg PO DAILY RF: 0 pantoprazole [Protonix] 40 mg Tablet,Delayed Release (Dr/Ec) 40 mg PO DAILY RF: 0 nitroglycerin 0.4 mg Tablet, Sublingual 0.4 mg sublingual USEASDIRECTD PRN (Reason: Chest Pain) RF: 0 folic acid 1 mg Tablet 1 mg PO DAILY RF: 0 albuterol sulfate [Ventolin HFA] 90 mcg/actuation Hfa Aerosol Inhaler 2 puff INHALATION Q6H PRN (Reason: Shortness Of Breath Or Wheezing) RF: 0 cholecalciferol (vitamin D3) [Vitamin D3] 5,000 unit Tablet 5,000 unit PO DAILY RF: 0 Stand-Alone Forms: [facility]/Other Patient Handouts: Effusion Pleural, Thoracentesis Dc Discharge Orders: Discharge Order (Routine); Ordered 02/08/19 Ordered By: Willie Cardona Admission Data Admit Date/Time: 02/06/19 19:09 Attending Provider: Willie Cardona Admit Provider: Willie Cardona Primary Care Provider: Jayden Solis Other Providers: Reji Cristina Joseph D. Service: Telemetry Other Interventions: Discharge Summary Assessment (RN) Last Done: 02/08/19 13:07 Pending Studies at Discharge: Yes Studies:: Pleural fluid culture DC Date/Time DO NOT enter until pt leaves facility: 02/08/19 14:08
--- NOTE | 2019-02-14 08:01 | Coding Query ---
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 Please assist us with the question(s) below: Coding Question(s): Pleural Effusion, Likely Malignant is documented within the record, according to coding guidelines a neoplasm must be coded first, There is no documenation of a current neoplasm in the record however there is a history of breast CA Can you please clarify the diagnosis below. Physician's Response(s): ( ) Malignant Pleural Effusion POA Specify current Neoplasm: (X ) Malignant Pleural Effusion- Ruled out---Based on Pathology report ( ) Other (please Specify) Thank you Rosangela Duckworth Principal Diagnosis: "that condition established after study, to be chiefly responsible for occasioning the admission of the patient to the hospital for care." Co-Existing Principal Diagnosis: "when two or more diagnoses equally meet the criteria for principal diagnosis as determined by the circumstances of admission, diagnostic work up, and/or therapy provided, and the Alphabetic Index, Tabular List, or another coding guideline does not provide sequencing direction, any one of the diagnoses may be sequenced first." "When the physician has documented what appears to be a current diagnosis in the body of the record, but has not included the diagnosis in the final diagnostic statement, the physician should be asked whether the diagnosis should be added." (Source Coding [facility] 2 QTR90. p3-4) [email or web address]
== END 2019-02-08 14:08 | disposition home or self-care (01) | DRG 186 ==
LOC: ED 16:05 → 2E 19:09

== ENCOUNTER 2020-05-14 05:49 | Observation (INO) ==
[2020-05-14] MEDS ORDERED: ACETAMINOPHEN 1,000 MG/100 ML VIAL IV STA (05:55)
[2020-05-14] MEDS ORDERED: MoRPHine SULFATE 4 MG/ML 1 ML CARP\\VIAL IV STA (05:55)
[2020-05-14] MEDS ORDERED: ONDANSETRON INJ 2 MG/ML 2 ML VIAL IV STA (05:55)
[2020-05-14] MEDS ORDERED: SODIUM CHLORIDE 0.9% 1000ML 500 ML IV ONE (05:55)
--- NOTE | 2020-05-14 06:09 | Emergency Department Note ---
History of Present Illness General Chief complaint: Nausea Stated complaint: NAUSEA/VOMITING/ABDOMINAL PAIN Time Seen by Provider: 05/14/20 07:14 Source: patient, EMS, RN notes reviewed and old records reviewed Mode of arrival: EMS Limitations: no limitations History of Present Illness Provider complaint: Nausea Onset (ago): hour(s) 2 Location: abdomen Radiation: non-radiation Severity: moderate Pain Consistency: + constant Current Pain Intensity: 4 Quality: + constant Relieved By: + immobilization Exacerbated By: + movement Associated symptoms: + fever/chills; no chest pain and no shortness of breath Treatments prior to arrival: none This is an 85-year-old female who presents emergency department complaining of nausea. The patient went to her primary care physician's office yesterday due to fever as well as vomiting. There she had a de la torre virus test. The patient woke up this morning and began complaining of abdominal pain as well as nausea. She reports the pain is constant. There is no radiation of the pain. She reports movement makes the pain worse however immobilization makes the pain better. Patient has a history of lupus and is on prednisone. She was running a temperature at home of 100 degrees Home Medications Home Medications Medication Instructions Recorded Confirmed Type albuterol sulfate [Ventolin HFA] 2 puff INHALATION Q6H PRN 02/06/19 05/14/20 History aspirin 81 mg PO DAILY 02/06/19 05/14/20 History atorvastatin 40 mg PO HS 02/06/19 05/14/20 History cholecalciferol (vitamin D3) 5,000 unit PO DAILY 02/06/19 05/14/20 History [Vitamin D3] felodipine 10 mg PO HS 02/06/19 05/14/20 History hydroxychloroquine 200 mg PO DAILY 02/06/19 05/14/20 History losartan 50 mg PO DAILY 02/06/19 05/14/20 History metoprolol succinate 12.5 mg PO BID 02/06/19 05/14/20 History mirtazapine 7.5 mg PO HS 02/06/19 05/14/20 History nitroglycerin 0.4 mg SUBLINGUAL USEASDIRECTD PRN 02/06/19 05/14/20 History oxycodone [OxyContin] 30 mg PO TID 02/06/19 05/14/20 History oxycodone-acetaminophen 1 tab PO Q4H PRN 02/06/19 05/14/20 History pantoprazole [Protonix] 40 mg PO DAILY 02/06/19 05/14/20 History prednisone 10 mg PO DAILY 02/06/19 05/14/20 History Vitron-C 1 tab PO DAILY 05/14/20 05/14/20 History acetaminophen 1,000 mg PO Q6H PRN 05/14/20 05/14/20 History triamcinolone acetonide 1 applic TOPICAL BID 05/14/20 05/14/20 History ciprofloxacin HCl 500 mg PO DAILY #4 tab 05/16/20 Rx metronidazole 500 mg PO TID 4 Days #12 tab 05/16/20 Rx polyethylene glycol 3350 [Miralax] 17 g PO DAILY PRN #30 ea 05/16/20 Rx Allergies Allergy/AdvReac Type Severity Reaction Status Date / Time prochlorperazine Allergy Mild flushed Verified 05/14/20 07:05 VIDA Inhibitors AdvReac Intermediate RAPID Verified 05/14/20 07:05 PULSE, BULGING EYES Past Med/Surg History Medical History (Updated 05/17/20 @ 10:31 by Kali Quinn MD) Breast cancer CAD (coronary artery disease) (Chronic) "10/2013 - NSTEMI, s/p ADRIENNE to LAD" CAD (coronary artery disease) Chronic pain syndrome CKD (chronic kidney disease) CKD (chronic kidney disease), stage III Lupus (systemic lupus erythematosus) Surgical History (Updated 05/14/20 @ 10:12 by Magalis Watson PA-C) H/O lumpectomy H/O shoulder surgery History of appendectomy (Inactive) History of cholecystectomy (Inactive) History of coronary angioplasty hx of ADRIENNE in 2013 History of hysterectomy (Inactive) History of partial mastectomy of left breast History of partial thyroidectomy (Inactive) S/P tonsillectomy and adenoidectomy (Inactive) Family History (Updated 05/14/20 @ 10:14 by Magalis Watson PA-C) Father Lung cancer Sister Diabetes Social History (Updated 05/14/20 @ 10:16 by Magalis Watson PA-C) Preferred Language: Hungarian Communication Ability: Effective Air Boatswain Required: No Beliefs That Will Affect Care: Taoist Taoist Beliefs: Yazidism marital status: / Current Living Situation: Other Current Living Situation Comment: Patient lives w/ daughter. 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 GENERAL - 85-year-old female appearing stated age who is in moderate distress. Communicates well with provider and answers questions appropriately. SKIN - Without rashes. HEAD - NC/AT. EYES - PERRL with EOMI bilaterally. Sclera anicteric. Palpebral conjunctiva pink and moist with no injection noted. EARS - No deformities of external structures noted on gross examination bilaterally. No pain elicited with palpation of the tragus bilaterally. External auditory canals without discharge or otorrhea. Tympanic membranes pearly hutton without retraction or bulging. No fluid or purulent material visualized behind the TM. Handle of malleus, umbo, cone of light, pars tensa/flaccid all easily visualized. NOSE - Midline and without cyanosis. No epistaxis or purulent drainage noted. Septum midline without deviation or septal hematoma noted. MOUTH/OROPHARYNX - Without perioral cyanosis. Buccal mucosa pink and moist and without leukoplakia. Tongue midline with equal elevation of palate bilaterally. No tonsillar hypertrophy, erythema, or exudates noted. dentition noted. NECK - Neck with FROM. Supple to palpation. lymphadenopathy noted. No nuchal rigidity. LUNGS - Chest wall symmetric without accessory muscle use, intercostals retractions, or central cyanosis. Normal vesicular breath sounds CTA B/L. No wheezes, rales, or rhonchi appreciated. CARDIAC - RRR with S1/S2. No murmur, rubs, or gallops appreciated. ABDOMEN - Abdominal contour without pulsations or visible masses. BS normoactive all four quadrants. diffusely tender, palpable masses, hepatosplenomegaly, or ascites noted. EXTREMITIES - No clubbing or peripheral cyanosis. No pretibial edema present. +3/5 radial, posterior tibial, and dorsalis pedis pulses palpated throughout. +5/5 strength noted in UE/LE bilaterally. NEUROLOGIC - Cranial nerves II through XII grossly intact. Sensory intact to light touch throughout. Patellar reflexes +2/4. PSYCH - A&Ox3 and cooperates fully with examiner. Pt is very pleasant and interacts well with examiner. Course Administered Medications Discontinued Medications Aspirin (Ecotrin Ectab) 81 mg PO DAILY SHAHLA Stop: 06/14/20 08:59 Last Admin: 05/16/20 08:31 Dose: 81 mg Documented by: [id number] Admin: 05/15/20 08:11 Dose: 81 mg Documented by: [id number] Ciprofloxacin (Cipro) 500 mg PO DAILY SHAHLA Stop: 05/26/20 13:14 Last Admin: 05/16/20 14:08 Dose: 500 mg Documented by: [id number] Al Hydrox/Mg Hydrox/Simethicone 1 ml/Diphenhydramine HCl 2.5 mg/Lidocaine HCl 1 ml/ Sucralfate 200 mg/ BARCODE IDENTIFIER 1 ea 0 ml PO ONE ONE Stop: 05/14/20 10:46 Last Admin: 05/14/20 11:44 Dose: 5 ml Documented by: [id number] Felodipine (Plendil) 10 mg PO HS SHAHLA Stop: 06/13/20 20:59 Last Admin: 05/15/20 20:47 Dose: 10 mg Documented by: [id number] Admin: 05/14/20 19:59 Dose: 10 mg Documented by: [id number] Heparin Sodium (Porcine) (Heparin Sodium (Porcine)) 5,000 units SQ Q12 SHAHLA Stop: 06/13/20 10:59 Last Admin: 05/16/20 08:32 Dose: 5,000 units Documented by: [id number] Cosigned by: [id number] Admin: 05/15/20 20:49 Dose: 5,000 units Documented by: [id number] Cosigned by: [id number] Admin: 05/15/20 08:11 Dose: 5,000 units Documented by: [id number] Cosigned by: [id number] Admin: 05/14/20 20:01 Dose: 5,000 units Documented by: [id number] Cosigned by: [id number] Admin: 05/14/20 12:07 Dose: 5,000 units Documented by: [id number] Cosigned by: [id number] Hydroxychloroquine Sulfate (Plaquenil) 200 mg PO DAILY SHAHLA Stop: 06/13/20 10:59 Last Admin: 05/15/20 10:12 Dose: 200 mg Documented by: [id number] Admin: 05/14/20 15:05 Dose: 200 mg Documented by: [id number] Hydroxychloroquine Sulfate (Plaquenil) 200 mg PO DAILY SHAHLA Stop: 06/15/20 08:59 Last Admin: 05/16/20 10:09 Dose: 200 mg Documented by: [id number] Sodium Chloride (Nss 1000ml) 500 mls @ 999 mls/hr IV .Q31M ONE Stop: 05/14/20 06:25 Last Infusion: 05/14/20 07:10 Dose: 0 mls/hr Documented by: [id number] Admin: 05/14/20 06:21 Dose: 999 mls/hr Documented by: [id number] Acetaminophen (Ofirmev) 1,000 mg in 100 mls @ 400 mls/hr IV NOW STA Stop: 05/14/20 06:09 Last Infusion: 05/14/20 07:10 Dose: 0 mls/hr Documented by: [id number] Admin: 05/14/20 06:21 Dose: 400 mls/hr Documented by: [id number] Piperacillin Sod/Tazobactam Sod (Zosyn) 4.5 gm in 120 mls @ 240 mls/hr IV NOW ONE Stop: 05/14/20 07:09 Last Infusion: 05/14/20 08:20 Dose: 0 mls/hr Documented by: [id number] Admin: 05/14/20 07:40 Dose: 240 mls/hr Documented by: [id number] Levofloxacin/Dextrose (Levaquin/D5w) 750 mg in 150 mls @ 100 mls/hr IV Q24H SHAHLA Stop: 05/21/20 06:44 Last Infusion: 05/14/20 09:18 Dose: 0 mls/hr Documented by: [id number] Admin: 05/14/20 07:43 Dose: 100 mls/hr Documented by: [id number] Daptomycin 300 mg/ Syringe 6 mls @ 3 mls/min IV NOW ONE; Protocol Stop: 05/14/20 06:41 Last Admin: 05/14/20 07:38 Dose: 3 mls/min Documented by: [id number] Sodium Chloride (Nss) 500 mls @ 999 mls/hr IV .Q31M ONE Stop: 05/14/20 09:03 Last Infusion: 05/14/20 09:19 Dose: 0 mls/hr Documented by: [id number] Admin: 05/14/20 08:48 Dose: 999 mls/hr Documented by: [id number] Potassium Chloride/Sodium Chloride (Normal Saline W/20 Meq Kcl) 20 meq in 1,000 mls @ 60 mls/hr IV .[id number] SHAHLA Stop: 05/15/20 03:39 Last Infusion: 05/15/20 04:48 Dose: 0 mls/hr Documented by: [id number] Admin: 05/14/20 11:42 Dose: 60 mls/hr Documented by: [id number] Piperacillin Sod/Tazobactam (Sod 3.375 gm/ Dextrose) 115 mls @ 28.75 mls/hr IV Q8H SHAHLA; Protocol Stop: 05/24/20 11:59 Last Admin: 05/16/20 12:13 Dose: 28.8 mls/hr Documented by: [id number] Infusion: 05/16/20 08:32 Dose: 0 mls/hr Documented by: [id number] Admin: 05/16/20 02:55 Dose: 28.8 mls/hr Documented by: [id number] Infusion: 05/16/20 00:50 Dose: 0 mls/hr Documented by: [id number] Admin: 05/15/20 20:46 Dose: 28.8 mls/hr Documented by: [id number] Infusion: 05/15/20 16:20 Dose: 0 mls/hr Documented by: [id number] Admin: 05/15/20 12:20 Dose: 28.8 mls/hr Documented by: [id number] Infusion: 05/15/20 08:48 Dose: 0 mls/hr Documented by: [id number] Admin: 05/15/20 04:48 Dose: 28.8 mls/hr Documented by: [id number] Infusion: 05/15/20 00:29 Dose: 0 mls/hr Documented by: [id number] Admin: 05/14/20 19:59 Dose: 28.8 mls/hr Documented by: [id number] Infusion: 05/14/20 16:07 Dose: 0 mls/hr Documented by: [id number] Admin: 05/14/20 12:07 Dose: 28.8 mls/hr Documented by: [id number] Ioversol (Optiray 320 100ml) 100 ml IV ONCE PRN PRN Reason: Interaction Checking Stop: 05/18/20 06:45 Last Admin: 05/14/20 06:46 Dose: 93 ml Documented by: [id number] Losartan Potassium (Cozaar) 50 mg PO DAILY SHAHLA Stop: 06/13/20 10:59 Last Admin: 05/16/20 08:31 Dose: 50 mg Documented by: [id number] Admin: 05/15/20 08:12 Dose: 50 mg Documented by: [id number] Admin: 05/14/20 12:06 Dose: 50 mg Documented by: [id number] Metoprolol Succinate (Toprol Xl) 12.5 mg PO BID SHAHLA Stop: 06/13/20 10:59 Last Admin: 05/16/20 08:31 Dose: 12.5 mg Documented by: [id number] Admin: 05/15/20 20:48 Dose: 12.5 mg Documented by: [id number] Admin: 05/15/20 15:05 Dose: 12.5 mg Documented by: [id number] Admin: 05/14/20 20:00 Dose: 12.5 mg Documented by: [id number] Admin: 05/14/20 12:13 Dose: Not Given Documented by: [id number] Metronidazole (Flagyl) 500 mg PO TID [facility] Stop: 05/26/20 13:09 Last Admin: 05/16/20 14:08 Dose: 500 mg Documented by: [id number] Mirtazapine (Remeron) 7.5 mg PO HS [facility] Stop: 06/13/20 20:59 Last Admin: 05/15/20 20:47 Dose: 7.5 mg Documented by: [id number] Admin: 05/14/20 19:59 Dose: 7.5 mg Documented by: [id number] Morphine Sulfate (Morphine Sulfate) 4 mg IV NOW STA Stop: 05/14/20 05:56 Last Admin: 05/14/20 06:21 Dose: 4 mg Documented by: [id number] Ondansetron HCl (Zofran) 4 mg IV NOW STA Stop: 05/14/20 05:56 Last Admin: 05/14/20 06:21 Dose: 4 mg Documented by: [id number] Ondansetron HCl (Zofran) 4 mg IV Q6H PRN PRN Reason: Nausea Stop: 06/13/20 10:28 Last Admin: 05/14/20 16:01 Dose: 4 mg Documented by: [id number] Oxycodone HCl (Oxycontin) 30 mg PO TID [facility] Stop: 05/28/20 13:59 Last Admin: 05/16/20 14:08 Dose: 30 mg Documented by: [id number] Admin: 05/16/20 08:45 Dose: 30 mg Documented by: [id number] Admin: 05/15/20 20:47 Dose: 30 mg Documented by: [id number] Admin: 05/15/20 13:57 Dose: 30 mg Documented by: [id number] Admin: 05/15/20 08:17 Dose: 30 mg Documented by: [id number] Admin: 05/14/20 20:36 Dose: 30 mg Documented by: [id number] Admin: 05/14/20 13:29 Dose: 30 mg Documented by: [id number] Pantoprazole Sodium (Protonix) 40 mg PO DAILY SHAHLA Stop: 06/14/20 08:59 Last Admin: 05/16/20 08:31 Dose: 40 mg Documented by: [id number] Admin: 05/15/20 08:11 Dose: 40 mg Documented by: [id number] Prednisone (Prednisone) 10 mg PO DAILY SHAHLA Stop: 06/14/20 08:59 Last Admin: 05/16/20 08:31 Dose: 10 mg Documented by: [id number] Admin: 05/15/20 08:11 Dose: 10 mg Documented by: [id number] Zolpidem Tartrate (Ambien) 5 mg PO HS PRN PRN Reason: Sleep Stop: 06/13/20 20:02 Last Admin: 05/15/20 20:49 Dose: 5 mg Documented by: [id number] Admin: 05/14/20 20:36 Dose: 5 mg Documented by: [id number] Medical Decision Making Differential Diagnosis Appendicitis, ovarian cyst, ovarian torsion, ectopic , TOA, PID, infections, diverticulitis, UTI, obstruction, mesenteric ischemia, aortic pathology, inflammatory bowel disease, renal colic, PUD, pancreatitis, biliary pathology, hernia, volvulus, constipation, as well as other pathologies. Medical Records Attestation: I reviewed the patient's medical records. Home Medications Current Medication List: was personally reviewed by me Laboratory Data Attestation: I reviewed the patient's lab results. Result diagrams: 05/16/20 07:50 05/16/20 07:50 Lab Results 05/14/20 05/14/20 05/14/20 Range/Units 06:22 06:22 06:22 WBC 13.19 H (4.8-10.8) K/uL RBC 3.96 L (4.2-5.4) M/uL Hgb 11.4 L (12.0-16.0) g/dL POC Hgb (12.0-16.0) g/dl Hct 35.2 L (37-47) % POC Hct (37-47) % MCV 88.9 (80-100) fL MCH 28.8 (25-34) pg MCHC 32.4 (32-36) g/dL RDW Std Deviation 49.1 H (36.4-46.3) fL RDW Coeff of Sharona 15.3 H (11.5-14.5) % Plt Count 206 (130-400) K/uL MPV 10.8 H (7.4-10.4) fL Immature Gran % (Auto) 0.3 % Neut % (Auto) 84.5 % Lymph % (Auto) 3.0 % Bulloch % (Auto) 11.9 % Eos % (Auto) 0.2 % Baso % (Auto) 0.1 % Neut # (Auto) 11.16 H (1.4-6.5) K/uL Lymph # (Auto) 0.39 L (1.2-3.4) K/uL Bulloch # (Auto) 1.57 H (0.11-0.59) K/uL Eos # (Auto) 0.02 (0-0.5) K/uL Baso # (Auto) 0.01 (0-0.2) K/uL Immature Gran # (Auto) 0.04 H (0.00-0.02) K/uL ESR 63 H (0-21) mm/hr PT (9.0-12.0) Seconds INR (0.9-1.1) APTT (21.0-31.0) Seconds PTT Ratio POC Sodium (135-144) mmol/L Sodium 139 (136-145) mmol/L POC Potassium (3.3-5.0) mmol/L Potassium 3.7 (3.5-5.1) mmol/L POC Chloride (101-112) mmol/L Chloride 105 (98-107) mmol/L Carbon Dioxide 26 (21-32) mmol/L POC Total CO2 (24-31) mmol/L Anion Gap 8.0 (3-11) POC Anion Gap (16-25) mmol/L POC BUN (7-18) mg/dl BUN 18 (7-18) mg/dl Creatinine 1.37 H (0.6-1.2) mg/dl POC Creatinine (0.6-1.3) mg/dl Est Cr Clr Drug Dosing 21.9 ml/min Est GFR ( Amer) 40.1 Est GFR (Non-Af Amer) 34.6 BUN/Creatinine Ratio 13.5 (10-20) Glucose 124 H (70-99) mg/dl POC Glucose (other) (70-99) mg/dl Lactate (0.4-2.0) mmol/L Calcium 8.4 L (8.5-10.1) mg/dl POC Ioniz Calcium Trina (1.12-1.32) mmol/l Magnesium 2.1 (1.8-2.4) mg/dl Ferritin 62.5 (8-388) ng/ml Total Bilirubin 0.8 (0.2-1) mg/dl AST 252 H (15-37) U/L ALT 206 H (12-78) U/L Alkaline Phosphatase 446 H (45-117) U/L Lactate Dehydrogenase (84-246) U/L Troponin I < 0.015 (0-0.045) ng/ml C-Reactive Protein 4.58 H (0-0.29) mg/dl Total Protein 8.0 (6.4-8.2) gm/dl Albumin 3.5 (3.4-5.0) gm/dl Globulin 4.5 H (2.5-4.0) gm/dl Albumin/Globulin Ratio 0.8 L (0.9-2) Procalcitonin (0-0.5) ng/ml Urine Color Urine Appearance (Clear) Urine pH (4.5-7.5) Ur Specific Moriah (1.000-1.030) Urine Protein (Negative) Urine Glucose (UA) (Negative) Urine Ketones (Negative) Urine Blood (Negative) Urine Nitrite (Negative) Urine Bilirubin (Negative) Urine Urobilinogen (Negative) Ur Leukocyte Esterase (Negative) Urine WBC (Auto) (0-5) /hpf Urine RBC (Auto) (0-4) /hpf U Hyaline Cast (Auto) (0-5) /lpf U Epithel Cells (Auto) (0-5) /lpf Urine Bacteria (Auto) (Negative) 05/14/20 05/14/20 05/14/20 Range/Units 06:22 06:29 06:52 WBC (4.8-10.8) K/uL RBC (4.2-5.4) M/uL Hgb (12.0-16.0) g/dL POC Hgb 12.9 (12.0-16.0) g/dl Hct (37-47) % POC Hct 38 (37-47) % MCV (80-100) fL MCH (25-34) pg MCHC (32-36) g/dL RDW Std Deviation (36.4-46.3) fL RDW Coeff of Sharona (11.5-14.5) % Plt Count (130-400) K/uL MPV (7.4-10.4) fL Immature Gran % (Auto) % Neut % (Auto) % Lymph % (Auto) % Bulloch % (Auto) % Eos % (Auto) % Baso % (Auto) % Neut # (Auto) (1.4-6.5) K/uL Lymph # (Auto) (1.2-3.4) K/uL Bulloch # (Auto) (0.11-0.59) K/uL Eos # (Auto) (0-0.5) K/uL Baso # (Auto) (0-0.2) K/uL Immature Gran # (Auto) (0.00-0.02) K/uL ESR (0-21) mm/hr PT 13.7 H (9.0-12.0) Seconds INR 1.3 H (0.9-1.1) APTT 32.3 H (21.0-31.0) Seconds PTT Ratio 1.2 POC Sodium 137 (135-144) mmol/L Sodium (136-145) mmol/L POC Potassium 3.7 (3.3-5.0) mmol/L Potassium (3.5-5.1) mmol/L POC Chloride 101 (101-112) mmol/L Chloride (98-107) mmol/L Carbon Dioxide (21-32) mmol/L POC Total CO2 25 (24-31) mmol/L Anion Gap (3-11) POC Anion Gap 16.0 (16-25) mmol/L POC BUN 20 H (7-18) mg/dl BUN (7-18) mg/dl Creatinine (0.6-1.2) mg/dl POC Creatinine 1.3 (0.6-1.3) mg/dl Est Cr Clr Drug Dosing ml/min Est GFR ( Amer) Est GFR (Non-Af Amer) BUN/Creatinine Ratio (10-20) Glucose (70-99) mg/dl POC Glucose (other) 127 H (70-99) mg/dl Lactate (0.4-2.0) mmol/L Calcium (8.5-10.1) mg/dl POC Ioniz Calcium Trina 1.04 L (1.12-1.32) mmol/l Magnesium (1.8-2.4) mg/dl Ferritin (8-388) ng/ml Total Bilirubin (0.2-1) mg/dl AST (15-37) U/L ALT (12-78) U/L Alkaline Phosphatase (45-117) U/L Lactate Dehydrogenase 391 H (84-246) U/L Troponin I (0-0.045) ng/ml C-Reactive Protein (0-0.29) mg/dl Total Protein (6.4-8.2) gm/dl Albumin (3.4-5.0) gm/dl Globulin (2.5-4.0) gm/dl Albumin/Globulin Ratio (0.9-2) Procalcitonin (0-0.5) ng/ml Urine Color Urine Appearance (Clear) Urine pH (4.5-7.5) Ur Specific Moriah (1.000-1.030) Urine Protein (Negative) Urine Glucose (UA) (Negative) Urine Ketones (Negative) Urine Blood (Negative) Urine Nitrite (Negative) Urine Bilirubin (Negative) Urine Urobilinogen (Negative) Ur Leukocyte Esterase (Negative) Urine WBC (Auto) (0-5) /hpf Urine RBC (Auto) (0-4) /hpf U Hyaline Cast (Auto) (0-5) /lpf U Epithel Cells (Auto) (0-5) /lpf Urine Bacteria (Auto) (Negative) 05/14/20 05/14/20 05/14/20 Range/Units 06:52 06:52 08:15 WBC (4.8-10.8) K/uL RBC (4.2-5.4) M/uL Hgb (12.0-16.0) g/dL POC Hgb (12.0-16.0) g/dl Hct (37-47) % POC Hct (37-47) % MCV (80-100) fL MCH (25-34) pg MCHC (32-36) g/dL RDW Std Deviation (36.4-46.3) fL RDW Coeff of Sharona (11.5-14.5) % Plt Count (130-400) K/uL MPV (7.4-10.4) fL Immature Gran % (Auto) % Neut % (Auto) % Lymph % (Auto) % Bulloch % (Auto) % Eos % (Auto) % Baso % (Auto) % Neut # (Auto) (1.4-6.5) K/uL Lymph # (Auto) (1.2-3.4) K/uL Bulloch # (Auto) (0.11-0.59) K/uL Eos # (Auto) (0-0.5) K/uL Baso # (Auto) (0-0.2) K/uL Immature Gran # (Auto) (0.00-0.02) K/uL ESR (0-21) mm/hr PT (9.0-12.0) Seconds INR (0.9-1.1) APTT (21.0-31.0) Seconds PTT Ratio POC Sodium (135-144) mmol/L Sodium (136-145) mmol/L POC Potassium (3.3-5.0) mmol/L Potassium (3.5-5.1) mmol/L POC Chloride (101-112) mmol/L Chloride (98-107) mmol/L Carbon Dioxide (21-32) mmol/L POC Total CO2 (24-31) mmol/L Anion Gap (3-11) POC Anion Gap (16-25) mmol/L POC BUN (7-18) mg/dl BUN (7-18) mg/dl Creatinine (0.6-1.2) mg/dl POC Creatinine (0.6-1.3) mg/dl Est Cr Clr Drug Dosing ml/min Est GFR ( Amer) Est GFR (Non-Af Amer) BUN/Creatinine Ratio (10-20) Glucose (70-99) mg/dl POC Glucose (other) (70-99) mg/dl Lactate 0.9 (0.4-2.0) mmol/L Calcium (8.5-10.1) mg/dl POC Ioniz Calcium Trina (1.12-1.32) mmol/l Magnesium (1.8-2.4) mg/dl Ferritin (8-388) ng/ml Total Bilirubin (0.2-1) mg/dl AST (15-37) U/L ALT (12-78) U/L Alkaline Phosphatase (45-117) U/L Lactate Dehydrogenase (84-246) U/L Troponin I (0-0.045) ng/ml C-Reactive Protein (0-0.29) mg/dl Total Protein (6.4-8.2) gm/dl Albumin (3.4-5.0) gm/dl Globulin (2.5-4.0) gm/dl Albumin/Globulin Ratio (0.9-2) Procalcitonin 3.54 H (0-0.5) ng/ml Urine Color Yellow Urine Appearance Clear (Clear) Urine pH 8.5 H (4.5-7.5) Ur Specific Moriah 1.029 (1.000-1.030) Urine Protein Negative (Negative) Urine Glucose (UA) Negative (Negative) Urine Ketones Trace H (Negative) Urine Blood Negative (Negative) Urine Nitrite Negative (Negative) Urine Bilirubin Negative (Negative) Urine Urobilinogen Negative (Negative) Ur Leukocyte Esterase Negative (Negative) Urine WBC (Auto) 0 (0-5) /hpf Urine RBC (Auto) 0-4 (0-4) /hpf U Hyaline Cast (Auto) 0 (0-5) /lpf U Epithel Cells (Auto) 0-5 (0-5) /lpf Urine Bacteria (Auto) Negative (Negative) Imaging Data Radiologist's Impression: [facility], [place] [phone] CT Scan Report Patient: IVETTE FERNANDO EAdmit Date: 05/14/20 MR#: [id number]: [id number] NADINEIT Acct ID:[id number]: Date: 1935[facility] Zip: [place] [address] Age: 85Location: ED Sex: F Room/Bed: Att Phy:Diagnosis: NAUSEA/VOMITING/ABDOMINAL PAIN Emma Phy: Oesterling, Jayden MDService Date: 05/14/20 [facility] Phy:Interpreting Phy: Sae Morales MD Admit Phy: Ordering Phy: Kali Quinn MD cc: ~ CT abd pelvis IV con only CT DOSE: 433.02 mGycm HISTORY: Pain Pt c/o abd pain TECHNIQUE: Multiaxial CT images of the abdomen and pelvis were performed following the use of intravenous contrast. A dose lowering technique was utilized adhering to the principles of ALARA. COMPARISON STUDY: 12/28/2017 FINDINGS: Lung bases are clear. Chronic biliary ductal prominence post cholecystectomy. This is unchanged from the prior study. Multicystic right kidney unchanged. The kidneys shows a component of mild atrophy as well as several cysts. This is also unchanged. Nonobstructive bowel pattern. The bladder is midline. Mild wall thickening of the sigmoid suggesting a mild nonspecific colitis. No evidence for abscess collection or obstructive change. IMPRESSION: 1. Mild to moderate wall thickening of the sigmoid colon suggests a nonspecific colitis. 2. No evidence for abscess collection or obstruction. 3. Chronic biliary ductal prominence post cholecystectomy. 4. Stable bilateral renal cysts with unchanged atrophy left kidney. ACT 112: Negative or not required by law. The above report was generated using voice recognition software. It may contain grammatical, syntax or spelling errors. Electronically signed by: Sae Morales M.D. 05/14/2020 7:32 AM Dictated: 05/14/20727 Transcribed: 05/14/20727 [facility] Narrative This is an 85-year-old female on prednisone for lupus who presents the emergency department with fever as well as abdominal pain. A sepsis work-up was initiated. The patient was found to have an elevation in white blood cell count as well as transaminitis. She was signed out to Dr. guzman at change of shift. Patient was seen and evaluated as above in room C7. Review was performed of nursing notes and vital signs. I did review pertinent previous visits and patient history. After obtaining a thorough history and physical examination the above work up was performed. While in the department, I personally reevaluated the patient several times and each time the patient was found to be resting comfortably. The patient was educated upon management, educated upon todays findings/results, educated upon importance of follow up from today's visit, educated upon symptoms in which to return, had questions answered prior to discharge, verbalized understanding, and was discharged home in good condition. An order was placed for continuous cardiac monitoring. The monitor shows a rate of 59 with Normal SInus rhythm. The patient was evaluated during the global COVID-19 pandemic, and that diagnosis was suspected/considered upon their initial presentation. Their evaluation, treatment and testing was consistent with current guidelines for patients who present with complaints or symptoms that may be related to COVID- 19. Impression & Plan Abdominal pain Discharge Plan Visit Data *Final* Discharge Date/Time: 05/14/20 09:51 Chief Complaint: Nausea Stated Complaint: NAUSEA/VOMITING/ABDOMINAL PAIN Other Complaint: Abdominal Pain Vomiting ED Provider: Jony Guzman Discharge Problem: Abdominal pain Patient Disposition: Admitted As Inpatient Discharge Instructions Interventions: ED Discharge Assessment Last Done: 05/14/20 09:51 Discharge Problem: Abdominal pain Qualifiers: Abdominal location: unspecified location Qualified Code(s): R10.9 - Unspecified abdominal pain
[2020-05-14 06:33] LABS: Basophils # (auto) 0.01 K/uL (0-0.2); Basophils % (auto) 0.1 %; Eosinophils # (auto) 0.02 K/uL (0-0.5); Eosinophils % (auto) 0.2 %; Hematocrit (blood only) 35.2 % (37-47); Hemoglobin 11.4 g/dL (12.0-16.0); Immature Granulocytes # (auto) 0.04 K/uL (0.00-0.02); Immature Granulocytes % (auto) 0.3 %; Lymphocytes # (auto) 0.39 K/uL (1.2-3.4); Mean Corpuscular Hemoglobin 28.8 pg (25-34); Mean Corpuscular Hgb Conc 32.4 g/dL (32-36); Mean Corpuscular Volume 88.9 fL (80-100); Mean Platelet Volume 10.8 fL (7.4-10.4); Monocytes # (auto) 1.57 K/uL (0.11-0.59); Monocytes % (auto) 11.9 %; Neutrophils # (auto) 11.16 K/uL (1.4-6.5); Neutrophils % (auto) 84.5 %; Platelet Count 206 K/uL (130-400); RDW Coefficient of Variation 15.3 % (11.5-14.5); RDW Standard Deviation 49.1 fL (36.4-46.3); Red Blood Count 3.96 M/uL (4.2-5.4); White Blood Count 13.19 K/uL (4.8-10.8)
[2020-05-14] MEDS ORDERED: PIPERACILLIN/TAZOBACTAM 4.5 GM/120 ML BAG IV ONE (06:40)
[2020-05-14] MEDS ORDERED: DAPTOMYCIN CONSULT ACTIVE PRN (06:40)
[2020-05-14] MEDS ORDERED: DAPTOmycin 300 MG in SYRINGE 0 ML IV ONE (06:40)
[2020-05-14] MEDS ORDERED: PIPERACILL/TAZOBAC CONSULT ACTIVE PRN ×2 (06:40→10:29)
[2020-05-14 06:42] LABS: iSTAT Creatinine 1.3 mg/dl (0.6-1.3); iSTAT Hemoglobin 12.9 g/dl (12.0-16.0); iSTAT Ionized Calcium 1.04 mmol/l (1.12-1.32); iSTAT Potassium 3.7 mmol/L (3.3-5.0)
[2020-05-14] MEDS ORDERED: LEVOFLOXACIN/D5W 750 MG/150 ML BAG IV SCH (06:45)
[2020-05-14] MEDS ORDERED: IOVERSOL 100ml IV PRN (06:46)
[2020-05-14 06:54] LABS: Alanine Aminotransferase 206 U/L (12-78); Albumin Level 3.5 gm/dl (3.4-5.0); Aspartate Aminotransferase 252 U/L (15-37); BUN Creatinine Ratio 13.5 (10-20); Blood Urea Nitrogen 18 mg/dl (7-18); Calcium 8.4 mg/dl (8.5-10.1); Carbon Dioxide 26 mmol/L (21-32); Chloride 105 mmol/L (98-107); Creatinine Clr Calc Pharmacy 21.9 ml/min; Est GFR (African American) 40.1; Est GFR (Non-African American) 34.6; Glucose 124 mg/dl (70-99); Magnesium 2.1 mg/dl (1.8-2.4); Potassium 3.7 mmol/L (3.5-5.1); Sodium 139 mmol/L (136-145)
[2020-05-14 06:59] LABS: Albumin Globulin Ratio 0.8 (0.9-2); Alkaline Phosphatase 446 U/L (45-117); Bilirubin,Total 0.8 mg/dl (0.2-1); C Reactive Protein 4.58 mg/dl (0-0.29); Ferritin 62.5 ng/ml (8-388); Globulin 4.5 gm/dl (2.5-4.0); Troponin I < 0.015 ng/ml (0-0.045)
[2020-05-14 07:17] LABS: INR 1.3 (0.9-1.1); Partial Thromboplastin Ratio 1.2; Partial Thromboplastin Time 32.3 Seconds (21.0-31.0); Prothrombin Time 13.7 Seconds (9.0-12.0)
--- NOTE | 2020-05-14 07:19 | Emergency Department Note ---
ED Visit Note The patient was taken in signout from Dr. Quinn at the change of shift. Please see that note for details. In brief the patient is a 85-year-old woman with a past medical history of lupus on chronic prednisone and hydroxychloroquine who presents emergency department with fevers and abdominal pain. Patient was tested for COVID-19 by her PCP recently with results pending. She denies known contact with Covid19 confirmed individuals but does report that her daughter (who does not have any symptoms) recently returned from [place]. The patient was pending CT of her abdomen pelvis with plan for admission given her immunocompromise status with fevers. WBC 13K nonspecific and while on chronic prednisone this value is elevated from prior. H/H 11.4/35.2 improved from prior. Platelets within normal limits. Chemistry without acidosis. Creatinine 1.3 within and on lower end of patient's baseline range. LFTs are newly elevated with AST 252, and ALT 206. Alk phos 446. Total bilirubin however is within normal limits. Procal 3.5. Patient was ordered for empiric antibiotics with daptomycin, Zosyn as well as Levaquin. CT abd/pelvis subsequently demonstrates evidence of colitis. Outpatient Covid19 PCR negative. Patient re-evaluated and was feeling improved. She is agreeable to admission. Case was discussed with Magalis Watson, [facility], with Dr. Gupta who will evaluate the patient for admission. -- CT abd pelvis IV con only CT DOSE: 433.02 mGycm HISTORY: Pain Pt c/o abd pain TECHNIQUE: Multiaxial CT images of the abdomen and pelvis were performed following the use of intravenous contrast. A dose lowering technique was utilized adhering to the principles of ALARA. COMPARISON STUDY: 12/28/2017 FINDINGS: Lung bases are clear. Chronic biliary ductal prominence post cholecystectomy. This is unchanged from the prior study. Multicystic right kidney unchanged. The kidneys shows a component of mild atrophy as well as several cysts. This is also unchanged. Nonobstructive bowel pattern. The bladder is midline. Mild wall thickening of the sigmoid suggesting a mild nonspecific colitis. No evidence for abscess collection or obstructive change. IMPRESSION: 1. Mild to moderate wall thickening of the sigmoid colon suggests a nonspecific colitis. 2. No evidence for abscess collection or obstruction. 3. Chronic biliary ductal prominence post cholecystectomy. 4. Stable bilateral renal cysts with unchanged atrophy left kidney. .
--- NOTE | 2020-05-14 07:34 | CT Scan Report ---
CT abd pelvis IV con only CT DOSE: 433.02 mGycm HISTORY: Pain Pt c/o abd pain TECHNIQUE: Multiaxial CT images of the abdomen and pelvis were performed following the use of intrave nous contrast. A dose lowering technique was utilized adhering to the principles of ALARA. COMPARISON STUDY: 12/28/2017 FINDINGS: Lung bases are clear. Chronic biliary ductal prominence post cholecystectomy. This is uncha nged from the prior study. Multicystic right kidney unchanged. The kidneys shows a component of mild atrophy as well as several cysts. This is also unchanged. Nonobstructive bowel pattern. The bladder is midline. Mild wall thickening of the sigmoid suggesting a mild nonspecific colitis. No evidence for abscess collection or obstructive change. IMPRESSION: 1. Mild to moderate wall thickening of the sigmoid colon suggests a nonspecific colitis. 2. No evidence for abscess collection or obstruction. 3. Chronic biliary ductal prominence post cholecystectomy. 4. Stable bilateral renal cysts with unchanged atrophy left kidney. ACT 112: Negative or not required by law. The above report was generated using voice recognition software. It may contain grammatical, syntax or spelling errors. Electronically signed by: Sae Morales M.D. 05/14/2020 7:32 AM
--- NOTE | 2020-05-14 08:20 | XRay Report ---
XR chest 1V portable CLINICAL HISTORY: SEPSIS dyspnea COMPARISON STUDY: 03/17/2019 FINDINGS: Mild chronic interstitial change. No well-defined focal infiltrate. Diaphragms are smooth. Right shoulder arthroplasty. IMPRESSION: Chronic interstitial change. No acute process. ACT 112: Negative or not required by law. The above report was generated using voice recognition software. It may contain grammatical, syntax or spelling errors. Electronically signed by: Sae Morales M.D. 05/14/2020 8:19 AM
[2020-05-14] MEDS ORDERED: SODIUM CHLORIDE 0.9% 500 ML IV ONE (08:33)
[2020-05-14 09:18] LABS: Appearance Urine Clear (Clear); Bacteria Urine Automated Negative (Negative); Bilirubin Urine Negative (Negative); Blood Urine Negative (Negative); Cast Urine Automated 0 /lpf (0-5); Color Urine Yellow; Epithelial Cell Urine Auto 0-5 /lpf (0-5); Glucose Urine UA Negative (Negative); Ketones Urine Trace (Negative); Leukocyte Esterase Urine Negative (Negative); Nitrite Urine Negative (Negative); RBC Urine Automated 0-4 /hpf (0-4); Specific Gravity Urine 1.029 (1.000-1.030); Urobilinogen Urine Negative (Negative); WBC Urine Automated 0 /hpf (0-5); pH Urine 8.5 (4.5-7.5)
[2020-05-14 09:25] LABS: Protein Urine Negative (Negative); Sulfosalicylic Acid Urine Negative (Negative)
--- NOTE | 2020-05-14 09:49 | History & Physical Report ---
Date of Service May 14, 2020 Assessment & Plan (1) Colitis presumed infectious: This is an 85-year-old female with significant PMH of CAD, HTN, HLD, CKD stage III, anemia of chronic disease, SLE, chronic pain syndrome, anemia of chronic disease, history of breast cancer, depression who presents to ED secondary to fever x3 days and nausea vomiting x1 day. In ED she remained hemodynamically stable, afebrile and mildly hypertensive at 173/69. Lab work notable for leukocytosis 13.19K, H&H stable at 11.4 and 35.2, ESR 63, CRP 1.58, BUN 18, creatinine 1.37, lactate 0.9, AST 252, ALT 206, alk phos 446, procalcitonin 3.54, urinalysis negative. Chest x-ray for chronic interstitial change but no acute abnormality. CT abdomen pelvis consistent with sigmoid colitis, chronic biliary ductal prominence status post cholecystectomy. In ED she received broad-spectrum IV antibiotics with daptomycin, Levaquin, Zosyn and 1 L of IVF. admit to [facility] IV Zosyn for colitis clear liquid diet blood culture pending encourage incentive spirometry repeat CXR in am. (pt with c/o possible aspiration with emesis) she is on zosyn consult PT/OT IVF NSS + 20meq KCL 60cc/hr x 1 L (2) Transaminitis: AST 252, ALT 206, alk phos 446, total bili 0.8 History of cholecystectomy in past Hold statin APAP level, hep panel, Lyme/anaplasmosis RUQ U/S (3) CAD (coronary artery disease): No chest pain or shortness of breath On ASA, statin, metoprolol, losartan as outpatient Hold statin in setting of transaminitis (4) CKD (chronic kidney disease), stage III: Baseline creatinine 1.3-1.5 BUN/creatinine 18 and 1.37 today, despite poor p.o. intake Received 1 L IVF while in ED Continue IVF NSS +20 M EQ KCl 60 cc/h x 1 additional liter (5) HTN (hypertension): Blood pressure elevated in ED Resume home medications of losartan, metoprolol, felodipine (6) Anemia: H&H stable at 11.4/35.2 No signs or symptoms of bleeding Continue with Vitron C (7) Lupus (systemic lupus erythematosus): Continue hydroxychloroquine and prednisone 10 mg daily Patient with elevated ESR, CRP, LDH Complaints of increased arthralgias, monitor for worsening s/sx of Lupus flare may need rheum input if sx do not improve (8) Chronic pain syndrome: pt chronically on oxycontin 30mg TID and prn percocet 2/2 to SLE and arthritis continue, monitor closely for sedation (9) DVT prophylaxis: SQ Heparin Disposition: admit to [facility] tele Follow up: PCP Dr. Solis upon discharge, of note she is a [facility] pt, case management consulted Pt was seen and examined in collaboration with Dr. Gupta, please see addendum History of Present Illness Chief Complaint: fever x 3 days; n/v x 1 day. Primary Care Provider: Jayden Solis MD This is an 85-year-old female with significant PMH of CAD, HTN, HLD, CKD stage III, anemia of chronic disease, SLE, chronic pain syndrome, anemia of chronic disease, history of breast cancer, depression who presents to ED secondary to fever x3 days and nausea vomiting x1 day. She is a [facility] at home patient has been followed by Dr. Galvin. She has been running elevated temps for the past 3 days as high as 102. Overall ill feeling, general malaise, fatigue, chills, sweats, and increased arthralgias. She does have arthritis at baseline secondary to SLE and chronic pain syndrome but this is much worse specifically in the hips, knees and shoulders. She has been taking Tylenol for fever relief. This morning she woke in the map maker hours with significant nausea, several episodes of vomiting and generalized abdominal pain. She denies any hematemesis and felt vomit was green in color, no undigested food. Overall very poor appetite the past 3 days and poor liquid intake. She denies any sick contacts. She was tested for coronavirus yesterday which had a negative result. She denies any syncope but did feel lightheaded and dizzy after several episodes of vomiting and now complains of throat pain due to retching. She denies any chest pain, shortness of breath, palpitations, melena, hematochezia. She did have 3 episodes of loose bowel this morning, but denies zan diarrhea. She has developed a slight cough while in ED and feels she may have aspirated vomit material. She has never anything similar past. Denies prior history of diverticulitis. She is compliant with her medications, but did not take her morning meds today. Denies tick bite/insect bite. Has dog but has not seen tick. In ED she remained hemodynamically stable, afebrile and mildly hypertensive at 173/69. Lab work notable for leukocytosis 13.19K, H&H stable at 11.4 and 35.2, ESR 63, CRP 1.58, BUN 18, creatinine 1.37, lactate 0.9, AST 252, ALT 206, alk phos 446, procalcitonin 3.54, urinalysis negative. Chest x-ray for chronic interstitial change but no acute abnormality. CT abdomen pelvis consistent with sigmoid colitis, chronic biliary ductal prominence status post cholecystectomy. In ED she received broad-spectrum IV antibiotics with daptomycin, Levaquin, Zosyn and 1 L of IVF. Allergies Allergy/AdvReac Type Severity Reaction Status Date / Time prochlorperazine Allergy Mild flushed Verified 05/14/20 07:05 VIDA Inhibitors AdvReac Intermediate RAPID Verified 05/14/20 07:05 PULSE, BULGING EYES Home Medications Home Medications Medication Instructions Recorded Confirmed Type albuterol sulfate [Ventolin HFA] 2 puff INHALATION Q6H PRN 02/06/19 05/14/20 History aspirin 81 mg PO DAILY 02/06/19 05/14/20 History atorvastatin 40 mg PO HS 02/06/19 05/14/20 History cholecalciferol (vitamin D3) 5,000 unit PO DAILY 02/06/19 05/14/20 History [Vitamin D3] felodipine 10 mg PO HS 02/06/19 05/14/20 History hydroxychloroquine 200 mg PO DAILY 02/06/19 05/14/20 History losartan 50 mg PO DAILY 02/06/19 05/14/20 History metoprolol succinate 12.5 mg PO BID 02/06/19 05/14/20 History mirtazapine 7.5 mg PO HS 02/06/19 05/14/20 History nitroglycerin 0.4 mg SUBLINGUAL USEASDIRECTD PRN 02/06/19 05/14/20 History oxycodone [OxyContin] 30 mg PO TID 02/06/19 05/14/20 History oxycodone-acetaminophen 1 tab PO Q4H PRN 02/06/19 05/14/20 History pantoprazole [Protonix] 40 mg PO DAILY 02/06/19 05/14/20 History prednisone 10 mg PO DAILY 02/06/19 05/14/20 History Vitron-C 1 tab PO DAILY 05/14/20 05/14/20 History acetaminophen 1,000 mg PO Q6H PRN 05/14/20 05/14/20 History triamcinolone acetonide 1 applic TOPICAL BID 05/14/20 05/14/20 History ciprofloxacin HCl 500 mg PO DAILY #4 tab 05/16/20 Rx metronidazole 500 mg PO TID 4 Days #12 tab 05/16/20 Rx polyethylene glycol 3350 [Miralax] 17 g PO DAILY PRN #30 ea 05/16/20 Rx Past Med/Surg History Medical History (Updated 05/17/20 @ 10:31 by Kali Quinn MD) Breast cancer CAD (coronary artery disease) (Chronic) "10/2013 - NSTEMI, s/p ADRIENNE to LAD" CAD (coronary artery disease) Chronic pain syndrome CKD (chronic kidney disease) CKD (chronic kidney disease), stage III Lupus (systemic lupus erythematosus) Surgical History (Updated 05/14/20 @ 10:12 by Magalis Watson PA-C) H/O lumpectomy H/O shoulder surgery History of appendectomy (Inactive) History of cholecystectomy (Inactive) History of coronary angioplasty hx of ADRIENNE in 2013 History of hysterectomy (Inactive) History of partial mastectomy of left breast History of partial thyroidectomy (Inactive) S/P tonsillectomy and adenoidectomy (Inactive) Family History (Updated 05/14/20 @ 10:14 by Magalis Watson PA-C) Father Lung cancer Sister Diabetes Social History (Updated 05/14/20 @ 10:16 by Magalis Watson PA-C) Smoking Status: Never smoker Second Hand Exposure: No; Hx Alcohol Use: No Preferred Language: Central [place] Communication Ability: Effective Shoe Parts Molder Required: No Beliefs That Will Affect Care: Gnosticism Gnosticism Beliefs: Spiritism marital status: / Current Living Situation: Other Current Living Situation Comment: Patient lives w/ daughter. 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 Normal insp/exp effort, no accessory muscle use Cardiovascular: RRR, 2/6 PARISH RUSB, no radiation, no edema Vessels: no JVD or carotid bruit Chest: normal inspection of chest Abdomen: normal bowel sounds, soft, nontender, no hepatosplenomegaly Musculoskeletal: no cyanosis or clubbing, extremities motor strength 5/5 Skin: RUE antecubital fossa erythema/edema from veinpuncture, no rashes, warm and dry normal turgor Neurologic: PERRL, EOMI, accommodation nl, no face palsy, no dysarthria CN's II-XI intact bilaterally and moves all extremities Psychiatric: A+Ox3, euthymic affect Lymphatic: no cervical or axillary lymphadenopathy : deferred Results & Data Results & Data ([facility]) Vital Signs (Past 12 Hours) Vital Signs Temp Pulse Resp BP Pulse Ox 05/14/20 09:00 64 18 156/88 H 98 05/14/20 08:51 75 26 H 159/70 H 98 05/14/20 08:31 56 L 22 96 05/14/20 08:30 56 L 23 148/63 H 96 05/14/20 08:15 58 L 19 135/62 96 05/14/20 08:00 61 24 146/62 H 95 05/14/20 07:45 70 23 140/103 H 94 05/14/20 07:44 60 20 159/69 H 98 05/14/20 07:30 71 20 162/74 H 92 05/14/20 06:28 37.4 C 67 18 160/70 H 91 Laboratory Results Short CBC 05/14/20 Range/Units 06:22 WBC 13.19 H (4.8-10.8) K/uL Hgb 11.4 L (12.0-16.0) g/dL Hct 35.2 L (37-47) % Plt Count 206 (130-400) K/uL BMP 05/14/20 06:22 Sodium 139 Potassium 3.7 Chloride 105 Carbon Dioxide 26 BUN 18 Creatinine 1.37 H Glucose 124 H Calcium 8.4 L Cardiac Enzymes 05/14/20 Range/Units 06:22 Troponin I < 0.015 (0-0.045) ng/ml Liver Function 05/14/20 Range/Units 06:22 Total Bilirubin 0.8 (0.2-1) mg/dl AST 252 H (15-37) U/L ALT 206 H (12-78) U/L Alkaline Phosphatase 446 H (45-117) U/L Albumin 3.5 (3.4-5.0) gm/dl Urine 05/14/20 Range/Units 08:15 Urine Color Yellow Urine Appearance Clear (Clear) Urine pH 8.5 H (4.5-7.5) Ur Specific [place] 1.029 (1.000-1.030) Urine Protein Negative (Negative) Urine Glucose (UA) Negative (Negative) Diagnostic Findings CXR: IMPRESSION: Chronic interstitial change. No acute process. CT abd/pelvis: IMPRESSION: 1. Mild to moderate wall thickening of the sigmoid colon suggests a nonspecific colitis. 2. No evidence for abscess collection or obstruction. 3. Chronic biliary ductal prominence post cholecystectomy. 4. Stable bilateral renal cysts with unchanged atrophy left kidney. Medications Administered Levofloxacin/Dextrose (Levaquin/D5w) 750 mg in 150 mls @ 100 mls/hr IV Q24H [facility] Stop: 05/21/20 06:44 Last Infusion: 05/14/20 09:18 Dose: 0 mls/hr Documented by: [id number] Admin: 05/14/20 07:43 Dose: 100 mls/hr Documented by: [id number] Ioversol (Optiray 320 100ml) 100 ml IV ONCE PRN PRN Reason: Interaction Checking Stop: 05/18/20 06:45 Last Admin: 05/14/20 06:46 Dose: 93 ml Documented by: [id number] Discontinued Medications Sodium Chloride (Nss 1000ml) 500 mls @ 999 mls/hr IV .Q31M ONE Stop: 05/14/20 06:25 Last Infusion: 05/14/20 07:10 Dose: 0 mls/hr Documented by: [id number] Admin: 05/14/20 06:21 Dose: 999 mls/hr Documented by: [id number] Acetaminophen (Ofirmev) 1,000 mg in 100 mls @ 400 mls/hr IV NOW STA Stop: 05/14/20 06:09 Last Infusion: 05/14/20 07:10 Dose: 0 mls/hr Documented by: [id number] Admin: 05/14/20 06:21 Dose: 400 mls/hr Documented by: [id number] Piperacillin Sod/Tazobactam Sod (Zosyn) 4.5 gm in 120 mls @ 240 mls/hr IV NOW ONE Stop: 05/14/20 07:09 Last Infusion: 05/14/20 08:20 Dose: 0 mls/hr Documented by: [id number] Admin: 05/14/20 07:40 Dose: 240 mls/hr Documented by: [id number] Daptomycin 300 mg/ Syringe 6 mls @ 3 mls/min IV NOW ONE; Protocol Stop: 05/14/20 06:41 Last Admin: 05/14/20 07:38 Dose: 3 mls/min Documented by: [id number] Sodium Chloride (Nss) 500 mls @ 999 mls/hr IV .Q31M ONE Stop: 05/14/20 09:03 Last Infusion: 05/14/20 09:19 Dose: 0 mls/hr Documented by: [id number] Admin: 05/14/20 08:48 Dose: 999 mls/hr Documented by: [id number] Morphine Sulfate (Morphine Sulfate) 4 mg IV NOW STA Stop: 05/14/20 05:56 Last Admin: 05/14/20 06:21 Dose: 4 mg Documented by: [id number] Ondansetron HCl (Zofran) 4 mg IV NOW STA Stop: 05/14/20 05:56 Last Admin: 05/14/20 06:21 Dose: 4 mg Documented by: [id number] ECG Rate (beats per minute): 65 Rhythm: normal sinus Findings: + LBBB and + prolonged QT (QTC 482) Comparison ECG Date: from (02/08/19) Change: no significant change Code Status & VTE Plan Code Status DNR VTE Prophylaxis Plan VTE Prophylaxis will be ordered: Yes Supervising Physician Co-Signing Physician Notes Pt was seen and examined. Agreed with Magalis MOSLEY exam, assessment and plan. 85-year-old female with significant PMH of CAD, HTN, HLD, CKD stage III, anemia of chronic disease, SLE, chronic pain syndrome, anemia of chronic disease, history of breast cancer, depression who presents to the ER with nausea and vomiting x1 day. CT abd/pelvis showed mild to moderate wall thickening of the sigmoid colon suggests a nonspecific colitis. Abdominal u/s showed chronic dilatation of the biliary ductal system post cholecystectomy. No change overall compared to the prior study of 02/07/2019. CXR showed chronic interstitial change with no acute process. Lab on admission showed elevated LFT, WBC and procalcitonin. Received IV Zosyn, Dapto and Levaquin in the ER. Will continue IV Zosyn. Will start on clear liquid diet. Will follow blood cx collected in the ER. Monitor CMP and CBC. Will continue monitor closely. MD Candy
[2020-05-14] MEDS ORDERED: ONDANSETRON INJ 2 MG/ML 2 ML VIAL IV PRN (10:29)
[2020-05-14] MEDS ORDERED: POLYETHYLENE (MIRALAX) 17 GM PACK PO PRN (10:29)
[2020-05-14] MEDS ORDERED: ALBUTEROL HFA 8 GM INHALER INH PRN (10:29)
[2020-05-14] MEDS ORDERED: ACETAMINOPHEN 325 MG TAB PO PRN (10:29)
[2020-05-14] MEDS ORDERED: OXYCODONE/ACETAMINOPHEN 5mg/325mg TAB PO PRN (10:29)
[2020-05-14] MEDS ORDERED: MAGNESIUM PO ONE (10:45)
[2020-05-14] MEDS ORDERED: [UNRECOGNIZED DRUG - OTHER] PO ONE (10:45)
[2020-05-14] MEDS ORDERED: ALUMINUM PO ONE (10:45)
[2020-05-14] MEDS ORDERED: DIPHENHYDRAMINE PO ONE (10:45)
[2020-05-14] MEDS ORDERED: NSS + 20MEQ KCL 20 MEQ/1,000 ML BAG IV SCH (11:00)
[2020-05-14 11:44] LABS: Hepatitis B Surface Antigen Neg (Neg)
--- NOTE | 2020-05-14 11:46 | Ultrasound Report ---
US abdomen limited HISTORY: Elevated liver function tests elevated LFTS. COMPARISON: 02/07/2019 FINDINGS: Pancreas: The pancreas demonstrates a normal echotexture. Liver: Unremarkable. Gallbladder: Prior cholecystectomy CBD: Persistent unchanged prominence of the biliary ductal system. Diameter of the common duct as wel l as intrahepatic ducts are unchanged. Right kidney: Several right renal cysts unchanged from the prior study. No evidence for hydronephrosi s. IMPRESSION: 1. Chronic dilatation of the biliary ductal system post cholecystectomy. 2. Multiple right renal cysts. 3. No change overall compared to the prior study of 02/07/2019 ACT 112: Negative or not required by law. The above report was generated using voice recognition software. It may contain grammatical, syntax or spelling errors. Electronically signed by: Sae Morales M.D. 05/14/2020 11:45 AM
[2020-05-14] MEDS: LOSARTAN POTASSIUM 50 MG TAB PO SCH (12:06)
[2020-05-14] MEDS: METOPROLOL SUCC 25MG EXT REL TAB PO SCH ×3 (12:06→20:00)
[2020-05-14] MEDS: HEPARIN SOD 5,000 UNIT/0.5 ML VIAL SQ SCH ×2 (12:07→20:01)
[2020-05-14] MEDS: PIPERACILLIN/TAZOBACTAM 3.375 GM in DEXTROSE 5% 100 ML IV SCH ×2 (12:07→19:59)
[2020-05-14 12:13] LABS: Hepatitis C IgG 13Yrs+Old_Rflx Neg (Neg)
[2020-05-14 12:47] LABS: Lyme Ab IgG w/WB Rflx Negative (Negative); Lyme Ab IgM w/WB Rflx Negative (Negative)
--- NOTE | 2020-05-14 12:51 | Electrocardiogram Report ---
Test Reason : Blood Pressure : / mmHG Vent. Rate : 065 BPM Atrial Rate : 065 BPM P-R Int : 144 ms QRS Dur : 130 ms QT Int : 464 ms P-R-T Axes : 061 -08 103 degrees QTc Int : 482 ms Poor data quality, interpretation may be adversely affected Normal sinus rhythm Left bundle branch block Abnormal ECG When compared with ECG of 08-FEB-2019 06:39, No significant change was found Confirmed by Arben Woods ([id number]) on 05/14/2020 12:50:55 PM Referred By: REFERRED SELF Confirmed By:Nathanael Woods
[2020-05-14] MEDS: OXYCODONE HCL 15 MG TABCR (OXYCONTIN) PO SCH ×2 (13:29→20:36)
[2020-05-14] MEDS: HYDROXYCHLOROQUINE SULFATE 200 MG TAB PO SCH (15:05)
[2020-05-14] MEDS: MIRTAZAPINE TAB 15 MG TAB PO SCH (19:59)
[2020-05-14] MEDS: FELODIPINE 5 MG TABCR PO SCH (19:59)
[2020-05-14] MEDS: ZOLPIDEM TARTRATE 5 MG TAB PO PRN (20:36)
[2020-05-15] MEDS: PIPERACILLIN/TAZOBACTAM 3.375 GM in DEXTROSE 5% 100 ML IV SCH ×3 (04:48→20:46)
[2020-05-15 07:49] LABS: Estimated Average Glucose 117 mg/dl; Hemoglobin A1C 5.7 % (4.5-5.6)
[2020-05-15 07:56] LABS: Basophils # (auto) 0.01 K/uL (0-0.2); Basophils % (auto) 0.2 %; Eosinophils # (auto) 0.13 K/uL (0-0.5); Eosinophils % (auto) 2.7 %; Hematocrit (blood only) 29.1 % (37-47); Hemoglobin 9.3 g/dL (12.0-16.0); Immature Granulocytes # (auto) 0.01 K/uL (0.00-0.02); Immature Granulocytes % (auto) 0.2 %; Lymphocytes # (auto) 0.71 K/uL (1.2-3.4); Lymphocytes % (auto) 14.9 %; Mean Corpuscular Hemoglobin 29.1 pg (25-34); Mean Corpuscular Volume 90.9 fL (80-100); Mean Platelet Volume 10.9 fL (7.4-10.4); Monocytes # (auto) 0.73 K/uL (0.11-0.59); Monocytes % (auto) 15.3 %; Neutrophils # (auto) 3.19 K/uL (1.4-6.5); Neutrophils % (auto) 66.7 %; Platelet Count 155 K/uL (130-400); RDW Coefficient of Variation 15.8 % (11.5-14.5); RDW Standard Deviation 52.8 fL (36.4-46.3); White Blood Count 4.78 K/uL (4.8-10.8)
[2020-05-15 08:06] LABS: Albumin Level 2.7 gm/dl (3.4-5.0); BUN Creatinine Ratio 11.7 (10-20); Calcium 7.8 mg/dl (8.5-10.1); Creatinine Clr Calc Pharmacy 22.3 ml/min; Est GFR (African American) 41.2; Est GFR (Non-African American) 35.5; Potassium 3.7 mmol/L (3.5-5.1)
--- NOTE | 2020-05-15 08:07 | XRay Report ---
XR chest 1V portable CLINICAL HISTORY: repeat r/o aspiration COMPARISON STUDY: Chest radiograph May 14, 2020. FINDINGS: Right shoulder arthroplasty is incidentally noted. There is no pneumothorax or pleural effu roberth. There is no evidence for pulmonary edema. Mild cardiomegaly is unchanged. No consolidation is i dentified. IMPRESSION: No acute cardiopulmonary findings. No change in appearance of the chest. ACT 112: Negative or not required by law. Electronically signed by: Edson Martin M.D. 05/15/2020 8:06 AM
[2020-05-15] MEDS: ASPIRIN 81 MG ECTAB PO SCH (08:11)
[2020-05-15] MEDS: predniSONE 10 MG TABLET PO SCH (08:11)
[2020-05-15] MEDS: HEPARIN SOD 5,000 UNIT/0.5 ML VIAL SQ SCH ×2 (08:11→20:49)
[2020-05-15] MEDS: PANTOprazole 40 MG TAB PO SCH (08:11)
[2020-05-15] MEDS: LOSARTAN POTASSIUM 50 MG TAB PO SCH (08:12)
[2020-05-15] MEDS: OXYCODONE HCL 15 MG TABCR (OXYCONTIN) PO SCH ×3 (08:17→20:47)
[2020-05-15] MEDS: METOPROLOL SUCC 25MG EXT REL TAB PO SCH ×3 (08:17→20:48)
[2020-05-15 08:44] LABS: Albumin Globulin Ratio 0.8 (0.9-2); Bilirubin,Total 0.3 mg/dl (0.2-1); Globulin 3.6 gm/dl (2.5-4.0); Total Protein 6.3 gm/dl (6.4-8.2)
[2020-05-15] MEDS ORDERED: NON-FORMULARY MEDICATION (Iron,Carbonyl-Vitamin C [Vitron-C] 1 TAB) PO SCH (09:00)
[2020-05-15] MEDS: HYDROXYCHLOROQUINE SULFATE 200 MG TAB PO SCH (10:12)
--- NOTE | 2020-05-15 18:43 | Hospitalist Progress Note ---
Date of Service May 15, 2020 Assessment & Plan (1) Colitis presumed infectious: Present on admission with abdominal pain associated with fever, nausea and vomiting CT abd/pelvis showed mild to moderate wall thickening of the sigmoid colon suggests a nonspecific colitis. On admission WBC, procalcitonin, CRP and ESR elevated Received IV levaquin, Zosyn and dapto in the ER Continue IV zosyn for now WBC trending down to 4.7 Blood cx no growth Tolerated full liquid diet, will advance as tolerated Clinically improved significantly (2) Transaminitis: On admission AST 252, ALT 206, alk phos 446, total bili 0.8 Abdominal u/s showed no change overall compared to the prior study of 02/07/2019 Liver enzymes improved with AST 76, ALT 107 and Alk phos 287 Continue to hold statin Continue monitor liver enzymes (3) CAD (coronary artery disease): No chest pain or shortness of breath On ASA, statin, metoprolol, losartan as outpatient Hold statin in setting of transaminitis (4) CKD (chronic kidney disease), stage III: Baseline creatinine 1.3-1.5 Creatinine 1.3 stable (5) HTN (hypertension): BP elevates possible due to hospital setting since pt is afraid and very anxious just being in the hospital Continue losartan, metoprolol, felodipine Will add hydralazine prn (6) Anemia: Hgb on admission 11.4 seems to related to dehydration Baseline hgb 9 Hgb 9.3 today No signs or symptoms of bleeding Continue with Vitron C stable (7) Lupus (systemic lupus erythematosus): Continue hydroxychloroquine and prednisone 10 mg daily Patient with elevated ESR, CRP, LDH Complaints of increased arthralgias, monitor for worsening s/sx of Lupus flare Follow up with Rheum ouutpatient (8) Chronic pain syndrome: Continue oxycontin 30mg TID and prn percocet 2/2 to SLE and arthritis Monitor closely for lethargy and drowsiness stable (9) DVT prophylaxis: SQ Heparin Disposition Plan to discharge tomorrow if stable Admission and Anticipated Discharge Date Admission Date: May 14, 2020 Subjective Pt was seen and examined Lying in bed with no distress with daughter at bedside Pt said that she feels much better She said that she was very scared last night She said that she slept well last night She said that she does not have anymore abdominal pain, nausea and vomiting She said that she tolerated the full liquid diet She had a small bowel movement today Denies any chest pain, palpitation, dizziness and SOB Physical Exam Physical Exam: General- No acute distress Head- atraumatic Eyes- PERRL, EOMI, ENT- oropharynx clear Neck- supple, no JVD Lungs- clear to auscultation Heart- regular rhythm; +murmur Abdomen- normal bowel sounds, soft, nontender Extremities- no calf tenderness Neuro- alert, oriented x 3; PERRL, EOMI; no facial palsy; no dysarthria Skin- warm & dry Results & Data Results & Data ([facility]) Vital Signs (Past 12 Hours) Vital Signs Temp Pulse Pulse Resp BP Pulse Ox 05/15/20 15:41 37.2 C 52 L 20 178/69 H 97 05/15/20 14:20 52 L 05/15/20 12:35 73 158/67 H 05/15/20 12:09 37.2 C 59 L 20 181/69 H 92 05/15/20 08:06 37.0 C 59 L 20 160/68 H 96 05/15/20 07:00 58 L
[2020-05-15] MEDS ORDERED: HydrALAZINE HCL 20 MG/ML VIAL IV PRN (18:59)
[2020-05-15] MEDS: FELODIPINE 5 MG TABCR PO SCH (20:47)
[2020-05-15] MEDS: MIRTAZAPINE TAB 15 MG TAB PO SCH (20:47)
[2020-05-15] MEDS: ZOLPIDEM TARTRATE 5 MG TAB PO PRN (20:49)
[2020-05-16 02:50] LABS: Hepatitis A Antibody IgM NON-REACTIVE (NON-REACTIVE); Hepatitis B Core Antibody IgM NON-REACTIVE (NON-REACTIVE)
[2020-05-16] MEDS: PIPERACILLIN/TAZOBACTAM 3.375 GM in DEXTROSE 5% 100 ML IV SCH ×2 (02:55→12:13)
--- NOTE | 2020-05-16 07:53 | Electrocardiogram Report ---
Test Reason : Blood Pressure : / mmHG Vent. Rate : 063 BPM Atrial Rate : 063 BPM P-R Int : 150 ms QRS Dur : 132 ms QT Int : 474 ms P-R-T Axes : 105 -03 098 degrees QTc Int : 485 ms Sinus rhythm with Premature supraventricular complexes Left bundle branch block Abnormal ECG When compared with ECG of 14-MAY-2020 06:20, Premature supraventricular complexes are now Present Confirmed by Mario Lyons ([id number]) on 05/16/2020 7:52:47 AM Referred By: REFERRED SELF Confirmed By:Mario Lyons
[2020-05-16 07:59] LABS: Hematocrit (blood only) 27.7 % (37-47); Hemoglobin 8.7 g/dL (12.0-16.0); Mean Corpuscular Hemoglobin 28.5 pg (25-34); Mean Corpuscular Hgb Conc 31.4 g/dL (32-36); Mean Corpuscular Volume 90.8 fL (80-100); Mean Platelet Volume 10.7 fL (7.4-10.4); Platelet Count 171 K/uL (130-400); RDW Coefficient of Variation 15.8 % (11.5-14.5); RDW Standard Deviation 52.6 fL (36.4-46.3); Red Blood Count 3.05 M/uL (4.2-5.4); White Blood Count 4.49 K/uL (4.8-10.8)
[2020-05-16 08:28] LABS: Albumin Level 2.7 gm/dl (3.4-5.0); BUN Creatinine Ratio 8.7 (10-20); Calcium 8.2 mg/dl (8.5-10.1); Creatinine Clr Calc Pharmacy 21.1 ml/min; Est GFR (African American) 38.4; Est GFR (Non-African American) 33.1; Magnesium 2.2 mg/dl (1.8-2.4); Potassium 3.2 mmol/L (3.5-5.1)
[2020-05-16] MEDS: LOSARTAN POTASSIUM 50 MG TAB PO SCH (08:31)
[2020-05-16] MEDS: PANTOprazole 40 MG TAB PO SCH (08:31)
[2020-05-16] MEDS: ASPIRIN 81 MG ECTAB PO SCH (08:31)
[2020-05-16] MEDS: predniSONE 10 MG TABLET PO SCH (08:31)
[2020-05-16] MEDS: METOPROLOL SUCC 25MG EXT REL TAB PO SCH (08:31)
[2020-05-16 08:32] LABS: Albumin Globulin Ratio 0.8 (0.9-2); Bilirubin,Total 0.3 mg/dl (0.2-1); Globulin 3.5 gm/dl (2.5-4.0); Total Protein 6.2 gm/dl (6.4-8.2)
[2020-05-16] MEDS: HEPARIN SOD 5,000 UNIT/0.5 ML VIAL SQ SCH (08:32)
--- NOTE | 2020-05-16 08:37 | Electrocardiogram Report ---
Test Reason : Blood Pressure : / mmHG Vent. Rate : 050 BPM Atrial Rate : 050 BPM P-R Int : 156 ms QRS Dur : 132 ms QT Int : 486 ms P-R-T Axes : 062 003 082 degrees QTc Int : 443 ms Sinus bradycardia Left bundle branch block Abnormal ECG When compared with ECG of 15-MAY-2020 06:53, Premature supraventricular complexes are no longer Present Confirmed by Mario Lyons ([id number]) on 05/16/2020 8:36:58 AM Referred By: REFERRED SELF Confirmed By:Mario Lyons
[2020-05-16] MEDS: OXYCODONE HCL 15 MG TABCR (OXYCONTIN) PO SCH ×2 (08:45→14:08)
[2020-05-16] MEDS ORDERED: HYDROXYCHLOROQUINE SULFATE 200 MG TAB PO SCH (09:00)
[2020-05-16] MEDS ORDERED: metroNIDAZOLE 500 MG TAB PO SCH (13:10)
[2020-05-16] MEDS ORDERED: CIPROFLOXACIN 500 MG TAB PO SCH (13:15)
--- NOTE | 2020-05-16 13:25 | Hospitalist Progress Note ---
Date of Service May 16, 2020 Assessment & Plan (1) Colitis presumed infectious: Present on admission with abdominal pain associated with fever, nausea and vomiting CT abd/pelvis showed mild to moderate wall thickening of the sigmoid colon suggests a nonspecific colitis. On admission WBC, procalcitonin, CRP and ESR elevated Received IV levaquin, Zosyn and dapto in the ER Continue IV zosyn for now WBC trending down to 4.49 Blood cx no growth Will transition to oral cipro and flagyl to complete abx course Tolerated soft diet Clinically improved significantly (2) Transaminitis: On admission AST 252, ALT 206, alk phos 446, total bili 0.8 Abdominal u/s showed no change overall compared to the prior study of 02/07/2019 Liver enzymes continue to improve with with AST from 76 to 42, ALT from 107 to 79 and Alk phos from 287 to 243 Statin on hold statin during the hospital course Check Liver enzymes in 1 week (3) CAD (coronary artery disease): No chest pain or shortness of breath On ASA, statin, metoprolol, losartan as outpatient Hold statin in setting of transaminitis during hospital course (4) CKD (chronic kidney disease), stage III: Baseline creatinine 1.3-1.5 Creatinine 1.4 stable (5) HTN (hypertension): BP elevates possible due to hospital setting since pt is afraid and very anxious just being in the hospital Continue losartan, metoprolol, felodipine Will not make any adjustment in BP med for now since pt is very anxious/afraid while in the hospital Will need to monitor BP outpatient and adjust meds if BP remains elevate (6) Anemia: Hgb on admission 11.4 seems to related to dehydration Baseline hgb 9 Hgb 8.7 today No signs or symptoms of bleeding Continue with Vitron C CCheck CBC in 1 week (7) Lupus (systemic lupus erythematosus): Continue hydroxychloroquine and prednisone 10 mg daily Patient with elevated ESR, CRP, LDH Complaints of increased arthralgias, monitor for worsening s/sx of Lupus flare Follow up with Rheum ouutpatient (8) Chronic pain syndrome: Continue oxycontin 30mg TID and prn percocet 2/2 to SLE and arthritis Monitor closely for lethargy and drowsiness stable (9) DVT prophylaxis: SQ Heparin Disposition Plan to discharge home today Admission and Anticipated Discharge Date Admission Date: May 14, 2020 Subjective Pt was seen and examined Lying in bed with no distress with daughter at bedside Pt said that she feels fine She said that she tolerated her diet She continues to be very anxious and wants to go home She said that the Ambien helps her to sleep while in the hospital Denies any chest pain, palpitation, dizziness and SOB Physical Exam Physical Exam: General- No acute distress Head- atraumatic Eyes- PERRL, EOMI, ENT- oropharynx clear Neck- supple, no JVD Lungs- clear to auscultation Heart- regular rhythm; +murmur Abdomen- normal bowel sounds, soft, nontender Extremities- no calf tenderness Neuro- alert, oriented x 3; PERRL, EOMI; no facial palsy; no dysarthria Skin- warm & dry Results & Data Results & Data ([facility]) Vital Signs (Past 12 Hours) Vital Signs Temp Pulse Resp BP Pulse Ox 05/16/20 13:06 36.8 C 59 L 18 172/69 H 97 05/16/20 06:39 36.8 C 59 L 18 172/69 H 97 05/16/20 04:09 36.8 C 60 18 133/62 96
--- NOTE | 2020-05-18 08:30 | Discharge Summary ---
Date of Service May 16, 2020 Admission HPI Per Admitting Provider This is an 85-year-old female with significant PMH of CAD, HTN, HLD, CKD stage III, anemia of chronic disease, SLE, chronic pain syndrome, anemia of chronic disease, history of breast cancer, depression who presents to ED secondary to fever x3 days and nausea vomiting x1 day. She is a [facility] at home patient has been followed by Dr. Galvin. She has been running elevated temps for the past 3 days as high as 102. Overall ill feeling, general malaise, fatigue, chills, sweats, and increased arthralgias. She does have arthritis at baseline secondary to SLE and chronic pain syndrome but this is much worse specifically in the hips, knees and shoulders. She has been taking Tylenol for fever relief. 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 She denies any hematemesis and felt vomit was green in color, no undigested food. Overall very poor appetite the past 3 days and poor liquid intake. She denies any sick conta cts. She was tested for coronavirus yesterday which had a negative result. She denies any syncope but did feel lightheaded and dizzy after several episodes of vomiting and now complains of throat pain due to retching. She denies any chest pain, shortness of breath, palpitations, melena, hematochezia. She did have 3 episodes of loose bowel this morning, but denies zan diarrhea. She has devel oped a slight cough while in ED and feels she may have aspirated vomit material. She has never anything similar past. Denies prior history of diverticulitis. She is compliant with her medications, but did not take her morning meds today. Denies tick bite/insect bite. Has dog but has not seen tick. In ED she remained hemodynamically stable, afebrile and mildly hypertensive at 173/69. Lab work notable for leukocytosis 13.19K, H&H stable at 11.4 and 35.2, ESR 63, CRP 1.58, BUN 18, creatinine 1.37, lactate 0.9, AST 252, ALT 206, alk phos 446, procalcitonin 3.54, urinalysis negative. Chest x-ray for chronic interstitial change but no acute abnormality. CT abdomen pelvis consistent with sigmoid colitis, chronic biliary ductal prominence status post cholecystectomy. In ED she received broad-spectrum IV antibiotics with daptomycin, Levaquin, Zosyn and 1 L of IVF. Admission Exam Per Admitting Provider Constitutional: Elderly, petite, fraile, F, vitals as above, NAD, sitting up in bed, pleasant, conversing easily Head: Normocephalic, Atraumatic Eyes: PERRL, conjunctivae normal, anicteric sclerae ENMT: external ear and nose normal, oropharynx normal Neck: trachea midline, no thyromegaly normal visual inspection Respiratory: normal respiratory effort, lungs clear to auscultation, no wheeze, rales, rhonchi. Normal insp/exp effort, no accessory muscle use Cardiovascular: RRR, 2/6 PAR[place] RUSB, no radiation, no edema Vessels: no JVD or carotid bruit Chest: normal inspection of chest Abdomen: normal bowel sounds, soft, nontender, no hepatosplenomegaly Musculoskeletal: no cyanosis or clubbing, extremities motor strength 5/5 Skin: RUE antecubital fossa erythema/edema from veinpuncture, no rashes, warm and dry normal turgor Neurologic: PERRL, EOMI, accommodation nl, no face palsy, no dysarthria CN's II-XI intact bilaterally and moves all extremities Psychiatric: A+Ox3, euthymic affect Lymphatic: no cervical or axillary lymphadenopathy : deferred Principal Diagnosis (1) Colitis presumed infectious: (2) Transaminitis: (3) CAD (coronary artery disease): (4) CKD (chronic kidney disease), stage III: (5) HTN (hypertension): (6) Anemia: (7) Lupus (systemic lupus erythematosus): (8) Chronic pain syndrome: Discharge Exam General- No acute distress Head- atraumatic Eyes- PERRL, EOMI, ENT- oropharynx clear Neck- supple, no JVD Lungs- clear to auscultation Heart- regular rhythm; +murmur Abdomen- normal bowel sounds, soft, nontender Extremities- no calf tenderness Neuro- alert, oriented x 3; PERRL, EOMI; no facial palsy; no dysarthria Skin- warm & dry Discharge Data Allergies Allergy/AdvReac Type Severity Reaction Status Date / Time prochlorperazine Allergy Mild flushed Verified 05/14/20 07:05 VIDA Inhibitors AdvReac Intermediate RAPID Verified 05/14/20 07:05 PULSE, BULGING EYES Consultations 05/14/20 08:50 ED Decision to Admit Stat 05/14/20 10:29 Consult Case Management - Discharge Planning Routine Ordered Studies 05/14/20 05:55 CT abd pelvis IV con only Stat 05/14/20 11:00 US abdomen limited Routine CT abd pelvis IV con only CT DOSE: 433.02 mGycm HISTORY: Pain Pt c/o abd pain TECHNIQUE: Multiaxial CT images of the abdomen and pelvis were performed following the use of intravenous contrast. A dose lowering technique was utilized adhering to the principles of ALARA. COMPARISON STUDY: 12/28/2017 FINDINGS: Lung bases are clear. Chronic biliary ductal prominence post cholecystectomy. This is unchanged from the prior study. Multicystic right kidney unchanged. The kidneys shows a component of mild atrophy as well as several cysts. This is also unchanged. Nonobstructive bowel pattern. The bladder is midline. Mild wall thickening of the sigmoid suggesting a mild nonspecific colitis. No evidence for abscess collection or obstructive change. IMPRESSION: 1. Mild to moderate wall thickening of the sigmoid colon suggests a nonspecific colitis. 2. No evidence for abscess collection or obstruction. 3. Chronic biliary ductal prominence post cholecystectomy. 4. Stable bilateral renal cysts with unchanged atrophy left kidney. ACT 112: Negative or not required by law. The above report was generated using voice recognition software. It may contain grammatical, syntax or spelling errors. Electronically signed by: Sae Morales M.D. 05/14/2020 7:32 AM Dictated: 05/14/20727 Transcribed: 05/14/20727 XR chest 1V portable CLINICAL HISTORY: SEPSIS dyspnea COMPARISON STUDY: 03/17/2019 FINDINGS: Mild chronic interstitial change. No well-defined focal infiltrate. Diaphragms are smooth. Right shoulder arthroplasty. IMPRESSION: Chronic interstitial change. No acute process. ACT 112: Negative or not required by law. The above report was generated using voice recognition software. It may contain grammatical, syntax or spelling errors. Electronically signed by: Sae Morales M.D. 05/14/2020 8:19 AM Dictated: 05/14/20817 Transcribed: 05/14/20817 US abdomen limited HISTORY: Elevated liver function tests elevated LFTS. COMPARISON: 02/07/2019 FINDINGS: Pancreas: The pancreas demonstrates a normal echotexture. Liver: Unremarkable. Gallbladder: Prior cholecystectomy CBD: Persistent unchanged prominence of the biliary ductal system. Diameter of the common duct as well as intrahepatic ducts are unchanged. Right kidney: Several right renal cysts unchanged from the prior study. No evidence for hydronephrosis. IMPRESSION: 1. Chronic dilatation of the biliary ductal system post cholecystectomy. 2. Multiple right renal cysts. 3. No change overall compared to the prior study of 02/07/2019 ACT 112: Negative or not required by law. The above report was generated using voice recognition software. It may contain grammatical, syntax or spelling errors. Electronically signed by: Sae Morales M.D. 05/14/2020 11:45 AM Dictated: 05/14/20 1140 Transcribed: 05/14/20 1140 XR chest 1V portable CLINICAL HISTORY: repeat r/o aspiration COMPARISON STUDY: Chest radiograph May 14, 2020. FINDINGS: Right shoulder arthroplasty is incidentally noted. There is no pneumothorax or pleural effusion. There is no evidence for pulmonary edema. Mild cardiomegaly is unchanged. No consolidation is identified. IMPRESSION: No acute cardiopulmonary findings. No change in appearance of the chest. ACT 112: Negative or not required by law. Electronically signed by: Edson Martin M.D. 05/15/2020 8:06 AM Dictated: 05/15/20 0805 Transcribed: 05/15/20 08 Hospital Course (1) Colitis presumed infectious: Present on admission with abdominal pain associated with fever, nausea and vomiting CT abd/pelvis showed mild to moderate wall thickening of the sigmoid colon suggests a nonspecific colitis. On admission WBC, procalcitonin, CRP and ESR elevated Received IV levaquin, Zosyn and dapto in the ER Continue IV zosyn for now WBC trending down to 4.49 Blood cx no growth Will transition to oral cipro and flagyl to complete abx course Tolerated soft diet Clinically improved significantly (2) Transaminitis: On admission AST 252, ALT 206, alk phos 446, total bili 0.8 Abdominal u/s showed no change overall compared to the prior study of 02/07/2019 Liver enzymes continue to improve with with AST from 76 to 42, ALT from 107 to 79 and Alk phos from 287 to 243 Statin on hold statin during the hospital course Check Liver enzymes in 1 week (3) CAD (coronary artery disease): No chest pain or shortness of breath On ASA, statin, metoprolol, losartan as outpatient Hold statin in setting of transaminitis during hospital course (4) CKD (chronic kidney disease), stage III: Baseline creatinine 1.3-1.5 Creatinine 1.4 stable (5) HTN (hypertension): BP elevates possible due to hospital setting since pt is afraid and very anxious just being in the hospital Continue losartan, metoprolol, felodipine Will not make any adjustment in BP med for now since pt is very anxious/afraid while in the hospital Will need to monitor BP outpatient and adjust meds if BP remains elevate (6) Anemia: Hgb on admission 11.4 seems to related to dehydration Baseline hgb 9 Hgb 8.7 today No signs or symptoms of bleeding Continue with Vitron C CCheck CBC in 1 week (7) Lupus (systemic lupus erythematosus): Continue hydroxychloroquine and prednisone 10 mg daily Patient with elevated ESR, CRP, LDH Complaints of increased arthralgias, monitor for worsening s/sx of Lupus flare Follow up with Rheum ouutpatient (8) Chronic pain syndrome: Continue oxycontin 30mg TID and prn percocet 2/2 to SLE and arthritis Monitor closely for lethargy and drowsiness stable (9) DVT prophylaxis: SQ Heparin Disposition Plan to discharge home today Total Time Total Time Spent Total Time Spent (In Minutes): 35 minutes Total Time Includes: Examination of the Patient, Discharge Planning, Medication Reconciliation, Communication With Other Providers and Other Discharge Plan Discharge Items Patient Disposition: Home - Self-Care Reason For Visit: SIGMOID COLITIS Discharge Diagnosis: Colitis Abdominal pain Transaminitis (Elevated Liver enzymes) CAD (coronary artery disease): HTN (hypertension): Activity: Resume your previous activity Non-emergency contact: Primary Care Provider Call non-emergency contact if: you have any medication questions and your temperature is above 101 Follow-up/Referrals: Jayden Solis MD [Primary Care Provider] - Diet: Heart Healthy and Low Fiber Addtl Attending Provider Instructions: Follow up with your primary care provider within 1 week Check LFT in 1 week to monitor your liver enzymes (Your physician will order it) Check CBC in 1 week to monitor your hemoglobin (Your physician will order it) Complete the course of the antibiotic with cipro and flagyl oral Continue to monitor your blood pressure and bring your blood pressure log at your next appointment with your physician Fall precaution Pending Studies at Discharge: No Stand-Alone Forms: My [facility], Smoking Cessation Medications and DC Order Prescriptions: New polyethylene glycol 3350 [Miralax] 17 gram Powder In Packet 17 g PO DAILY PRN (Reason: constipation) Qty: 30 RF: 0 metronidazole 500 mg Tablet 500 mg PO TID 4 Days Qty: 12 RF: 0 ciprofloxacin HCl 500 mg Tablet 500 mg PO DAILY Qty: 4 RF: 0 Continued acetaminophen 500 mg Tablet 1,000 mg PO Q6H PRN (Reason: Pain) RF: 0 triamcinolone acetonide 0.1 % cream 1 applic TOPICAL BID RF: 0 Vitron-C 65 mg iron- 125 mg tablet,delayed release (DR/EC) 1 tab PO DAILY RF: 0 losartan 50 mg tablet 50 mg PO DAILY RF: 0 aspirin 81 mg Tablet,Delayed Release (Dr/Ec) 81 mg PO DAILY RF: 0 oxycodone-acetaminophen 5-325 mg tablet 1 tab PO Q4H PRN (Reason: Pain) RF: 0 felodipine 10 mg tablet extended release 24 hr 10 mg PO HS RF: 0 metoprolol succinate 25 mg tablet extended release 24 hr 12.5 mg PO BID RF: 0 hydroxychloroquine 200 mg tablet 200 mg PO DAILY RF: 0 mirtazapine 7.5 mg tablet 7.5 mg PO HS RF: 0 oxycodone [OxyContin] 30 mg tablet,oral only,ext.rel.12 hr 30 mg PO TID RF: 0 atorvastatin 40 mg Tablet 40 mg PO HS RF: 0 prednisone 10 mg Tablet 10 mg PO DAILY RF: 0 pantoprazole [Protonix] 40 mg Tablet,Delayed Release (Dr/Ec) 40 mg PO DAILY RF: 0 nitroglycerin 0.4 mg Tablet, Sublingual 0.4 mg sublingual USEASDIRECTD PRN (Reason: Chest Pain) RF: 0 albuterol sulfate [Ventolin HFA] 90 mcg/actuation Hfa Aerosol Inhaler 2 puff INHALATION Q6H PRN (Reason: Shortness Of Breath Or Wheezing) RF: 0 cholecalciferol (vitamin D3) [Vitamin D3] 5,000 unit Tablet 5,000 unit PO DAILY RF: 0 Discharge Orders: Discharge Order (Routine); Ordered 05/16/20 Ordered By: Lars Gupta Admission Data Admit Date/Time: 05/14/20 09:03 Attending Provider: Lars Gupta Admit Provider: Lars Gupta Primary Care Provider: Jayden Solis Other Providers: Lars Gupta Other Interventions: Discharge Summary Assessment (RN) Last Done: 05/16/20 13:06 DC Date/Time DO NOT enter until pt leaves facility: 05/16/20 15:36
== END 2020-05-16 15:36 | disposition home or self-care (01) ==
LOC: 2W 05:49 → ED 05:49 → 2W 09:51

== ENCOUNTER 2020-08-31 02:03 | Inpatient (IN) ==
[2020-08-31] MEDS ORDERED: ONDANSETRON 4 MG OD TAB ONE (02:15)
[2020-08-31] MEDS ORDERED: ACETAMINOPHEN 1,000 MG/100 ML VIAL IV STA (02:32)
[2020-08-31] MEDS ORDERED: ONDANSETRON INJ 2 MG/ML 2 ML VIAL IV STA (02:32)
[2020-08-31] MEDS ORDERED: DEXAMETHASONE SOD INJ 10 MG/ML VIAL IV ONE (02:34)
[2020-08-31] MEDS ORDERED: ACETAMINOPHEN 1000 MG/100 ML IV IV ONE (02:37)
[2020-08-31] MEDS ORDERED: ONDANSETRON INJ 2 MG/ML 2 ML VIAL ONE (02:37)
[2020-08-31] MEDS ORDERED: SODIUM CHLORIDE 0.9% 1000ML 1,000 ML IV SCH (02:45)
[2020-08-31] MEDS ORDERED: SODIUM CHLORIDE 0.9% 500 ML IV SCH (02:45)
[2020-08-31 02:48] LABS: Basophils # (auto) 0.01 K/uL (0-0.2); Basophils % (auto) 0.1 %; Hematocrit (blood only) 32.4 % (37-47); Hemoglobin 10.1 g/dL (12.0-16.0); Immature Granulocytes # (auto) 0.04 K/uL (0.00-0.02); Immature Granulocytes % (auto) 0.3 %; Lymphocytes # (auto) 0.41 K/uL (1.2-3.4); Lymphocytes % (auto) 2.8 %; Mean Corpuscular Hemoglobin 27.8 pg (25-34); Mean Corpuscular Hgb Conc 31.2 g/dL (32-36); Mean Corpuscular Volume 89.3 fL (80-100); Mean Platelet Volume 11.2 fL (7.4-10.4); Monocytes # (auto) 1.23 K/uL (0.11-0.59); Monocytes % (auto) 8.3 %; Neutrophils # (auto) 13.05 K/uL (1.4-6.5); Neutrophils % (auto) 88.5 %; Platelet Count 257 K/uL (130-400); RDW Coefficient of Variation 14.5 % (11.5-14.5); RDW Standard Deviation 47.6 fL (36.4-46.3); Red Blood Count 3.63 M/uL (4.2-5.4); White Blood Count 14.74 K/uL (4.8-10.8)
[2020-08-31 02:58] LABS: Albumin Level 3.4 gm/dl (3.4-5.0); BUN Creatinine Ratio 10.2 (10-20); Calcium 8.3 mg/dl (8.5-10.1); Creatinine Clr Calc Pharmacy 17.7 ml/min; Est GFR (African American) 33.2; Est GFR (Non-African American) 28.7; Potassium 4.7 mmol/L (3.5-5.1)
[2020-08-31 03:00] LABS: Albumin Globulin Ratio 0.9 (0.9-2); Bilirubin,Total 2.3 mg/dl (0.2-1); Globulin 3.9 gm/dl (2.5-4.0); Total Protein 7.3 gm/dl (6.4-8.2)
[2020-08-31] MEDS ORDERED: PIPERACILL/TAZOBAC CONSULT ACTIVE PRN (03:10)
[2020-08-31] MEDS ORDERED: PIPERACILLIN/TAZOBACTAM 4.5 GM/120 ML BAG IV ONE (03:10)
[2020-08-31] MEDS ORDERED: IOVERSOL 100ml IV ONE (03:54)
--- NOTE | 2020-08-31 04:58 | Emergency Department Note ---
History of Present Illness General Chief complaint: Pain (Generalized) Stated complaint: GENERALIZED PAIN/NAUSEA/VOMITING Source: patient and RN notes reviewed Mode of arrival: EMS Limitations: no limitations History of Present Illness Provider complaint: Fever, vomiting, abdominal pain, Covid exposure Maximum Pain Intensity: 4 This patient is an 85-year-old female who presents to the emergency department with complaints of nausea, vomiting, cramping abdominal discomfort, "feeling hot," and a mild cough. Patient states symptoms began 2 days ago. She does live with 2 grandsons (26 and 28 years old) who have had Covid exposures recently. Patient states they have tested positive however patient's daughter called in and stated it was just an exposure. She states they are quarantining in the home. Patient is concerned that she may have choked on some vomit. She denies any blood in the emesis. She has not been able to tolerate any fluids. She denies any significant shortness of breath, but states she does not like to wear the mask. Patient does have a history of colitis per daughter presented in a very similar fashion. Home Medications Home Medications Medication Instructions Recorded Confirmed Type aspirin 81 mg PO DAILY 02/06/19 08/31/20 History hydroxychloroquine 200 mg PO DAILY 02/06/19 08/31/20 History metoprolol succinate 12.5 mg PO BID 02/06/19 08/31/20 History mirtazapine 7.5 mg PO HS 02/06/19 08/31/20 History nitroglycerin 0.4 mg SUBLINGUAL USEASDIRECTD PRN 02/06/19 08/31/20 History oxycodone-acetaminophen 1 tab PO Q4H PRN 02/06/19 08/31/20 History prednisone 10 mg PO DAILY 02/06/19 08/31/20 History polyethylene glycol 3350 [Miralax] 17 g PO DAILY PRN #30 ea 05/16/20 08/31/20 Rx felodipine 10 mg PO DAILY 08/31/20 08/31/20 History oxycodone [OxyContin] 40 mg PO TID 08/31/20 08/31/20 History sennosides [senna] 8.6 mg PO BID 08/31/20 08/31/20 History Allergies Allergy/AdvReac Type Severity Reaction Status Date / Time prochlorperazine Allergy Mild flushed Verified 08/31/20 02:25 VIDA Inhibitors AdvReac Intermediate RAPID Verified 08/31/20 02:25 PULSE, BULGING EYES Past Med/Surg History Medical History Breast cancer CAD (coronary artery disease) "10/2013 - NSTEMI, s/p ADRIENNE to LAD" CAD (coronary artery disease) Chronic pain syndrome CKD (chronic kidney disease) CKD (chronic kidney disease), stage III Lupus (systemic lupus erythematosus) Surgical History H/O lumpectomy H/O shoulder surgery History of appendectomy History of cholecystectomy History of coronary angioplasty hx of ADRIENNE in 2013 History of hysterectomy History of partial mastectomy of left breast History of partial thyroidectomy S/P tonsillectomy and adenoidectomy Family History Father Lung cancer Sister Diabetes Social History Smoking Status: Former smoker Tobacco Type: Cigarettes Second Hand Exposure: No; Hx Alcohol Use: No Preferred Language: [place] Communication Ability: Effective Tin Stacker Required: No Beliefs That Will Affect Care: Gnosticist Gnosticist Beliefs: Mormon marital status: / Current Living Situation: Other Current Living Situation Comment: Patient lives w/ daughter. 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 and A total of 10 systems reviewed and were otherwise negative Physical Exam Vital Signs Vital Signs - 24 hr 08/31/20 02:15 08/31/20 02:54 08/31/20 03:57 Temperature 40.0 C H Temperature Source Oral Pulse Rate 70 Pulse Rate [Right Finger] 69 Respiratory Rate 18 18 Respiratory Depth Normal Blood Pressure 161/76 H Blood Pressure [Right Arm] 146/64 H Blood Pressure Mean 104 Blood Pressure Mean [Right Arm] 91 Blood Pressure Position Lying Blood Pressure Position [Right Arm] Sitting Pulse Oximetry 94 98 100 Oxygen Delivery Method Room Air Room Air Nasal Cannula Oxygen Flow Rate 3 2 Sepsis Recent Fever Within 48 Hours No Sepsis New/Unexplained Change in Mental Status No Sepsis Action Taken by Nursing No Action Required 08/31/20 05:28 Temperature 37.0 C Temperature Source Oral Pulse Rate Pulse Rate [Right Finger] 59 L Respiratory Rate 18 Respiratory Depth Normal Blood Pressure Blood Pressure [Right Arm] 140/66 Blood Pressure Mean Blood Pressure Mean [Right Arm] 90 Blood Pressure Position Blood Pressure Position [Right Arm] Lying Pulse Oximetry 96 Oxygen Delivery Method Room Air Oxygen Flow Rate Sepsis Recent Fever Within 48 Hours Sepsis New/Unexplained Change in Mental Status Sepsis Action Taken by Nursing Vital signs reviewed. Noted to be febrile. Periodically hypoxic on room air. General: Somewhat ill-appearing 85-year-old female, in no significant distress. HEENT: No scleral icterus/conjunctival injection, PERRLA, neck supple. Dry mucous membranes. Cardiovascular: Regular rate and rhythm, systolic ejection murmur Pulmonary: Clear to auscultation bilaterally, normal work of breathing. Abdomen: Soft, nontender, nondistended, positive bowel sounds. Musculoskeletal: Atraumatic, no peripheral edema. Neurologic: Patient awake alert and oriented x 3 Skin: Warm, dry, no rash Course Administered Medications Sodium Chloride (Nss 1000ml) 1,000 mls @ 125 mls/hr IV .Q8H SHAHLA Stop: 09/30/20 02:44 Last Admin: 08/31/20 02:53 Dose: 125 mls/hr Documented by: [id number] Discontinued Medications Dexamethasone (Dexamethasone Sod Inj 10 Mg/Ml Vial) 6 mg IV NOW ONE Stop: 08/31/20 02:35 Last Admin: 08/31/20 02:53 Dose: 6 mg Documented by: [id number] Sodium Chloride (Nss) 500 mls @ 999 mls/hr IV .Q31M SHAHLA Stop: 08/31/20 03:15 Last Infusion: 08/31/20 03:50 Dose: 0 mls/hr Documented by: [id number] Admin: 08/31/20 02:54 Dose: 999 mls/hr Documented by: [id number] Acetaminophen (Ofirmev) 1,000 mg in 100 mls @ 400 mls/hr IV NOW STA Stop: 08/31/20 02:46 Last Infusion: 08/31/20 03:24 Dose: 0 mls/hr Documented by: [id number] Admin: 08/31/20 02:53 Dose: 400 mls/hr Documented by: [id number] Piperacillin Sod/Tazobactam Sod (Zosyn) 4.5 gm in 120 mls @ 240 mls/hr IV NOW ONE Stop: 08/31/20 03:39 Last Infusion: 08/31/20 03:50 Dose: 0 mls/hr Documented by: [id number] Admin: 08/31/20 03:24 Dose: 240 mls/hr Documented by: [id number] Ioversol (Ioversol 100ml) 100 ml IV ONCE ONE Stop: 08/31/20 03:55 Last Admin: 08/31/20 03:55 Dose: 93 ml Documented by: [id number] Ondansetron HCl (Ondansetron Inj 2 Mg/Ml 2 Ml Vial) 4 mg IV NOW STA Stop: 08/31/20 02:33 Last Admin: 08/31/20 02:53 Dose: 4 mg Documented by: [id number] Medical Decision Making Differential Diagnosis Differential diagnosis: Covid, other viral syndrome, cholangitis, otitis, pharyngitis, pneumonia, influenza, meningitis, urinary tract infection, sepsis, bacteremia, as well as other pathologies. Medical Records Attestation: I reviewed the patient's medical records. Home Medications Current Medication List: was personally reviewed by me Laboratory Data Attestation: I reviewed the patient's lab results. Result diagrams: 08/31/20 02:18 08/31/20 02:18 Lab Results 08/31/20 08/31/20 08/31/20 Range/Units 02:18 02:18 02:18 WBC 14.74 H (4.8-10.8) K/uL RBC 3.63 L (4.2-5.4) M/uL Hgb 10.1 L (12.0-16.0) g/dL Hct 32.4 L (37-47) % MCV 89.3 (80-100) fL MCH 27.8 (25-34) pg MCHC 31.2 L (32-36) g/dL RDW Std Deviation 47.6 H (36.4-46.3) fL RDW Coeff of Sharona 14.5 (11.5-14.5) % Plt Count 257 (130-400) K/uL MPV 11.2 H (7.4-10.4) fL Immature Gran % (Auto) 0.3 % Neut % (Auto) 88.5 % Lymph % (Auto) 2.8 % [place] % (Auto) 8.3 % Eos % (Auto) 0.0 % Baso % (Auto) 0.1 % Neut # (Auto) 13.05 H (1.4-6.5) K/uL Lymph # (Auto) 0.41 L (1.2-3.4) K/uL [place] # (Auto) 1.23 H (0.11-0.59) K/uL Eos # (Auto) 0.00 (0-0.5) K/uL Baso # (Auto) 0.01 (0-0.2) K/uL Immature Gran # (Auto) 0.04 H (0.00-0.02) K/uL Sodium 132 L (136-145) mmol/L Potassium 4.7 (3.5-5.1) mmol/L Chloride 99 (98-107) mmol/L Carbon Dioxide 25 (21-32) mmol/L Anion Gap 8.0 (3-11) BUN 16 (7-18) mg/dl Creatinine 1.60 H (0.6-1.2) mg/dl Est Cr Clr Drug Dosing 17.7 ml/min Est GFR ( Amer) 33.2 Est GFR (Non-Af Amer) 28.7 BUN/Creatinine Ratio 10.2 (10-20) Glucose 112 H (70-99) mg/dl Lactate (0.4-2.0) mmol/L Calcium 8.3 L (8.5-10.1) mg/dl Total Bilirubin 2.3 H (0.2-1) mg/dl AST 360 H (15-37) U/L ALT 256 H (12-78) U/L Alkaline Phosphatase 413 H (45-117) U/L Total Protein 7.3 (6.4-8.2) gm/dl Albumin 3.4 (3.4-5.0) gm/dl Globulin 3.9 (2.5-4.0) gm/dl Albumin/Globulin Ratio 0.9 (0.9-2) Lipase 144 (73-393) U/L Procalcitonin 1.85 H (0-0.5) ng/ml Urine Color Urine Appearance (Clear) Urine pH (4.5-7.5) Ur Specific [place] (1.000-1.030) Urine Protein (Negative) Urine Glucose (UA) (Negative) Urine Ketones (Negative) Urine Blood (Negative) Urine Nitrite (Negative) Urine Bilirubin (Negative) Urine Urobilinogen (Negative) Ur Leukocyte Esterase (Negative) Urine WBC (Auto) (0-5) /hpf Urine RBC (Auto) (0-4) /hpf U Hyaline Cast (Auto) (0-5) /lpf U Epithel Cells (Auto) (0-5) /lpf Urine Bacteria (Auto) (Negative) COVID-19 Eval Order COVID-19 PCR (Negative) 08/31/20 08/31/20 08/31/20 Range/Units 02:18 02:30 02:30 WBC (4.8-10.8) K/uL RBC (4.2-5.4) M/uL Hgb (12.0-16.0) g/dL Hct (37-47) % MCV (80-100) fL MCH (25-34) pg MCHC (32-36) g/dL RDW Std Deviation (36.4-46.3) fL RDW Coeff of Sharona (11.5-14.5) % Plt Count (130-400) K/uL MPV (7.4-10.4) fL Immature Gran % (Auto) % Neut % (Auto) % Lymph % (Auto) % [place] % (Auto) % Eos % (Auto) % Baso % (Auto) % Neut # (Auto) (1.4-6.5) K/uL Lymph # (Auto) (1.2-3.4) K/uL [place] # (Auto) (0.11-0.59) K/uL Eos # (Auto) (0-0.5) K/uL Baso # (Auto) (0-0.2) K/uL Immature Gran # (Auto) (0.00-0.02) K/uL Sodium (136-145) mmol/L Potassium (3.5-5.1) mmol/L Chloride (98-107) mmol/L Carbon Dioxide (21-32) mmol/L Anion Gap (3-11) BUN (7-18) mg/dl Creatinine (0.6-1.2) mg/dl Est Cr Clr Drug Dosing ml/min Est GFR ( Amer) Est GFR (Non-Af Amer) BUN/Creatinine Ratio (10-20) Glucose (70-99) mg/dl Lactate 1.8 (0.4-2.0) mmol/L Calcium (8.5-10.1) mg/dl Total Bilirubin (0.2-1) mg/dl AST (15-37) U/L ALT (12-78) U/L Alkaline Phosphatase (45-117) U/L Total Protein (6.4-8.2) gm/dl Albumin (3.4-5.0) gm/dl Globulin (2.5-4.0) gm/dl Albumin/Globulin Ratio (0.9-2) Lipase (73-393) U/L Procalcitonin (0-0.5) ng/ml Urine Color Urine Appearance (Clear) Urine pH (4.5-7.5) Ur Specific [place] (1.000-1.030) Urine Protein (Negative) Urine Glucose (UA) (Negative) Urine Ketones (Negative) Urine Blood (Negative) Urine Nitrite (Negative) Urine Bilirubin (Negative) Urine Urobilinogen (Negative) Ur Leukocyte Esterase (Negative) Urine WBC (Auto) (0-5) /hpf Urine RBC (Auto) (0-4) /hpf U Hyaline Cast (Auto) (0-5) /lpf U Epithel Cells (Auto) (0-5) /lpf Urine Bacteria (Auto) (Negative) COVID-19 Eval Order Covid19 Done at [facility] COVID-19 PCR NEGATIVE (Negative) 08/31/20 Range/Units 05:26 WBC (4.8-10.8) K/uL RBC (4.2-5.4) M/uL Hgb (12.0-16.0) g/dL Hct (37-47) % MCV (80-100) fL MCH (25-34) pg MCHC (32-36) g/dL RDW Std Deviation (36.4-46.3) fL RDW Coeff of [place] (11.5-14.5) % Plt Count (130-400) K/uL MPV (7.4-10.4) fL Immature Gran % (Auto) % Neut % (Auto) % Lymph % (Auto) % [place] % (Auto) % Eos % (Auto) % Baso % (Auto) % Neut # (Auto) (1.4-6.5) K/uL Lymph # (Auto) (1.2-3.4) K/uL [place] # (Auto) (0.11-0.59) K/uL Eos # (Auto) (0-0.5) K/uL Baso # (Auto) (0-0.2) K/uL Immature Gran # (Auto) (0.00-0.02) K/uL Sodium (136-145) mmol/L Potassium (3.5-5.1) mmol/L Chloride (98-107) mmol/L Carbon Dioxide (21-32) mmol/L Anion Gap (3-11) BUN (7-18) mg/dl Creatinine (0.6-1.2) mg/dl Est Cr Clr Drug Dosing ml/min Est GFR ( Amer) Est GFR (Non-Af Amer) BUN/Creatinine Ratio (10-20) Glucose (70-99) mg/dl Lactate (0.4-2.0) mmol/L Calcium (8.5-10.1) mg/dl Total Bilirubin (0.2-1) mg/dl AST (15-37) U/L ALT (12-78) U/L Alkaline Phosphatase (45-117) U/L Total Protein (6.4-8.2) gm/dl Albumin (3.4-5.0) gm/dl Globulin (2.5-4.0) gm/dl Albumin/Globulin Ratio (0.9-2) Lipase (73-393) U/L Procalcitonin (0-0.5) ng/ml Urine Color Yellow Urine Appearance Clear (Clear) Urine pH >= 9.0 H (4.5-7.5) Ur Specific [place] 1.024 (1.000-1.030) Urine Protein Negative (Negative) Urine Glucose (UA) Negative (Negative) Urine Ketones Trace H (Negative) Urine Blood Trace H (Negative) Urine Nitrite Negative (Negative) Urine Bilirubin Negative (Negative) Urine Urobilinogen Negative (Negative) Ur Leukocyte Esterase Negative (Negative) Urine WBC (Auto) 0 (0-5) /hpf Urine RBC (Auto) 0-4 (0-4) /hpf U Hyaline Cast (Auto) 0 (0-5) /lpf U Epithel Cells (Auto) 5-10 H (0-5) /lpf Urine Bacteria (Auto) Negative (Negative) COVID-19 Eval Order COVID-19 PCR (Negative) Imaging Data Radiologist's Impression: CT ABDOMEN & PELVIS With Contrast: There is constipation with 5.7 cm of stool in the sigmoid colon. Diffuse biliary duct dilation postcholecystectomy with the common bile duct measuring up to 1.5 cm. No choledocholithiasis is identified. Scattered gas fluid levels in nondilated small bowel suggesting mild ileus. No acute focal bowel inflammation is identified. Multiple right renal cysts measuring up to 4.8 cm in diameter. No hydronephrosis or ureterolithiasis identified. The urinary bladder is partially distended with an unremarkable appearance. Moderate degenerative changes in the lower lumbar spine. No acute fracture or subluxation is seen. Radiologist: Tyrese Sanchez MD Study ready at 04:03 and initial results transmitted at 04:31 CT CHEST Without Contrast: Slight scattered bronchial wall acting throughout the lungs possibly mild underlying emphysema. No acute airspace infiltrate, pneumothorax, or pleural effusion. The thoracic aorta is heavily calcified but nondilated. There is a noncontrast scan. The heart size is upper normal. Severe coronary calcification is present. No pericardial effusion. Artifact from right shoulder arthroplasty. Moderate multilevel osteophytosis throughout the thoracic spine with increased kyphosis. No acute focal fracture or bone lesion identified. Radiologist: Tyrese Sanchez MD Study ready at 03:58 and initial results transmitted at 04:27 Blood Pressure Blood Pressure Findings: Elevated blood pressure Blood Pressure Disposition: further management by hospitalist [facility] Narrative This patient was evaluated and appeared to be in some discomfort. IV access was obtained and laboratory work was drawn. Patient is noted to be febrile. Blood cultures and a lactate were obtained. Patient was medicated with 1 g of IV Tylenol. IV fluids were initiated. An order for cardiac monitoring was placed and the patient is noted to be in a sinus rhythm at 70 bpm. Patient's laboratory work reveals an elevated WBC, lactate of 1.8, creatinine of 1.6, pro calcitonin of 1.85. Patient's transaminases are elevated with a bilirubin of 2.3. CT imaging of the chest abdomen and pelvis was performed and reveals no evidence of focal lung consolidation or evidence to suggest aspiration. There is diffuse biliary ductal dilatation postcholecystectomy but no choledocholith iasis identified. There is also no acute focal bowel inflammation identified. Patient was medicated with Zosyn 4.5 g IV. UA was sent and is negative for infection. Patient's daughter did call the emergency department and was able to clarify that the grandsons had a positive Covid exposure, they had not tested positive themselves. She did state that the patient is "out and about" quite frequently. She is also concerned about the possibility of aspiration. Patient's case was discussed with Dr. Cristina of the hospitalist service. He will evaluate the patient for further management. Impression & Plan Fever, Transaminitis, Vomiting, Hyperbilirubinemia Discharge Plan Visit Data Chief Complaint: Pain (Generalized) Stated Complaint: GENERALIZED PAIN/NAUSEA/VOMITING ED Provider: Norma Kirby Discharge Problem: Fever, Transaminitis, Vomiting, Hyperbilirubinemia Discharge Instructions Interventions: ED Discharge Assessment Last Done: 08/31/20 06:34 Discharge Problem: Fever Qualifiers: Fever type: due to other condition Qualified Code(s): R50.81 - Fever presenting with conditions classified elsewhere Vomiting Qualifiers: Vomiting type: unspecified Vomiting Intractability: non-intractable Nausea presence: with nausea Qualified Code(s): R11.2 - Nausea with vomiting, unspecified
[2020-08-31 05:39] LABS: Appearance Urine Clear (Clear); Bacteria Urine Automated Negative (Negative); Bilirubin Urine Negative (Negative); Blood Urine Trace (Negative); Cast Urine Automated 0 /lpf (0-5); Color Urine Yellow; Glucose Urine UA Negative (Negative); Ketones Urine Trace (Negative); Leukocyte Esterase Urine Negative (Negative); Nitrite Urine Negative (Negative); Protein Urine Negative (Negative); RBC Urine Automated 0-4 /hpf (0-4); Specific Gravity Urine 1.024 (1.000-1.030); Urobilinogen Urine Negative (Negative); WBC Urine Automated 0 /hpf (0-5); pH Urine >= 9.0 (4.5-7.5)
--- NOTE | 2020-08-31 07:26 | CT Scan Report ---
CT chest wo con CLINICAL HISTORY: 85 years-old Female with fever, vomiting, aspiration. Acute cough with fever and v omiting TECHNIQUE: Multiaxial CT images of the chest were performed without contrast. A dose lowering techni que was utilized adhering to the principles of ALARA. COMPARISON: CT abdomen and pelvis of same day, CTA chest 12/27/2017 FINDINGS: Right-sided thyroid goiter. The left thyroid lobe is either hypoplastic or surgically absen t. Artifact from reverse right shoulder total joint arthroplasty limits the study. Prominent and mild ly enlarged mediastinal lymph nodes include subcarinal lymph nodes measuring up to 11 mm in short axi s, unchanged and likely reactive. There is mild cardiomegaly with coronary and aortic annular calcifi cations. No thoracic aortic aneurysm. Dilated main pulmonary artery, 3.4 cm. Trace pleural effusions. No pneumothorax. Mild emphysema with associated bronchial wall thickening. Mild subpleural reticulat ion is suggestive of scarring. There is mild traction bronchiectasis of the basal right lower lobe. 4 mm fissural nodule involves the right upper lung on image 104 series 4, unchanged and likely benign. 2 mm solid nodule of the superior segment right lower lobe. Mild bibasilar mucous plugging. 3 mm georgie id nodule of the inferior segment lingula, low clinical suspicion. There is mild diffuse esophageal wall thickening with esophageal secretions. There are a few prominen t periesophageal lymph nodes measuring up to 6 mm. Intrahepatic biliary ductal dilation is redemonstr ated. Degenerative changes of the spine and left shoulder. Demineralized appearance of the bones. IMPRESSION: 1. Mild emphysema with bronchial wall thickening and mucous plugging suggestive of bronchitis versus reactive airway disease. 2. Trace pleural effusions. 3. Mild mediastinal adenopathy, likely reactive. 4. There is mild diffuse esophageal wall thickening with layering esophageal secretions and mildly pr ominent periesophageal lymph nodes. Correlate clinically to exclude esophagitis. 5. Probable pulmonary artery hypertension. 6. Additional findings as above. ACT 112: Negative or not required by law. Electronically signed by: Иван Wagoner M.D. 08/31/2020 7:25 AM
[2020-08-31 07:29] LABS: Adenovirus PCR Not Detected (NotDetected); Bordetella parapertussis PCR Not Detected (NotDetected); Bordetella pertussis PCR Not Detected (NotDetected); Chlamydia pneumoniae PCR Not Detected (NotDetected); Coronavirus 229E PCR Not Detected (NotDetected); Coronavirus CoV-2 (COVID19)PCR Not Detected (NotDetected); Coronavirus HKU1 PCR Not Detected (NotDetected); Coronavirus NL63 PCR Not Detected (NotDetected); Coronavirus OC43PCR Not Detected (NotDetected); Human Metapneumovirus PCR Not Detected (NotDetected); Influenza A PCR Not Detected (NotDetected); Influenza B PCR Not Detected (NotDetected); Mycoplasma pneumoniae PCR Not Detected (NotDetected); Parainfluenza Virus 1 PCR Not Detected (NotDetected); Parainfluenza Virus 2 PCR Not Detected (NotDetected); Parainfluenza Virus 3 PCR Not Detected (NotDetected); Parainfluenza Virus 4 PCR Not Detected (NotDetected); Respiratory Syncytial VirusPCR Not Detected (NotDetected); Rhinovirus/Enterovirus PCR Not Detected (NotDetected)
--- NOTE | 2020-08-31 07:32 | CT Scan Report ---
ABDOMEN AND PELVIS CT WITH IV CONTRAST CT DOSE: 539.48 mGy.cm HISTORY: elevated LFT, fever, vomiting TECHNIQUE: Multiaxial CT images of the abdomen and pelvis were performed following the use of intrave nous contrast. A dose lowering technique was utilized adhering to the principles of ALARA. COMPARISON STUDY: Abdomen and pelvis CT 05/14/2020. FINDINGS: Please refer to same day chest CT for further evaluation of the lung bases. There slight el evation of the left hemidiaphragm, unchanged. No pneumoperitoneum. No pneumatosis. No suspicious lyti c or blastic osseous lesions. Mildly enlarged distal right paraesophageal lymph node measuring 7 mm i n short axis diameter. This remains unchanged. Mildly enlarged gastrohepatic and periportal lymph nod es remain stable. Moderate bile duct dilatation persists. No hepatic masses. The gallbladder surgical ly absent. Mild enhancement of the wall of the common bile duct remains unchanged. Therefore, this is likely chronic. The spleen and adrenal glands are unremarkable. The pancreas remains atrophic. Multi ple bilateral renal hypodense lesions are not significantly changed. These favor cysts. No hydronephr osis. No retroperitoneal lymphadenopathy. The bladder is unremarkable. The uterus is surgically absen t. Mild pelvic floor collapse is noted. Moderate well-formed stool seen within the colon. A few promi nent fluid-filled loops of small bowel within the left side the abdomen. However, no transition point to suggest an obstruction. No bowel wall thickening. The appendix is is not identified and reportedl y surgically absent. IMPRESSION: 1. A few borderline dilated fluid-filled loops of small bowel within left side the abdomen. However, no transition point to suggest an obstruction. This could represent a mild ileus or less likely enter itis. 2. Moderate well-formed stool within the colon. 3. No change in the bile duct dilatation. 4. Prior cholecystectomy and appendectomy. 5. Mildly enlarged upper abdominal lymph nodes remain stable. 6. Additional findings as described above. ACT 112: Negative or not required by law. Electronically signed by: Abdiel Guido M.D. 08/31/2020 7:30 AM
[2020-08-31] MEDS ORDERED: ONDANSETRON INJ 2 MG/ML 2 ML VIAL IV PRN (08:07)
[2020-08-31] MEDS ORDERED: NITROGLYCERIN SL 0.4 MG/TAB TAB SL PRN (08:07)
[2020-08-31] MEDS ORDERED: oxyCODONE/ACETAMINOPHEN 5mg/325mg TAB PO PRN (08:07)
[2020-08-31] MEDS ORDERED: VANCOMYCIN HCL 1,000 MG in SODIUM CHLORIDE 0.9% 250 ML IV SCH (08:07)
[2020-08-31] MEDS ORDERED: POLYETHYLENE (MIRALAX) 17 GM PACK PO PRN (08:07)
[2020-08-31] MEDS ORDERED: VANCOMYCIN CONSULT ACTIVE PRN (08:07)
--- NOTE | 2020-08-31 08:19 | XRay Report ---
KUB CLINICAL HISTORY: Vomiting. Abdominal pain. COMPARISON STUDY: CT of the abdomen and pelvis May 14, 2020. FINDINGS: Incidental note is made of cholecystectomy clips. The bowel gas pattern is within normal li mits. There is no evidence for a bowel obstruction. There is a moderate amount of stool within the co leann and rectum. Sensitivity is diminished on this supine exam but there is no evidence for free air. IMPRESSION: 1. No evidence for a bowel obstruction. 2. Moderate amount of stool within the colon and rectum. ACT 112: Negative or not required by law. Electronically signed by: Edson Martin M.D. 08/31/2020 8:17 AM
[2020-08-31] MEDS: METOPROLOL SUCC 25MG EXT REL TAB PO SCH ×2 (08:53→21:55)
[2020-08-31] MEDS: ASPIRIN 81 MG ECTAB PO SCH (08:53)
[2020-08-31] MEDS: FELODIPINE 5 MG TABCR PO SCH (08:53)
[2020-08-31] MEDS: SODIUM CHLORIDE 0.9% 1000ML 1,000 ML IV SCH ×2 (08:53→18:25)
[2020-08-31] MEDS: SENNA 8.6 MG TAB PO SCH ×2 (08:53→21:55)
[2020-08-31] MEDS: predniSONE 10 MG TABLET PO SCH (08:54)
[2020-08-31] MEDS: HYDROXYCHLOROQUINE SULFATE 200 MG TAB PO SCH (08:54)
[2020-08-31] MEDS: PANTOprazole 40 MG TAB PO SCH (08:54)
[2020-08-31] MEDS ORDERED: POLYETHYLENE (MIRALAX) 17 GM PACK PO ONE (09:00)
[2020-08-31] MEDS ORDERED: bisacodyL 10 MG SUPP PR ONE (09:00)
--- NOTE | 2020-08-31 09:39 | History and Physical Report ---
DATE OF ADMISSION: 08/31/2020 CHIEF COMPLAINT: Fever, nausea and vomiting. HISTORY OF PRESENT ILLNESS: This is an 85-year-old female with past medical history significant for hypothyroidism, hyperlipidemia, atherosclerotic cardiovascular disease, Raynaud's syndrome, hypertension, aortic valve stenosis, history of SD, gastroparesis, vitamin D deficiency, chronic kidney disease stage III, complex renal cyst, sclerodactyly, primary osteoarthritis involving multiple joints, senile osteoporosis, primary osteoarthritis of both knees, primary osteoarthritis of right shoulder, chronic pain syndrome, anemia, chronic renal failure stage IV, history of systemic lupus erythematosus, mood disorder, depression, CAD status post drug-eluting stents, dry eyes, chronic use of steroids, history of breast cancer, history of smoking, polypharmacy, patient lives with her daughter and grandson. Grandson's girlfriend who is a nurse was diagnosed with COVID about 4 days ago and she is quarantine.All of them live in same house.The patient today states has fever, nausea, vomiting and generalized body aches and came to the hospital. The patient has chronic pain and on chronic narcotic pain medication. In the ER her temp 40C. She is hemodynamically stable, currently saturating fine on room air. White count is 14, hemoglobin is 10. She has chronic lymphopenia, creatinine of 1.6, which seems at baseline. Procalcitonin is 1.85. Lactate is 1.8. Urinalysis is unremarkable. COVID-19 PCR done in the ER was negative. Chest CT preliminary report unremarkable. CT abdomen and pelvis preliminary report unremarkable. The patient's LFTs were elevated. The patient states yesterday she had nausea and abdominal pain and vomited a couple of times. Currently, nausea is improved. Abdominal pain is also improved.She came in with similar kind of symptoms in April. At that time, a couple of days ago before admission, COVID was negative and CAT scan was done showed colitis and treated with antibiotics and improved. Her transaminitis also improved at that time and got discharged on oral antibiotics. The patient says she lives with her family and she ambulates with a cane and her appetite is okay. Otherwise, she has no dysphagia. She has some headache. Denies any blurred vision, no earache, no runny nose, no sore throat, no loss of sense of smell or taste. No cough, no shortness of breath, no chest pain. She is constipated. Denies any blood in stool or black stools. Denies any burning micturition, no rash. There is question of whether she is exposed to COVID or not, but patient says she lives with her grandson and grandson's girlfriend, which was confirmed by the daughter on the phone. ALLERGIES: PROCHLORPERAZINE, VIDA INHIBITORS. PAST MEDICAL HISTORY: As mentioned above. PAST SURGICAL HISTORY: Upper GI scope, left breast biopsy, CABG, cardiac catheterization with drug-eluting stent, EGD with endoscopic ultrasound, laparoscopic hysterectomy, laparoscopic cholecystectomy, partial mastectomy, lymphadenectomy, appendectomy, left thyroidectomy, tonsillectomy and adenoidectomy. MEDICATIONS: The patient is on aspirin 81 mg p.o. daily, felodipine 10 mg p.o. daily, hydroxychloroquine 200 mg p.o. daily, metoprolol succinate 12.5 mg p.o. b.i.d., Remeron 7.5 mg p.o. at bedtime, nitroglycerin 0.4 mg sublingual p.r.n., OxyContin 40 mg p.o. t.i.d., Percocet 5/325 mg one tablet p.o. q. 4 hours p.r.n., MiraLax 17 g p.o. daily p.r.n., prednisone 10 mg p.o. daily, Senokot 8.6 mg p.o. b.i.d. FAMILY HISTORY: Significant for daughter has SLE. Cousin with lupus, of cancer at age of 69 from lung cancer. SOCIAL HISTORY: , lives with her daughter. Quit smoking in 1967. No alcohol use, no drug use. REVIEW OF SYMPTOMS: As per HPI. Rest of review of systems negative. PHYSICAL EXAMINATION: GENERAL: The patient is old and frail, not in acute distress. VITAL SIGNS: T-max 40 degrees, pulse 59, respiratory rate 18, blood pressure 140/66, oxygen 96% room air. HEENT: Pupils equal, round, and reactive to light. Oral mucosa moist. NECK: Supple. No neck masses seen. CARDIOVASCULAR: S1, S2 heard, regular rate and rhythm, no murmur, no gallop. RESPIRATORY SYSTEM: Normal AP diameter. No accessory muscle use. No wheezing, no crackles. ABDOMEN: Soft, bowel sounds present. Mild abdominal discomfort. No guarding, no rigidity. No distention. CENTRAL NERVOUS SYSTEM: Cranial nerves II-XII grossly intact, nonfocal. EXTREMITIES: No edema, no erythema. LABORATORY DATA: WBC 14.7, hemoglobin 10.1, hematocrit 32.4, platelets 257. Sodium 134, potassium 4.7, chloride 99, bicarbonate 25, BUN 16, creatinine 1.6, serum glucose 112. Lactate 1.8, calcium 8.3, total bilirubin 2.3, AST 360, ALT 256, alkaline phosphatase 413. Procalcitonin 1.85. Lipase 144. Urinalysis negative. COVID-19 PCR was negative and BioFire is pending. CT of the chest, preliminary report, no acute airspace infiltrate, pneumothorax, or pleural effusion. No acute findings. CT of abdomen and pelvis preliminary report constipation in the sigmoid colon, diffuse biliary duct dilatation post-cholecystectomy with common bile duct measuring up to 1.5 cm. No choledocholithiasis identified. Scattered mild ileus, no acute focal bowel inflammation is identified. ASSESSMENT AND PLAN: This is an 85-year-old female presents with fever, nausea, vomiting, and abdominal pain. 1. Fever, nausea, vomiting, abdominal pain, transaminitis and also elevated bilirubin. She presented with similar presentation in April. At that time, CAT scan showed colitis but at this time the CAT scan is unremarkable except for showing dilated common bile duct, status post cholecystectomy and constipation. Possible mild ileus.Cultures drawn in the ER. We will follow the cultures. Empirically started on Zosyn. We will also add vancomycin and IV fluids. Currently nausea is improved. We will place on clear liquid diet and closely monitor. Found to have COVID exposure, the patient lives with her daughter, grandson and grandson's girlfriend. Grandson's girlfriend works as a nurse and she was recently diagnosed with COVID over 4 days ago, possible exposure because they all live in the same home, though CAT scan does not show an infiltrate and initial COVID is negative. We will do a BioFire, even if BioFire comes back negative, we will keep her in isolation and and monitor and repeat COVID testing again in a couple of days and closely monitor. 2. History of systemic lupus erythematosus, on Plaquenil and prednisone, which we will continue. Follows with Rheumatology. 3. Chronic pain syndrome, continue her home OxyContin 30 mg t.i.d. and Percocet as needed. Monitor for any sedation. Also we will check the Tylenol level because of elevated transaminitis. 4. Anemia. Hemoglobin seems to be at baseline around 10.1. We will follow the labs. 5. Chronic kidney disease stage III to IV, creatinine 1.6, seems to be at baseline. We will follow the labs. 6. Coronary artery disease status post stent, on aspirin, metoprolol. Currently not on statin because it was stopped during last admission for her transaminitis. 7. Elevated LFT.follow repeat labs. Follow final ct scan report. GI consult. 8. Hypertension. Continue Toprol-XL and felodipine. 9. Constipation. We will give MiraLax and Dulcolax suppository. 10. Deep venous thrombosis prophylaxis, hep sub q DISPOSITION: Closely monitor in the med tele. Level 1 full code. as per my discussion with patient. PT and OT prior to discharge. Social service to help with discharge planning. MICHELLE
[2020-08-31] MEDS: PIPERACILLIN/TAZOBACTAM 3.375 GM in DEXTROSE 5% 100 ML IV SCH ×2 (10:46→18:24)
[2020-08-31 16:03] LABS: Appearance Urine Clear (Clear); Bacteria Urine Automated Negative (Negative); Bilirubin Urine Negative (Negative); Blood Urine Trace (Negative); Cast Urine Automated 0 /lpf (0-5); Color Urine Yellow; Epithelial Cell Urine Auto 0-5 /lpf (0-5); Glucose Urine UA Negative (Negative); Ketones Urine Trace (Negative); Leukocyte Esterase Urine Negative (Negative); Nitrite Urine Negative (Negative); Protein Urine Negative (Negative); RBC Urine Automated 0-4 /hpf (0-4); Specific Gravity Urine 1.026 (1.000-1.030); Urobilinogen Urine Negative (Negative); WBC Urine Automated 0 /hpf (0-5)
--- NOTE | 2020-08-31 18:19 | Communication Note ---
Date of Service: August 31, 2020 pt admitted earlier today for fever , abdominal pain , nausea , vomiting known COVID 19 exposure Pt seen at bedside : awake and alert says she has been feeling fine feels hungry , no symptoms since admission , no abdominal or nausea , tolerateing clears vitals stable will advance diet to solid no cough or SOB CT chest -no infiltrate COVID 19 /bio fire negative Dc isolation / droplet precaution D/c Zosyn PO Doxycycline for possible Bronchitis D/C tele Aidee Red MD
--- NOTE | 2020-08-31 18:44 | Communication Note ---
Date of Service: August 31, 2020 STOOL RETENTION /SEVERE CONSTIPATION DUE TO NARCOTIC PAIN MEDS: pt takes high dose of Narcotic pain medications : Oxycontin 40 mg TID ???( dose verified with daughter ) PRN Percocet and on Medical Marijuana for arthritis /lupus pt has been on these meds for over 15 hrs was on Oxycontin 30 mg TID -dose increased to 40 mg TID-few months back due to intractable pain . hx of admission with abdominal pain and severe constipatation ordered Bowel regimen and Relisor CT abdomen /pelvis shows moderate amount of stool in colon Pain management consulted for recommendation about reducing narcotic meds and alternative non narcotic pain regimen GI following already Dr Byrne will follow this patient in AM updated daughter also report -pt has poor appetite , losing wt , BMI 18 nutrition consulted Plan of care d/w daughter over phone ROSEANN GARCIA MD
[2020-08-31] MEDS ORDERED: METHYLNALTREXONE BROMIDE 12 MG/0.6 ML VIAL SQ SCH (20:00)
[2020-08-31] MEDS ORDERED: ENOXAPARIN INJ 40 MG/0.4 ML SYR SQ SCH (21:00)
[2020-08-31] MEDS: DOCUSATE SODIUM 100 MG CAP PO SCH (21:36)
[2020-08-31] MEDS: MIRTAZAPINE TAB 15 MG TAB PO SCH (21:53)
[2020-08-31] MEDS: HEPARIN SOD 5,000 UNIT/0.5 ML VIAL SQ SCH (21:56)
[2020-09-01] MEDS ORDERED: PIPERACILL/TAZOBAC CONSULT ACTIVE PRN (05:44)
[2020-09-01] MEDS ORDERED: PIPERACILLIN/TAZOBACTAM 4.5 GM in DEXTROSE 5% 100 ML IV ONE (06:15)
[2020-09-01 06:25] LABS: Basophils # (auto) 0.02 K/uL (0-0.2); Basophils % (auto) 0.2 %; Eosinophils # (auto) 0.05 K/uL (0-0.5); Eosinophils % (auto) 0.6 %; Hematocrit (blood only) 30.8 % (37-47); Hemoglobin 9.6 g/dL (12.0-16.0); Immature Granulocytes # (auto) 0.03 K/uL (0.00-0.02); Immature Granulocytes % (auto) 0.4 %; Lymphocytes # (auto) 1.06 K/uL (1.2-3.4); Lymphocytes % (auto) 12.5 %; Mean Corpuscular Hemoglobin 28.1 pg (25-34); Mean Corpuscular Hgb Conc 31.2 g/dL (32-36); Mean Corpuscular Volume 90.1 fL (80-100); Mean Platelet Volume 11.3 fL (7.4-10.4); Monocytes # (auto) 0.64 K/uL (0.11-0.59); Monocytes % (auto) 7.6 %; Neutrophils # (auto) 6.66 K/uL (1.4-6.5); Neutrophils % (auto) 78.7 %; Platelet Count 206 K/uL (130-400); RDW Coefficient of Variation 14.7 % (11.5-14.5); RDW Standard Deviation 48.4 fL (36.4-46.3); Red Blood Count 3.42 M/uL (4.2-5.4); White Blood Count 8.46 K/uL (4.8-10.8)
[2020-09-01 06:53] LABS: Albumin Level 2.9 gm/dl (3.4-5.0); BUN Creatinine Ratio 15.1 (10-20); Bilirubin Direct 0.3 mg/dl (0-0.2); Calcium 8.1 mg/dl (8.5-10.1); Creatinine Clr Calc Pharmacy 18.2 ml/min; Est GFR (African American) 34.3; Est GFR (Non-African American) 29.6; Magnesium 2.5 mg/dl (1.8-2.4); Potassium 4.1 mmol/L (3.5-5.1)
[2020-09-01 06:59] LABS: Bilirubin,Total 0.6 mg/dl (0.2-1); Total Protein 6.5 gm/dl (6.4-8.2)
[2020-09-01] MEDS: ACETAMINOPHEN 325 MG TAB PO PRN ×2 (08:07→17:52)
[2020-09-01] MEDS: PANTOprazole 40 MG TAB PO SCH (08:09)
[2020-09-01] MEDS: predniSONE 10 MG TABLET PO SCH (08:10)
[2020-09-01] MEDS: HYDROXYCHLOROQUINE SULFATE 200 MG TAB PO SCH (08:10)
[2020-09-01] MEDS: FELODIPINE 5 MG TABCR PO SCH (08:10)
[2020-09-01] MEDS: HEPARIN SOD 5,000 UNIT/0.5 ML VIAL SQ SCH ×2 (08:10→21:32)
[2020-09-01] MEDS: ASPIRIN 81 MG ECTAB PO SCH (08:10)
[2020-09-01] MEDS: SENNA 8.6 MG TAB PO SCH ×2 (08:11→21:36)
[2020-09-01] MEDS: DOCUSATE SODIUM 100 MG CAP PO SCH ×2 (08:11→21:35)
[2020-09-01] MEDS: POLYETHYLENE (MIRALAX) 17 GM PACK PO SCH (08:11)
--- NOTE | 2020-09-01 08:37 | Pain Management Consultation ---
Date of Consultation September 01, 2020 Assessment & Plan (1) Chronic pain syndrome: Patient is stable on her current medication regimen. Do not recommend any changes. She will continue OxyContin 40mg TID and PRN Percocet 5/325mg. Continue Miralax and Colace for constipation. History of Present Illness Attending Physician: Gaudencio Kunz MD History of Present Illness This is an 85 year old female that has been admitted to the [facility] for fever, nausea, vomiting, and abdominal discomfort. She states that her symptoms have resolved since yesterday and she is feeling well. Patient is chronically on OxyContin 40mg TID for chronic pains related to lupus and osteoarthritis. Patient states that everything hurts. She was increased form 30mg to 40mg 4 months ago with adequate pain relief. She is also prescribed Percocet 5/325mg x 4 hours if needed for flareups of pain. Last Percocet 5/325mg #30 prescription was 3 months ago. She does have occasional constipation which is typically relieved with miralax. Pain Assessment Full Body Front + Back: 1. [facility] Combined Pain Scale: 3-Mild - Interferes with pleasures of life. Stops some activities Allergies Allergy/AdvReac Type Severity Reaction Status Date / Time prochlorperazine Allergy Mild flushed Verified 08/31/20 02:25 VIDA Inhibitors AdvReac Intermediate RAPID Verified 08/31/20 02:25 PULSE, BULGING EYES Home Medications Home Medications Medication Instructions Recorded Confirmed Type aspirin 81 mg PO DAILY 02/06/19 08/31/20 History hydroxychloroquine 200 mg PO DAILY 02/06/19 08/31/20 History metoprolol succinate 12.5 mg PO BID 02/06/19 08/31/20 History mirtazapine 7.5 mg PO HS 02/06/19 08/31/20 History nitroglycerin 0.4 mg SUBLINGUAL USEASDIRECTD PRN 02/06/19 08/31/20 History oxycodone-acetaminophen 1 tab PO Q4H PRN 02/06/19 08/31/20 History prednisone 10 mg PO DAILY 02/06/19 08/31/20 History polyethylene glycol 3350 [Miralax] 17 g PO DAILY PRN #30 ea 05/16/20 08/31/20 Rx felodipine 10 mg PO DAILY 08/31/20 08/31/20 History oxycodone [OxyContin] 40 mg PO TID 08/31/20 08/31/20 History sennosides [senna] 8.6 mg PO BID 08/31/20 08/31/20 History Patient History Medical History Breast cancer CAD (coronary artery disease) "10/2013 - NSTEMI, s/p ADRIENNE to LAD" CAD (coronary artery disease) Chronic pain syndrome CKD (chronic kidney disease) CKD (chronic kidney disease), stage III Lupus (systemic lupus erythematosus) Surgical History H/O lumpectomy H/O shoulder surgery History of appendectomy History of cholecystectomy History of coronary angioplasty hx of ADRIENNE in 2013 History of hysterectomy History of partial mastectomy of left breast History of partial thyroidectomy S/P tonsillectomy and adenoidectomy Family History Father Lung cancer Sister Diabetes Social History Smoking Status: Never smoker Tobacco Type: Cigarettes Second Hand Exposure: No; Do You Dip or Chew Tobacco: No; Tobacco Cessation Education Requested by Patient: No Hx Alcohol Use: No Hx Substance Use: No Preferred Language: Togolese Communication Ability: Effective Personal Financial Counselor Required: No Beliefs That Will Affect Care: None marital status: / Current Living Situation: Family Current Living Situation Comment: Patient lives w/ daughter. 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 HEAD/FACE: Normocephalic and atraumatic. EYES: No drainage or conjunctival injection. ENT: Nose without bleeding or discharge. Oral mucosa moist. NECK: Full ROM without apparent pain. No swelling or masses noted. RESPIRATORY: Patient with unlabored breathing. No signs of respiratory distress. CHEST/AXILLA: Chest movement symmetrical. No deformities noted. ABDOMEN/GI: No distension BACK: Moves without difficulty SKIN: [place], warm and dry. No rash noted. MS/EXTREMITY: No swelling, no deformities. Moving extremities appropriately. NEURO: Alert and appears oriented. Speech is fluent. Cranial Nerves are grossly intact. PSYCH: Alert, pleasant, affect is calm
[2020-09-01] MEDS: METOPROLOL SUCC 25MG EXT REL TAB PO SCH ×2 (08:40→21:36)
--- NOTE | 2020-09-01 11:21 | Gastrointestinal Consultation ---
Date of Consultation September 01, 2020 Assessment & Plan (1) Vomiting: Much improved. Likely related to a viral illness. She has a history of gastroparesis, and currently has constipation on imaging both of which may be contributory. Patient refuses EGD, and at this point with improvement of her symptoms there is no clear indication to go forward with EGD. Dietary consult for gastroparesis diet review. Present on Admission?: Yes (2) Elevated LFTs: She experienced an acute bump in her LFTs mostly transaminitis which is improved today total bilirubin 0.6 direct 0.3 AST was 360 now 97 ALT was 256 now 146 alk phos was 413 now 284 most likely this is secondary to viral illness however she may have also passed a small amount of biliary sludge. She is post cholecystectomy with mild biliary ductal dilation but without any new findings on her biliary imaging. Would expect this to improve as her illness continues to improve. Present on Admission?: Yes (3) Chronic constipation: Of 2 months duration. Most likely this is agent medication related. She had suggestion of colitis on CT in April and though colon cancer is considered, patient refuses to undergo colonoscopy. Review of outpatient records shows that she takes 1 stool softener twice daily. Would add MiraLAX 1-2 times daily to affect 1 bowel movement per day Supervising Physician Co-Signing Physician Notes I have personally seen and examined the patient with NANCY Dillard. Her note reflects my exam and findings. I agree with her impression and plan. Symptomatically improved. Conservative management. Rl Cavanaugh M.D. History of Present Illness Reason for Consultation: Elevated LFTs, nausea vomiting, suspicion for Covid Requesting Physician: Dr. Cristina Attending Physician: Gaudencio Kunz MD History of Present Illness Ms. Alena Avitia is an 85-year-old female patient of with multiple chronic diseases including CKD4, CAD S/P drug eluting stents, gastroparesis (saw Dr. Sales in 2008), mild intrahepatic biliary ductal dilation since 2006, Mild aortic valve stenosis, SLE on chronic prednisone and Plaquenil, breast cancer, hypothyroidism and depression. She was brought to [facility] yesterday (08/31) for fever nausea and vomiting of 2 days duration. On arrival, CT suggested ileus and constipation. She tells me she is much improved. Since arrival, she has been afebrile she had one episode of vomiting last evening. Has not had any hematemesis black or red bowel movements. 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 Of note she is never had a colonoscopy and when asked if we could arrange that she refuses. She was admitted in April 2020 with similar symptoms at which time CT scan suggested colitis, she was treated with antibiotics with improvement of symptoms and discharged. She most recently underwent EGD in 2010 with nonerosive esophagitis. EUS at that time with a benign 52 x 17 mm mesenteric cyst in the peripancreatic region and incidental 3.5 mm pancreatic body cyst and mild prominence of the common bile duct at 10 mm. Allergies Allergy/AdvReac Type Severity Reaction Status Date / Time prochlorperazine Allergy Mild flushed Verified 08/31/20 02:25 VIDA Inhibitors AdvReac Intermediate RAPID Verified 08/31/20 02:25 PULSE, BULGING EYES Home Medications Home Medications Medication Instructions Recorded Confirmed Type aspirin 81 mg PO DAILY 02/06/19 08/31/20 History hydroxychloroquine 200 mg PO DAILY 02/06/19 08/31/20 History metoprolol succinate 12.5 mg PO BID 02/06/19 08/31/20 History mirtazapine 7.5 mg PO HS 02/06/19 08/31/20 History nitroglycerin 0.4 mg SUBLINGUAL USEASDIRECTD PRN 02/06/19 08/31/20 History oxycodone-acetaminophen 1 tab PO Q4H PRN 02/06/19 08/31/20 History prednisone 10 mg PO DAILY 02/06/19 08/31/20 History polyethylene glycol 3350 [Miralax] 17 g PO DAILY PRN #30 ea 05/16/20 08/31/20 Rx felodipine 10 mg PO DAILY 08/31/20 08/31/20 History oxycodone [OxyContin] 40 mg PO TID 08/31/20 08/31/20 History sennosides [senna] 8.6 mg PO BID 08/31/20 08/31/20 History Patient History Medical History Breast cancer CAD (coronary artery disease) "10/2013 - NSTEMI, s/p ADRIENNE to LAD" CAD (coronary artery disease) Chronic pain syndrome CKD (chronic kidney disease) CKD (chronic kidney disease), stage III Lupus (systemic lupus erythematosus) Surgical History H/O lumpectomy H/O shoulder surgery History of appendectomy History of cholecystectomy History of coronary angioplasty hx of ADRIENNE in 2013 History of hysterectomy History of partial mastectomy of left breast History of partial thyroidectomy S/P tonsillectomy and adenoidectomy Family History Father Lung cancer Sister Diabetes Social History Smoking Status: Never smoker Tobacco Type: Cigarettes Second Hand Exposure: No; Do You Dip or Chew Tobacco: No; Tobacco Cessation Education Requested by Patient: No Hx Alcohol Use: No Hx Substance Use: No Preferred Language: Czech Communication Ability: Effective Life Skills Consultant Required: No Beliefs That Will Affect Care: None marital status: / Current Living Situation: Family Current Living Situation Comment: Patient lives w/ daughter. 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 Eyes: PERRL, conjunctivae normal, anicteric sclerae ENMT: external ear and nose normal, oropharynx normal Neck: trachea midline, no thyromegaly Respiratory: normal respiratory effort, lungs clear to auscultation Cardiovascular: RRR, no murmur, no edema Gastrointestinal (Abdomen): normal bowel sounds, soft, nontender, no hepatosplenomegaly Skin: no rashes, warm and dry Neurologic: PERRL, EOMI, accommodation nl, no face palsy, no dysarthria Psychiatric: A+Ox3, euthymic affect Lymphatic: no cervical or axillary lymphadenopathy Results & Data ([facility]) Vital Signs (Past 12 Hours) Vital Signs Temp Pulse Resp BP Pulse Ox 09/01/20 07:39 36.8 C 52 L 16 157/[address] with IV contrast 08/31/20: 1. A few borderline dilated fluid-filled loops of small bowel within left side the abdomen. However, no transition point to suggest an obstruction. This could represent a mild ileus or less likely enteritis. 2. Moderate well-formed stool within the colon. 3. No change in the bile duct dilatation. 4. Prior cholecystectomy and appendectomy. 5. Mildly enlarged upper abdominal lymph nodes remain stable. 6. Additional findings as described above. (1) Vomiting Nausea presence: with nausea Vomiting Intractability: non-intractable Vomiting type: unspecified Qualified Code(s): R11.2 - Nausea with vomiting, unspecified
[2020-09-01] MEDS: PIPERACILLIN/TAZOBACTAM 3.375 GM in DEXTROSE 5% 100 ML IV SCH (13:06)
--- NOTE | 2020-09-01 18:22 | Hospitalist Progress Note ---
Date of Service September 01, 2020 Assessment & Plan (1) Fever: ASSESSMENT AND PLAN: This is an 85-year-old female presents with fever, nausea, vomiting, and abdominal pain. 1. Fever, nausea, vomiting, abdominal pain, transaminitis and also elevated bilirubin. -Possible bacteremia Blood culture 1 out of 2 gram-negative bacilli UA negative -Continue Zosyn Monitor - CT abdomen: No acute process - LFTs improving From sludge? Appreciate GI consult -Constipation also improving Covid exposure -Initial Covid screen bio fire negative -Repeat tomorrow Resume isolation 2. History of systemic lupus erythematosus, on Plaquenil and prednisone, 3. Chronic pain syndrome, continue her home OxyContin 30 mg t.i.d. and Percocet as needed. -Stable 4. Anemia. Hemoglobin seems to be at baseline around 10.1. 5. Chronic kidney disease stage III to IV, creatinine 1.6, seems to be at baseline. 6. Coronary artery disease status post stent, on aspirin, metoprolol. Currently not on statin because it was stopped during last admission for her transaminitis. 7. Elevated LFT.per #1 8. Hypertension. Continue Toprol-XL and felodipine. 9. Constipation. We will give MiraLax and Dulcolax suppository. 10. Deep venous thrombosis prophylaxis, hep sub q DISPOSITION: Closely monitor in the [employer] tele. Level 1 full code. as per my discussion with patient. PT and OT prior to discharge. Social service to help with discharge planning. Admission and Anticipated Discharge Date Admission Date: August 31, 2020 Subjective ff up for nausea/vomiting, fever, etc. seen resting in chair comfortable, reading a book, not in distress, in good spirits states she feels improved today no fever/chills, cough, chest pain, dyspnea states nausea and vomiting resolved denies dizziness, headache, palpitations, etc feels tired no other symptoms Review of Systems Review of Systems: All systems reviewed & are unremarkable except as noted in Subjective Physical Exam Physical Exam: General- oriented x 3, not in distress, speaks in sentences with no effort or accessory muscle use Head- atraumatic Eyes- PERRL, EOMI, anicteric ENT- oropharynx clear Neck- supple, no JVD, no adenopathy, no thyromegaly; carotids +2/2, no bruits appreciated Lungs- clear to auscultation bilaterally, no rales/wheezes Heart- normal rate, regular rhythm; no murmur, no gallop, no rub appreciated Abdomen- normal bowel sounds, nondistended, soft, nontender, no masses or hepatosplenomegaly Extremities- no pretibial edema, no calf tenderness; peripheral pulses intact Neuro- alert, oriented x 3; CN 2-12 grossly intact; motor 5/5 bilaterally;sensation 100% on all extremities; no other gross focal neurologic deficits Skin- warm & dry Results & Data Results & Data ([facility]) Vital Signs (Past 12 Hours) Vital Signs Temp Pulse Resp BP Pulse Ox 09/01/20 15:33 36.9 C 50 L 16 151/64 H 98 09/01/20 07:39 36.8 C 52 L 16 157/57 H 100 Laboratory Results Laboratory Results - last 24 hr 09/01/20 09/01/20 05:23 05:23 WBC 8.46 RBC 3.42 L Hgb 9.6 L Hct 30.8 L MCV 90.1 MCH 28.1 MCHC 31.2 L RDW Std Deviation 48.4 H RDW Coeff of [place] 14.7 H Plt Count 206 MPV 11.3 H Immature Gran % (Auto) 0.4 Neut % (Auto) 78.7 Lymph % (Auto) 12.5 [place] % (Auto) 7.6 Eos % (Auto) 0.6 Baso % (Auto) 0.2 Neut # (Auto) 6.66 H Lymph # (Auto) 1.06 L [place] # (Auto) 0.64 H Eos # (Auto) 0.05 Baso # (Auto) 0.02 Immature Gran # (Auto) 0.03 H Sodium 137 Potassium 4.1 Chloride 107 Carbon Dioxide 24 Anion Gap 6.0 BUN 24 H Creatinine 1.56 H Est Cr Clr Drug Dosing 18.2 Est GFR ( Amer) 34.3 Est GFR (Non-Af Amer) 29.6 BUN/Creatinine Ratio 15.1 Glucose 83 Calcium 8.1 L Magnesium 2.5 H Total Bilirubin 0.6 D Direct Bilirubin 0.3 H AST 97 H ALT 146 H Alkaline Phosphatase 284 H Total Protein 6.5 Albumin 2.9 L (1) Fever Fever type: due to other condition Qualified Code(s): R50.81 - Fever presenting with conditions classified elsewhere
[2020-09-01] MEDS: MIRTAZAPINE TAB 15 MG TAB PO SCH (21:35)
[2020-09-02] MEDS: FELODIPINE 5 MG TABCR PO SCH (00:59)
[2020-09-02] MEDS: PIPERACILLIN/TAZOBACTAM 3.375 GM in DEXTROSE 5% 100 ML IV SCH (01:53)
[2020-09-02 05:50] LABS: Basophils # (auto) 0.01 K/uL (0-0.2); Basophils % (auto) 0.2 %; Eosinophils # (auto) 0.12 K/uL (0-0.5); Eosinophils % (auto) 2.1 %; Hematocrit (blood only) 30.4 % (37-47); Hemoglobin 9.6 g/dL (12.0-16.0); Immature Granulocytes # (auto) 0.02 K/uL (0.00-0.02); Immature Granulocytes % (auto) 0.3 %; Lymphocytes # (auto) 1.12 K/uL (1.2-3.4); Lymphocytes % (auto) 19.2 %; Mean Corpuscular Hemoglobin 27.9 pg (25-34); Mean Corpuscular Hgb Conc 31.6 g/dL (32-36); Mean Corpuscular Volume 88.4 fL (80-100); Monocytes # (auto) 0.49 K/uL (0.11-0.59); Monocytes % (auto) 8.4 %; Neutrophils # (auto) 4.06 K/uL (1.4-6.5); Neutrophils % (auto) 69.8 %; Platelet Count 219 K/uL (130-400); RDW Coefficient of Variation 14.8 % (11.5-14.5); RDW Standard Deviation 48.1 fL (36.4-46.3); Red Blood Count 3.44 M/uL (4.2-5.4); White Blood Count 5.82 K/uL (4.8-10.8)
[2020-09-02] MEDS: DOCUSATE SODIUM 100 MG CAP PO SCH ×2 (07:59→22:10)
[2020-09-02] MEDS: METOPROLOL SUCC 25MG EXT REL TAB PO SCH ×2 (07:59→22:07)
[2020-09-02] MEDS: PANTOprazole 40 MG TAB PO SCH (07:59)
[2020-09-02] MEDS: SENNA 8.6 MG TAB PO SCH ×2 (08:00→22:10)
[2020-09-02] MEDS: ASPIRIN 81 MG ECTAB PO SCH (08:00)
[2020-09-02] MEDS: HYDROXYCHLOROQUINE SULFATE 200 MG TAB PO SCH (08:00)
[2020-09-02] MEDS: predniSONE 10 MG TABLET PO SCH (08:00)
[2020-09-02] MEDS: POLYETHYLENE (MIRALAX) 17 GM PACK PO SCH (08:01)
[2020-09-02] MEDS: HEPARIN SOD 5,000 UNIT/0.5 ML VIAL SQ SCH ×2 (08:47→22:06)
[2020-09-02 10:38] LABS: Albumin Level 2.9 gm/dl (3.4-5.0); BUN Creatinine Ratio 12.9 (10-20); Creatinine Clr Calc Pharmacy 16.3 ml/min; Est GFR (Non-African American) 25.9; Potassium 3.9 mmol/L (3.5-5.1)
[2020-09-02 10:41] LABS: Bilirubin Direct 0.2 mg/dl (0-0.2); Bilirubin,Total 0.5 mg/dl (0.2-1); Total Protein 6.6 gm/dl (6.4-8.2)
[2020-09-02] MEDS: hydrALAZINE HCL 20 MG/ML VIAL IV PRN ×2 (10:45→17:52)
[2020-09-02] MEDS: cefTRIAXone SODIUM 1,000 MG in DEXTROSE 5% 50 ML IV SCH (12:38)
[2020-09-02] MEDS: ACETAMINOPHEN 325 MG TAB PO PRN (17:50)
--- NOTE | 2020-09-02 19:09 | Hospitalist Progress Note ---
Date of Service September 02, 2020 Assessment & Plan (1) Fever: ASSESSMENT AND PLAN: This is an 85-year-old female presents with fever, nausea, vomiting, and abdominal pain. 1. E coli Bacteremia likely biliary Source, Passes Biliary Sludge? - presented with Fever, nausea, vomiting, abdominal pain, transaminitis and also elevated bilirubin. Blood culture 1 out of 2 E coli (resistant to Ampicillin, Cipro, Levaquin, Bactrim) repeat Blood Culture: pending - UA: negative - afebrile clinically improving - continue Ceftriaxone IV to complete 10 day course will need US guided IV access, home health service - CT abdomen: No acute process - LFTs improving likely From sludge Appreciate GI consult -Constipation also improving Covid exposure -Initial Covid screen bio fire negative -Repeat COVID PCR: negative asymptomatic - continue Isolation precautions patient needs to continue quarantine x 14 days total 2. History of systemic lupus erythematosus, on Plaquenil and prednisone, 3. Chronic pain syndrome, continue her home OxyContin 30 mg t.i.d. and Percocet as needed. -Stable 4. Anemia. Hemoglobin seems to be at baseline around 10.1. 5. Chronic kidney disease stage III to IV, creatinine 1.6, seems to be at baseline. 6. Coronary artery disease status post stent, on aspirin, metoprolol. Currently not on statin because it was stopped during last admission for her transaminitis. 7. Elevated LFT.per #1 8. Hypertension. Continue Toprol-XL and felodipine. 9. Constipation. Senokot, Docusate, Miralax 10. Deep venous thrombosis prophylaxis, hep sub q DISPOSITION: will need IV Ceftriaxone x x 6 more days at home will need home health services Admission and Anticipated Discharge Date Admission Date: August 31, 2020 Subjective ff up for fever, nausea/vomiting, etc seen resting, sitting up in bed, just had dinner comfortable, in good spirits states she feels improved overall no chills, abdominal pain, nausea/vomiting denies cough, dyspnea, chest pain appetite is good no other symptoms Review of Systems Review of Systems: All systems reviewed & are unremarkable except as noted in Subjective Physical Exam Physical Exam: General- oriented x 3, not in distress, speaks in sentences with no effort or accessory muscle use Eyes- anicteric Neck- no JVD Lungs- clear BS BL Heart- normal rate, regular rhythm; no murmurs Abdomen- normal bowel sounds, nondistended, soft, nontender Extremities- no pretibial edema, no calf tenderness Neuro- alert, oriented x 3; no gross focal neurologic deficits Skin- warm & dry Results & Data Results & Data ([facility]) Vital Signs (Past 12 Hours) Vital Signs Temp Pulse Resp BP Pulse Ox 09/02/20 17:48 54 L 164/68 H 09/02/20 16:31 36.7 C 57 L 18 99 09/02/20 13:12 150/70 H 09/02/20 09:45 180/73 H 09/02/20 07:30 36.5 C 61 18 189/73 H 98 Laboratory Results Laboratory Results - last 24 hr 09/02/20 09/02/20 09/02/20 05:24 05:25 Unknown WBC 5.82 RBC 3.44 L Hgb 9.6 L Hct 30.4 L MCV 88.4 MCH 27.9 MCHC 31.6 L RDW Std Deviation 48.1 H RDW Coeff of [place] 14.8 H Plt Count 219 MPV 11.0 H Immature Gran % (Auto) 0.3 Neut % (Auto) 69.8 Lymph % (Auto) 19.2 [place] % (Auto) 8.4 Eos % (Auto) 2.1 Baso % (Auto) 0.2 Neut # (Auto) 4.06 Lymph # (Auto) 1.12 L [place] # (Auto) 0.49 Eos # (Auto) 0.12 Baso # (Auto) 0.01 Immature Gran # (Auto) 0.02 Sodium 141 Potassium 3.9 Chloride 111 H Carbon Dioxide 24 Anion Gap 6.0 BUN 22 H Creatinine 1.74 H Est Cr Clr Drug Dosing 16.3 Est GFR ( Amer) 30.0 Est GFR (Non-Af Amer) 25.9 BUN/Creatinine Ratio 12.9 Glucose 79 Calcium 8.0 L Total Bilirubin 0.5 Direct Bilirubin 0.2 AST 43 H ALT 111 H Alkaline Phosphatase 224 H Total Protein 6.6 Albumin 2.9 L COVID-19 Eval Order Cancelled COVID-19 PCR SARS-CoV-2, RNA, NAAT 09/02/20 09/02/20 Unknown Unknown WBC RBC Hgb Hct MCV MCH MCHC RDW Std Deviation RDW Coeff of [place] Plt Count MPV Immature Gran % (Auto) Neut % (Auto) Lymph % (Auto) [place] % (Auto) Eos % (Auto) Baso % (Auto) Neut # (Auto) Lymph # (Auto) [place] # (Auto) Eos # (Auto) Baso # (Auto) Immature Gran # (Auto) Sodium Potassium Chloride Carbon Dioxide Anion Gap BUN Creatinine Est Cr Clr Drug Dosing Est GFR ( Amer) Est GFR (Non-Af Amer) BUN/Creatinine Ratio Glucose Calcium Total Bilirubin Direct Bilirubin AST ALT Alkaline Phosphatase Total Protein Albumin COVID-19 Eval Order COVID-19 PCR NEGATIVE SARS-CoV-2, RNA, NAAT Cancelled (1) Fever Fever type: due to other condition Qualified Code(s): R50.81 - Fever presenting with conditions classified elsewhere
[2020-09-02] MEDS: MIRTAZAPINE TAB 15 MG TAB PO SCH (22:10)
[2020-09-03] MEDS: hydrALAZINE HCL 20 MG/ML VIAL IV PRN ×2 (00:06→07:39)
[2020-09-03] MEDS: predniSONE 10 MG TABLET PO SCH (08:37)
[2020-09-03] MEDS: FELODIPINE 5 MG TABCR PO SCH (08:37)
[2020-09-03] MEDS: DOCUSATE SODIUM 100 MG CAP PO SCH (08:37)
[2020-09-03] MEDS: SENNA 8.6 MG TAB PO SCH (08:38)
[2020-09-03] MEDS: PANTOprazole 40 MG TAB PO SCH (08:38)
[2020-09-03] MEDS: METOPROLOL SUCC 25MG EXT REL TAB PO SCH (08:38)
[2020-09-03] MEDS: HYDROXYCHLOROQUINE SULFATE 200 MG TAB PO SCH (08:38)
[2020-09-03] MEDS: POLYETHYLENE (MIRALAX) 17 GM PACK PO SCH (08:39)
[2020-09-03] MEDS: ASPIRIN 81 MG ECTAB PO SCH (08:39)
[2020-09-03] MEDS: HEPARIN SOD 5,000 UNIT/0.5 ML VIAL SQ SCH (08:40)
[2020-09-03] MEDS ORDERED: hydrALAZINE HCL 25 MG TAB PO SCH (09:00)
[2020-09-03] MEDS: cefTRIAXone SODIUM 1,000 MG in DEXTROSE 5% 50 ML IV SCH (13:01)
--- NOTE | 2020-09-05 17:08 | Hospitalist Progress Note ---
Date of Service September 05, 2020 Assessment & Plan (1) Fever: ASSESSMENT AND PLAN: This is an 85-year-old female presents with fever, nausea, vomiting, and abdominal pain. 1. E coli Bacteremia likely biliary Source, Passed Biliary Sludge? In the setting of chronic Plaquenil and prednisone use - presented with Fever, nausea, vomiting, abdominal pain, transaminitis and also elevated bilirubin. Blood culture 1 out of 2 E coli (sensitive to ceftriaxone; resistant to Ampicillin, Cipro, Levaquin, Bactrim) repeat Blood Culture: Negative so far - UA: negative - CT abdomen: No acute process - LFTs improved spontaneously likely From passed sludge AST 360 down to 43 ALT 256 down to 111 Alk phos 413 down to 224 Total bili 2.3 down to 0.5 - No further interventions per GI -Constipation also improving - afebrile clinically improving - continue Ceftriaxone IV to complete 10 day course Ultrasound-guided IV access placed, home health services arranged -Repeat CBC, basic metabolic profile, liver panel on follow-up with primary care physician this week Outpatient GI follow-up Covid exposure -Initial Covid screen bio fire negative -Repeat COVID PCR: negative asymptomatic, afebrile -Clarified with patient's daughter Georgie over the phone Patient's exposure to household member positive for Covid infection, was at least 2 weeks prior to admission to the hospital 2. History of systemic lupus erythematosus, on Plaquenil and prednisone, 3. Chronic pain syndrome, continue her home OxyContin 30 mg t.i.d. and Percocet as needed. -Stable 4. Anemia. Hemoglobin seems to be at baseline around 10.1. 5. Chronic kidney disease stage III to IV --Creatinine 1.7 --Repeat basic metabolic profile on follow-up with PCP this coming week Monitor closely 6. Coronary artery disease status post stent, on aspirin, metoprolol. Currently not on statin because it was stopped during last admission for her transaminitis. 7. Elevated LFT.per #1 8. Hypertension. Continue Toprol-XL and felodipine. 9. Constipation. Senokot, Docusate, Miralax 10. Deep venous thrombosis prophylaxis, hep sub q DISPOSITION: Discharged to home will need IV Ceftriaxone x 6 more days at home With home health services Plan of care discussed with patient and her daughter Georgie over the phone in detail and at length All questions were answered They are understanding, agreeable, comfortable plan of care Admission and Anticipated Discharge Date Admission Date: August 31, 2020 Subjective Delayed entry Date of service 09/03/2020 Seen sitting up in bedside chair, comfortable, reading a book, in good spirits Feels that she feels much better overall No abdominal pain, nausea vomiting, she is tolerating diet well, no fevers or chills No chest pain, shortness of breath, palpitations, dizziness Denies other symptoms Review of Systems Review of Systems: All systems reviewed & are unremarkable except as noted in Subjective Physical Exam Physical Exam: General- oriented x 3, not in distress, speaks in sentences with no effort or accessory muscle use Eyes- anicteric Neck- no JVD Lungs- clear breath sounds bilaterally, no rales/wheezes Heart- normal rate, regular rhythm; no murmurs Abdomen- normal bowel sounds, nondistended, soft, nontender Extremities- no pretibial edema, no calf tenderness Neuro- alert, oriented x 3; no gross focal neurologic deficits Skin- warm & dry Results & Data Results & Data ([facility]) Laboratory Results All noted and reviewed (1) Fever Fever type: due to other condition Qualified Code(s): R50.81 - Fever presenting with conditions classified elsewhere
--- NOTE | 2020-09-05 17:18 | Discharge Summary ---
Date of Service September 05, 2020 Admission HPI Per Admitting Provider This is an 85-year-old female with past medical history significant for hypothyroidism, hyperlipidemia, atherosclerotic cardiovascular disease, Raynaud's syndrome, hypertension, aortic valve stenosis, history of CT, gastroparesis, vitamin D deficiency, chronic kidney disease stage III, complex renal cyst, sclerodactyly, primary osteoarthritis involving multiple joints, senile osteoporosis, primary osteoarthritis of both knees, primary osteoarthritis of right shoulder, chronic pain syndrome, anemia, chronic renal failure stage IV, history of systemic lupus erythematosus, mood disorder, depression, CAD status post drug-eluting stents, dry eyes, chronic use of steroids, history of breast cancer, history of smoking, polypharmacy, patient lives with her daughter and grandson. Grandson's girlfriend who is a nurse was diagnosed with COVID about 4 days ago and she is quarantine.All of them live in same house.The patient today states has fever, nausea, vomiting and generalized body aches and came to the hospital. The patient has chronic pain and on chronic narcotic pain medication. In the ER her temp 40C. She is hemodynamically stable, currently saturating fine on room air. White count is 14, hemoglobin is 10. She has chronic lymphopenia, creatinine of 1.6, which seems at baseline. Procalcitonin is 1.85. Lactate is 1.8. Urinalysis is unremarkable. COVID-19 PCR done in the ER was negative. Chest CT preliminary report unremarkable. CT abdomen and pelvis preliminary report unremarkable. The patient's LFTs were elevated. The patient states yesterday she had nausea and abdominal pain and vomited a couple of times. Currently, nausea is improved. Abdominal pain is also improved.She came in with similar kind of symptoms in April. At that time, a couple of days ago before admission, COVID was negative and CAT scan was done showed colitis and treated with antibiotics and improved. Her transaminitis also improved at that time and got discharged on oral antibiotics. The patient says she lives with her family and she ambulates with a cane and her appetite is okay. Otherwise, she has no dysphagia. She has some headache. Denies any blurred vision, no earache, no runny nose, no sore throat, no loss of sense of smell or taste. No cough, no shortness of breath, no chest pain. She is constipated. Denies any blood in stool or black stools. Denies any burning micturition, no rash. There is question of whether she is exposed to COVID or not, but patient says she lives with her grandson and grandson's girlfriend, which was confirmed by the daughter on the phone. Admission Exam Per Admitting Provider GENERAL: The patient is old and frail, not in acute distress. VITAL SIGNS: T-max 40 degrees, pulse 59, respiratory rate 18, blood pressure 140/66, oxygen 96% room air. HEENT: Pupils equal, round, and reactive to light. Oral mucosa moist. NECK: Supple. No neck masses seen. CARDIOVASCULAR: S1, S2 heard, regular rate and rhythm, no murmur, no gallop. RESPIRATORY SYSTEM: Normal AP diameter. No accessory muscle use. No wheezing, no crackles. ABDOMEN: Soft, bowel sounds present. Mild abdominal discomfort. No guarding, no rigidity. No distention. CENTRAL NERVOUS SYSTEM: Cranial nerves II-XII grossly intact, nonfocal. EXTREMITIES: No edema, no erythema. Principal Diagnosis E coli Bacteremia likely biliary Source, Passed Biliary Sludge? In the setting of chronic Plaquenil and prednisone use Discharge Exam General- oriented x 3, not in distress, speaks in sentences with no effort or accessory muscle use Eyes- anicteric Neck- no JVD Lungs- clear breath sounds bilaterally, no rales/wheezes Heart- normal rate, regular rhythm; no murmurs Abdomen- normal bowel sounds, nondistended, soft, nontender Extremities- no pretibial edema, no calf tenderness Neuro- alert, oriented x 3; no gross focal neurologic deficits Discharge Data Allergies Allergy/AdvReac Type Severity Reaction Status Date / Time prochlorperazine Allergy Mild flushed Verified 08/31/20 02:25 VIDA Inhibitors AdvReac Intermediate RAPID Verified 08/31/20 02:25 PULSE, BULGING EYES Consultations 08/31/20 04:35 ED Decision to Admit Stat 08/31/20 08:07 Consult Case Management - Discharge Planning Routine Consult Gastroenterology Routine 08/31/20 18:46 Consult Pain Management Routine Ordered Studies 08/31/20 03:11 CT abd pelvis IV con only Urgent FINDINGS: Please refer to same day chest CT for further evaluation of the lung bases. There slight elevation of the left hemidiaphragm, unchanged. No pneumoperitoneum. No pneumatosis. No suspicious lytic or blastic osseous lesions. Mildly enlarged distal right paraesophageal lymph node measuring 7 mm in short axis diameter. This remains unchanged. Mildly enlarged gastrohepatic and periportal lymph nodes remain stable. Moderate bile duct dilatation persists. No hepatic masses. The gallbladder surgically absent. Mild enhancement of the wall of the common bile duct remains unchanged. Therefore, this is likely chronic. The spleen and adrenal glands are unremarkable. The pancreas remains atrophic. Multiple bilateral renal hypodense lesions are not significantly changed. These favor cysts. No hydronephrosis. No retroperitoneal lymphadenopathy. The bladder is unremarkable. The uterus is surgically absent. Mild pelvic floor collapse is noted. Moderate well-formed stool seen within the colon. A few prominent fluid-filled loops of small bowel within the left side the abdomen. However, no transition point to suggest an obstruction. No bowel wall thickening. The appendix is is not identified and reportedly surgically absent. IMPRESSION: 1. A few borderline dilated fluid-filled loops of small bowel within left side the abdomen. However, no transition point to suggest an obstruction. This could represent a mild ileus or less likely enteritis. 2. Moderate well-formed stool within the colon. 3. No change in the bile duct dilatation. 4. Prior cholecystectomy and appendectomy. 5. Mildly enlarged upper abdominal lymph nodes remain stable. 6. Additional findings as described above. 08/31/20 03:14 CT chest wo con Urgent FINDINGS: Right-sided thyroid goiter. The left thyroid lobe is either hypoplastic or surgically absent. Artifact from reverse right shoulder total joint arthroplasty limits the study. Prominent and mildly enlarged mediastinal lymph nodes include subcarinal lymph nodes measuring up to 11 mm in short axis, unchanged and likely reactive. There is mild cardiomegaly with coronary and aortic annular calcifications. No thoracic aortic aneurysm. Dilated main pulmonary artery, 3.4 cm. Trace pleural effusions. No pneumothorax. Mild emphysema with associated bronchial wall thickening. Mild subpleural reticulation is suggestive of scarring. There is mild traction bronchiectasis of the basal right lower lobe. 4 mm fissural nodule involves the right upper lung on image 104 series 4, unchanged and likely benign. 2 mm solid nodule of the superior segment right lower lobe. Mild bibasilar mucous plugging. 3 mm solid nodule of the inferior segment lingula, low clinical suspicion. There is mild diffuse esophageal wall thickening with esophageal secretions. There are a few prominent periesophageal lymph nodes measuring up to 6 mm. Intrahepatic biliary ductal dilation is redemonstrated. Degenerative changes of the spine and left shoulder. Demineralized appearance of the bones. IMPRESSION: 1. Mild emphysema with bronchial wall thickening and mucous plugging suggestive of bronchitis versus reactive airway disease. 2. Trace pleural effusions. 3. Mild mediastinal adenopathy, likely reactive. 4. There is mild diffuse esophageal wall thickening with layering esophageal secretions and mildly prominent periesophageal lymph nodes. Correlate clinically to exclude esophagitis. 5. Probable pulmonary artery hypertension. 6. Additional findings as above. Hospital Course (1) Fever: ASSESSMENT AND PLAN: This is an 85-year-old female presents with fever, nausea, vomiting, and abdominal pain. 1. E coli Bacteremia likely biliary Source, Passed Biliary Sludge? In the setting of chronic Plaquenil and prednisone use - presented with Fever, nausea, vomiting, abdominal pain, transaminitis and also elevated bilirubin. Blood culture 1 out of 2 E coli (sensitive to ceftriaxone; resistant to Ampicillin, Cipro, Levaquin, Bactrim) repeat Blood Culture: Negative so far - UA: negative - CT abdomen: No acute process - LFTs improved spontaneously likely From passed sludge AST 360 down to 43 ALT 256 down to 111 Alk phos 413 down to 224 Total bili 2.3 down to 0.5 - No further interventions per GI -Constipation also improving - afebrile clinically improving - continue Ceftriaxone IV to complete 10 day course Ultrasound-guided IV access placed, home health services arranged -Repeat CBC, basic metabolic profile, liver panel on follow-up with primary care physician this week Outpatient GI follow-up Covid exposure -Initial Covid screen bio fire negative -Repeat COVID PCR: negative asymptomatic, afebrile -Clarified with patient's daughter Georgie over the phone Patient's exposure to household member positive for Covid infection, was at least 2 weeks prior to admission to the hospital Abnormal CT chest and Abdomen/Pelvis Findings - please refer to Ordered Studies section for full reports - further workup and management as outpatient 2. History of systemic lupus erythematosus, on Plaquenil and prednisone, 3. Chronic pain syndrome, continue her home OxyContin 30 mg t.i.d. and Percocet as needed. -Stable 4. Anemia. Hemoglobin seems to be at baseline around 10.1. 5. Chronic kidney disease stage III to IV --Creatinine 1.7 --Repeat basic metabolic profile on follow-up with PCP this coming week Monitor closely 6. Coronary artery disease status post stent, on aspirin, metoprolol. Currently not on statin because it was stopped during last admission for her transaminitis. 7. Elevated LFT.per #1 8. Hypertension. Continue Toprol-XL and felodipine. 9. Constipation. Senokot, Docusate, Miralax 10. Deep venous thrombosis prophylaxis, hep sub q DISPOSITION: Discharged to home will need IV Ceftriaxone x 6 more days at home With home health services Plan of care discussed with patient and her daughter Georgie over the phone in detail and at length All questions were answered They are understanding, agreeable, comfortable plan of care Total Time Total Time Spent Total Time Spent (In Minutes): 55 mins Discharge Plan Discharge Items Patient Disposition: Home - Home Health Services Reason For Visit: FEVE, PAIN, VOMITING Discharge Diagnosis: E COLI BACTEREMIA, LIKELY BILIARY TRACT SOURCE Activity: Resume your previous activity Activity Comment: RESUME ACTIVITY GRADUALLY TOLERATED Lifting: Wait until after follow-up appointment Exercise/Sports: Wait until after follow-up appointment Driving/Machine Use: NO DRIVING Non-emergency contact: Primary Care Provider Call non-emergency contact if: you have any medication questions, your symptoms worsen, your pain is not controlled, your pain is worsening, your pain is unusual for you, your pain is concerning for you and you have a fever Follow-up/Referrals: Jayden Solis MD [Primary Care Provider] - 09/07/20 10:00 am (Date & Time 09/07/2020 10:00 AM Provider Briana Rice, [facility] PLEASE NOTE: THIS IS A TELEVIDEO APPOINTMENT. PLEASE FOLLOW THE DIRECTION IN THE EMAIL SENT TO YOUR EMAIL ADDRESS. IF YOU WANT TO CHANGE TO A TELEPHONE ONLY APPOINTMENT OR HAVE ANY QUESTIONS, PLEASE CALL ) Diet: Heart Healthy Addtl Attending Provider Instructions: PLEASE REVIEW YOUR NEW MEDICATION LIST AND FOLLOW INSTRUCTIONS CAREFULLY. YOUR NEW MEDICATIONS ARE: CEFTRIAXONE- antibiotic for E coli bacteremia COLACE, MIRALAX- stool softeners Pending Studies at Discharge: Yes Studies:: REPEAT BLOODWORK: CBC, BASIC METABOLIC PROFILE, LIVER PANEL ON FOLLOW UP WITH PCP NEXT WEEK Stand-Alone Forms: My [facility] [employer] Medications and DC Order Prescriptions: New ceftriaxone 2 gram recon soln 2 g IV DAILY Qty: 10 RF: 0 hydralazine 25 mg Tablet 25 mg PO BID 30 Days Qty: 60 RF: 2 docusate sodium 100 mg Capsule 100 mg PO BID Qty: 60 RF: 2 Continued oxycodone [OxyContin] 40 mg tablet,oral only,ext.rel.12 hr 40 mg PO TID RF: 0 sennosides [senna] 8.6 mg tablet 8.6 mg PO BID RF: 0 felodipine 10 mg tablet extended release 24 hr 10 mg PO DAILY RF: 0 aspirin 81 mg Tablet,Delayed Release (Dr/Ec) 81 mg PO DAILY RF: 0 oxycodone-acetaminophen 5-325 mg tablet 1 tab PO Q4H PRN (Reason: Pain) RF: 0 metoprolol succinate 25 mg tablet extended release 24 hr 12.5 mg PO BID RF: 0 hydroxychloroquine 200 mg tablet 200 mg PO DAILY RF: 0 mirtazapine 7.5 mg tablet 7.5 mg PO HS RF: 0 prednisone 10 mg Tablet 10 mg PO DAILY RF: 0 nitroglycerin 0.4 mg Tablet, Sublingual 0.4 mg sublingual USEASDIRECTD PRN (Reason: Chest Pain) RF: 0 Changed polyethylene glycol 3350 [Miralax] 17 gram Powder In Packet 17 g PO DAILY Qty: 30 RF: 2 Discharge Orders: Discharge Order (Routine); Ordered 09/03/20 Ordered By: Gaudencio Toro/Other Patient Handouts: Abdominal Pain, Ceftriaxone injection, Hydralazine tablets Admission Data Admit Date/Time: 08/31/20 06:06 Attending Provider: Gaudencio Kunz Admit Provider: Reji Cristina Primary Care Provider: Jayden Solis Other Providers: Reji Cristina ; Fred Hightower ; Diane Elizalde ; Aidee Red ; [facility] Other Interventions: Discharge Summary Assessment (RN) Last Done: 09/03/20 15:33
--- NOTE | 2020-09-16 08:42 | Coding Query ---
BMI To promote full compliance with coding requirements relating to patient care, physician participation is requested in all cases of insole doubler uncertainty. Please assist us with the question(s) below: Please place an X within the parenthesis (x). If other, please document: BMI 18 was documented in this record for this patient and there is documentation on the 08/31/20 Communication Note of, "pt has poor appetite , losing wt , BMI 18 nutrition consulted ". If the BMI is significant, please check the box that provides a more specific associated diagnosis: ( ) Overweight/Obese ( ) Obesity ( ) Morbid obesity ( ) Obesity Hypoventilation Syndrome (OHS) ( ) Heathy weight, not significant (X ) Underweight/Thin ( ) Other, please specify Thank you Sabiha MARTINEZ
--- NOTE | 2020-09-16 08:49 | Coding Query ---
CODING QUERY To promote full compliance with coding requirements relating to patient care, provider participation is requested in all cases of marketer uncertainty. Please assist us with the question(s) below: Coding Question(s): There is documentation on the last Progress Note as well as on the Discharge Summary of, "possible Sepsis, POA - management per # 1" with documentation under Hospital Course (1) of E coli Bacteremia likely biliary source, passed biliary sludge?In the setting of chronic plaquenil and prednisone use. Please specify below regarding the likely biliary source of the Sepsis with e coli bacteremia. ( X ) likely biliary source of Sepsis is Infectious biliary source, Unspecified ( ) likely biliary source of Sepsis is Infectious, Specified - Please Specify ( ) likely biliary source is Other: Please Specify Physician's Response(s): Thank you Sabiha Ayala Principal Diagnosis: "that condition established after study, to be chiefly responsible for occasioning the admission of the patient to the hospital for care." Co-Existing Principal Diagnosis: "when two or more diagnoses equally meet the criteria for principal diagnosis as determined by the circumstances of admission, diagnostic work up, and/or therapy provided, and the Alphabetic Index, Tabular List, or another coding guideline does not provide sequencing direction, any one of the diagnoses may be sequenced first." "When the physician has documented what appears to be a current diagnosis in the body of the record, but has not included the diagnosis in the final diagnostic statement, the physician should be asked whether the diagnosis should be added." (Source [facility]oding [facility] 2 QTR90. p3-4) MICHELLE
== END 2020-09-03 16:02 | disposition home health service (06) | DRG 872 ==
LOC: ED 02:03 → SUATTDRO 06:06 → 2W 06:06 → 3W 09-01 18:08

== ENCOUNTER 2021-04-03 12:49 | Inpatient (IN) ==
[2021-04-03] MEDS ORDERED: ONDANSETRON 4 MG OD TAB ONE (12:53)
[2021-04-03] MEDS ORDERED: ACETAMINOPHEN 1,000 MG/100 ML VIAL IV STA (13:55)
[2021-04-03] MEDS ORDERED: PIPERACILLIN/TAZOBACTAM 4.5 GM/120 ML BAG IV STA (13:55)
[2021-04-03] MEDS ORDERED: SODIUM CHLORIDE 0.9% 1000ML 500 ML IV ONE (13:59)
[2021-04-03] MEDS ORDERED: SODIUM CHLORIDE 0.9% 1000ML 1,000 ML IV SCH (14:00)
[2021-04-03] MEDS ORDERED: ONDANSETRON INJ 2 MG/ML 2 ML VIAL IV STA (14:01)
[2021-04-03] MEDS ORDERED: fentaNYL citrate 100 MCG/2 ML VIAL IV STA (14:18)
[2021-04-03 14:20] LABS: Alanine Aminotransferase 450 U/L (12-78); Albumin Level 3.7 gm/dl (3.4-5.0); Aspartate Aminotransferase 528 U/L (15-37); BUN Creatinine Ratio 15.1 (10-20); Blood Urea Nitrogen 21 mg/dl (7-18); Carbon Dioxide 26 mmol/L (21-32); Chloride 104 mmol/L (98-107); Creatinine Clr Calc Pharmacy 21.2 ml/min; Est GFR (African American) 39.1 ml/min; Est GFR (Non-African American) 33.7 ml/min; Glucose 118 mg/dl (70-99); Potassium 3.9 mmol/L (3.5-5.1); Sodium 140 mmol/L (136-145)
[2021-04-03 14:25] LABS: Alkaline Phosphatase 343 U/L (45-117); Bilirubin,Total 1.8 mg/dl (0.2-1); Globulin 3.8 gm/dl (2.5-4.0); Total Protein 7.5 gm/dl (6.4-8.2); Troponin I < 0.015 ng/ml (0-0.045)
[2021-04-03 14:26] LABS: Hematocrit (blood only) 39.9 % (37-47); Hemoglobin 12.9 g/dL (12.0-16.0); Mean Corpuscular Hemoglobin 28.6 pg (25-34); Mean Corpuscular Hgb Conc 32.3 g/dL (32-36); Mean Corpuscular Volume 88.5 fL (80-100); Mean Platelet Volume 11.7 fL (7.4-10.4); Platelet Count 236 K/uL (130-400); RDW Coefficient of Variation 14.9 % (11.5-14.5); RDW Standard Deviation 47.9 fL (36.4-46.3); Red Blood Count 4.51 M/uL (4.2-5.4); White Blood Count 13.04 K/uL (4.8-10.8)
[2021-04-03 14:27] LABS: Basophils # (auto) 0.02 K/uL (0-0.2); Basophils % (auto) 0.2 %; Eosinophils # (auto) 0.04 K/uL (0-0.5); Eosinophils % (auto) 0.3 %; Immature Granulocytes # (auto) 0.04 K/uL (0.00-0.02); Immature Granulocytes % (auto) 0.3 %; Lymphocytes % (auto) 0.8 %; Monocytes # (auto) 0.92 K/uL (0.11-0.59); Monocytes % (auto) 7.1 %; Neutrophils # (auto) 11.92 K/uL (1.4-6.5); Neutrophils % (auto) 91.3 %
[2021-04-03 14:40] LABS: Appearance Urine Clear (Clear); Bacteria Urine Automated Negative (Negative); Bilirubin Urine Negative (Negative); Blood Urine Negative (Negative); Cast Urine Automated 0 /lpf (0-5); Color Urine Yellow; Glucose Urine UA Negative (Negative); Ketones Urine Negative (Negative); Leukocyte Esterase Urine Negative (Negative); Nitrite Urine Negative (Negative); RBC Urine Automated 0-4 /hpf (0-4); Specific Gravity Urine 1.011 (1.000-1.030); Urobilinogen Urine Negative (Negative); WBC Urine Automated 0 /hpf (0-5)
[2021-04-03 14:47] LABS: Protein Urine Trace (Negative)
--- NOTE | 2021-04-03 14:58 | XRay Report ---
XR chest 1V portable CLINICAL HISTORY: Fever COMPARISON STUDY: Chest radiograph May 15, 2020. Chest CT August 31, 2020. FINDINGS: Right shoulder arthroplasty is incidentally noted. There is no pneumothorax or pleural effu roberth. Note is made of cardiomegaly without evidence for pulmonary edema. Apparent left midlung opacit y is likely artifactual. No consolidation is identified. The appearance of the chest is unchanged. IMPRESSION: No acute cardiopulmonary findings. No significant change in appearance of the chest. ACT 112: Negative or not required by law. Electronically signed by: Edson Martin M.D. 04/03/2021 2:56 PM
[2021-04-03] MEDS ORDERED: OPTIRAY 320 100ml IV ONE (15:57)
--- NOTE | 2021-04-03 16:37 | CT Scan Report ---
CT abd pelvis IV con only CLINICAL HISTORY: Abd pain, vomiting COMPARISON STUDY: September 27, 2020 TECHNIQUE: A dose lowering technique was utilized adhering to the principles of ALARA. CT DOSE: 360.06 mGy.cm FINDINGS: Lower chest: The heart is normal in size and configuration, without pericardial effusion. The lung ba ses and pleural spaces are clear. Liver: Liver is normal in size. Redemonstration of intrahepatic biliary dilatation is not significant ly changed since prior. Common bile duct remains dilated measuring up to 1.5 cm in diameter. Gallbladder: Surgically absent. Spleen: Normal in size and attenuation. Pancreas: Is severely atrophic and poorly seen. Adrenal glands: Unremarkable. Kidneys: There is no hydronephrosis or nephrolithiasis is seen. Multicystic appearance of bilateral kidneys is again seen. Largest cyst is seen at superior aspect of the right kidney, measured 6.8 x 3.9 cm in ax ial dimension and unchanged since prior and might represent stable left renal cyst or unchanged cysti c lesion within left upper quadrant mesentery.. Bowel: Moderate hiatal hernia is seen. Bowel loops are nondilated. Appendix is not well seen. Large amount of stool within colonic loop is seen throughout the abdomen. Rectum is dilated with exte nsive amount of stool likely representing fecal impaction. Minimal prominence of the distal rectal wa ll is seen which might represent proctitis. Peritoneum: No free intraperitoneal air is seen. No evidence of ascites. Overall evaluation is limite d due to motion artifact. Vasculature: The abdominal aorta is normal in course and caliber. Calcified plaques are seen within t he aortic wall. Adenopathy: None. Pelvic viscera: Urinary bladder is adequately filled with urine. Uterus is surgically absent. Skeletal structures: Diffusely demineralized. Minimal degenerative changes of the spine are seen. IMPRESSION: 1. Fecal impaction. Possible proctitis. Loops of small and proximal large bowel are nondilated. 2. Stable intra and extrahepatic biliary dilatation. 3. Stable bilateral renal cysts. 4. Stable hypoattenuating collection within left upper quadrant unchanged since August 31, 2020, ap pears cystic and might represent left renal cyst or cystic lesion within left upper quadrant mesenter y. 5. Moderate hiatal hernia. ACT 112: Negative or not required by law. The above report was generated using voice recognition software. It may contain grammatical, syntax o r spelling errors. Electronically signed by: Nicole Zhao DO 04/03/2021 4:35 PM
--- NOTE | 2021-04-03 18:10 | History & Physical Report ---
Date of Service April 03, 2021 Assessment & Plan (1) Hyperbilirubinemia: (2) Transaminitis: - Admit to med surg with tele - Nausea and vomiting likely secondary to biliary involvement - GI consulted - Similar presentation last August where it was thought that she was passing biliary sludge, LFTs resolved spontaneously, s/p cholecystectomy in 2006 and appendectomy, pt is the only person in her household with these sx. - Differential includes hemochromatosis, autoimmune hepatitis, Wilsons disease, congestive hepatopathy or malignant involvement - covid neg. so unlikely viral. - CT of the abdomen reviewed showing chronic biliary dilation - Total bili = 1.8, AST = 528, ALT = 450, alk phos = 343. Follow a.m. LFTs to show improved - check acetaminophen level, ferritin, TSH, urine drug screen, INR - NSS at 125 mL/h x 1 day - hold statin therapy for now - Avoid Tylenol - Lactate 2.3, being given IVFs, repeat lactate 1.3 - Follow U/S liver - Stable chronic dilatation of intrahepatic and extrahepatic biliary ducts. S/p cholecystectomy (3) CAD (coronary artery disease): - hx of ADRIENNE -Continue BB, CCB, holding statin secondary to transaminitis as above - Last echo done in January 2019 with EF of 60-65%, septal wma consistent with conduction abnormality, Aortic valve sclerosis moderate, without significant aortic valvular stenosis. Mild tricuspid regurg, moderate size pleural effusion. Doppler findings do not suggest pulmonary hypertension (4) HTN (hypertension): -Continue metoprolol 12.5 mg twice daily, felodipine ER 10 mg at bedtime, hydralazine 25 mg twice daily (5) Aortic stenosis, mild: - Porter on exam, chronic (6) Lupus (systemic lupus erythematosus): - Continue Plaquenil and prednisone 10 mg daily (7) Raynauds syndrome: -Continue Plaquenil and prednisone (8) Chronic pain syndrome: -Takes OxyContin 40 mg 3 times daily for pain related to lupus and osteoarthritis. She did not take any of her medication today so resume evening medication. -PDMP checked -Treating constipation, encourage daily bowel regimen (9) Chronic constipation: -hx of such, has been ongoing for at least 6 months. Patient has not had a bowel movement in 3 to 4 days, reports that this is typical in the past few months. -CT abdomen reviewed, colon cancer has previously been considered on other CT scans however the patient refuses to undergo colonoscopy. If concerned for this, may warrant discussing again with the patient - Hx of gastroparesis as well - Soap suds enema ordered in the ER, has not been given yet. - Nausea and vomiting as per HPI - cont antiemetics as above - Continue amitiza, on medication review there is less than 1% change of hepatic involvement side effects. (10) CKD (chronic kidney disease), stage III: - CR = 1.40, BUN 21, appears to be at baseline -Monitor with a.m. labs (11) DVT prophylaxis: - teds, scds CODE: DNR/DNI Dispo: From home, likely to remain in the hospital x 1-2 days (12) Nausea and vomiting: (13) Uncomplicated opioid dependence: History of Present Illness Primary Care Provider: Jayden Solis MD This is an 85-year-old female with PMHx of HTN, HLD, CAD s/p ADRIENNE, aortic valve stenosis, history of NC, Raynaud's syndrome, sclerodactyly, lupus on chronic prednisone and Plaquenil, gastroparesis, CKD stage III, chronic pain syndrome, osteoarthritis, anemia, history of breast cancer, vitamin D deficiency who presents to the ER with acute nausea and vomiting. Pt notes her last BM wa 2-3 days ago. Patient has previously had a cholecystectomy but on admission her liver function tests are elevated. Total bili = 1.8, AST = 528, ALT = 450, alk phos = 343. COVID-19 negative. In August 2020 she had similarly elevated LFTs where she was diagnosed with an E. coli bacteremia with primary source being biliary, and it was thought that she was passing biliary sludge. Her LFTs improved spontaneously/ At that time 1 out of 2 cultures grew out E. coli which was sensitive to ceftriaxone, but resistant to multiple antibiotics, so she completed a 10d course of abx. Allergies Allergy/AdvReac Type Severity Reaction Status Date / Time prochlorperazine Allergy Mild flushed Verified 08/31/20 02:25 VIDA Inhibitors AdvReac Intermediate RAPID Verified 08/31/20 02:25 PULSE, BULGING EYES Home Medications Medication Instructions Recorded Confirmed Type aspirin 81 mg PO DAILY 02/06/19 04/03/21 History hydroxychloroquine 200 mg PO DAILY 02/06/19 04/03/21 History metoprolol succinate 12.5 mg PO BID 02/06/19 04/03/21 History mirtazapine 7.5 mg PO HS 02/06/19 04/03/21 History nitroglycerin 0.4 mg SUBLINGUAL USEASDIRECTD PRN 02/06/19 04/03/21 History felodipine 10 mg PO HS 08/31/20 04/03/21 History oxycodone [OxyContin] 40 mg PO TID 08/31/20 04/03/21 History sennosides [senna] 8.6 mg PO BID 08/31/20 04/03/21 History docusate sodium 100 mg PO BID #60 cap 09/03/20 04/03/21 Rx hydralazine 25 mg PO BID 30 Days #60 tab 09/03/20 04/03/21 Rx polyethylene glycol 3350 [Miralax] 17 g PO DAILY #30 ea 09/03/20 04/03/21 Rx atorvastatin 40 mg PO HS 04/03/21 04/03/21 History ipratropium-albuterol [Combivent 1 puff INHALATION QID 04/03/21 04/03/21 History Respimat] lubiprostone 24 mcg PO DAILY 04/03/21 04/03/21 History pantoprazole 40 mg PO DAILY 04/03/21 04/03/21 History Past Med/Surg History Medical History Breast cancer CAD (coronary artery disease) "10/2013 - NSTEMI, s/p ADRIENNE to LAD" CAD (coronary artery disease) Chronic pain syndrome CKD (chronic kidney disease) CKD (chronic kidney disease), stage III Lupus (systemic lupus erythematosus) Surgical History H/O lumpectomy H/O shoulder surgery History of appendectomy History of cholecystectomy History of coronary angioplasty hx of ADRIENNE in 2013 History of hysterectomy History of partial mastectomy of left breast History of partial thyroidectomy S/P tonsillectomy and adenoidectomy Family History Father Lung cancer Sister Diabetes Social History Smoking Status: Former smoker Tobacco Type: Cigarettes Second Hand Exposure: No; Hx Alcohol Use: No Hx Substance Use: Yes Preferred Language: Romanian Communication Ability: Effective Wood Casket Maker Required: No Beliefs That Will Affect Care: None marital status: / Current Living Situation: Family Current Living Situation Comment: Patient lives w/ daughter. 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 Chest CT August 31, 2020. FINDINGS: Right shoulder arthroplasty is incidentally noted. There is no pneumothorax or pleural effusion. Note is made of cardiomegaly without evidence for pulmonary edema. Apparent left midlung opacity is likely artifactual. No consolidation is identified. The appearance of the chest is unchanged. IMPRESSION: No acute cardiopulmonary findings. No significant change in appearance of the chest. ACT 112: Negative or not required by law. Electronically signed by: Edson Martin M.D. 04/03/2021 2:56 PM Abdomen/Pelvis CT 04/03/21 14:19 CT abd pelvis IV con only CLINICAL HISTORY: Abd pain, vomiting COMPARISON STUDY: September 27, 2020 TECHNIQUE: A dose lowering technique was utilized adhering to the principles of ALARA. CT DOSE: 360.06 mGy.cm FINDINGS: Lower chest: The heart is normal in size and configuration, without pericardial effusion. The lung bases and pleural spaces are clear. Liver: Liver is normal in size. Redemonstration of intrahepatic biliary dilatation is not significantly changed since prior. Common bile duct remains dilated measuring up to 1.5 cm in diameter. Gallbladder: Surgically absent. Spleen: Normal in size and attenuation. Pancreas: Is severely atrophic and poorly seen. Adrenal glands: Unremarkable. Kidneys: There is no hydronephrosis or nephrolithiasis is seen. Multicystic appearance of bilateral kidneys is again seen. Largest cyst is seen at superior aspect of the right kidney, measured 6.8 x 3.9 cm in axial dimension and unchanged since prior and might represent stable left renal cyst or unchanged cystic lesion within left upper quadrant mesentery.. Bowel: Moderate hiatal hernia is seen. Bowel loops are nondilated. Appendix is n ot well seen. Large amount of stool within colonic loop is seen throughout the abdomen. Rectum is dilated with extensive amount of stool likely representing fecal impaction. Minimal prominence of the distal rectal wall is seen which might represent proctitis. Peritoneum: No free intraperitoneal air is seen. No evidence of ascites. Overall evaluation is limited due to motion artifact. Vasculature: The abdominal aorta is normal in course and caliber. Calcified plaques are seen within the aortic wall. Adenopathy: None. Pelvic viscera: Urinary bladder is adequately filled with urine. Uterus is surgically absent. Skeletal structures: Diffusely demineralized. Minimal degenerative changes of the spine are seen. IMPRESSION: 1. Fecal impaction. Possible proctitis. Loops of small and proximal large bowel are nondilated. 2. Stable intra and extrahepatic biliary dilatation. 3. Stable bilateral renal cysts. 4. Stable hypoattenuating collection within left upper quadrant unchanged since August 31, 2020, appears cystic and might represent left renal cyst or cystic lesion within left upper quadrant mesentery. 5. Moderate hiatal hernia. ACT 112: Negative or not required by law. The above report was generated using voice recognition software. It may contain grammatical, syntax or spelling errors. Electronically signed by: Nicole Zhao DO 04/03/2021 4:35 PM Liver Ultrasound 04/03/21 17:07 ABDOMINAL ULTRASOUND, RIGHT UPPER QUADRANT HISTORY: elevated LFTS, fever, vomiting, post mikal. COMPARISON: May 14, 2020 FINDINGS: Pancreas: Not visualized due to overlying bowel gas. Liver: Is normal in size and shows slightly increased in echogenicity of its parenchyma. Redemonstration of chronic dilatation of intrahepatic biliary ducts that were also seen on prior study. Gallbladder: Surgically absent. CBD: 1.1 cm in diameter. Right kidney: No hydronephrosis. Is measuring 10.7 cm in length. Multiple cysts are seen, largest is seen within upper pole measuring 4.6 x 5.2 x 4.9 cm in size, unchanged since prior. IMPRESSION: 1. Stable chronic dilatation of intrahepatic and extrahepatic biliary ducts. 2. Status post cholecystectomy. 3. Stable right renal cysts. ACT 112: Negative or not required by law. The above report was generated using voice recognition software. It may contain grammatical, syntax or spelling errors. Electronically signed by: Nicole Zhao DO 04/03/2021 6:24 PM ECG Additional Comments: Test Reason : Blood Pressure : / mmHG Vent. Rate : 050 BPM Atrial Rate : 050 BPM P-R Int : 156 ms QRS Dur : 132 ms QT Int : 486 ms P-R-T Axes : 062 003 082 degrees QTc Int : 443 ms Sinus bradycardia Left bundle branch block Abnormal ECG When compared with ECG of 15-MAY-2020 06:53, Premature supraventricular complexes are no longer Present Confirmed by Mario Lyons ([id number]) on 05/16/2020 8:36:58 AM Supervising Physician Co-Signing Physician Notes I have seen and examined the patient and have discussed the case with the provider above. I agree with the assessment and plan as stated. The patient is a 85-year-old female with multiple comorbidities who presents to the ER with acute nausea and vomiting with no known trigger. She denies eating anything strange, she does not leave her home much at all, and she denies any tick bites or other infectious symptoms. The patient takes chronic high-dose oxycodone which may have caused a transient paralytic ileus for 24 hours prompting vomiting and subsequent elevated transaminases as a result. Liver function is within normal limits, creatinine is at baseline, lactate was normal after some IV fluids, total CK is 33, troponin was negative. Thyroid function studies reveal a slightly hyperthyroid panel, consistent with previous values. She denies any weight loss although she is thin and frail. I question the appropriateness of her nutrition and p.o. intake with a history given. Review of systems is otherwise negative. Physical exam reveals a thin cachectic elderly woman in no acute distress. Abdominal exam reveals slight fullness and tenderness to palpation in the epigastric and right upper quadrant area, otherwise normal and nondistended. Cardiopulmonary exam is normal. Agree with plan above. Oxycodone has been restarted. She reports complete resolution of nausea and vomiting. Continue with clear diet trial and advance diet as tolerated. Trend LFTs in a.m. Covering empirically with Zosyn, however, infection not at the top the priority list. Jean, DO
--- NOTE | 2021-04-03 18:26 | Ultrasound Report ---
ABDOMINAL ULTRASOUND, RIGHT UPPER QUADRANT HISTORY: elevated LFTS, fever, vomiting, post mikal. COMPARISON: May 14, 2020 FINDINGS: Pancreas: Not visualized due to overlying bowel gas. Liver: Is normal in size and shows slightly increased in echogenicity of its parenchyma. Redemonstrat ion of chronic dilatation of intrahepatic biliary ducts that were also seen on prior study. Gallbladder: Surgically absent. CBD: 1.1 cm in diameter. Right kidney: No hydronephrosis. Is measuring 10.7 cm in length. Multiple cysts are seen, largest is seen within upper pole measuring 4.6 x 5.2 x 4.9 cm in size, unchanged since prior. IMPRESSION: 1. Stable chronic dilatation of intrahepatic and extrahepatic biliary ducts. 2. Status post cholecystectomy. 3. Stable right renal cysts. ACT 112: Negative or not required by law. The above report was generated using voice recognition software. It may contain grammatical, syntax o r spelling errors. Electronically signed by: Nicole Zhao DO 04/03/2021 6:24 PM
--- NOTE | 2021-04-03 19:08 | Emergency Department Note ---
History of Present Illness General Chief complaint: Vomiting Stated complaint: vomiting/nausea Time Seen by Provider: 04/03/21 13:46 Source: patient and EMS Mode of arrival: ambulatory Limitations: clinical acuity (Pain, vomiting) History of Present Illness Provider complaint: PEREZ, vomiting, HTN Maximum Pain Intensity: 5 This pt is an 85 yo female who presents to the ED with c/o PEREZ, n/v and HTN (per daughter). She was awakened by the pt yelling for help early this am, then she began to vomit. She has been complaining of pain and PEREZ since that time. Daughter states she has felt warm. Per records this has happened in the past and pt required a cholecystectomy. Pt has not has a BM in several days, denies urinary sx. Home Medications Medication Instructions Recorded Confirmed Type aspirin 81 mg PO DAILY 02/06/19 04/03/21 History hydroxychloroquine 200 mg PO DAILY 02/06/19 04/03/21 History metoprolol succinate 12.5 mg PO BID 02/06/19 04/03/21 History mirtazapine 7.5 mg PO HS 02/06/19 04/03/21 History nitroglycerin 0.4 mg SUBLINGUAL USEASDIRECTD PRN 02/06/19 04/03/21 History felodipine 10 mg PO HS 08/31/20 04/03/21 History oxycodone [OxyContin] 40 mg PO TID 08/31/20 04/03/21 History sennosides [senna] 8.6 mg PO BID 08/31/20 04/03/21 History docusate sodium 100 mg PO BID #60 cap 09/03/20 04/03/21 Rx hydralazine 25 mg PO BID 30 Days #60 tab 09/03/20 04/03/21 Rx polyethylene glycol 3350 [Miralax] 17 g PO DAILY #30 ea 09/03/20 04/03/21 Rx Combivent Respimat 1 puff INHALATION QID 04/03/21 04/03/21 History atorvastatin 40 mg PO HS 04/03/21 04/03/21 History lubiprostone 24 mcg PO DAILY 04/03/21 04/03/21 History pantoprazole 40 mg PO BID #0 tab 04/05/21 04/03/21 Rx Allergies Allergy/AdvReac Type Severity Reaction Status Date / Time prochlorperazine Allergy Mild flushed Verified 04/04/21 11:14 VIDA Inhibitors AdvReac Intermediate RAPID Verified 04/04/21 11:14 PULSE, BULGING EYES Past Med/Surg History Medical History Breast cancer CAD (coronary artery disease) "10/2013 - NSTEMI, s/p ADRIENNE to LAD" CAD (coronary artery disease) Chronic pain syndrome CKD (chronic kidney disease) CKD (chronic kidney disease), stage III Lupus (systemic lupus erythematosus) Surgical History H/O lumpectomy H/O shoulder surgery History of appendectomy History of cholecystectomy History of coronary angioplasty hx of ADRIENNE in 2013 History of hysterectomy History of partial mastectomy of left breast History of partial thyroidectomy S/P tonsillectomy and adenoidectomy Family History Father Lung cancer Sister Diabetes Social History Smoking Status: Former smoker Tobacco Type: Cigarettes Second Hand Exposure: No; Hx Alcohol Use: No Hx Substance Use: Yes Preferred Language: Maltese Communication Ability: Effective Dials Inspector Required: No Beliefs That Will Affect Care: None marital status: / Current Living Situation: Family Current Living Situation Comment: Patient lives w/ daughter. 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 and A total of 10 systems reviewed and were otherwise negative Physical Exam Vital Signs Vital Signs - 24 hr 04/03/21 13:03 04/03/21 16:40 Temperature 39.2 C H 37.5 C Temperature Source Oral Oral Pulse Rate 76 Pulse Rate [Left] 64 Pulse Rhythm Regular Pulse Rhythm [Left] Regular Pulse Strength Normal Pulse Strength [Left] Normal Respiratory Rate 18 18 Respiratory Effort / Characteristics Non-Labored Spontaneous Non-Labored Spontaneous Respiratory Depth Normal Normal Respiratory Pattern Regular Blood Pressure 180/88 H Blood Pressure [Left Arm] 150/86 H Blood Pressure Mean 118 Blood Pressure Mean [Left Arm] 107 Blood Pressure Position Lying Blood Pressure Position [Left Arm] Lying Pulse Oximetry 96 98 Oxygen Delivery Method Room Air Room Air Sepsis Recent Fever Within 48 Hours Yes Sepsis New/Unexplained Change in Mental Status No Sepsis Action Taken by Nursing No Action Required Vital signs reviewed. General: Elderly 85 yo female appears to be in some discomfort, in no distress. HEENT: No scleral icterus, PERRLA, neck supple. Atraumatic. Cardiovascular: Regular rate and rhythm, no extra sounds. Pulmonary: Clear to auscultation bilaterally, normal work of breathing. Abdomen: Soft, minimal diffuse abd tenderness, nondistended, no tympany, positive bowel sounds. Musculoskeletal: Atraumatic, no peripheral edema. Rectal: Hard stool in rectal vault, non bloody, disimpacted. Neurologic: Patient awake alert and oriented x 3 Skin: Warm, dry, no rash Procedures Rectal Disimpaction Time out performed rectal disimpaction: No Indication: fecal impaction Procedural Sedation: No Sedation/Analgesia: opioids Technique: manual disimpaction with gloved finger Result: significant stool output Patient Tolerated Procedure: well Complications: pain Course Administered Medications Discontinued Medications Acetaminophen (Acetaminophen 325 Mg Tab) 650 mg PO Q4H PRN PRN Reason: Headache Stop: 05/04/21 08:16 Last Admin: 04/04/21 08:40 Dose: 650 mg Documented by: [id number] Albuterol (Albuterol Hfa 8 Gm Inhaler (Combivent Respimat P&T Subs)) 1 puffs INH QIDR [facility] Stop: 05/03/21 19:59 Last Admin: 04/04/21 07:18 Dose: Not Given Documented by: [id number] Admin: 04/03/21 21:30 Dose: Not Given Documented by: [id number] Aspirin (Aspirin 81 Mg Ectab) 81 mg PO DAILY [facility] Stop: 05/04/21 08:59 Last Admin: 04/05/21 09:05 Dose: 81 mg Documented by: [id number] Admin: 04/04/21 08:41 Dose: 81 mg Documented by: [id number] Docusate Sodium (Docusate Sodium 100 Mg Cap) 100 mg PO BID [facility] Stop: 05/03/21 20:59 Last Admin: 04/05/21 09:05 Dose: 100 mg Documented by: [id number] Admin: 04/04/21 20:41 Dose: 100 mg Documented by: [id number] Admin: 04/04/21 08:41 Dose: 100 mg Documented by: [id number] Admin: 04/03/21 20:46 Dose: 100 mg Documented by: [id number] Felodipine (Felodipine 5 Mg Tabcr) 10 mg PO HS [facility] Stop: 05/03/21 20:59 Last Admin: 04/04/21 20:41 Dose: 10 mg Documented by: [id number] Admin: 04/03/21 20:48 Dose: 10 mg Documented by: [id number] Fentanyl Citrate (Fentanyl Citrate 100 Mcg/2 Ml Vial) 12.5 mcg IV NOW STA Stop: 04/03/21 14:19 Last Admin: 04/03/21 18:42 Dose: Not Given Documented by: [id number] Glucagon (Glucagon For Inj 1 Mg Vial) Confirm Administered Dose 1 mg .ROUTE .ST -MED ONE Stop: 04/04/21 13:10 Last Admin: 04/04/21 14:31 Dose: Not Given Documented by: [id number] Hydralazine HCl (Hydralazine Hcl 25 Mg Tab) 25 mg PO BID [facility] Stop: 05/03/21 20:59 Last Admin: 04/05/21 09:05 Dose: 25 mg Documented by: [id number] Admin: 04/04/21 20:42 Dose: 25 mg Documented by: [id number] Admin: 04/04/21 08:42 Dose: 25 mg Documented by: [id number] Admin: 04/03/21 20:48 Dose: 25 mg Documented by: [id number] Hydroxychloroquine Sulfate (Hydroxychloroquine Sulfate 200 Mg Tab) 200 mg PO DAILY [facility] Stop: 05/04/21 08:59 Last Admin: 04/05/21 09:05 Dose: 200 mg Documented by: [id number] Admin: 04/04/21 08:42 Dose: 200 mg Documented by: [id number] Piperacillin Sod/Tazobactam Sod (Zosyn) 4.5 gm in 120 mls @ 200 mls/hr IV NOW STA Stop: 04/03/21 14:30 Last Infusion: 04/03/21 15:16 Dose: 0 mls/hr Documented by: [id number] Admin: 04/03/21 14:19 Dose: 200 mls/hr Documented by: [id number] Acetaminophen (Ofirmev) 1,000 mg in 100 mls @ 400 mls/hr IV NOW STA Stop: 04/03/21 14:09 Last Infusion: 04/03/21 15:16 Dose: 0 mls/hr Documented by: [id number] Admin: 04/03/21 14:17 Dose: 400 mls/hr Documented by: [id number] Sodium Chloride (Nss 1000ml) 500 mls @ 999 mls/hr IV .Q31M ONE Stop: 04/03/21 14:29 Last Infusion: 04/03/21 15:16 Dose: 0 mls/hr Documented by: [id number] Admin: 04/03/21 14:16 Dose: 999 mls/hr Documented by: [id number] Sodium Chloride (Nss 1000ml) 1,000 mls @ 125 mls/hr IV .Q8H [facility] Stop: 04/03/21 21:59 Last Infusion: 04/03/21 21:58 Dose: 0 mls/hr Documented by: [id number] Admin: 04/03/21 14:19 Dose: 125 mls/hr Documented by: [id number] Sodium Chloride (Nss 1000ml) 1,000 mls @ 125 mls/hr IV .Q8H [facility] Stop: 04/04/21 19:34 Last Infusion: 04/04/21 22:05 Dose: 0 mls/hr Documented by: [id number] Admin: 04/04/21 14:32 Dose: 125 mls/hr Documented by: [id number] Infusion: 04/04/21 14:32 Dose: 125 mls/hr Documented by: [id number] Infusion: 04/04/21 13:54 Dose: 125 mls/hr Documented by: [id number] Infusion: 04/04/21 11:07 Dose: 0 mls/hr Documented by: [id number] Admin: 04/04/21 05:23 Dose: 125 mls/hr Documented by: [id number] Infusion: 04/04/21 05:23 Dose: 125 mls/hr Documented by: [id number] Admin: 04/03/21 21:57 Dose: 125 mls/hr Documented by: [id number] Piperacillin Sod/Tazobactam (Sod 3.375 gm/ Dextrose) 115 mls @ 28.75 mls/hr IV Q8H [facility]; Protocol Stop: 04/13/21 19:59 Last Infusion: 04/05/21 07:40 Dose: 0 mls/hr Documented by: [id number] Admin: 04/05/21 03:36 Dose: 28.8 mls/hr Documented by: [id number] Infusion: 04/05/21 00:43 Dose: 0 mls/hr Documented by: [id number] Admin: 04/04/21 20:40 Dose: 28.8 mls/hr Documented by: [id number] Infusion: 04/04/21 13:53 Dose: 0 mls/hr Documented by: [id number] Admin: 04/04/21 11:46 Dose: 100 mls/hr Documented by: [id number] Infusion: 04/04/21 09:22 Dose: 0 mls/hr Documented by: [id number] Admin: 04/04/21 04:48 Dose: 28.8 mls/hr Documented by: [id number] Infusion: 04/04/21 01:01 Dose: 0 mls/hr Documented by: [id number] Admin: 04/03/21 20:46 Dose: 28.8 mls/hr Documented by: [id number] Lactated Ringer's (Lr) 1,000 mls @ 15 mls/hr IV .Q24H [facility] Stop: 05/04/21 11:14 Last Infusion: 04/04/21 19:24 Dose: 0 mls/hr Documented by: [id number] Admin: 04/04/21 11:46 Dose: 15 mls/hr Documented by: [id number] Famotidine 20 mg/ Syringe 5 mls @ 2.5 mls/min IV TODAY@1145 ONE Stop: 04/04/21 11:46 Last Admin: 04/04/21 14:32 Dose: 2.5 mls/min Documented by: [id number] Indomethacin (Indomethacin 50 Mg Supp) Confirm Administered Dose 100 mg AL .STK- MED ONE Stop: 04/04/21 12:28 Last Admin: 04/04/21 12:48 Dose: 100 mg Documented by: [id number] Ioversol (Optiray 320 100ml) 90 ml IV ONCE ONE Stop: 04/03/21 15:58 Last Admin: 04/03/21 15:58 Dose: 90 ml Documented by: [id number] Ipratropium [place] (Ipratropium Hfa Inhaler (Combivent Respimat P&T Subs)) 1 puffs INH QIDR [facility] Stop: 05/03/21 19:59 Last Admin: 04/04/21 07:18 Dose: Not Given Documented by: [id number] Admin: 04/03/21 21:30 Dose: Not Given Documented by: [id number] Lubiprostone (Lubiprostone 8 Mcg Cap) 24 mcg PO DAILY [facility] Stop: 05/04/21 08:59 Last Admin: 04/05/21 09:05 Dose: 24 mcg Documented by: [id number] Admin: 04/04/21 08:42 Dose: 24 mcg Documented by: [id number] Menthol (Cough Drop (Sugar Free) Campbell 24 Campbell/1 Box) Confirm Administered Dose 24 campbell [place] .ST[employer] Wonder-MED [facility] Stop: 04/05/21 09:18 Last Admin: 04/05/21 09:18 Dose: 24 campbell Documented by: [id number] Metoprolol Succinate (Metoprolol Succ 25mg Ext Rel Tab) 12.5 mg PO BID [facility] Stop: 05/03/21 20:59 Last Admin: 04/05/21 09:05 Dose: 12.5 mg Documented by: [id number] Admin: 04/04/21 22:01 Dose: 12.5 mg Documented by: [id number] Admin: 04/04/21 08:43 Dose: 12.5 mg Documented by: [id number] Admin: 04/03/21 20:47 Dose: Not Given Documented by: [id number] Ondansetron HCl (Ondansetron Inj 2 Mg/Ml 2 Ml Vial) 4 mg IV NOW RUST Stop: 04/03/21 14:02 Last Admin: 04/03/21 14:17 Dose: 4 mg Documented by: [id number] Ondansetron HCl (Ondansetron 4 Mg Od Tab) Confirm Administered Dose 4 mg .ROUTE .STK-MED [facility] Stop: 04/03/21 12:54 Last Admin: 04/03/21 18:42 Dose: Not Given Documented by: [id number] Ondansetron HCl (Ondansetron Inj 2 Mg/Ml 2 Ml Vial) 4 mg IV Q4H PRN PRN Reason: Nausea And Vomiting Stop: 05/03/21 19:34 Last Admin: 04/04/21 10:02 Dose: 4 mg Documented by: [id number] Ondansetron HCl (Ondansetron Inj 2 Mg/Ml 2 Ml Vial) 4 mg IV NOW STA Stop: 04/04/21 11:30 Last Admin: 04/04/21 13:53 Dose: Not Given Documented by: [id number] Oxycodone HCl (Oxycodone Hcl 40 Mg Tabcr (Oxycontin)) 40 mg PO TID [facility] Stop: 04/17/21 20:59 Last Admin: 04/05/21 09:04 Dose: 40 mg Documented by: [id number] Admin: 04/04/21 20:46 Dose: 40 mg Documented by: [id number] Admin: 04/04/21 15:32 Dose: 40 mg Documented by: [id number] Admin: 04/04/21 09:04 Dose: 40 mg Documented by: [id number] Admin: 04/03/21 20:46 Dose: 40 mg Documented by: [id number] Pantoprazole Sodium (Pantoprazole 40 Mg Tab) 40 mg PO DAILY [facility] Stop: 05/04/21 08:59 Last Admin: 04/05/21 09:10 Dose: Not Given Documented by: [id number] Admin: 04/04/21 08:44 Dose: 40 mg Documented by: [id number] Polyethylene Glycol (Polyethylene (Miralax) 17 Gm Pack) 17 gm PO DAILY [facility] Stop: 05/04/21 08:59 Last Admin: 04/05/21 09:09 Dose: 17 gm Documented by: [id number] Admin: 04/04/21 08:42 Dose: 17 gm Documented by: [id number] Sennosides (Senna 8.6 Mg Tab) 8.6 mg PO BID [facility] Stop: 05/03/21 20:59 Last Admin: 04/05/21 09:05 Dose: 8.6 mg Documented by: [id number] Admin: 04/04/21 20:42 Dose: 8.6 mg Documented by: [id number] Admin: 04/04/21 09:40 Dose: Not Given Documented by: [id number] Admin: 04/03/21 20:48 Dose: 8.6 mg Documented by: [id number] Medical Decision Making Differential Diagnosis Gastroenteritis, food borne illness, infections, appendicitis, diverticulitis, inflammatory bowel disease, obstruction, GI bleed, biliary pathology, volvulus, as well as other pathologies. Medical Records Attestation: I reviewed the patient's medical records. Home Medications Current Medication List: was personally reviewed by me Laboratory Data Attestation: I reviewed the patient's lab results. Result diagrams: 04/05/21 05:21 04/05/21 05:21 Lab Results 04/03/21 04/03/21 04/03/21 Range/Units 13:15 13:15 13:15 WBC 13.04 H (4.8-10.8) K/uL RBC 4.51 (4.2-5.4) M/uL Hgb 12.9 (12.0-16.0) g/dL Hct 39.9 (37-47) % MCV 88.5 (80-100) fL MCH 28.6 (25-34) pg MCHC 32.3 (32-36) g/dL RDW Std Deviation 47.9 H (36.4-46.3) fL RDW Coeff of Sharona 14.9 H (11.5-14.5) % Plt Count 236 (130-400) K/uL MPV 11.7 H (7.4-10.4) fL Immature Gran % (Auto) 0.3 % Neut % (Auto) 91.3 % Lymph % (Auto) 0.8 % Turner % (Auto) 7.1 % Eos % (Auto) 0.3 % Baso % (Auto) 0.2 % Neut # (Auto) 11.92 H (1.4-6.5) K/uL Lymph # (Auto) 0.10 L (1.2-3.4) K/uL Turner # (Auto) 0.92 H (0.11-0.59) K/uL Eos # (Auto) 0.04 (0-0.5) K/uL Baso # (Auto) 0.02 (0-0.2) K/uL Immature Gran # (Auto) 0.04 H (0.00-0.02) K/uL Sodium 140 (136-145) mmol/L Potassium 3.9 (3.5-5.1) mmol/L Chloride 104 (98-107) mmol/L Carbon Dioxide 26 (21-32) mmol/L Anion Gap 10.0 (3-11) BUN 21 H (7-18) mg/dl Creatinine 1.40 H (0.6-1.2) mg/dl Est Cr Clr Drug Dosing 21.2 ml/min Est GFR ( Amer) 39.1 ml/min Est GFR (Non-Af Amer) 33.7 ml/min BUN/Creatinine Ratio 15.1 (10-20) Glucose 118 H (70-99) mg/dl Lactate (0.4-2.0) mmol/L Calcium 9.0 (8.5-10.1) mg/dl Total Bilirubin 1.8 H (0.2-1) mg/dl AST 528 H (15-37) U/L ALT 450 H (12-78) U/L Alkaline Phosphatase 343 H (45-117) U/L Troponin I < 0.015 (0-0.045) ng/ml Total Protein 7.5 (6.4-8.2) gm/dl Albumin 3.7 (3.4-5.0) gm/dl Globulin 3.8 (2.5-4.0) gm/dl Albumin/Globulin Ratio 1.0 (0.9-2) Procalcitonin 1.40 H (0-0.5) ng/ml Urine Color Urine Appearance (Clear) Urine pH (4.5-7.5) Ur Specific Leivasy (1.000-1.030) Urine Protein (Negative) Urine Glucose (UA) (Negative) Urine Ketones (Negative) Urine Blood (Negative) Urine Nitrite (Negative) Urine Bilirubin (Negative) Urine Urobilinogen (Negative) Ur Leukocyte Esterase (Negative) Urine WBC (Auto) (0-5) /hpf Urine RBC (Auto) (0-4) /hpf U Hyaline Cast (Auto) (0-5) /lpf U Epithel Cells (Auto) (0-5) /lpf Urine Bacteria (Auto) (Negative) COVID-19 Eval Order SARS-CoV-2 (PCR) (Negative) 04/03/21 04/03/21 04/03/21 Range/Units 14:25 14:25 14:25 WBC (4.8-10.8) K/uL RBC (4.2-5.4) M/uL Hgb (12.0-16.0) g/dL Hct (37-47) % MCV (80-100) fL MCH (25-34) pg MCHC (32-36) g/dL RDW Std Deviation (36.4-46.3) fL RDW Coeff of Sharona (11.5-14.5) % Plt Count (130-400) K/uL MPV (7.4-10.4) fL Immature Gran % (Auto) % Neut % (Auto) % Lymph % (Auto) % Turner % (Auto) % Eos % (Auto) % Baso % (Auto) % Neut # (Auto) (1.4-6.5) K/uL Lymph # (Auto) (1.2-3.4) K/uL Turner # (Auto) (0.11-0.59) K/uL Eos # (Auto) (0-0.5) K/uL Baso # (Auto) (0-0.2) K/uL Immature Gran # (Auto) (0.00-0.02) K/uL Sodium (136-145) mmol/L Potassium (3.5-5.1) mmol/L Chloride (98-107) mmol/L Carbon Dioxide (21-32) mmol/L Anion Gap (3-11) BUN (7-18) mg/dl Creatinine (0.6-1.2) mg/dl Est Cr Clr Drug Dosing ml/min Est GFR ( Amer) ml/min Est GFR (Non-Af Amer) ml/min BUN/Creatinine Ratio (10-20) Glucose (70-99) mg/dl Lactate (0.4-2.0) mmol/L Calcium (8.5-10.1) mg/dl Total Bilirubin (0.2-1) mg/dl AST (15-37) U/L ALT (12-78) U/L Alkaline Phosphatase (45-117) U/L Troponin I (0-0.045) ng/ml Total Protein (6.4-8.2) gm/dl Albumin (3.4-5.0) gm/dl Globulin (2.5-4.0) gm/dl Albumin/Globulin Ratio (0.9-2) Procalcitonin (0-0.5) ng/ml Urine Color Yellow Urine Appearance Clear (Clear) Urine pH 8.0 H (4.5-7.5) Ur Specific Leivasy 1.011 (1.000-1.030) Urine Protein Trace H (Negative) Urine Glucose (UA) Negative (Negative) Urine Ketones Negative (Negative) Urine Blood Negative (Negative) Urine Nitrite Negative (Negative) Urine Bilirubin Negative (Negative) Urine Urobilinogen Negative (Negative) Ur Leukocyte Esterase Negative (Negative) Urine WBC (Auto) 0 (0-5) /hpf Urine RBC (Auto) 0-4 (0-4) /hpf U Hyaline Cast (Auto) 0 (0-5) /lpf U Epithel Cells (Auto) 5-10 H (0-5) /lpf Urine Bacteria (Auto) Negative (Negative) COVID-19 Eval Order Covid19 at [facility] SARS-CoV-2 (PCR) NEGATIVE (Negative) 04/03/21 04/03/21 Range/Units 15:23 18:12 WBC (4.8-10.8) K/uL RBC (4.2-5.4) M/uL Hgb (12.0-16.0) g/dL Hct (37-47) % MCV (80-100) fL MCH (25-34) pg MCHC (32-36) g/dL RDW Std Deviation (36.4-46.3) fL RDW Coeff of Sharona (11.5-14.5) % Plt Count (130-400) K/uL MPV (7.4-10.4) fL Immature Gran % (Auto) % Neut % (Auto) % Lymph % (Auto) % Turner % (Auto) % Eos % (Auto) % Baso % (Auto) % Neut # (Auto) (1.4-6.5) K/uL Lymph # (Auto) (1.2-3.4) K/uL Turner # (Auto) (0.11-0.59) K/uL Eos # (Auto) (0-0.5) K/uL Baso # (Auto) (0-0.2) K/uL Immature Gran # (Auto) (0.00-0.02) K/uL Sodium (136-145) mmol/L Potassium (3.5-5.1) mmol/L Chloride (98-107) mmol/L Carbon Dioxide (21-32) mmol/L Anion Gap (3-11) BUN (7-18) mg/dl Creatinine (0.6-1.2) mg/dl Est Cr Clr Drug Dosing ml/min Est GFR ( Amer) ml/min Est GFR (Non-Af Amer) ml/min BUN/Creatinine Ratio (10-20) Glucose (70-99) mg/dl Lactate 2.3 H* 1.3 (0.4-2.0) mmol/L Calcium (8.5-10.1) mg/dl Total Bilirubin (0.2-1) mg/dl AST (15-37) U/L ALT (12-78) U/L Alkaline Phosphatase (45-117) U/L Troponin I (0-0.045) ng/ml Total Protein (6.4-8.2) gm/dl Albumin (3.4-5.0) gm/dl Globulin (2.5-4.0) gm/dl Albumin/Globulin Ratio (0.9-2) Procalcitonin (0-0.5) ng/ml Urine Color Urine Appearance (Clear) Urine pH (4.5-7.5) Ur Specific Leivasy (1.000-1.030) Urine Protein (Negative) Urine Glucose (UA) (Negative) Urine Ketones (Negative) Urine Blood (Negative) Urine Nitrite (Negative) Urine Bilirubin (Negative) Urine Urobilinogen (Negative) Ur Leukocyte Esterase (Negative) Urine WBC (Auto) (0-5) /hpf Urine RBC (Auto) (0-4) /hpf U Hyaline Cast (Auto) (0-5) /lpf U Epithel Cells (Auto) (0-5) /lpf Urine Bacteria (Auto) (Negative) COVID-19 Eval Order SARS-CoV-2 (PCR) (Negative) Imaging Data Radiologist's Impression: Chest X-Ray 04/03/21 13:48 XR chest 1V portable CLINICAL HISTORY: Fever COMPARISON STUDY: Chest radiograph May 15, 2020. Chest CT August 31, 2020. FINDINGS: Right shoulder arthroplasty is incidentally noted. There is no pneumothorax or pleural effusion. Note is made of cardiomegaly without evidence for pulmonary edema. Apparent left midlung opacity is likely artifactual. No con solidation is identified. The appearance of the chest is unchanged. IMPRESSION: No acute cardiopulmonary findings. No significant change in appearance of the chest. ACT 112: Negative or not required by law. Electronically signed by: Edson Martin M.D. 04/03/2021 2:56 PM Abdomen/Pelvis CT 04/03/21 14:19 CT abd pelvis IV con only CLINICAL HISTORY: Abd pain, vomiting COMPARISON STUDY: September 27, 2020 TECHNIQUE: A dose lowering technique was utilized adhering to the principles of ALARA. CT DOSE: 360.06 mGy.cm FINDINGS: Lower chest: The heart is normal in size and configuration, without pericardial effusion. The lung bases and pleural spaces are clear. Liver: Liver is normal in size. Redemonstration of intrahepatic biliary dilatation is not significantly changed since prior. Common bile duct remains dilated measuring up to 1.5 cm in diameter. Gallbladder: Surgically absent. Spleen: Normal in size and attenuation. Pancreas: Is severely atrophic and poorly seen. Adrenal glands: Unremarkable. Kidneys: There is no hydronephrosis or nephrolithiasis is seen. Multicystic appearance of bilateral kidneys is again seen. Largest cyst is seen at superior aspect of the right kidney, measured 6.8 x 3.9 cm in axial dimension and unchanged since prior and might represent stable left renal cyst or unchanged cystic lesion within left upper quadrant mesentery.. Bowel: Moderate hiatal hernia is seen. Bowel loops are nondilated. Appendix is not well seen. Large amount of stool within colonic loop is seen throughout the abdomen. Rectum is dilated with extensive amount of stool likely representing fecal impaction. Minimal prominence of the distal rectal wall is seen which might represent proctitis. Peritoneum: No free intraperitoneal air is seen. No evidence of ascites. Overall evaluation is limited due to motion artifact. Vasculature: The abdominal aorta is normal in course and caliber. Calcified plaques are seen within the aortic wall. Adenopathy: None. Pelvic viscera: Urinary bladder is adequately filled with urine. Uterus is surgically absent. Skeletal structures: Diffusely demineralized. Minimal degenerative changes of the spine are seen. IMPRESSION: 1. Fecal impaction. Possible proctitis. Loops of small and proximal large bowel are nondilated. 2. Stable intra and extrahepatic biliary dilatation. 3. Stable bilateral renal cysts. 4. Stable hypoattenuating collection within left upper quadrant unchanged since August 31, 2020, appears cystic and might represent left renal cyst or cystic lesion within left upper quadrant mesentery. 5. Moderate hiatal hernia. ACT 112: Negative or not required by law. The above report was generated using voice recognition software. It may contain grammatical, syntax or spelling errors. Electronically signed by: Nicole Zhao DO 04/03/2021 4:35 PM Liver Ultrasound 04/03/21 17:07 ABDOMINAL ULTRASOUND, RIGHT UPPER QUADRANT HISTORY: elevated LFTS, fever, vomiting, post mikal. COMPARISON: May 14, 2020 FINDINGS: Pancreas: Not visualized due to overlying bowel gas. Liver: Is normal in size and shows slightly increased in echogenicity of its parenchyma. Redemonstration of chronic dilatation of intrahepatic biliary ducts that were also seen on prior study. Gallbladder: Surgically absent. CBD: 1.1 cm in diameter. Right kidney: No hydronephrosis. Is measuring 10.7 cm in length. Multiple cysts are seen, largest is seen within upper pole measuring 4.6 x 5.2 x 4.9 cm in size, unchanged since prior. IMPRESSION: 1. Stable chronic dilatation of intrahepatic and extrahepatic biliary ducts. 2. Status post cholecystectomy. 3. Stable right renal cysts. ACT 112: Negative or not required by law. The above report was generated using voice recognition software. It may contain grammatical, syntax or spelling errors. Electronically signed by: Nicole Zhao DO 04/03/2021 6:24 PM Blood Pressure Blood Pressure Findings: Elevated blood pressure Blood Pressure Disposition: elevated BP felt to be situational MDM Narrative This pt was evaluated and appeared to be in some discomfort. IV access was obtained and lab work was drawn. Pt was hydrated with NSS, given IV fentanyl and IV zofran. Pt was noted to be febrile, therefore IV tylenol was given. Blood cx, lactate were drawn and zosyn was administered. CT abd reveals fecal impaction and likely proctocolitis, stable renal cysts and stable intra and extra biliary ductal dilatation. LFTs are elevated. Pt was disimpacted and an enema was ordered w a COVID swab. Case was d/w hiopspitalist and a liver U/S was added. Pt and daughter were made aware of the plans and agreed. Impression & Plan Fever, Transaminitis, Vomiting, Fecal impaction in rectum Discharge Plan Visit Data Chief Complaint: Vomiting Stated Complaint: vomiting/nausea ED Provider: Norma Kirby Discharge Problem: Fever, Transaminitis, Vomiting, Fecal impaction in rectum Patient Disposition: Admitted As Inpatient Discharge Instructions Interventions: ED Discharge Assessment Last Done: 04/03/21 19:13 Discharge Problem: Fever Qualifiers: Fever type: unspecified Qualified Code(s): R50.9 - Fever, unspecified Vomiting Qualifiers: Vomiting type: unspecified Vomiting Intractability: intractable Nausea presence: with nausea Qualified Code(s): R11.2 - Nausea with vomiting, unspecified
[2021-04-03] MEDS ORDERED: PIPERACILL/TAZOBAC CONSULT ACTIVE PRN (19:35)
[2021-04-03] MEDS ORDERED: ONDANSETRON INJ 2 MG/ML 2 ML VIAL IV PRN (19:35)
[2021-04-03 20:25] LABS: INR 1.2 (0.9-1.1); Prothrombin Time 12.1 Seconds (9.0-12.0)
[2021-04-03 20:38] LABS: Ferritin 44.8 ng/ml (8-388); Thyroid Stimulating Hormone 0.251 uIu/ml (0.300-4.500)
[2021-04-03] MEDS: DOCUSATE SODIUM 100 MG CAP PO SCH (20:46)
[2021-04-03] MEDS: PIPERACILLIN/TAZOBACTAM 3.375 GM in DEXTROSE 5% 100 ML IV SCH (20:46)
[2021-04-03] MEDS: METOPROLOL SUCC 25MG EXT REL TAB PO SCH (20:47)
[2021-04-03] MEDS: FELODIPINE 5 MG TABCR PO SCH (20:48)
[2021-04-03] MEDS: hydrALAZINE HCL 25 MG TAB PO SCH (20:48)
[2021-04-03] MEDS: SENNA 8.6 MG TAB PO SCH (20:48)
[2021-04-03 20:51] LABS: T4 Free Thyroxine 1.34 ng/dl (0.8-1.6)
[2021-04-03] MEDS ORDERED: IPRATROPIUM BROMIDE/ALBUTEROL respimat INH INH SCH (21:00)
[2021-04-03] MEDS: Albuterol HFA 8 GM Inhaler (Combivent Respimat P&T Subs) INH SCH (21:30)
[2021-04-03] MEDS: Ipratropium HFA Inhaler (Combivent Respimat P&T Subs) INH SCH (21:30)
[2021-04-03] MEDS: SODIUM CHLORIDE 0.9% 1000ML 1,000 ML IV SCH (21:57)
[2021-04-03] MEDS ORDERED: Nursing to Pharmacy Communication SCH (22:00)
[2021-04-04] MEDS: PIPERACILLIN/TAZOBACTAM 3.375 GM in DEXTROSE 5% 100 ML IV SCH ×3 (04:48→20:40)
[2021-04-04] MEDS: SODIUM CHLORIDE 0.9% 1000ML 1,000 ML IV SCH ×2 (05:23→14:32)
[2021-04-04 05:35] LABS: Amphetamines+Metham, Urine Neg (Neg); Barbiturates, Urine Neg (Neg); Benzodiazepine, Urine Neg (Neg); Cocaine, Urine Neg (Neg); MDMA (Ecstacy), Urine Neg (Neg); Methadone, Urine Neg (Neg); Opiate, Urine Pos (Neg); Phencyclidine, Urine Neg (Neg)
[2021-04-04 06:20] LABS: Hematocrit (blood only) 34.8 % (37-47); Mean Corpuscular Hemoglobin 28.8 pg (25-34); Mean Corpuscular Hgb Conc 31.6 g/dL (32-36); Mean Corpuscular Volume 91.1 fL (80-100); Mean Platelet Volume 11.3 fL (7.4-10.4); Platelet Count 163 K/uL (130-400); RDW Standard Deviation 50.3 fL (36.4-46.3); Red Blood Count 3.82 M/uL (4.2-5.4); White Blood Count 9.53 K/uL (4.8-10.8)
[2021-04-04 07:06] LABS: Albumin Level 2.8 gm/dl (3.4-5.0); BUN Creatinine Ratio 15.6 (10-20); Bilirubin Direct 0.3 mg/dl (0-0.2); Calcium 7.7 mg/dl (8.5-10.1); Creatinine Clr Calc Pharmacy 23.7 ml/min; Est GFR (African American) 44.4 ml/min; Est GFR (Non-African American) 38.3 ml/min; Magnesium 2.1 mg/dl (1.8-2.4); Potassium 4.4 mmol/L (3.5-5.1)
[2021-04-04] MEDS: Albuterol HFA 8 GM Inhaler (Combivent Respimat P&T Subs) INH SCH (07:18)
[2021-04-04] MEDS: Ipratropium HFA Inhaler (Combivent Respimat P&T Subs) INH SCH (07:18)
[2021-04-04 07:22] LABS: Albumin Globulin Ratio 0.9 (0.9-2); Bilirubin,Total 0.7 mg/dl (0.2-1); Globulin 3.1 gm/dl (2.5-4.0); Total Protein 5.9 gm/dl (6.4-8.2)
[2021-04-04] MEDS ORDERED: ACETAMINOPHEN 325 MG TAB PO PRN (08:17)
[2021-04-04] MEDS: DOCUSATE SODIUM 100 MG CAP PO SCH ×2 (08:41→20:41)
[2021-04-04] MEDS: ASPIRIN 81 MG ECTAB PO SCH (08:41)
[2021-04-04] MEDS: HYDROXYCHLOROQUINE SULFATE 200 MG TAB PO SCH (08:42)
[2021-04-04] MEDS: POLYETHYLENE (MIRALAX) 17 GM PACK PO SCH (08:42)
[2021-04-04] MEDS: LUBIPROSTONE 8 MCG CAP PO SCH (08:42)
[2021-04-04] MEDS: hydrALAZINE HCL 25 MG TAB PO SCH ×2 (08:42→20:42)
[2021-04-04] MEDS: METOPROLOL SUCC 25MG EXT REL TAB PO SCH ×2 (08:43→22:01)
[2021-04-04] MEDS: PANTOprazole 40 MG TAB PO SCH (08:44)
--- NOTE | 2021-04-04 09:11 | Gastrointestinal Consultation ---
Date of Consultation April 04, 2021 Assessment & Plan (1) Nausea and vomitin85 year old female presenting through the ED w/ fever, abd pain, nausea/vomiting noted to have leukocytosis, elevated transaminases and CT w/ biliary dilation and fecal impaction. She was disimpacted in the ED and started on Zosyn w/ improvement of leukocytosis and has remained afebrile. She has persistent elevated LFTs w/ TB 0.7, AST 188, ALT 257 and ALK 220/ NPO Had about 4 oz of tea w/ meds this AM around 0815 Continue IV ABX Plan for EUS/ERCP today Bowel regimen with colace 100 mg twice daily, miralax 1-2 capfuls 1-2 times daily Good fluid intake Can consider OP colonoscopy Thank you for allowing us to participate in the care of this patient. Please call with any acute changes, questions or concerns. Please see addendum below with additional recommendation from my supervising physician. Supervising Physician Co-Signing Physician Notes I performed a history and physical examination of the patient today, including specifically on physical exam - soft abdomen. I have discussed the patient's management with the advanced practitioner. Please refer to the nurse practitioner's note for the documented findings and plan of care. Seems like acute cholangitis in view of dilated CBD, abn LFTs and fever. Plan for EUS/ERCP today History of Present Illness Reason for Consultation: transaminitis Requesting Physician: Jonah Attending Physician: Barry Mckenzie MD History of Present Illness 85-year-old female w/ history of CKD4, CAD S/P drug eluting stents, gastroparesis (saw Dr. Sales in 2008), mild intrahepatic biliary ductal dilation since 2006, Mild aortic valve stenosis, SLE on chronic prednisone and Plaquenil, breast cancer, hypothyroidism and depression admitted through the ED w/ nausea/vomiting and fevers at home. GI asked to evaluate given biliary dilation and elevated LFTs. Pt was seen and evaluated, chart reviewed. Notes abd pain, nausea/vomiting and food aversion for a few days. Abd pain was generalized, worse upper. Associated with constipation, which is more chronic for her. In the ED CT w/ fecal impaction, biliary dilation and other chronic findings. She was disimpacted with soem improvement of her symptoms. This AM she notes she is feeling well. No abd pain. No nausea,vomiting. No fever, chills, CP, SOB. CTAP: Fecal impaction. Possible proctitis. Loops of small and proximal large bowel are nondilated. Stable intra and extrahepatic biliary dilatation. Stable bilateral renal cysts. Stable hypoattenuating collection within left upper quadrant unchanged since August 31, 2020, appears cystic and might represent left renal cyst or cystic lesion within left upper quadrant mesentery. Moderate hiatal hernia. Allergies Allergy/AdvReac Type Severity Reaction Status Date / Time prochlorperazine Allergy Mild flushed Verified 08/31/20 02:25 VIDA Inhibitors AdvReac Intermediate RAPID Verified 08/31/20 02:25 PULSE, BULGING EYES Home Medications Medication Instructions Recorded Confirmed Type aspirin 81 mg PO DAILY 02/06/19 04/03/21 History hydroxychloroquine 200 mg PO DAILY 02/06/19 04/03/21 History metoprolol succinate 12.5 mg PO BID 02/06/19 04/03/21 History mirtazapine 7.5 mg PO HS 02/06/19 04/03/21 History nitroglycerin 0.4 mg SUBLINGUAL USEASDIRECTD PRN 02/06/19 04/03/21 History felodipine 10 mg PO HS 08/31/20 04/03/21 History oxycodone [OxyContin] 40 mg PO TID 08/31/20 04/03/21 History sennosides [senna] 8.6 mg PO BID 08/31/20 04/03/21 History docusate sodium 100 mg PO BID #60 cap 09/03/20 04/03/21 Rx hydralazine 25 mg PO BID 30 Days #60 tab 09/03/20 04/03/21 Rx polyethylene glycol 3350 [Miralax] 17 g PO DAILY #30 ea 09/03/20 04/03/21 Rx atorvastatin 40 mg PO HS 04/03/21 04/03/21 History ipratropium-albuterol [Combivent 1 puff INHALATION QID 04/03/21 04/03/21 History Respimat] lubiprostone 24 mcg PO DAILY 04/03/21 04/03/21 History pantoprazole 40 mg PO DAILY 04/03/21 04/03/21 History Patient History Medical History Breast cancer CAD (coronary artery disease) "10/2013 - NSTEMI, s/p ADRIENNE to LAD" CAD (coronary artery disease) Chronic pain syndrome CKD (chronic kidney disease) CKD (chronic kidney disease), stage III Lupus (systemic lupus erythematosus) Surgical History H/O lumpectomy H/O shoulder surgery History of appendectomy History of cholecystectomy History of coronary angioplasty hx of ADRIENNE in 2013 History of hysterectomy History of partial mastectomy of left breast History of partial thyroidectomy S/P tonsillectomy and adenoidectomy Family History Father Lung cancer Sister Diabetes Social History Smoking Status: Former smoker Tobacco Type: Cigarettes Second Hand Exposure: No; Hx Alcohol Use: No Hx Substance Use: Yes Preferred Language: [place] Communication Ability: Effective Sawyer Cork Slabs Required: No Beliefs That Will Affect Care: None marital status: / Current Living Situation: Family Current Living Situation Comment: Patient lives w/ daughter. 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 Feels Safe at Home: Yes Safety Concerns: Feels Safe At This Time Assistive Devices: Cane, Denture - Upper and Glasses Review of Systems Review of Systems: All systems reviewed & are unremarkable except as noted in HPI & below Physical Exam Constitutional: well developed, well nourished, + ill appearing (chronically ill appearing) and + thin; no acute distress Neck: trachea midline, no thyromegaly Respiratory: normal respiratory effort, lungs clear to auscultation Cardiovascular: RRR, no murmur, no edema Gastrointestinal (Abdomen): normal bowel sounds, soft, nontender, no hepatosplenomegaly Results & Data ([facility]) Vital Signs (Past 12 Hours) Vital Signs Temp Pulse Pulse Resp BP Pulse Ox 04/04/21 03:05 36.8 C 65 16 110/59 L 95 04/03/21 23:00 36.8 C 61 20 99/54 L 95 04/03/21 22:33 36.8 C 62 18 128/68 96 04/03/21 21:41 56 L Laboratory Results 06/07/21 06/07/21 06/07/21 Range/Units 06:06 06:06 04:55 WBC 9.53 (4.8-10.8) K/uL RBC 3.82 L (4.2-5.4) M/uL Hgb 11.0 L (12.0-16.0) g/dL Hct 34.8 L (37-47) % MCV 91.1 (80-100) fL MCH 28.8 (25-34) pg MCHC 31.6 L (32-36) g/dL RDW Std Deviation 50.3 H (36.4-46.3) fL RDW Coeff of Sharona 15.0 H (11.5-14.5) % Plt Count 163 (130-400) K/uL MPV 11.3 H (7.4-10.4) fL Immature Gran % (Auto) % Neut % (Auto) % Lymph % (Auto) % Barren % (Auto) % Eos % (Auto) % Baso % (Auto) % Neut # (Auto) (1.4-6.5) K/uL Lymph # (Auto) (1.2-3.4) K/uL Barren # (Auto) (0.11-0.59) K/uL Eos # (Auto) (0-0.5) K/uL Baso # (Auto) (0-0.2) K/uL Immature Gran # (Auto) (0.00-0.02) K/uL PT (9.0-12.0) Seconds INR (0.9-1.1) Sodium 140 (136-145) mmol/L Potassium 4.4 (3.5-5.1) mmol/L Chloride 108 H (98-107) mmol/L Carbon Dioxide 25 (21-32) mmol/L Anion Gap 7.0 (3-11) BUN 20 H (7-18) mg/dl Creatinine 1.26 H (0.6-1.2) mg/dl Est Cr Clr Drug Dosing 23.7 ml/min Est GFR ( Amer) 44.4 ml/min Est GFR (Non-Af Amer) 38.3 ml/min BUN/Creatinine Ratio 15.6 (10-20) Glucose 104 H (70-99) mg/dl Lactate (0.4-2.0) mmol/L Calcium 7.7 L (8.5-10.1) mg/dl Magnesium 2.1 (1.8-2.4) mg/dl Ferritin (8-388) ng/ml Total Bilirubin 0.7 D (0.2-1) mg/dl Direct Bilirubin 0.3 H (0-0.2) mg/dl AST 188 H (15-37) U/L ALT 257 H (12-78) U/L Alkaline Phosphatase 220 H (45-117) U/L Total Creatine Kinase (26-192) U/L Troponin I (0-0.045) ng/ml Total Protein 5.9 L D (6.4-8.2) gm/dl Albumin 2.8 L (3.4-5.0) gm/dl Globulin 3.1 (2.5-4.0) gm/dl Albumin/Globulin Ratio 0.9 (0.9-2) Procalcitonin (0-0.5) ng/ml TSH (0.300-4.500) uIu/ml Free T4 (0.8-1.6) ng/dl Urine Color Urine Appearance (Clear) Urine pH (4.5-7.5) Ur Specific [place] (1.000-1.030) Urine Protein (Negative) Urine Glucose (UA) (Negative) Urine Ketones (Negative) Urine Blood (Negative) Urine Nitrite (Negative) Urine Bilirubin (Negative) Urine Urobilinogen (Negative) Ur Leukocyte Esterase (Negative) Urine WBC (Auto) (0-5) /hpf Urine RBC (Auto) (0-4) /hpf U Hyaline Cast (Auto) (0-5) /lpf U Epithel Cells (Auto) (0-5) /lpf Urine Bacteria (Auto) (Negative) Urine Opiates Screen (Neg) U Codeine Confrm GC/MS Pending Ur Morphine (GC/MS) Pending Ur Hydrocodone (GC/MS) Pending Ur Norhydrocodone Pending Ur Noroxycodone Pending Urine Oxycodone (GC/MS) Pending U Oxymorphone GC/MS Pending Ur Methadone, Qual (Neg) Ur Hydromorphone (GC/MS) Pending Acetaminophen (10-30) ug/ml Urine Barbiturates (Neg) Ur Phencyclidine (PCP) (Neg) U Amphetamin/Meth Scrn (Neg) MDMA (Ecstasy) Screen (Neg) U Benzodiazepines Scrn (Neg) Ur Cocaine Metabolite (Neg) U Marijuana (THC) Screen (Neg) U Marijuana THC Carboxy Pending Drug Screen Comment Pending COVID-19 Eval Order SARS-CoV-2 (PCR) (Negative) 04/04/21 04/03/21 04/03/21 Range/Units 04:55 20:00 20:00 WBC (4.8-10.8) K/uL RBC (4.2-5.4) M/uL Hgb (12.0-16.0) g/dL Hct (37-47) % MCV (80-100) fL MCH (25-34) pg MCHC (32-36) g/dL RDW Std Deviation (36.4-46.3) fL RDW Coeff of Sharona (11.5-14.5) % Plt Count (130-400) K/uL MPV (7.4-10.4) fL Immature Gran % (Auto) % Neut % (Auto) % Lymph % (Auto) % Barren % (Auto) % Eos % (Auto) % Baso % (Auto) % Neut # (Auto) (1.4-6.5) K/uL Lymph # (Auto) (1.2-3.4) K/uL Barren # (Auto) (0.11-0.59) K/uL Eos # (Auto) (0-0.5) K/uL Baso # (Auto) (0-0.2) K/uL Immature Gran # (Auto) (0.00-0.02) K/uL PT (9.0-12.0) Seconds INR (0.9-1.1) Sodium (136-145) mmol/L Potassium (3.5-5.1) mmol/L Chloride (98-107) mmol/L Carbon Dioxide (21-32) mmol/L Anion Gap (3-11) BUN (7-18) mg/dl Creatinine (0.6-1.2) mg/dl Est Cr Clr Drug Dosing ml/min Est GFR ( Amer) ml/min Est GFR (Non-Af Amer) ml/min BUN/Creatinine Ratio (10-20) Glucose (70-99) mg/dl Lactate (0.4-2.0) mmol/L Calcium (8.5-10.1) mg/dl Magnesium (1.8-2.4) mg/dl Ferritin 44.8 (8-388) ng/ml Total Bilirubin (0.2-1) mg/dl Direct Bilirubin (0-0.2) mg/dl AST (15-37) U/L ALT (12-78) U/L Alkaline Phosphatase (45-117) U/L Total Creatine Kinase 33 (26-192) U/L Troponin I (0-0.045) ng/ml Total Protein (6.4-8.2) gm/dl Albumin (3.4-5.0) gm/dl Globulin (2.5-4.0) gm/dl Albumin/Globulin Ratio (0.9-2) Procalcitonin (0-0.5) ng/ml TSH 0.251 L (0.300-4.500) uIu/ml Free T4 1.34 (0.8-1.6) ng/dl Urine Color Urine Appearance (Clear) Urine pH (4.5-7.5) Ur Specific [place] (1.000-1.030) Urine Protein (Negative) Urine Glucose (UA) (Negative) Urine Ketones (Negative) Urine Blood (Negative) Urine Nitrite (Negative) Urine Bilirubin (Negative) Urine Urobilinogen (Negative) Ur Leukocyte Esterase (Negative) Urine WBC (Auto) (0-5) /hpf Urine RBC (Auto) (0-4) /hpf U Hyaline Cast (Auto) (0-5) /lpf U Epithel Cells (Auto) (0-5) /lpf Urine Bacteria (Auto) (Negative) Urine Opiates Screen Pos H (Neg) U Codeine Confrm GC/MS Ur Morphine (GC/MS) Ur Hydrocodone (GC/MS) Ur Norhydrocodone Ur Noroxycodone Urine Oxycodone (GC/MS) U Oxymorphone GC/MS Ur Methadone, Qual Neg (Neg) Ur Hydromorphone (GC/MS) Acetaminophen 13 (10-30) ug/ml Urine Barbiturates Neg (Neg) Ur Phencyclidine (PCP) Neg (Neg) U Amphetamin/Meth Scrn Neg (Neg) MDMA (Ecstasy) Screen Neg (Neg) U Benzodiazepines Scrn Neg (Neg) Ur Cocaine Metabolite Neg (Neg) U Marijuana (THC) Screen Pos H (Neg) U Marijuana THC Carboxy Drug Screen Comment COVID-19 Eval Order SARS-CoV-2 (PCR) (Negative) 04/03/21 04/03/21 04/03/21 Range/Units 20:00 18:12 15:23 WBC (4.8-10.8) K/uL RBC (4.2-5.4) M/uL Hgb (12.0-16.0) g/dL Hct (37-47) % MCV (80-100) fL MCH (25-34) pg MCHC (32-36) g/dL RDW Std Deviation (36.4-46.3) fL RDW Coeff of Sharona (11.5-14.5) % Plt Count (130-400) K/uL MPV (7.4-10.4) fL Immature Gran % (Auto) % Neut % (Auto) % Lymph % (Auto) % Barren % (Auto) % Eos % (Auto) % Baso % (Auto) % Neut # (Auto) (1.4-6.5) K/uL Lymph # (Auto) (1.2-3.4) K/uL Barren # (Auto) (0.11-0.59) K/uL Eos # (Auto) (0-0.5) K/uL Baso # (Auto) (0-0.2) K/uL Immature Gran # (Auto) (0.00-0.02) K/uL PT 12.1 H (9.0-12.0) Seconds INR 1.2 H (0.9-1.1) Sodium (136-145) mmol/L Potassium (3.5-5.1) mmol/L Chloride (98-107) mmol/L Carbon Dioxide (21-32) mmol/L Anion Gap (3-11) BUN (7-18) mg/dl Creatinine (0.6-1.2) mg/dl Est Cr Clr Drug Dosing ml/min Est GFR ( Amer) ml/min Est GFR (Non-Af Amer) ml/min BUN/Creatinine Ratio (10-20) Glucose (70-99) mg/dl Lactate 1.3 2.3 H* (0.4-2.0) mmol/L Calcium (8.5-10.1) mg/dl Magnesium (1.8-2.4) mg/dl Ferritin (8-388) ng/ml Total Bilirubin (0.2-1) mg/dl Direct Bilirubin (0-0.2) mg/dl AST (15-37) U/L ALT (12-78) U/L Alkaline Phosphatase (45-117) U/L Total Creatine Kinase (26-192) U/L Troponin I (0-0.045) ng/ml Total Protein (6.4-8.2) gm/dl Albumin (3.4-5.0) gm/dl Globulin (2.5-4.0) gm/dl Albumin/Globulin Ratio (0.9-2) Procalcitonin (0-0.5) ng/ml TSH (0.300-4.500) uIu/ml Free T4 (0.8-1.6) ng/dl Urine Color Urine Appearance (Clear) Urine pH (4.5-7.5) Ur Specific [place] (1.000-1.030) Urine Protein (Negative) Urine Glucose (UA) (Negative) Urine Ketones (Negative) Urine Blood (Negative) Urine Nitrite (Negative) Urine Bilirubin (Negative) Urine Urobilinogen (Negative) Ur Leukocyte Esterase (Negative) Urine WBC (Auto) (0-5) /hpf Urine RBC (Auto) (0-4) /hpf U Hyaline Cast (Auto) (0-5) /lpf U Epithel Cells (Auto) (0-5) /lpf Urine Bacteria (Auto) (Negative) Urine Opiates Screen (Neg) U Codeine Confrm GC/MS Ur Morphine (GC/MS) Ur Hydrocodone (GC/MS) Ur Norhydrocodone Ur Noroxycodone Urine Oxycodone (GC/MS) U Oxymorphone GC/MS Ur Methadone, Qual (Neg) Ur Hydromorphone (GC/MS) Acetaminophen (10-30) ug/ml Urine Barbiturates (Neg) Ur Phencyclidine (PCP) (Neg) U Amphetamin/Meth Scrn (Neg) MDMA (Ecstasy) Screen (Neg) U Benzodiazepines Scrn (Neg) Ur Cocaine Metabolite (Neg) U Marijuana (THC) Screen (Neg) U Marijuana THC Carboxy Drug Screen Comment COVID-19 Eval Order SARS-CoV-2 (PCR) (Negative) 04/03/21 04/03/21 04/03/21 Range/Units 14:25 14:25 14:25 WBC (4.8-10.8) K/uL RBC (4.2-5.4) M/uL Hgb (12.0-16.0) g/dL Hct (37-47) % MCV (80-100) fL MCH (25-34) pg MCHC (32-36) g/dL RDW Std Deviation (36.4-46.3) fL RDW Coeff of Sharona (11.5-14.5) % Plt Count (130-400) K/uL MPV (7.4-10.4) fL Immature Gran % (Auto) % Neut % (Auto) % Lymph % (Auto) % Barren % (Auto) % Eos % (Auto) % Baso % (Auto) % Neut # (Auto) (1.4-6.5) K/uL Lymph # (Auto) (1.2-3.4) K/uL Barren # (Auto) (0.11-0.59) K/uL Eos # (Auto) (0-0.5) K/uL Baso # (Auto) (0-0.2) K/uL Immature Gran # (Auto) (0.00-0.02) K/uL PT (9.0-12.0) Seconds INR (0.9-1.1) Sodium (136-145) mmol/L Potassium (3.5-5.1) mmol/L Chloride (98-107) mmol/L Carbon Dioxide (21-32) mmol/L Anion Gap (3-11) BUN (7-18) mg/dl Creatinine (0.6-1.2) mg/dl Est Cr Clr Drug Dosing ml/min Est GFR ( Amer) ml/min Est GFR (Non-Af Amer) ml/min BUN/Creatinine Ratio (10-20) Glucose (70-99) mg/dl Lactate (0.4-2.0) mmol/L Calcium (8.5-10.1) mg/dl Magnesium (1.8-2.4) mg/dl Ferritin (8-388) ng/ml Total Bilirubin (0.2-1) mg/dl Direct Bilirubin (0-0.2) mg/dl AST (15-37) U/L ALT (12-78) U/L Alkaline Phosphatase (45-117) U/L Total Creatine Kinase (26-192) U/L Troponin I (0-0.045) ng/ml Total Protein (6.4-8.2) gm/dl Albumin (3.4-5.0) gm/dl Globulin (2.5-4.0) gm/dl Albumin/Globulin Ratio (0.9-2) Procalcitonin (0-0.5) ng/ml TSH (0.300-4.500) uIu/ml Free T4 (0.8-1.6) ng/dl Urine Color Yellow Urine Appearance Clear (Clear) Urine pH 8.0 H (4.5-7.5) Ur Specific [place] 1.011 (1.000-1.030) Urine Protein Trace H (Negative) Urine Glucose (UA) Negative (Negative) Urine Ketones Negative (Negative) Urine Blood Negative (Negative) Urine Nitrite Negative (Negative) Urine Bilirubin Negative (Negative) Urine Urobilinogen Negative (Negative) Ur Leukocyte Esterase Negative (Negative) Urine WBC (Auto) 0 (0-5) /hpf Urine RBC (Auto) 0-4 (0-4) /hpf U Hyaline Cast (Auto) 0 (0-5) /lpf U Epithel Cells (Auto) 5-10 H (0-5) /lpf Urine Bacteria (Auto) Negative (Negative) Urine Opiates Screen (Neg) U Codeine Confrm GC/MS Ur Morphine (GC/MS) Ur Hydrocodone (GC/MS) Ur Norhydrocodone Ur Noroxycodone Urine Oxycodone (GC/MS) U Oxymorphone GC/MS Ur Methadone, Qual (Neg) Ur Hydromorphone (GC/MS) Acetaminophen (10-30) ug/ml Urine Barbiturates (Neg) Ur Phencyclidine (PCP) (Neg) U Amphetamin/Meth Scrn (Neg) MDMA (Ecstasy) Screen (Neg) U Benzodiazepines Scrn (Neg) Ur Cocaine Metabolite (Neg) U Marijuana (THC) Screen (Neg) U Marijuana THC Carboxy Drug Screen Comment COVID-19 Eval Order Covid19 at [facility] SARS-CoV-2 (PCR) NEGATIVE (Negative) 06/06/21 06/06/21 06/06/21 Range/Units 13:15 13:15 13:15 WBC 13.04 H (4.8-10.8) K/uL RBC 4.51 (4.2-5.4) M/uL Hgb 12.9 (12.0-16.0) g/dL Hct 39.9 (37-47) % MCV 88.5 (80-100) fL MCH 28.6 (25-34) pg MCHC 32.3 (32-36) g/dL RDW Std Deviation 47.9 H (36.4-46.3) fL RDW Coeff of Sharona 14.9 H (11.5-14.5) % Plt Count 236 (130-400) K/uL MPV 11.7 H (7.4-10.4) fL Immature Gran % (Auto) 0.3 % Neut % (Auto) 91.3 % Lymph % (Auto) 0.8 % Barren % (Auto) 7.1 % Eos % (Auto) 0.3 % Baso % (Auto) 0.2 % Neut # (Auto) 11.92 H (1.4-6.5) K/uL Lymph # (Auto) 0.10 L (1.2-3.4) K/uL Barren # (Auto) 0.92 H (0.11-0.59) K/uL Eos # (Auto) 0.04 (0-0.5) K/uL Baso # (Auto) 0.02 (0-0.2) K/uL Immature Gran # (Auto) 0.04 H (0.00-0.02) K/uL PT (9.0-12.0) Seconds INR (0.9-1.1) Sodium 140 (136-145) mmol/L Potassium 3.9 (3.5-5.1) mmol/L Chloride 104 (98-107) mmol/L Carbon Dioxide 26 (21-32) mmol/L Anion Gap 10.0 (3-11) BUN 21 H (7-18) mg/dl Creatinine 1.40 H (0.6-1.2) mg/dl Est Cr Clr Drug Dosing 21.2 ml/min Est GFR ( Amer) 39.1 ml/min Est GFR (Non-Af Amer) 33.7 ml/min BUN/Creatinine Ratio 15.1 (10-20) Glucose 118 H (70-99) mg/dl Lactate (0.4-2.0) mmol/L Calcium 9.0 (8.5-10.1) mg/dl Magnesium (1.8-2.4) mg/dl Ferritin (8-388) ng/ml Total Bilirubin 1.8 H (0.2-1) mg/dl Direct Bilirubin (0-0.2) mg/dl AST 528 H (15-37) U/L ALT 450 H (12-78) U/L Alkaline Phosphatase 343 H (45-117) U/L Total Creatine Kinase (26-192) U/L Troponin I < 0.015 (0-0.045) ng/ml Total Protein 7.5 (6.4-8.2) gm/dl Albumin 3.7 (3.4-5.0) gm/dl Globulin 3.8 (2.5-4.0) gm/dl Albumin/Globulin Ratio 1.0 (0.9-2) Procalcitonin 1.40 H (0-0.5) ng/ml TSH (0.300-4.500) uIu/ml Free T4 (0.8-1.6) ng/dl Urine Color Urine Appearance (Clear) Urine pH (4.5-7.5) Ur Specific [place] (1.000-1.030) Urine Protein (Negative) Urine Glucose (UA) (Negative) Urine Ketones (Negative) Urine Blood (Negative) Urine Nitrite (Negative) Urine Bilirubin (Negative) Urine Urobilinogen (Negative) Ur Leukocyte Esterase (Negative) Urine WBC (Auto) (0-5) /hpf Urine RBC (Auto) (0-4) /hpf U Hyaline Cast (Auto) (0-5) /lpf U Epithel Cells (Auto) (0-5) /lpf Urine Bacteria (Auto) (Negative) Urine Opiates Screen (Neg) U Codeine Confrm GC/MS Ur Morphine (GC/MS) Ur Hydrocodone (GC/MS) Ur Norhydrocodone Ur Noroxycodone Urine Oxycodone (GC/MS) U Oxymorphone GC/MS Ur Methadone, Qual (Neg) Ur Hydromorphone (GC/MS) Acetaminophen (10-30) ug/ml Urine Barbiturates (Neg) Ur Phencyclidine (PCP) (Neg) U Amphetamin/Meth Scrn (Neg) MDMA (Ecstasy) Screen (Neg) U Benzodiazepines Scrn (Neg) Ur Cocaine Metabolite (Neg) U Marijuana (THC) Screen (Neg) U Marijuana THC Carboxy Drug Screen Comment COVID-19 Eval Order SARS-CoV-2 (PCR) (Negative)
[2021-04-04] MEDS: SENNA 8.6 MG TAB PO SCH ×2 (09:40→20:42)
[2021-04-04] MEDS ORDERED: ALBUTEROL HFA 8 GM INHALER INH PRN (10:30)
[2021-04-04] MEDS ORDERED: IPRATROPIUM BROMIDE HFA INHALER INH PRN (10:31)
[2021-04-04] MEDS ORDERED: fentaNYL citrate 100 MCG/2 ML VIAL ONE (10:33)
--- NOTE | 2021-04-04 11:01 | History & Physical Bridge Note ---
Date of Service April 04, 2021 History & Physical Bridge Note I have examined the patient, reviewed the History & Physical and in the interval since the performance of the History & Physical I have noted the following changes of clinical significance: no changes noted
[2021-04-04] MEDS ORDERED: ATROPINE SULFATE 0.1 MG/ML 10ML SYR IV PRN (11:05)
[2021-04-04] MEDS ORDERED: ePHEDrine sulfate 50 MG/ML AMP IV PRN (11:05)
[2021-04-04] MEDS ORDERED: fentaNYL citrate 100 MCG/2 ML VIAL IV PRN (11:05)
[2021-04-04] MEDS ORDERED: LACTATED RINGER'S 1,000 ML IV SCH (11:15)
[2021-04-04] MEDS ORDERED: ONDANSETRON INJ 2 MG/ML 2 ML VIAL IV STA (11:29)
--- NOTE | 2021-04-04 11:31 | Anesthesiology Consultation ---
Date of Service April 04, 2021 Assessment & Plan ASA ASA3 Proposed Anesthesia Anesthesia Type: General Risk / Benefits Reviewed With: PT / POA / Parent / Guardian, Accepts Plan and Informed Consent Obtained History Surgery Operation Date: 04/04/21 07:00 Proposed Procedures p Endoscopic Retrograde Cholangiopancreatogram - Edenilson Royal MD Operation Date: 04/04/21 10:15 Proposed Procedures p Endoscopic Ultrasonography Upper - Edenilson Royal MD Height/Weight Height: 5 ft 1 in Weight: 47.9 kg Allergies Allergy/AdvReac Type Severity Reaction Status Date / Time prochlorperazine Allergy Mild flushed Verified 04/04/21 11:14 VIDA Inhibitors AdvReac Intermediate RAPID Verified 04/04/21 11:14 PULSE, BULGING EYES Medications Home Medications Medication Instructions Recorded Confirmed Last Taken aspirin 81 mg PO DAILY 02/06/19 04/03/21 Unknown hydroxychloroquine 200 mg PO DAILY 02/06/19 04/03/21 Unknown metoprolol succinate 12.5 mg PO BID 02/06/19 04/03/21 Unknown mirtazapine 7.5 mg PO HS 02/06/19 04/03/21 Unknown nitroglycerin 0.4 mg SUBLINGUAL USEASDIRECTD PRN 02/06/19 04/03/21 Unknown felodipine 10 mg PO HS 08/31/20 04/03/21 Unknown oxycodone [OxyContin] 40 mg PO TID 08/31/20 04/03/21 Unknown sennosides [senna] 8.6 mg PO BID 08/31/20 04/03/21 Unknown docusate sodium 100 mg PO BID #60 cap 09/03/20 04/03/21 Unknown hydralazine 25 mg PO BID 30 Days #60 tab 09/03/20 04/03/21 Unknown polyethylene glycol 3350 [Miralax] 17 g PO DAILY #30 ea 09/03/20 04/03/21 Unknown atorvastatin 40 mg PO HS 04/03/21 04/03/21 Unknown ipratropium-albuterol [Combivent 1 puff INHALATION QID 04/03/21 04/03/21 Unknown Respimat] lubiprostone 24 mcg PO DAILY 04/03/21 04/03/21 Unknown pantoprazole 40 mg PO DAILY 04/03/21 04/03/21 Unknown Active Medications Generic Name Dose Route Start Last Admin Trade Name Nima PRN Reason Stop Dose Admin Acetaminophen 650 mg 04/04/21 08:17 04/04/21 08:40 Acetaminophen 325 Mg Tab PO 05/04/21 08:16 650 mg Q4H PRN Administration Headache Aspirin 81 mg 04/04/21 09:00 04/04/21 08:41 Aspirin 81 Mg Ectab PO 05/04/21 08:59 81 mg DAILY SHAHLA Administration Docusate Sodium 100 mg 04/03/21 21:00 04/04/21 08:41 Docusate Sodium 100 Mg Cap PO 05/03/21 20:59 100 mg BID SHAHLA Administration Felodipine 10 mg 04/03/21 21:00 04/03/21 20:48 Felodipine 5 Mg Tabcr PO 05/03/21 20:59 10 mg HS SHAHLA Administration Hydralazine HCl 25 mg 04/03/21 21:00 04/04/21 08:42 Hydralazine Hcl 25 Mg Tab PO 05/03/21 20:59 25 mg BID SHAHLA Administration Hydroxychloroquine Sulfate 200 mg 04/04/21 09:00 04/04/21 08:42 Hydroxychloroquine Sulfate 200 Mg Tab PO 05/04/21 08:59 200 mg DAILY SHAHLA Administration Sodium Chloride 1,000 mls @ 125 mls/hr 04/03/21 19:35 04/04/21 11:07 Nss 1000ml IV 04/04/21 19:34 0 mls/hr .Q8H SHAHLA Infusion Piperacillin Sod/Tazobactam 115 mls @ 28.75 mls/hr 04/03/21 20:00 04/04/21 09:22 Sod 3.375 gm/ Dextrose IV 04/13/21 19:59 Infused Q8H SHAHLA Infusion Protocol Lubiprostone 24 mcg 04/04/21 09:00 04/04/21 08:42 Lubiprostone 8 Mcg Cap PO 05/04/21 08:59 24 mcg DAILY SHAHLA Administration Metoprolol Succinate 12.5 mg 04/03/21 21:00 04/04/21 08:43 Metoprolol Succ 25mg Ext Rel Tab PO 05/03/21 20:59 12.5 mg BID SHAHLA Administration Ondansetron HCl 4 mg 04/03/21 19:35 04/04/21 10:02 Ondansetron Inj 2 Mg/Ml 2 Ml Vial IV 05/03/21 19:34 4 mg Q4H PRN Administration Nausea And Vomiting Oxycodone HCl 40 mg 04/03/21 21:00 04/04/21 09:04 Oxycodone Hcl 40 Mg Tabcr (Oxycontin) PO 04/17/21 20:59 40 mg TID SHAHLA Administration Pantoprazole Sodium 40 mg 04/04/21 09:00 04/04/21 08:44 Pantoprazole 40 Mg Tab PO 05/04/21 08:59 40 mg DAILY SHAHLA Administration Polyethylene Glycol 17 gm 04/04/21 09:00 04/04/21 08:42 Polyethylene (Miralax) 17 Gm Pack PO 05/04/21 08:59 17 gm DAILY SHAHLA Administration Sennosides 8.6 mg 04/03/21 21:00 04/04/21 09:40 Senna 8.6 Mg Tab PO 05/03/21 20:59 Not Given BID SHAHLA NPO Date Last Intake of Fluids: 04/04/21 Time Last Intake of Fluids: 09:15 Date Last Intake of Solids: 04/02/21 Past Medical History Medical History Breast cancer CAD (coronary artery disease) "10/2013 - NSTEMI, s/p ADRIENNE to LAD" CAD (coronary artery disease) Chronic pain syndrome CKD (chronic kidney disease) CKD (chronic kidney disease), stage III Lupus (systemic lupus erythematosus) Exercise / Class Metabolic Activity II 4-5 Yardwork/Stairs/Walk up hill Past Family History Family History Father Lung cancer Sister Diabetes Past Surgical History Surgical History H/O lumpectomy H/O shoulder surgery History of appendectomy History of cholecystectomy History of coronary angioplasty hx of ADRIENNE in 2013 History of hysterectomy History of partial mastectomy of left breast History of partial thyroidectomy S/P tonsillectomy and adenoidectomy Past Anesthesia History No Hx of Anesthesia Complications and No Family Hx of Anesthesia Complications History of PONV No Hx of PONV and No Hx of Motion Sickness Social History Smoking Status: Former smoker Hx Alcohol Use: No Hx Substance Use: Yes substance use type: prescription drug Review of Systems denies fever/cough/ colds/ chest pain/ SOB/ KENYA denies KENYA Physical Exam Vital Signs Last Vital Signs Temp 36.9 C 04/04/21 11:18 Pulse 87 04/04/21 11:18 Resp 20 04/04/21 11:18 BP 122/63 04/04/21 11:18 Pulse Ox 94 04/04/21 11:18 ENMT Mouth: + edentulous; no TMJ abnormality and no dentition abnormality Thyromental Distance: > or= 3.5 Finger Breadths Mallampati Class: II Neck neck extension not limited Respiratory normal respiratory effort; no respiratory distress Auscultation: lungs clear to auscultation bilaterally Cardiovascular Rate/Rhythm: regular rate and regular rhythm Neurologic moves all extremities Psychiatric Orientation: alert and oriented x 3 Testing Laboratory Results 04/04/21 06:06 04/04/21 06:06 PT 12.1 Seconds (9.0-12.0) H 04/03/21 20:00 INR 1.2 (0.9-1.1) H 04/03/21 20:00 Urine Color Yellow 04/03/21 14:25 Urine Appearance Clear (Clear) 04/03/21 14:25 Urine pH 8.0 (4.5-7.5) H 04/03/21 14:25 Ur Specific [place] 1.011 (1.000-1.030) 04/03/21 14:25 Urine Protein Trace (Negative) H 04/03/21 14:25 Urine Glucose (UA) Negative (Negative) 04/03/21 14:25 Urine Ketones Negative (Negative) 04/03/21 14:25 Urine Nitrite Negative (Negative) 04/03/21 14:25 Ur Leukocyte Esterase Negative (Negative) 04/03/21 14:25 Urine WBC (Auto) 0 /hpf (0-5) 04/03/21 14:25 Urine RBC (Auto) 0-4 /hpf (0-4) 04/03/21 14:25 U Hyaline Cast (Auto) 0 /lpf (0-5) 04/03/21 14:25 U Epithel Cells (Auto) 5-10 /lpf (0-5) H 04/03/21 14:25 Urine Bacteria (Auto) Negative (Negative) 04/03/21 14:25
[2021-04-04] MEDS ORDERED: FAMOTIDINE/PF 20 MG/2 ML VIAL IV ONE (11:39)
[2021-04-04] MEDS ORDERED: FAMOTIDINE 20 MG in SYRINGE 3 ML IV ONE (11:45)
[2021-04-04] MEDS ORDERED: SUCCINYLCHOLINE CHLORIDE 20 MG/ML 10 ML VIAL IV ONE (12:18)
[2021-04-04] MEDS ORDERED: PROPOFOL IV EMULSION 10 MG/ML 20 ML VIAL IV ONE (12:18)
[2021-04-04] MEDS ORDERED: DEXAMETHASONE SOD INJ 4 MG/ML VIAL ONE (12:18)
[2021-04-04] MEDS ORDERED: LIDOCAINE 2% 2 ML VIAL/AMP(20MG/ML) INFIL ONE (12:18)
[2021-04-04] MEDS ORDERED: ONDANSETRON INJ 2 MG/ML 2 ML VIAL ONE (12:18)
[2021-04-04] MEDS ORDERED: INDOMETHACIN 50 MG SUPP PR ONE (12:27)
--- NOTE | 2021-04-04 12:54 | Operative Report ---
Post Operative Report Pre & Post Diagnosis Operation Date: 04/04/21 07:00 Pre-Op Diagnosis: Transaminitis, nausea, vomitting Post-Op Diagnosis: Transaminitis, nausea, vomitting Operation Date: 04/04/21 10:15 <No data on this case meets the specified criteria> I identified the patient and participated in the time-out.: Yes Procedure Operation Date: 04/04/21 07:00 Actual Procedures p Endoscopic Retrograde Cholangiopancreatogram, upper endoscopy, endoscopic ultrasound(Not Applicable) - Edenilson Royal MD Operation Date: 04/04/21 10:15 <No data on this case meets the specified criteria> Surgeon Edenilson Royal MD Road Roller Operator None Estimated Blood Loss 0 Findings See Below (CBD stone removed) Specimens Ampulla Description of Procedure EUS/ERCP I attest to the content of the Intraoperative Record and any orders documented therein. Any exceptions are noted below.
--- NOTE | 2021-04-04 12:58 | Hospitalist Progress Note ---
Date of Service April 04, 2021 Assessment & Plan (1) Hyperbilirubinemia: (2) Transaminitis: Reports today her symptoms are resolved. Appreciate GI input. Patient remains NPO. For EUS/ERCP today. Plan for outpatient colonoscopy. LFTs improved today. - Similar presentation last August where it was thought that she was passing biliary sludge, LFTs resolved spontaneously, s/p cholecystectomy in 2006 and appendectomy, pt is the only person in her household with these sx. - CT of the abdomen reviewed showing chronic biliary dilation -Continue with maintenance IV fluids at 125 mL/h. 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 S/p cholecystectomy Will c/w zosycn for now. (3) CAD (coronary artery disease): - hx of ADRIENNE -Continue BB, CCB, holding statin secondary to transaminitis as above - Last echo done in January 2019 with EF of 60-65%, septal wma consistent with conduction abnormality, Aortic valve sclerosis moderate, without significant aortic valvular stenosis. Mild tricuspid regurg, moderate size pleural effusion. Doppler findings do not suggest pulmonary hypertension (4) HTN (hypertension): -Continue metoprolol 12.5 mg twice daily, felodipine ER 10 mg at bedtime, hydralazine 25 mg twice daily (5) Aortic stenosis, mild: - [place] on exam, chronic (6) Lupus (systemic lupus erythematosus): - Continue Plaquenil and prednisone 10 mg daily (7) Raynauds syndrome: -Continue Plaquenil and prednisone (8) Chronic pain syndrome: -Takes OxyContin 40 mg 3 times daily for pain related to lupus and osteoarthritis. -PDMP checked -Treating constipation, encourage daily bowel regimen (9) Chronic constipation: -hx of such, has been ongoing for at least 6 months. Patient has not had a bowel movement in 3 to 4 days, reports that this is typical in the past few months. -CT abdomen reviewed, colon cancer has previously been considered on other CT scans however the patient refuses to undergo colonoscopy. If concerned for this, may warrant discussing again with the patient - Hx of gastroparesis as well - Continue amitiza, on medication review there is less than 1% change of hepatic involvement side effects. (10) CKD (chronic kidney disease), stage III: improing (11) DVT prophylaxis: - teds, scds CODE: DNR/DNI (12) Nausea and vomiting: (13) Uncomplicated opioid dependence: Admission and Anticipated Discharge Date Admission Date: April 03, 2021 Subjective Patient is doing okay this morning. Denies any further episodes of nausea or vomiting. Denies any abdominal pain or diarrhea. Denies any chest pain or shortness of breath. Denies any cough or sore throat. Rest of the review of system is negative. Review of Systems Review of Systems: All systems reviewed & are unremarkable except as noted in HPI & below Physical Exam Physical Exam: General: A&Ox3 HENT: NCAT, MMM, EOMI Eyes: PERRLA Neck: Supple, normal range of motion CVS: normal rate and rhythm Resp: b/l good breath sonds Abdomen: Soft, ND/NT, +BS Extremities: No c/c/e Neuro: face symmetric, no focal deficit Skin: warm and dry, no rashes/lesions/errythema MSK: normal ROM, no joint swelling/erythema Results & Data Results & Data ([facility]) Vital Signs (Past 12 Hours) Vital Signs Temp Pulse Pulse Resp BP Pulse Ox 04/04/21 11:18 36.9 C 87 20 122/63 94 04/04/21 11:15 36.9 C 79 18 150/84 H 96 04/04/21 08:00 60 04/04/21 03:05 36.8 C 65 16 110/59 L 95
[2021-04-04] MEDS ORDERED: GLUCAGON FOR INJ 1 MG VIAL ONE (13:09)
--- NOTE | 2021-04-04 13:13 | GI REPORT ---
Patient Name: Alena Avitia Procedure Date: 04/04/2021 11:12 AM Date of : 1935 Admit Type: Inpatient Age: 85 Gender: Female Attending MD: Edenilson Royal MD Procedure: Upper GI endoscopy Providers: Edenilson Royal MD Referring MD: Radha Pena Do, Brett Oesterling, Barry Mckenzie Md Indications: Epigastric abdominal pain Medicines: General Anesthesia Complications: No immediate complications. Estimated Blood Loss: Estimated blood loss: none. Procedure: Pre-Anesthesia Assessment: - Prior to the procedure, a History and Physical was performed, and patient medications, allergies and sensitivities were reviewed. The patient's tolerance of previous anesthesia was reviewed. - The risks and benefits of the procedure and the sedation options and risks were discussed with the patient. All questions were answered and informed consent was obtained. - Patient identification and proposed procedure were verified prior to the procedure by the physician and the nurse. The procedure was verified in the procedure room. - Pre-procedure physical examination revealed no contraindications to sedation. After obtaining informed consent, the endoscope was passed under direct vision. Throughout the procedure, the patient's blood pressure, pulse, and oxygen saturations were monitored continuously. The Endoscope was introduced through the mouth, and advanced to the second part of duodenum. After obtaining informed consent, the endoscope was passed under direct vision. Throughout the procedure, the patient's blood pressure, pulse, and oxygen saturations were monitored continuously. The upper GI endoscopy was accomplished without difficulty. The patient tolerated the procedure well. Findings: Esophagitis with no bleeding was found in the lower third of the esophagus. Biopsies were taken with a cold forceps for histology. Verification of patient identification for the specimen was done by the physician and nurse using the patient's name and date. The entire examined stomach was normal. The duodenal bulb and second portion of the duodenum were normal. Impression: - Reflux esophagitis. Biopsied. - Normal stomach. - Normal duodenal bulb and second portion of the duodenum. Recommendation: - Follow an antireflux regimen. - Use a proton pump inhibitor PO BID for 2 months. Edenilson Royal MD 04/04/2021 1:13:03 PM This report has been signed electronically. Note Initiated On: 04/04/2021 11:12 AM Number of Addenda: 0 I attest to the content of the Intraoperative Record and orders documented therein, exceptions below {[id number]}
--- NOTE | 2021-04-04 13:20 | GI REPORT ---
Patient Name: Alena Avitia Procedure Date: 04/04/2021 11:13 AM Date of : 1935 Admit Type: Inpatient Age: 85 Gender: Female Attending MD: Edenilson Royal MD Procedure: Upper EUS Providers: Edenilson Royal MD Referring MD: Barry Mckenzie Md, Jayden Solis Indications: Elevated liver enzymes, Suspected choledocholithiasis Medicines: General Anesthesia Complications: No immediate complications. Estimated Blood Loss: Estimated blood loss: none. Procedure: Pre-Anesthesia Assessment: - Prior to the procedure, a History and Physical was performed, and patient medications, allergies and sensitivities were reviewed. The patient's tolerance of previous anesthesia was reviewed. - The risks and benefits of the procedure and the sedation options and risks were discussed with the patient. All questions were answered and informed consent was obtained. - Patient identification and proposed procedure were verified prior to the procedure by the physician and the nurse. The procedure was verified in the procedure room. - Pre-procedure physical examination revealed no contraindications to sedation. After obtaining informed consent, the endoscope was passed under direct vision. Throughout the procedure, the patient's blood pressure, pulse, and oxygen saturations were monitored continuously. The scope was introduced through the mouth, and advanced to the second part of duodenum. The upper EUS was accomplished without difficulty. The patient tolerated the procedure well. Findings: ENDOSONOGRAPHIC FINDING: : There was no sign of significant endosonographic abnormality in the ampulla. No masses were identified. There was dilation in the common bile duct and diffusely throughout the intrahepatic bile duct(s) which measured up to 14 mm. Evidence of a previous cholecystectomy was identified endosonographically. One stone was visualized endosonographically in the common bile duct. It was hyperechoic. There was no sign of significant endosonographic abnormality in the visualized portion of the liver. There was no sign of significant endosonographic abnormality in the entire pancreas. The pancreatic duct measured up to 2 mm in diameter. There was no sign of significant endosonographic abnormality in the left adrenal gland. There was no sign of significant endosonographic abnormality involving the celiac trunk. An anechoic lesion suggestive of a cyst was identified in the kidney/right. Impression: - There was no sign of significant pathology in the ampulla. - There was dilation in the common bile duct and in the intrahepatic bile ducts, diffusely which measured up to 14 mm. - Evidence of a cholecystectomy. - One stone was visualized endosonographically in the common bile duct. - There was no evidence of significant pathology in the visualized portion of the liver. - There was no sign of significant pathology in the entire pancreas. - Endosonographic images of the left adrenal gland were unremarkable. - The celiac trunk was endosonographically normal. - Kidney cysts. Recommendation: - Perform an ERCP. Edenilson Royal MD 04/04/2021 1:19:36 PM This report has been signed electronically. Note Initiated On: 04/04/2021 11:13 AM Number of Addenda: 0 I attest to the content of the Intraoperative Record and orders documented therein, exceptions below {[id number]}
--- NOTE | 2021-04-04 13:25 | GI REPORT ---
Patient Name: Alena Avitia Procedure Date: 04/04/2021 11:14 AM Date of : 1935 Admit Type: Inpatient Age: 85 Gender: Female Attending MD: Edenilson Royal MD Procedure: ERCP Providers: Edenilson Royal MD Referring MD: Barry Mckenzie Md, Jayden Solis Indications: For therapy of bile duct stone(s), For therapy of ascending cholangitis Medicines: General Anesthesia Complications: No immediate complications. Estimated Blood Loss: Estimated blood loss: none. Procedure: Pre-Anesthesia Assessment: - Prior to the procedure, a History and Physical was performed, and patient medications, allergies and sensitivities were reviewed. The patient's tolerance of previous anesthesia was reviewed. - The risks and benefits of the procedure and the sedation options and risks were discussed with the patient. All questions were answered and informed consent was obtained. - Patient identification and proposed procedure were verified prior to the procedure by the physician and the nurse. The procedure was verified in the procedure room. - Pre-procedure physical examination revealed no contraindications to sedation. After obtaining informed consent, the scope was passed under direct vision. Throughout the procedure, the patient's blood pressure, pulse, and oxygen saturations were monitored continuously. The Scope was introduced through the mouth, and advanced to the duodenum and used to inject contrast into the bile duct. The ERCP was accomplished without difficulty. The patient tolerated the procedure well. Findings: A production broacher film of the abdomen was obtained. Surgical clips, consistent with a previous cholecystectomy, were seen in the area of the right upper quadrant of the abdomen. The esophagus was successfully intubated under direct vision. The scope was advanced to a normal major papilla in the descending duodenum without detailed examination of the pharynx, larynx and associated structures, and upper GI tract. The upper GI tract was grossly normal. The major papilla was prominent. A 0.035 inch straight standard wire was passed into the biliary tree. The Fusion OMNI sphincterotome was passed over the guidewire and the bile duct was then deeply cannulated. Contrast was injected. I personally interpreted the bile duct images. Ductal flow of contrast was adequate. Image quality was adequate. Contrast extended to the main bile duct. The main bile duct was dilated. The largest diameter was 14 mm. Biliary sphincterotomy was made with a monofilament traction (standard) sphincterotome using ERBE electrocautery. There was no post-sphincterotomy bleeding. The biliary tree was swept with a 15 mm balloon starting at the bifurcation. One stone was removed. No stones remained. Biopsies were taken in the area of the papilla through the ERCP scope with the cold forceps for histology. Verification of patient identification for the specimen was done by the physician and nurse using the patient's name and date. Impression: - Choledocholithiasis was found. Complete removal was accomplished by biliary sphincterotomy and balloon extraction. Recommendation: - Return patient to [facility] for ongoing care. - Await path results. Edenilson Royal MD 04/04/2021 1:24:47 PM This report has been signed electronically. Note Initiated On: 04/04/2021 11:14 AM Number of Addenda: 0 I attest to the content of the Intraoperative Record and orders documented therein, exceptions below {[id number]}
--- NOTE | 2021-04-04 13:32 | Fluoroscopy Report ---
[place] ERCP biliary ductal CLINICAL HISTORY: Elevated LFTsductal dilatation COMPARISON STUDY: Ultrasound dated 04/03/2021 FLUOROSCOPY TIME: 40 seconds. NUMBER OF FLUOROSCOPIC IMAGES: 12 FINDINGS: 12 fluoroscopic spot images are provided for interpretation. These demonstrate retrograde c atheterization of the common bile duct. There is mild common bile duct or intrahepatic biliary ductal dilatation. A balloon catheter appears to been swept through the duct. There are surgical clips from prior cholecystectomy. IMPRESSION: Fluoroscopic spot images obtained during ERCP. ACT 112: Negative or not required by law. Electronically signed by: Justino Helms M.D. 04/04/2021 1:31 PM
--- NOTE | 2021-04-04 14:40 | Anesthesiology Progress Note ---
Date of Service April 04, 2021 Anesthesia Post Procedure Vital Signs Vital Signs: Temp Pulse Pulse Resp BP BP Pulse Ox 04/04/21 14:14 37.3 C 56 L 20 157/70 H 97 04/04/21 13:51 37.1 C 59 L 20 160/67 H 98 04/04/21 13:20 64 18 147/68 H 96 04/04/21 13:10 63 15 146/72 H 98 04/04/21 13:01 36.8 C 68 16 139/64 100 04/04/21 11:18 36.9 C 87 20 122/63 94 04/04/21 11:15 36.9 C 79 18 150/84 H 96 04/04/21 08:00 60 04/04/21 03:05 36.8 C 65 16 110/59 L 95 04/03/21 23:00 36.8 C 61 20 99/54 L 95 04/03/21 22:33 36.8 C 62 18 128/68 96 04/03/21 21:41 56 L 04/03/21 20:51 37.3 C 59 L 18 191/75 H 99 04/03/21 19:10 58 L 18 164/62 H 98 04/03/21 16:40 37.5 C 64 18 150/86 H 98 Transfer of Care Handoff Completed per policy Notes Mental Status: alert / awake / arousable and participated in evaluation Patient Amnestic to Procedure: Yes Nausea / Vomiting: adequately controlled Pain: adequately controlled Airway Patency, RR, SpO2: stable & adequate BP & HR: stable & adequate Hydration State: stable & adequate Anesthetic Complications: no major complications apparent and Pt Satisfied with anesthetic care
[2021-04-04] MEDS: FELODIPINE 5 MG TABCR PO SCH (20:41)
[2021-04-05] MEDS: PIPERACILLIN/TAZOBACTAM 3.375 GM in DEXTROSE 5% 100 ML IV SCH (03:36)
[2021-04-05 05:42] LABS: Hematocrit (blood only) 28.3 % (37-47); Mean Corpuscular Hemoglobin 28.6 pg (25-34); Mean Corpuscular Hgb Conc 31.8 g/dL (32-36); Mean Corpuscular Volume 89.8 fL (80-100); Mean Platelet Volume 11.2 fL (7.4-10.4); Platelet Count 141 K/uL (130-400); RDW Coefficient of Variation 15.1 % (11.5-14.5); RDW Standard Deviation 49.2 fL (36.4-46.3); Red Blood Count 3.15 M/uL (4.2-5.4); White Blood Count 7.17 K/uL (4.8-10.8)
[2021-04-05 06:02] LABS: Albumin Level 2.8 gm/dl (3.4-5.0); BUN Creatinine Ratio 15.3 (10-20); Calcium 7.4 mg/dl (8.5-10.1); Creatinine Clr Calc Pharmacy 36.6 ml/min; Est GFR (African American) 44.4 ml/min; Est GFR (Non-African American) 38.3 ml/min; Potassium 4.3 mmol/L (3.5-5.1)
[2021-04-05 06:05] LABS: Bilirubin,Total 0.4 mg/dl (0.2-1); Globulin 2.9 gm/dl (2.5-4.0); Total Protein 5.7 gm/dl (6.4-8.2)
[2021-04-05] MEDS: METOPROLOL SUCC 25MG EXT REL TAB PO SCH (09:05)
[2021-04-05] MEDS: hydrALAZINE HCL 25 MG TAB PO SCH (09:05)
[2021-04-05] MEDS: HYDROXYCHLOROQUINE SULFATE 200 MG TAB PO SCH (09:05)
[2021-04-05] MEDS: SENNA 8.6 MG TAB PO SCH (09:05)
[2021-04-05] MEDS: DOCUSATE SODIUM 100 MG CAP PO SCH (09:05)
[2021-04-05] MEDS: LUBIPROSTONE 8 MCG CAP PO SCH (09:05)
[2021-04-05] MEDS: PANTOprazole 40 MG TAB PO SCH ×2 (09:05→09:10)
[2021-04-05] MEDS: ASPIRIN 81 MG ECTAB PO SCH (09:05)
[2021-04-05] MEDS: POLYETHYLENE (MIRALAX) 17 GM PACK PO SCH (09:09)
--- NOTE | 2021-04-05 09:09 | Gastroenterology Progress Note ---
Date of Service April 05, 2021 Assessment & Plan (1) Nausea and vomitin85 year old female presenting through the ED w/ fever, abd pain, nausea/vomiting noted to have leukocytosis, elevated transaminases and CT w/ biliary dilation and fecal impaction. EUS/ERCP performed yesterday - choledocholithiasis found, removed, LFTs trending down. Clinically well today, passed BM. - Trend LFTs - Advance diet as tolerated - PPI BID - Continue daily bowel regimen Miralax, Colace, Senna - Consider colonoscopy eval - GI to sign off; pls recall prn Admission and Anticipated Discharge Date Admission Date: April 03, 2021 Supervising Physician Co-Signing Physician Notes I have discussed the patient's management with the advanced practitioner. Pleas e refer to the nurse practitioner's note for the documented findings and plan of care. Subjective Pt doing well, denies acute issues overnight. Denies fever, chills, CP, SOB, abd pain, n/v, tolerating diet well this AM. Had BM. Review of Systems Review of Systems: All systems reviewed & are unremarkable except as noted in HPI & below Physical Exam Constitutional: WD/WN, vitals as above well groomed, cooperative and comfortable Eyes: PERRL, conjunctivae normal, anicteric sclerae ENMT: external ear and nose normal, oropharynx normal Respiratory: normal respiratory effort, lungs clear to auscultation Cardiovascular: RRR, no murmur, no edema Gastrointestinal (Abdomen): normal bowel sounds, soft, nontender, no hepatosplenomegaly Skin: no rashes, warm and dry no jaundice Psychiatric: A+Ox3, euthymic affect Lymphatic: no lymphedema Results & Data ([facility]) Vital Signs (Past 12 Hours) Vital Signs Temp Pulse Pulse Pulse Resp BP Pulse Ox 04/05/21 07:35 36.7 C 58 L 20 134/66 97 04/05/21 04:54 36.6 C 60 18 126/57 L 97 04/05/21 00:09 36.8 C 64 16 102/58 L 95 04/04/21 23:55 67 04/04/21 21:32 62 129/57 L
[2021-04-05] MEDS ORDERED: COUGH DROP (SUGAR FREE) LOZ 24 LOZ/1 BOX BUCCAL ONE (09:17)
--- NOTE | 2021-04-05 12:17 | Discharge Summary ---
Date of Service April 05, 2021 Admission HPI Per Admitting Provider This is an 85-year-old female with PMHx of HTN, HLD, CAD s/p ADRIENNE, aortic valve stenosis, history of NM, Raynaud's syndrome, sclerodactyly, lupus on chronic prednisone and Plaquenil, gastroparesis, CKD stage III, chronic pain syndrome, osteoarthritis, anemia, history of breast cancer, vitamin D deficiency who presents to the ER with acute nausea and vomiting. Pt notes her last BM wa 2-3 days ago. Patient has previously had a cholecystectomy but on admission her liver function tests are elevated. Total bili = 1.8, AST = 528, ALT = 450, alk phos = 343. COVID-19 negative. In August 2020 she had similarly elevated LFTs where she was diagnosed with an E. coli bacteremia with primary source being biliary, and it was thought that she was passing biliary sludge. Her LFTs improved spontaneously/ At that time 1 out of 2 cultures grew out E. coli which was sensitive to ceftriaxone, but resistant to multiple antibiotics, so she completed a 10d course of abx. Admission Exam Per Admitting Provider Physical exam reveals a thin cachectic elderly woman in no acute distress. Abdominal exam reveals slight fullness and tenderness to palpation in the epigastric and right upper quadrant area, otherwise normal and nondistended. Cardiopulmonary exam is normal. Principal Diagnosis Choledocholithiasis Discharge Exam General: A&Ox3 HENT: NCAT, MMM, EOMI Eyes: PERRLA Neck: Supple, normal range of motion CVS: normal rate and rhythm Resp: b/l good breath sonds Abdomen: Soft, ND/NT, +BS Extremities: No c/c/e Neuro: face symmetric, no focal deficit Skin: warm and dry, no rashes/lesions/errythema MSK: normal ROM, no joint swelling/erythema Discharge Data Allergies Allergy/AdvReac Type Severity Reaction Status Date / Time prochlorperazine Allergy Mild flushed Verified 04/04/21 11:14 VIDA Inhibitors AdvReac Intermediate RAPID Verified 04/04/21 11:14 PULSE, BULGING EYES Consultations 04/03/21 17:49 ED Decision to Admit Stat 04/03/21 19:35 Consult Gastroenterology Routine Procedures Performed Operation Date: 04/04/21 07:00 Actual Procedures p Endoscopic Retrograde Cholangiopancreatogram, upper endoscopy, endoscopic ultrasound(Not Applicable) - Edenilson Royal MD Operation Date: 04/04/21 10:15 <No data on this case meets the specified criteria> Ordered Studies 04/03/21 14:19 CT abd pelvis IV con only Stat 04/03/21 17:07 US liver Stat 04/04/21 09:19 FL ERCP biliary ductal Routine 04/04/21 11:10 US upper EUS PACS images Routine Hospital Course (1) Hyperbilirubinemia: (2) Transaminitis: S/P EGD and ERCP - Similar presentation last August where it was thought that she was passing b iliary sludge, LFTs resolved spontaneously, s/p cholecystectomy in 2006 and appendectomy, pt is the only person in her household with these sx. - CT of the abdomen reviewed showing chronic biliary dilation - Follow U/S liver - Stable chronic dilatation of intrahepatic and extrahepatic biliary ducts. S/p cholecystectomy. Patient was found to have reflux esophagitis plan is to continue with PPI twice daily for 2 months. ERCP was performed. Choledocholithiasis was found. Complete removal was accomplished by by recent sternotomy and balloon extraction. Pathology was pending at the time of discharge. Patient will need to follow-up with gastroenterology as an outpatient and needs colonoscopy. (3) CAD (coronary artery disease): - hx of ADRIENNE -Continue BB, CCB, holding statin secondary to transaminitis as above - Last echo done in January 2019 with EF of 60-65%, septal wma consistent with conduction abnormality, Aortic valve sclerosis moderate, without significant aortic valvular stenosis. Mild tricuspid regurg, moderate size pleural effusion. Doppler findings do not suggest pulmonary hypertension (4) HTN (hypertension): -Continue metoprolol 12.5 mg twice daily, felodipine ER 10 mg at bedtime, hydralazine 25 mg twice daily (5) Aortic stenosis, mild: - Sherman on exam, chronic (6) Lupus (systemic lupus erythematosus): - Continue Plaquenil and prednisone 10 mg daily (7) Raynauds syndrome: -Continue Plaquenil and prednisone (8) Chronic pain syndrome: -Takes OxyContin 40 mg 3 times daily for pain related to lupus and oste oarthritis. -PDMP checked -Treating constipation, encourage daily bowel regimen (9) Chronic constipation: -hx of such, has been ongoing for at least 6 months. Patient has not had a bowel movement in 3 to 4 days, reports that this is typical in the past few months. -CT abdomen reviewed, colon cancer has previously been considered on other CT scans however the patient refuses to undergo colonoscopy. - Hx of gastroparesis as well (10) CKD (chronic kidney disease), stage III: improing (11) Nausea and vomiting: (12) Uncomplicated opioid dependence: Total Time Total Time Spent Total Time Spent (In Minutes): 35 Discharge Plan Discharge Items Patient Disposition: Home - Self-Care Reason For Visit: TRNSAMINITIS,N/V Discharge Diagnosis: Choledocholithiasis Activity: Resume your previous activity Non-emergency contact: Primary Care Provider Call non-emergency contact if: your symptoms worsen Follow-up/Referrals: Jayden Solis MD [Primary Care Provider] - Diet: Heart Healthy Addtl Attending Provider Instructions: You will need to follow-up with your primary care physician and wet washer machine as an outpatient. You will need to have repeat liver function tests during your appointment when you see your primary care physician. Pending Studies at Discharge: Yes Stand-Alone Forms: My [facility] [place], Smoking Cessation Medications and DC Order Prescriptions: Continued oxycodone [OxyContin] 40 mg tablet,oral only,ext.rel.12 hr 40 mg PO TID RF: 0 sennosides [senna] 8.6 mg tablet 8.6 mg PO BID RF: 0 felodipine 10 mg tablet extended release 24 hr 10 mg PO HS RF: 0 hydralazine 25 mg Tablet 25 mg PO BID 30 Days Qty: 60 RF: 2 docusate sodium 100 mg Capsule 100 mg PO BID Qty: 60 RF: 2 polyethylene glycol 3350 [Miralax] 17 gram Powder In Packet 17 g PO DAILY Qty: 30 RF: 2 aspirin 81 mg Tablet,Delayed Release (Dr/Ec) 81 mg PO DAILY RF: 0 metoprolol succinate 25 mg tablet extended release 24 hr 12.5 mg PO BID RF: 0 hydroxychloroquine 200 mg tablet 200 mg PO DAILY RF: 0 mirtazapine 7.5 mg tablet 7.5 mg PO HS RF: 0 nitroglycerin 0.4 mg Tablet, Sublingual 0.4 mg sublingual USEASDIRECTD PRN (Reason: Chest Pain) RF: 0 atorvastatin 40 mg tablet 40 mg PO HS RF: 0 lubiprostone 24 mcg capsule 24 mcg PO DAILY RF: 0 Combivent Respimat 20-100 mcg/actuation mist 1 puff INHALATION QID RF: 0 Changed pantoprazole 40 mg tablet,delayed release (DR/EC) 40 mg PO BID Qty: 0 RF: 0 Discharge Orders: Discharge Order (Routine); Ordered 04/05/21 Ordered By: Barry Mckenzie Admission Data Admit Date/Time: 04/03/21 18:22 Attending Provider: Barry Mckenzie Admit Provider: Radha Pena Primary Care Provider: Jayden Solis Other Providers: Radha Pena ; Omar Basilio
[2021-04-05] MEDS ORDERED: PANTOprazole 40 MG TAB PO SCH (21:00)
[2021-04-06 08:29] LABS: Codeine Urine NEGATIVE ng/mL (<50); Hydrocodone Urine NEGATIVE ng/mL (<50); Hydromor Urine NEGATIVE ng/mL (<50); Marijuana Quant, GCMS Urine 21 ng/mL (<5); Morphine Urine NEGATIVE ng/mL (<50); Norhydrocodone Conf Ur NEGATIVE ng/mL (<50); Noroxycodone Urine 9880 ng/mL (<50); Oxycodone Urine 1700 ng/mL (<50); Oxymorph Urine 1160 ng/mL (<50)
== END 2021-04-05 13:00 | disposition home or self-care (01) | DRG 445 ==
LOC: ED 12:49 → 2N 18:22 → SUATTDRO 18:22 → 2N 19:13